=== PATIENT | female | born 1950 | race Caucasian/White ===

== ENCOUNTER 2016-04-05 13:35 | Inpatient (IN) ==
[2016-04-05] MEDS ORDERED: *HR* Midazolam HCl 5 MG/5 ML VIAL IVP ONE (15:45)
--- NOTE | 2016-04-05 16:28 | Pulmonology History & Physical ---
<Donna Richardson - Last Filed: 04/05/16 18:10> Date of Encounter: 04/05/16 Time of Encounter: 16:20 Assessment and Plan (1) Respiratory arrest Current visit: No Status: Acute Pt arrived at [facility] by private vehicle with decreased responsiveness Intubated at [facility] and subsequently transferred to [facility] She was given one dose of Rocephin in route to our facility Leukocytosis with WBC:11.4 Lactic acid 1.2 CTA demonstrated no evidence of pulmonary embolism, enlargement of the main pulmonary artery which is chronic, bilateral infiltrates and atelectatic changes worse in right lower lobe, no evidence of pleural disease, cardiomegaly and small pericardial effusion Head CT demonstrated no acute intracranial abnormality ET and OG tube placement confirmed with CXR and KUB. Sedated with Fentanyl and Propofol. 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 IVF hydration Repeat labs in morning (3) Diabetes Current visit: Yes Status: Acute Oral medications stopped SSI-medium dose at this time Continue to monitor glucose and make adjustments as needed Qualifiers: Diabetes mellitus type: type 2 Diabetes mellitus complication status: with unspecified complications Diabetes mellitus exterminator insulin use: with exterminator use Qualified Code(s): E11.8 - Type 2 diabetes mellitus with unspecified complications; Z79.4 - retirement (current) use of insulin (4) HTN (hypertension) Current visit: Yes Status: Acute Continue to monitor blood pressure Qualifiers: Hypertension type: essential hypertension Qualified Code(s): I10 - Essential (primary) hypertension (5) DVT prophylaxis Current visit: Yes Status: Acute Heparin SQ History of Present Illness Chief complaint: Respiratory arrest HPI: Ms. Vilchis is a 65 year old female with history, per family, significant for diabetes, HTN, Pacemaker placed 7 years ago due to AV conduction abnormality who presented to [facility] ED with decreased responsiveness. Family present on arrival and able to report events of this morning. Son went to pick pt up at her apartment, where she lives alone, to take her to a dentist appointment. Pt has difficulty walking long distances particularly over the last two weeks due to shortness of breath and she requires help to get in and out of vehicles. The son states that he was helping to get his mother in the car when she suddenly was unable to move herself at all. At that time, pt was still talking. Son reports that shortly after that, she was unable to talk, started drooling and her bottom lip started turning blue. At that time, pt rushed his mother to the ED where she was found to have decreased responsiveness. She was intubated at [facility]. CTA chest was completed which demonstrated no evidence of pulmonary emboli, enlargement of the main pulmonary artery which is chronic, bilateral infiltrates and atelectatic chnages worse in the right lower lobe, no evidence of pleural disease, cardiomegaly and small pericardial effusion. She was then transferred to [facility]. On arrival, pt was intubated, awake and moving all extremities. Past Med Surg Social Fam HX - Past Medical History Medical history: diabetes, hypertension - Social History Smoking Status: Unknown if ever smoked Smokeless Tobacco Status: No Medications and Allergies Atenolol [Tenormin] 25 mg PO DAILY 04/05/16 [History] Cyanocobalamin (Vitamin B-12) [Vitamin B-12] 1,000 mcg PO QAM 04/05/16 [History] Flecainide Acetate 150 mg PO QA 04/05/16 [History] Furosemide [Lasix] 40 mg PO DAILY 04/05/16 [History] Insulin DETEMIR [Levemir] 0 unit SQ HS 04/05/16 [History] Loratadine [Claritin] 10 mg PO QAM 04/05/16 [History] Lovastatin [Mevacor] 20 mg PO HS 04/05/16 [History] Metformin [Glucophage] 500 mg PO 0800 04/05/16 [History] Montelukast [Singulair] 10 mg PO HS 04/05/16 [History] SitaGLIPtin [Januvia] 100 mg PO DAILY 04/05/16 [History] Warfarin Sodium [Coumadin] 6 mg PO QAM 04/05/16 [History] Allergies No Known Allergies Allergy (Verified 02/09/15 08:14) ROS unobtainable: due to endotracheal tube All Systems: A 10-system review of systems was performed and is negative for pertinent findings except as documented above in the HPI. Physical Examination General appearance: no acute distress, other (Intubated, OG tube, pearce catheter in place) Eyes: nonicteric ENT: oropharynx moist Neck: supple Effort: other (Ventilator support) Auscultation: bilateral: rhonchi Cardiovascular: regular rate and rhythm, other (Pacemaker) Gastrointestinal: normoactive bowel sounds, soft, non-distended, other (obese) Extremities: cool (BLE cool to touch), cyanosis (Dusky discoloration of BLE) Musculoskeletal: no deformities Results - Laboratory Findings CBC and BMP: 04/05/16 16:17 04/05/16 16:17 Abnormal lab findings: Abnormal lab results POC Glucose 194 (58-89) H 04/05/16 15:57 <Nick Joshi W - Last Filed: 04/05/16 18:22> Date of Encounter: 04/05/16 History of Present Illness HPI: Ms. Vilchis is a 65 year old female Past Med Surg Social Fam HX - Family History Mother Adopted: No Age: 51 Living Status: Age at : 51 Cause of : cancer Hx Family Cancer: Yes All Systems: A 10-system review of systems was performed and is negative for pertinent findings except as documented above in the HPI. Physical Examination Vital Signs: Vital Signs, Last 4 Hours Temp Pulse Resp BP Pulse Ox 04/05/16 17:00 69 18 146/97 100 04/05/16 16:47 18 100 04/05/16 16:31 95.8 F L 69 17 146/90 100 04/05/16 16:24 100 04/05/16 16:00 95.8 F L 69 18 145/88 100 Results - Laboratory Findings CBC and BMP: 04/05/16 16:17 04/05/16 16:17 ABG ABG pH 7.37 pH Units (7.32-7.45) 04/05/16 17:15 ABG pCO2 42 mmHg (35-45) 04/05/16 17:15 ABG pO2 90 mmHg (85-104) 04/05/16 17:15 ABG O2 Saturation 97 % (95-98) 04/05/16 17:15 Abnormal lab findings: Abnormal lab results WBC 11.4 K/mcL (4.3-11.1) H 04/05/16 16:17 Hgb 10.6 g/dL (11.5-15.4) L 04/05/16 16:17 Hct 34.3 % (35.3-44.9) L 04/05/16 16:17 MCH 27.5 pg (28.0-33.3) L 04/05/16 16:17 MCHC 30.9 g/dL (31.6-35.5) L 04/05/16 16:17 Neutrophils # 9.5 K/mcL (1.6-8.9) H 04/05/16 16:17 Sodium 132 mEq/L (136-145) L 04/05/16 16:17 Potassium 5.2 mEq/L (3.5-4.5) H 04/05/16 16:17 BUN 26 mg/dL (7-20) H 04/05/16 16:17 Creatinine 1.27 mg/dL (0.57-1.11) H 04/05/16 16:17 Est GFR ( Amer) 51 (> 60) L 04/05/16 16:17 Est GFR (Non-Af Amer) 42 (> 60) L 04/05/16 16:17 Glucose 199 mg/dL (70-99) H 04/05/16 16:17 POC Glucose 194 (58-89) H 04/05/16 15:57 Serum Osmolality 302 mOsm/kg (280-300) H 04/05/16 16:17 Globulin 3.6 g/dL (2.4-3.5) H 04/05/16 16:17 Albumin/Globulin Ratio 1.0 (1.1-2.2) L 04/05/16 16:17 Salicylates < 5.0 mg/dL (15-30) L 04/05/16 16:17 Acetaminophen 1.0 mcg/mL (10-30) L 04/05/16 16:17 U Benzodiazepines Scrn Positive ng/mL (Ulzmuo=388) H 04/05/16 16:40 - Attending Attestation I examined this patient and my medical decision-making was reviewed with the MENTAL HEALTH PRACTITIONER/PA/Advanced Practice Nurse/Resident Physician. I agree with the documented findings, disposition and treatment plan as described except to the extent set forth below. I spent 35min of Critical Care time with this patient. It involved decision making of high complexity to assess, manipulate, and support vital organ system failure and/or to prevent further life threatening deterioration of the patient' s condition. The time involved in the performance of separately reportable procedures was not counted toward critical care time. Patient seen and examined at bedside Labs, radiology, chart personally reviewed. All lines examined without evidence of infection. Neuropsych: acutely unresponsive ?related to developing sepsis with SIDDHARTH and medication effect. Sedated on vent. Purposeful in all exts PEERL. No acute CVA on head CT. Personal hsitory of acute greiving without history of suicidal ideation or attempt per family. Called pharmacy to confirm medications and OARRS. Family to retrieve home medication bottles as able. History of Asthma as outpatient but has no caused significant problems in past and no wheezing on exam today Pulm: Acute respiratory failure now intubated on vent acceptable oxygenation/ ventilation on minimal ventilatory support. No PE or clear PNA. cont LTV ventilation strategy. History of EJ on CPAP. Cards: PPM placed for AV condution delay. no clear STEMI on ECG (LBBB morphology at baseline) and trop not significantly elevated. Hisory of HFpEF hemodynamically stable FEN-GI: NPO for now. GI prophylaxis. Renal: AGMA with SIDDHARTH. Lactate wnl and no DKA. urine panel otherwise unremarkable. No history of ingestions. resolving with improving SIDDHARTH with hydration. ID: Concern for Sepsis covering for CAP organisms broad cultures pending including respiratory infectious panel. Heme/Onc: Afib on LTA sub therapeutic. No bridge DVT prophylaxis for now. Endo: DM2 on Insulin glucose monitored Integ/MSK: No evidence of skin breakdown cont ICU protocol for ulcer prevention. CODE: DNRCCA confirmed with daughter who is HKPOA
[2016-04-05] MEDS: FentaNYL (PF) 1,000 MCG in 0.9 % Sodium Chloride 80 ML IVC SCH (16:30)
[2016-04-05] MEDS ORDERED: Naloxone 0.4 MG/ML INJ IVP PRN (16:46)
[2016-04-05 16:51] LABS: Ethanol < 10 mg/dL (0-10); Salicylate < 5.0 mg/dL (15-30)
[2016-04-05 17:00] LABS: Amphetamine Screen,Urine Negative ng/mL (Cutoff=1000); Barbiturate Screen,Urine Negative ng/mL (Cutoff=200); Benzodiazepines Screen,Urine Positive ng/mL (Cutoff=200); Cannabinoid Screen,Urine Negative ng/mL (Cutoff = 50); Cocaine Screen,Urine Negative ng/mL (Cutoff= 300); Opiate Screen,Urine Negative ng/mL (Cutoff=300); Phencyclidine Screen,Urine Negative ng/mL (Cutoff=25)
[2016-04-05] MEDS ORDERED: Azithromycin 500 MG in D5% in Water 250 ML IVPB SCH (17:00)
[2016-04-05] MEDS ORDERED: *HR* Dextrose 50 % in Water (Syg) 50 ML SYRINGE IVP PRN (17:02)
[2016-04-05] MEDS ORDERED: Dextrose Gel 15 GM PO PRN ×2 (17:02)
[2016-04-05] MEDS ORDERED: D5% in Water 1,000 ML IV PRN (17:02)
[2016-04-05 17:23] LABS: Basophils % 0.2 %; Eosinophils % 0.1 %; Hematocrit 34.3 % (35.3-44.9); Hemoglobin 10.6 g/dL (11.5-15.4); Immature Granulocytes % 0.4 % (0-4); Immature Platelets 3.3 % (1.1-6.1); Lymphocytes % 9.1 %; Mean Corpuscular HGB Conc 30.9 g/dL (31.6-35.5); Mean Corpuscular Hemoglobin 27.5 pg (28.0-33.3); Mean Corpuscular Volume 88.9 fL (83.0-100.0); Mean Platelet Volume 10.2 fL (9.4-12.4); Monocytes # 0.8 K/mcL (0.0-1.3); Monocytes % 6.8 %; Neutrophils # 9.5 K/mcL (1.6-8.9); Platelet Count 247 K/mcL (140-400); Red Blood Count 3.86 M/mcL (3.82-4.97); Red Cell Distribution Width 13.9 % (11.5-14.5); Segmented Neutrophils % 83.4 %
[2016-04-05 17:25] LABS: ABG HCO3 24.3 mEQ/L (21-27); ABG Oxygen Saturation 97 % (95-98); ABG PCO2 42 mmHg (35-45); ABG PH 7.37 pH Units (7.32-7.45); ABG PO2 90 mmHg (85-104); ABG TCO2 25.6 mEq/L (20-26)
[2016-04-05 17:25] LABS: Osmolality,Urine 728 mOsm/kg (300-1090)
[2016-04-05 17:26] LABS: Blood Gas FiO2 50 %
[2016-04-05 17:28] LABS: Carboxyhemoglobin 2.3 % (0-5); Methemoglobin 0.4 % (0.4-1.5)
[2016-04-05] MEDS ORDERED: Ringers Solution, Lactated 1,000 ML IVC SCH (17:30)
[2016-04-05 17:32] LABS: Alanine Aminotransferase 13 Units/L (0-55); Albumin 3.5 g/dL (3.5-5.0); Alkaline Phosphatase 76 Units/L (38-126); Aspartate Amino Transferase 17 Units/L (5-34); BUN/Creatinine Ratio 20 (6-26); Bilirubin,Total 0.5 mg/dL (0.2-1.2); Blood Urea Nitrogen 26 mg/dL (7-20); Carbon Dioxide 22 mEq/L (19-29); Chloride 101 mEq/L (98-109); Globulin 3.6 g/dL (2.4-3.5); Glucose 199 mg/dL (70-99); Osmolality,Calculated 284 (280-300); Potassium 5.2 mEq/L (3.5-4.5); Sodium 132 mEq/L (136-145); Total Protein 7.1 g/dL (6.0-8.3); eGFR For African Americans 51 (> 60); eGFR For Non-African Americans 42 (> 60)
[2016-04-05 18:26] LABS: Adenovirus Not Detected (Not Detect); Bordetella Pertussis Not Detected (Not Detect); Chlamydophila pneumoniae Not Detected (Not Detect); Coronavirus 229E Not Detected (Not Detect); Coronavirus HKU1 Not Detected (Not Detect); Coronavirus NL63 Not Detected (Not Detect); Coronavirus OC43 Not Detected (Not Detect); Human Metapneumovirus Not Detected (Not Detect); Human Rhinovirus/Enterovirus Not Detected (Not Detect); Influenza A Subtype 2009 H1 Not Detected (Not Detect); Influenza A Untypeable Not Detected (Not Detect); Influenza B Not Detected (Not Detect); Mycoplasma pneumoniae Not Detected (Not Detect); Parainfluenza Virus 1 Not Detected (Not Detect); Parainfluenza Virus 2 Not Detected (Not Detect); Parainfluenza Virus 3 Not Detected (Not Detect); Parainfluenza Virus 4 Not Detected (Not Detect); Respiratory Syncytial Virus Not Detected (Not Detect)
[2016-04-05] MEDS: Insulin LISPRO 300 UNITS/3 ML VIAL SQ SCH ×3 (19:00→23:49)
[2016-04-05] MEDS: 0.9 % Sodium Chloride 1,000 ML IVC SCH (20:03)
[2016-04-05] MEDS: Lacri-Lube 3.5 GM TUBE BOTH EYES SCH (20:03)
[2016-04-05] MEDS: Chlorhexidine Rinse 15 ML MOUTHWASH MM SCH (20:03)
[2016-04-05 21:21] LABS: Calcium 9.2 mg/dL (8.6-10.8)
[2016-04-05] MEDS: Ampicillin/Sulbactam 3,000 MG in 0.9 % Sodium Chloride Mini Bag 100 ML IVPB SCH (23:20)
[2016-04-05] MEDS: *HR* Heparin 5,000 UNIT/ML VIAL SQ SCH (23:20)
[2016-04-06 03:36] LABS: Basophils % 0.2 %; Eosinophils % 0.1 %; Hematocrit 32.2 % (35.3-44.9); Hemoglobin 10.3 g/dL (11.5-15.4); Immature Granulocytes % 0.3 % (0-4); Lymphocytes # 1.3 K/mcL (0.6-4.6); Lymphocytes % 10.5 %; Mean Corpuscular Hemoglobin 27.8 pg (28.0-33.3); Mean Corpuscular Volume 86.8 fL (83.0-100.0); Mean Platelet Volume 9.9 fL (9.4-12.4); Monocytes # 0.8 K/mcL (0.0-1.3); Monocytes % 6.7 %; Platelet Count 193 K/mcL (140-400); Red Blood Count 3.71 M/mcL (3.82-4.97); Red Cell Distribution Width 13.7 % (11.5-14.5); Segmented Neutrophils % 82.2 %
[2016-04-06 03:40] LABS: Ionized Calcium 1.12 mmol/L (1.15-1.35)
[2016-04-06 03:54] LABS: BUN/Creatinine Ratio 23 (6-26); Blood Urea Nitrogen 21 mg/dL (7-20); Calcium 8.7 mg/dL (8.6-10.8); Carbon Dioxide 20 mEq/L (19-29); Chloride 105 mEq/L (98-109); Glucose 92 mg/dL (70-99); Magnesium 1.6 mg/dL (1.6-2.6); Osmolality,Calculated 283 (280-300); Phosphorous 4.2 mg/dL (2.3-4.7); Potassium 4.7 mEq/L (3.5-4.5); Sodium 135 mEq/L (136-145); eGFR For African Americans > 60 (> 60); eGFR For Non-African Americans > 60 (> 60)
[2016-04-06 03:58] LABS: INR 1.7
[2016-04-06 04:01] LABS: Activated Partial Thrombo Time 29.3 Seconds (26.0-36.0)
[2016-04-06] MEDS: 0.9 % Sodium Chloride 1,000 ML IVC SCH (04:16)
[2016-04-06] MEDS: Insulin LISPRO 300 UNITS/3 ML VIAL SQ SCH ×5 (04:59→21:37)
[2016-04-06 05:18] LABS: ABG Base Excess 0.8 mEq/L (-2.0 to 3.0); ABG Oxygen Saturation 98 % (95-98); ABG PCO2 43 mmHg (35-45); ABG PH 7.39 pH Units (7.32-7.45); ABG PO2 99 mmHg (85-104); ABG TCO2 27.3 mEq/L (20-26)
[2016-04-06 05:19] LABS: Blood Gas FiO2 40 %
[2016-04-06] MEDS: FentaNYL (PF) 1,000 MCG in 0.9 % Sodium Chloride 80 ML IVC SCH (05:36)
[2016-04-06] MEDS: *HR* Heparin 5,000 UNIT/ML VIAL SQ SCH ×2 (06:05→17:23)
[2016-04-06] MEDS: Ampicillin/Sulbactam 3,000 MG in 0.9 % Sodium Chloride Mini Bag 100 ML IVPB SCH (06:05)
--- NOTE | 2016-04-06 06:55 | Pulmonology Progress Note ---
<Donna Richardson - Last Filed: 04/06/16 11:31> Date of Encounter: 04/06/16 Time of Encounter: 06:40 Assessment and Plan (1) Respiratory arrest Current Visit: No Status: Acute Pt arrived at [place] ED by private vehicle with decreased responsiveness Intubated at [place] and subsequently transferred to [facility] She was given one dose of Rocephin in route to our facility Leukocytosis with WBC:12.2 CTA demonstrated no evidence of pulmonary embolism, enlargement of the main pulmonary artery which is chronic, bilateral infiltrates and atelectatic changes worse in right lower lobe, no evidence of pleural disease, cardiomegaly and small pericardial effusion Head CT demonstrated no acute intracranial abnormality ET and OG tube placement confirmed with CXR and KUB. 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 IVF hydration with NS at 125/hr overnight Protonix for GI prophylaxis SIDDHARTH on arrival, IVF overnight, creatinine 0.9 this morning, continue to monitor with repeat labs in morning Unasyn and Azithromycin for empirical antibiotic coverage Hgb stable at 10.3 SSI-medium dose, continue to monitor glucose and make adjustments as necessary (2) SIDDHARTH (acute kidney injury) Current Visit: Yes Status: Acute Creatinine 0.9 today after IVF rehydration overnight Repeat labs in morning (3) Diabetes Current Visit: Yes Status: Acute Oral medications stopped SSI-medium dose at this time Continue to monitor glucose and make adjustments as needed Qualifiers: Diabetes mellitus type: type 2 Diabetes mellitus complication status: with unspecified complications Diabetes mellitus regional intermodal truck driver insulin use: with regional intermodal truck driver use Qualified Code(s): E11.8 - Type 2 diabetes mellitus with unspecified complications; Z79.4 - extermination supervisor (current) use of insulin (4) HTN (hypertension) Current Visit: Yes Status: Acute Continue to monitor blood pressure Qualifiers: Hypertension type: essential hypertension Qualified Code(s): I10 - Essential (primary) hypertension (5) DVT prophylaxis Current Visit: Yes Status: Acute Chronically anticoagulated on coumadin INR:1.7 today Will restart coumadin today with a 2mg dose and recheck INR in the morning Subjective Principal diagnosis: Acute Respiratory Failure Interval history: Pt is intubated and sedated. She is able to open her eyes, respond to questioning by nodding head, and move all extremities. Objective PUL Vital signs: Last Vital Signs Temp 98.4 F 04/06/16 04:18 Pulse 69 04/06/16 06:00 Resp 18 04/06/16 06:00 BP 104/60 04/06/16 06:00 Pulse Ox 97 04/06/16 06:00 General appearance: no acute distress, other (Intubated, OG tube and Garcia catheter in place) Eyes: nonicteric ENT: oropharynx moist Neck: supple Effort: other (Ventilator support) Auscultation: bilateral: rhonchi Cardiovascular: other (Paced rhythm) Gastrointestinal: normoactive bowel sounds, soft, non-tender, other (obesees) Extremities: no clubbing, pink and warm, pulses normal, edema (2+ edema BLE ) Musculoskeletal: no deformities Ventilator Settings Ventilator Settings: Ventilator Settings, Last 8 Hours Ventilator Mode A/C Ventilator Mode A/C Ventilator Mode A/C Ventilator Mode A/C Ventilator Mode A/C Ventilator Mode A/C Ventilator Mode A/C Ventilator Mode A/C Ventilator Mode A/C Ventilator Mode A/C Ventilator Mode A/C Ventilator Tidal Volume 400 Setting Ventilator Tidal Volume 400 Setting Ventilator Tidal Volume 400 Setting Ventilator Tidal Volume 400 Setting Ventilator Tidal Volume 400 Setting Ventilator Tidal Volume 400 Setting Ventilator Tidal Volume 400 Setting Ventilator Tidal Volume 400 Setting Ventilator Tidal Volume 400 Setting Ventilator Tidal Volume 400 Setting Ventilator Tidal Volume 400 Setting Ventilator Respiratory Rate 18 Setting Ventilator Respiratory Rate 18 Setting Ventilator Respiratory Rate 18 Setting Ventilator Respiratory Rate 18 Setting Ventilator Respiratory Rate 18 Setting Ventilator Respiratory Rate 18 Setting Ventilator Respiratory Rate 18 Setting Ventilator Respiratory Rate 18 Setting Ventilator Respiratory Rate 18 Setting Ventilator Respiratory Rate 18 Setting Ventilator Respiratory Rate 18 Setting Actual Respiratory Rate 18 Actual Respiratory Rate 18 Actual Respiratory Rate 31 Positive End Expiratory 5 Pressure Positive End Expiratory 5 Pressure Positive End Expiratory 5 Pressure Positive End Expiratory 5 Pressure Positive End Expiratory 5 Pressure Positive End Expiratory 5 Pressure Positive End Expiratory 5 Pressure Positive End Expiratory 5 Pressure Positive End Expiratory 5 Pressure Positive End Expiratory 5 Pressure Positive End Expiratory 5 Pressure Peak Inspiratory Airway 24 Pressure Peak Inspiratory Airway 35 Pressure Peak Inspiratory Airway 34 Pressure Results - Laboratory Findings CBC and BMP: 04/06/16 03:25 04/06/16 03:25 ABG ABG pH 7.39 pH Units (7.32-7.45) 04/06/16 05:10 ABG pCO2 43 mmHg (35-45) 04/06/16 05:10 ABG pO2 99 mmHg (85-104) 04/06/16 05:10 ABG O2 Saturation 98 % (95-98) 04/06/16 05:10 PT/INR, D-dimer PT 19.0 Seconds (9.4-12.1) H 04/06/16 03:25 Abnormal lab findings: Abnormal lab results WBC 12.2 K/mcL (4.3-11.1) H 04/06/16 03:25 RBC 3.71 M/mcL (3.82-4.97) L 04/06/16 03:25 Hgb 10.3 g/dL (11.5-15.4) L 04/06/16 03:25 Hct 32.2 % (35.3-44.9) L 04/06/16 03:25 MCH 27.8 pg (28.0-33.3) L 04/06/16 03:25 Neutrophils # 10.0 K/mcL (1.6-8.9) H 04/06/16 03:25 PT 19.0 Seconds (9.4-12.1) H 04/06/16 03:25 ABG Total CO2 27.3 mEq/L (20-26) H 04/06/16 05:10 Sodium 135 mEq/L (136-145) L 04/06/16 03:25 Potassium 4.7 mEq/L (3.5-4.5) H 04/06/16 03:25 BUN 21 mg/dL (7-20) H 04/06/16 03:25 POC Glucose 98 (58-89) H 04/06/16 04:52 Serum Osmolality 302 mOsm/kg (280-300) H 04/05/16 16:17 Ionized Calcium 1.12 mmol/L (1.15-1.35) L 04/06/16 03:25 Globulin 3.6 g/dL (2.4-3.5) H 04/05/16 16:17 Albumin/Globulin Ratio 1.0 (1.1-2.2) L 04/05/16 16:17 Salicylates < 5.0 mg/dL (15-30) L 04/05/16 16:17 Acetaminophen 1.0 mcg/mL (10-30) L 04/05/16 16:17 U Benzodiazepines Scrn Positive ng/mL (Dlaofm=378) H 04/05/16 16:40 - Clinical Findings Intake & Output: Intake & Output 04/05/16 04/05/16 04/06/16 15:59 23:59 07:59 Intake Total 317.8 / 317.8 1334.2 / 1334.2 Output Total 290 / 290 300 / 300 Balance 27.8 / 27.8 1034.2 / 1034.2 Weight 137.5 kg 139.979 kg Consult Discharge Plan - Plan Referrals: NO,PCP [Primary Care Provider] - <Nick Joshi - Last Filed: 04/06/16 13:38> Date of Encounter: 04/06/16 Objective PUL Vital signs: Last Vital Signs Temp 98.6 F 04/06/16 07:50 Pulse 70 04/06/16 08:00 Resp 25 04/06/16 08:18 BP 134/71 04/06/16 08:00 Pulse Ox 100 04/06/16 08:54 Ventilator Settings Ventilator Settings: Ventilator Settings, Last 8 Hours Ventilator Mode A/C Ventilator Mode A/C Ventilator Mode A/C Ventilator Mode A/C Ventilator Mode A/C Ventilator Mode A/C Ventilator Mode A/C Ventilator Mode A/C Ventilator Mode A/C Ventilator Mode A/C Ventilator Tidal Volume 400 Setting Ventilator Tidal Volume 400 Setting Ventilator Tidal Volume 400 Setting Ventilator Tidal Volume 400 Setting Ventilator Tidal Volume 400 Setting Ventilator Tidal Volume 400 Setting Ventilator Tidal Volume 400 Setting Ventilator Tidal Volume 400 Setting Ventilator Tidal Volume 400 Setting Ventilator Tidal Volume 400 Setting Ventilator Respiratory Rate 18 Setting Ventilator Respiratory Rate 18 Setting Ventilator Respiratory Rate 18 Setting Ventilator Respiratory Rate 18 Setting Ventilator Respiratory Rate 18 Setting Ventilator Respiratory Rate 18 Setting Ventilator Respiratory Rate 18 Setting Ventilator Respiratory Rate 18 Setting Ventilator Respiratory Rate 18 Setting Ventilator Respiratory Rate 18 Setting Actual Respiratory Rate 18 Actual Respiratory Rate 18 Actual Respiratory Rate 28 Actual Respiratory Rate 18 Actual Respiratory Rate 18 Positive End Expiratory 5 Pressure Positive End Expiratory 5 Pressure Positive End Expiratory 5 Pressure Positive End Expiratory 5 Pressure Positive End Expiratory 5 Pressure Positive End Expiratory 5 Pressure Positive End Expiratory 5 Pressure Positive End Expiratory 5 Pressure Positive End Expiratory 5 Pressure Positive End Expiratory 5 Pressure Peak Inspiratory Airway 14 Pressure Peak Inspiratory Airway 29 Pressure Peak Inspiratory Airway 38 Pressure Peak Inspiratory Airway 24 Pressure Peak Inspiratory Airway 35 Pressure Results - Laboratory Findings CBC and BMP: 04/06/16 03:25 04/06/16 03:25 ABG ABG pH 7.39 pH Units (7.32-7.45) 04/06/16 05:10 ABG pCO2 43 mmHg (35-45) 04/06/16 05:10 ABG pO2 99 mmHg (85-104) 04/06/16 05:10 ABG O2 Saturation 98 % (95-98) 04/06/16 05:10 PT/INR, D-dimer PT 19.0 Seconds (9.4-12.1) H 04/06/16 03:25 Abnormal lab findings: Abnormal lab results WBC 12.2 K/mcL (4.3-11.1) H 04/06/16 03:25 RBC 3.71 M/mcL (3.82-4.97) L 04/06/16 03:25 Hgb 10.3 g/dL (11.5-15.4) L 04/06/16 03:25 Hct 32.2 % (35.3-44.9) L 04/06/16 03:25 MCH 27.8 pg (28.0-33.3) L 04/06/16 03:25 Neutrophils # 10.0 K/mcL (1.6-8.9) H 04/06/16 03:25 PT 19.0 Seconds (9.4-12.1) H 04/06/16 03:25 ABG Total CO2 27.3 mEq/L (20-26) H 04/06/16 05:10 Sodium 135 mEq/L (136-145) L 04/06/16 03:25 Potassium 4.7 mEq/L (3.5-4.5) H 04/06/16 03:25 BUN 21 mg/dL (7-20) H 04/06/16 03:25 POC Glucose 126 (58-89) H 04/06/16 07:58 Serum Osmolality 302 mOsm/kg (280-300) H 04/05/16 16:17 Ionized Calcium 1.12 mmol/L (1.15-1.35) L 04/06/16 03:25 Globulin 3.6 g/dL (2.4-3.5) H 04/05/16 16:17 Albumin/Globulin Ratio 1.0 (1.1-2.2) L 04/05/16 16:17 Salicylates < 5.0 mg/dL (15-30) L 04/05/16 16:17 Acetaminophen 1.0 mcg/mL (10-30) L 04/05/16 16:17 U Benzodiazepines Scrn Positive ng/mL (Ngzapp=471) H 04/05/16 16:40 - Clinical Findings Intake & Output: Intake & Output 04/05/16 04/06/16 04/06/16 23:59 07:59 15:59 Intake Total 317.8 / 317.8 1334.2 / 1334.2 Output Total 290 / 290 400 / 400 Balance 27.8 / 27.8 934.2 / 934.2 Weight 137.5 kg 139.979 kg - Attending Attestation I examined this patient and my medical decision-making was reviewed with the SUPPLEMENTAL NURSE/PA/Advanced Practice Nurse/Resident Physician. I agree with the documented findings, disposition and treatment plan as described except to the extent set forth below. Patient seen and examined at bedside Labs, radiology, chart personally reviewed. All lines examined without evidence of infection. Neuropsych: somnolence likely medication affect coupled with siddharth. No fully awake and alert. 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 Liberaed from vent. Doing well on 2LNC wean to goal Spo2% approx 92-94%. Start Bronchodilators History of EJ cont CPAP at night. Cards: PPM placed for AV condution delay. no clear STEMI on ECG (LBBB morphology at baseline) and trop not significantly elevated. Hisory of HFpEF hemodynamically stable FEN-GI: ADAT Renal: AGMA with SIDDHARTH (and mild osmolar gap) resolved with fluids ID: Concern for Sepsis possible s/t to dental infection. deescalate to Augmentin pending eval by dentist Heme/Onc: Afib on LTA sub therapeutic. No bridge DVT prophylaxis for now. Restart warfarin Endo: DM2 on Insulin glucose monitored Integ/MSK: No evidence of skin breakdown cont ICU protocol for ulcer prevention. CODE: DNRCCA Medically stable for transfer to [facility]
[2016-04-06] MEDS: Lacri-Lube 3.5 GM TUBE BOTH EYES SCH (08:16)
[2016-04-06] MEDS: Chlorhexidine Rinse 15 ML MOUTHWASH MM SCH (08:16)
[2016-04-06] MEDS ORDERED: *HR* Warfarin 2 MG TABLET PO ONE ×3 (08:27→18:00)
[2016-04-06] MEDS ORDERED: Ipratropium/Albuterol Neb 3 ML ONE (08:41)
[2016-04-06] MEDS ORDERED: Pantoprazole 40 MG VIAL IVPB SCH (09:00)
[2016-04-06] MEDS ORDERED: Ipratropium/Albuterol Neb 3 ML IH SCH (10:00)
[2016-04-06] MEDS ORDERED: *HR* Morphine 2 MG/ML SYRINGE IVP PRN ×2 (11:10→13:33)
[2016-04-06] MEDS ORDERED: *HR* HYDROcodone/Acet 5/325 mg TABLET PO PRN ×2 (11:11→13:33)
[2016-04-06] MEDS ORDERED: D5% in Water 1,000 ML IV PRN (13:33)
[2016-04-06] MEDS ORDERED: *HR* Dextrose 50 % in Water (Syg) 50 ML SYRINGE IVP PRN (13:33)
[2016-04-06] MEDS ORDERED: Dextrose Gel 15 GM PO PRN ×2 (13:33)
[2016-04-06] MEDS ORDERED: Naloxone 0.4 MG/ML INJ IVP PRN (13:33)
[2016-04-06] MEDS: Ipratropium/Albuterol Neb 3 ML IH SCH (16:18)
--- NOTE | 2016-04-06 16:50 | Electrocardiograph Report ---
[place] [id number] Test Date: 2016-04-05 Pat Name: Marixa Vilchis Department: 109 Room: [facility] Gender: F Machine Former: : 1950 Requested By: Donna Richardson Order Number: [id number] Reading MD: Lyndsey Landon Measurements Intervals [place] Rate: 69 P: 89 AK: 140 QRS: 142 QRSD: 93 T: 105 QT: 399 QTc: 419 Interpretive Statements AV SEQUENTIAL OR DUAL CHAMBER ELECTRONIC PACEMAKER Electronically Signed On 04-06-2016 16:48:59 EST by Lyndsey Landon
[2016-04-07] MEDS: *HR* Heparin 5,000 UNIT/ML VIAL SQ SCH ×4 (00:04→23:59)
[2016-04-07] MEDS: Ipratropium/Albuterol Neb 3 ML IH SCH ×5 (00:12→20:12)
[2016-04-07] MEDS: Insulin LISPRO 300 UNITS/3 ML VIAL SQ SCH ×6 (01:01→21:05)
[2016-04-07 06:59] LABS: Basophils % 0.1 %; Eosinophils # 0.1 K/mcL (0.0-0.6); Eosinophils % 0.7 %; Hematocrit 30.8 % (35.3-44.9); Hemoglobin 9.4 g/dL (11.5-15.4); Immature Granulocytes % 0.4 % (0-4); Lymphocytes # 1.4 K/mcL (0.6-4.6); Lymphocytes % 20.2 %; Mean Corpuscular HGB Conc 30.5 g/dL (31.6-35.5); Mean Corpuscular Hemoglobin 27.4 pg (28.0-33.3); Mean Corpuscular Volume 89.8 fL (83.0-100.0); Monocytes # 0.6 K/mcL (0.0-1.3); Monocytes % 9.5 %; Neutrophils # 4.7 K/mcL (1.6-8.9); Platelet Count 170 K/mcL (140-400); Red Blood Count 3.43 M/mcL (3.82-4.97); Red Cell Distribution Width 14.2 % (11.5-14.5); Segmented Neutrophils % 69.1 %
[2016-04-07 07:01] LABS: INR 1.9; Prothrombin Time 21.2 Seconds (9.4-12.1)
[2016-04-07 07:11] LABS: BUN/Creatinine Ratio 19 (6-26); Blood Urea Nitrogen 20 mg/dL (7-20); Carbon Dioxide 21 mEq/L (19-29); Chloride 105 mEq/L (98-109); Glucose 203 mg/dL (70-99); Osmolality,Calculated 290 (280-300); Potassium 4.7 mEq/L (3.5-4.5); Sodium 136 mEq/L (136-145); eGFR For African Americans > 60 (> 60); eGFR For Non-African Americans 51 (> 60)
--- NOTE | 2016-04-07 18:20 | Internal Med Progress Note ---
Date of Encounter: 04/07/16 Time of Encounter: 18:13 - Assessment and plan (1) SIDDHARTH (acute kidney injury) Current Visit: Yes Status: Acute Assessment and plan: resolved. 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 was intubated at [place] and was admitted to AICU. she was extubated yesterday and was transferred to floors yesterday. given mild wheezing, will increase the duonebs frequency. sating fine on 2-3 L. Leukocytosis has improved. Antibiotics has been D escalated to augmentin. (5) Atrial fibrillation Current Visit: Yes Status: Acute Assessment and plan: rate controlled on flecainide,will continue that. will restart warfarin today. Qualifiers: Atrial fibrillation type: chronic Qualified Code(s): I48.2 - Chronic atrial fibrillation (6) EJ (obstructive sleep apnea) Current Visit: Yes Status: Acute Assessment and plan: on CPAP at night. will consult respiratory for CPAP placement at night. - Time Spent With Patient 25 - 35 minutes - Subjective Interval history: First encounter with the patient. Patient seen at the bedside, noted to speaking in short sentences and appears dyspneic Denies any chest pain, reports that she is coughing and bringing up productive sputum. - Constitutional Vitals: Temp Pulse Resp BP Pulse Ox 98.2 F 71 19 132/77 96 04/07/16 16:07 04/07/16 16:07 04/07/16 16:07 04/07/16 16:07 04/07/16 16:07 General appearance: Present: mild distress, A&O X 3 Exam: Eyes: nonicteric ENT: oropharynx moist Neck: supple Auscultation: bilateral: rhonchi Cardiovascular: other (Paced rhythm) Gastrointestinal: normoactive bowel sounds, soft, non-tender, other (obesees) Extremities: no clubbing, pink and warm, pulses normal, edema (2+ edema BLE ) Musculoskeletal: no deformities Internal Medicine: Result - Labs CBC & Chem 7: 04/07/16 06:31 04/07/16 06:31 Labs: Short CBC 04/07/16 Range/Units 06:31 WBC 6.7 (4.3-11.1) K/mcL Hgb 9.4 L (11.5-15.4) g/dL Hct 30.8 L (35.3-44.9) % Plt Count 170 (140-400) K/mcL Neutrophils # 4.7 (1.6-8.9) K/mcL BMP 04/07/16 06:31 Sodium 136 Potassium 4.7 H Chloride 105 Carbon Dioxide 21 BUN 20 Creatinine 1.08 Glucose 203 H Calcium 9.0 - ABG Interpretation ABG results: ABG ABG pH 7.39 pH Units (7.32-7.45) 04/06/16 05:10 ABG pCO2 43 mmHg (35-45) 04/06/16 05:10 ABG pO2 99 mmHg (85-104) 04/06/16 05:10 ABG O2 Saturation 98 % (95-98) 04/06/16 05:10 PT/INR, D-dimer PT 21.2 Seconds (9.4-12.1) H 04/07/16 06:31 Consult Discharge Plan - Plan Referrals: NO,PCP [Primary Care Provider] -
[2016-04-07] MEDS: *HR* Warfarin 2.5 MG TABLET PO SCH (21:04)
[2016-04-08] MEDS: Ipratropium/Albuterol Neb 3 ML IH SCH ×6 (00:13→20:43)
[2016-04-08] MEDS: Insulin LISPRO 300 UNITS/3 ML VIAL SQ SCH ×6 (00:41→21:35)
[2016-04-08 08:29] LABS: Basophils % 0.2 %; Eosinophils # 0.1 K/mcL (0.0-0.6); Eosinophils % 0.8 %; Hematocrit 31.7 % (35.3-44.9); Hemoglobin 9.8 g/dL (11.5-15.4); Immature Granulocytes % 0.6 % (0-4); Lymphocytes # 1.3 K/mcL (0.6-4.6); Lymphocytes % 15.2 %; Mean Corpuscular HGB Conc 30.9 g/dL (31.6-35.5); Mean Corpuscular Hemoglobin 26.9 pg (28.0-33.3); Mean Corpuscular Volume 87.1 fL (83.0-100.0); Mean Platelet Volume 9.2 fL (9.4-12.4); Monocytes # 0.8 K/mcL (0.0-1.3); Monocytes % 9.7 %; Neutrophils # 6.2 K/mcL (1.6-8.9); Platelet Count 198 K/mcL (140-400); Red Blood Count 3.64 M/mcL (3.82-4.97); Red Cell Distribution Width 14.1 % (11.5-14.5); Segmented Neutrophils % 73.5 %
[2016-04-08 08:42] LABS: BUN/Creatinine Ratio 18 (6-26); Blood Urea Nitrogen 16 mg/dL (7-20); Calcium 9.5 mg/dL (8.6-10.8); Carbon Dioxide 23 mEq/L (19-29); Chloride 105 mEq/L (98-109); Glucose 155 mg/dL (70-99); Osmolality,Calculated 290 (280-300); Potassium 4.8 mEq/L (3.5-4.5); Sodium 138 mEq/L (136-145); eGFR For African Americans > 60 (> 60); eGFR For Non-African Americans > 60 (> 60)
[2016-04-08] MEDS: *HR* Heparin 5,000 UNIT/ML VIAL SQ SCH ×3 (08:59→22:46)
--- NOTE | 2016-04-08 13:04 | Internal Med Progress Note ---
Date of Encounter: 04/08/16 Time of Encounter: 13:02 - Assessment and plan (1) SIDDHARTH (acute kidney injury) Current Visit: Yes Status: Acute Assessment and plan: resolved. 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 was intubated at [place] and was admitted to AICU. she was extubated and was transferred to floors . sating fine on 2-3 L. Leukocytosis has improved. Antibiotics has been D escalated to augmentin. (5) Atrial fibrillation Current Visit: Yes Status: Acute Assessment and plan: rate controlled on flecainide,will continue that. restarted warfarin Qualifiers: Atrial fibrillation type: chronic Qualified Code(s): I48.2 - Chronic atrial fibrillation (6) EJ (obstructive sleep apnea) Current Visit: Yes Status: Acute Assessment and plan: on CPAP at night. will consult respiratory for CPAP placement at night. (7) (HFpEF) heart failure with preserved ejection fraction Current Visit: Yes Status: Acute Assessment and plan: h/o HFpEF normal LVEF will restart her home dose of lasix. has b/l lower leg swelling , does not have pulmonary congestion at this time. continue the BB and statin - Time Spent With Patient 25 - 35 minutes - Subjective Interval history: Patient seen at the bedside, appears much better today. Denies any chest pain, reports that she is coughing and bringing up productive sputum. - Constitutional Vitals: Temp Pulse Resp BP Pulse Ox 98.1 F 74 18 138/80 95 04/08/16 11:51 04/08/16 11:51 04/08/16 11:51 04/08/16 11:51 04/08/16 11:51 General appearance: Present: A&O X 3, no acute distress Exam: Eyes: nonicteric ENT: oropharynx moist Neck: supple Auscultation: bilateral: occ rhonchi Cardiovascular: other (Paced rhythm) Gastrointestinal: normoactive bowel sounds, soft, non-tender, other (obesees) Extremities: no clubbing, pink and warm, pulses normal, edema (2+ edema BLE ) Musculoskeletal: no deformities Internal Medicine: Result - Labs CBC & Chem 7: 04/08/16 08:10 04/08/16 08:18 Labs: Short CBC 04/08/16 Range/Units 08:10 WBC 8.4 (4.3-11.1) K/mcL Hgb 9.8 L (11.5-15.4) g/dL Hct 31.7 L (35.3-44.9) % Plt Count 198 (140-400) K/mcL Neutrophils # 6.2 (1.6-8.9) K/mcL BMP 04/08/16 08:18 Sodium 138 Potassium 4.8 H Chloride 105 Carbon Dioxide 23 BUN 16 Creatinine 0.90 Glucose 155 H Calcium 9.5 - ABG Interpretation ABG results: ABG ABG pH 7.39 pH Units (7.32-7.45) 04/06/16 05:10 ABG pCO2 43 mmHg (35-45) 04/06/16 05:10 ABG pO2 99 mmHg (85-104) 04/06/16 05:10 ABG O2 Saturation 98 % (95-98) 04/06/16 05:10 PT/INR, D-dimer PT 21.2 Seconds (9.4-12.1) H 04/07/16 06:31 Consult Discharge Plan - Plan Referrals: NO,PCP [Primary Care Provider] -
[2016-04-08] MEDS: Furosemide 40 MG TABLET PO SCH (13:12)
[2016-04-08] MEDS ORDERED: traZODone 50 MG TABLET PO PRN (13:24)
[2016-04-08] MEDS: *HR* Warfarin 2.5 MG TABLET PO SCH (17:22)
[2016-04-09] MEDS: Ipratropium/Albuterol Neb 3 ML IH SCH ×6 (00:28→20:04)
[2016-04-09] MEDS: Insulin LISPRO 300 UNITS/3 ML VIAL SQ SCH ×6 (01:15→22:00)
[2016-04-09] MEDS: *HR* Heparin 5,000 UNIT/ML VIAL SQ SCH (06:19)
[2016-04-09 06:57] LABS: BUN/Creatinine Ratio 15 (6-26); Blood Urea Nitrogen 13 mg/dL (7-20); Calcium 9.3 mg/dL (8.6-10.8); Carbon Dioxide 26 mEq/L (19-29); Chloride 103 mEq/L (98-109); Glucose 137 mg/dL (70-99); Osmolality,Calculated 288 (280-300); Potassium 4.5 mEq/L (3.5-4.5); Sodium 138 mEq/L (136-145); eGFR For African Americans > 60 (> 60); eGFR For Non-African Americans > 60 (> 60)
[2016-04-09 07:22] LABS: Basophils % 0.2 %; Eosinophils # 0.1 K/mcL (0.0-0.6); Eosinophils % 1.4 %; Hematocrit 29.9 % (35.3-44.9); Hemoglobin 9.2 g/dL (11.5-15.4); Immature Granulocytes % 0.4 % (0-4); Lymphocytes # 1.1 K/mcL (0.6-4.6); Lymphocytes % 14.2 %; Mean Corpuscular HGB Conc 30.8 g/dL (31.6-35.5); Mean Corpuscular Volume 87.7 fL (83.0-100.0); Mean Platelet Volume 10.1 fL (9.4-12.4); Monocytes # 0.8 K/mcL (0.0-1.3); Monocytes % 9.7 %; Platelet Count 219 K/mcL (140-400); Red Blood Count 3.41 M/mcL (3.82-4.97); Red Cell Distribution Width 14.1 % (11.5-14.5); Segmented Neutrophils % 74.1 %
[2016-04-09] MEDS: Furosemide 40 MG TABLET PO SCH (09:18)
[2016-04-09 10:37] LABS: Prothrombin Time 21.5 Seconds (9.4-12.1)
[2016-04-09] MEDS ORDERED: Acetaminophen 325 MG TABLET PO PRN (14:29)
[2016-04-09] MEDS ORDERED: *HR* HYDROcodone/Acet 5/325 mg TABLET PO PRN (14:32)
[2016-04-09] MEDS: *HR* Warfarin 2.5 MG TABLET PO SCH (17:08)
--- NOTE | 2016-04-09 17:13 | Internal Med Progress Note ---
Date of Encounter: 04/09/16 Time of Encounter: 17:11 - Assessment and plan (1) SIDDHARTH (acute kidney injury) Current Visit: Yes Status: Acute Assessment and plan: resolved. 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 was intubated at [facility] [facility] and was admitted to AICU. she was extubated and was transferred to floors . sating fine on 2-3 L. Leukocytosis has improved. Antibiotics has been D escalated to augmentin. (5) Atrial fibrillation Current Visit: Yes Status: Acute Assessment and plan: rate controlled on flecainide and atenolol, will continue that. restarted warfarin, INR therapeutic at 2 today. Qualifiers: Atrial fibrillation type: chronic Qualified Code(s): I48.2 - Chronic atrial fibrillation (6) EJ (obstructive sleep apnea) Current Visit: Yes Status: Acute Assessment and plan: on CPAP at night when necessary at home. CPAP at bedtime. (7) (HFpEF) heart failure with preserved ejection fraction Current Visit: Yes Status: Acute Assessment and plan: h/o HFpEF normal LVEF will restart her home dose of lasix. Lower leg swelling has improved , does not have pulmonary congestion at this time. continue the BB and statin - Time Spent With Patient 25 - 35 minutes - Subjective Interval history: Patient seen at the bedside, appears much better today. Denies any chest pain, reports mild cough, the edema has improved. Seen by PT OT, who recommended discharge to [facility], patient requested to go to [place]. Awaiting clearance by social work. - Constitutional Vitals: Temp Pulse Resp BP Pulse Ox 98.3 F 68 20 118/70 95 04/09/16 16:55 04/09/16 16:55 04/09/16 16:55 02/13/17 16:55 04/09/16 16:55 General appearance: Present: A&O X 3, no acute distress Exam: Eyes: nonicteric ENT: oropharynx moist Neck: supple Auscultation: bilateral: occ rhonchi Cardiovascular: other (Paced rhythm) Gastrointestinal: normoactive bowel sounds, soft, non-tender, no organomegaly. Extremities: no clubbing, pink and warm, pulses normal, no edema Internal Medicine: Result - Labs CBC & Chem 7: 04/09/16 06:14 04/09/16 06:14 Labs: Short CBC 04/09/16 Range/Units 06:14 WBC 8.1 (4.3-11.1) K/mcL Hgb 9.2 L (11.5-15.4) g/dL Hct 29.9 L (35.3-44.9) % Plt Count 219 (140-400) K/mcL Neutrophils # 6.0 (1.6-8.9) K/mcL BMP 04/09/16 06:14 Sodium 138 Potassium 4.5 Chloride 103 Carbon Dioxide 26 BUN 13 Creatinine 0.84 Glucose 137 H Calcium 9.3 - ABG Interpretation ABG results: ABG ABG pH 7.39 pH Units (7.32-7.45) 04/06/16 05:10 ABG pCO2 43 mmHg (35-45) 04/06/16 05:10 ABG pO2 99 mmHg (85-104) 04/06/16 05:10 ABG O2 Saturation 98 % (95-98) 04/06/16 05:10 PT/INR, D-dimer PT 21.5 Seconds (9.4-12.1) H 04/09/16 10:25 Consult Discharge Plan - Plan Referrals: NO,PCP [Primary Care Provider] -
[2016-04-09] MEDS ORDERED: Insulin DETEMIR 100 UNIT/ML X5UNITS SQ SCH (21:00)
[2016-04-10] MEDS: Ipratropium/Albuterol Neb 3 ML IH SCH ×6 (00:20→21:32)
[2016-04-10 06:38] LABS: INR 2.4; Prothrombin Time 26.2 Seconds (9.4-12.1)
[2016-04-10] MEDS ORDERED: Furosemide 40 MG TABLET PO SCH (09:12)
[2016-04-10] MEDS ORDERED: Furosemide 20 MG TABLET PO SCH (09:12)
[2016-04-10] MEDS: Insulin LISPRO 300 UNITS/3 ML VIAL SQ SCH ×4 (09:18→20:52)
[2016-04-10] MEDS: Furosemide 40 MG TABLET PO SCH (09:31)
[2016-04-10] MEDS ORDERED: clonazePAM 0.5 MG TABLET PO PRN (13:45)
--- NOTE | 2016-04-10 15:25 | Discharge Summary ---
Date of Encounter: 04/10/16 Time of Encounter: 08:35 - Discharge Diagnosis (1) Respiratory arrest Priority: Primary Status: Acute (2) (HFpEF) heart failure with preserved ejection fraction Priority: Secondary Status: Acute (3) SIDDHARTH (acute kidney injury) Priority: Secondary Status: Acute (4) Atrial fibrillation Priority: Secondary Status: Acute Qualifiers: Atrial fibrillation type: chronic Qualified Code(s): I48.2 - Chronic atrial fibrillation (5) Diabetes Priority: Secondary Status: Acute Qualifiers: Diabetes mellitus type: type 2 Diabetes mellitus complication status: with unspecified complications 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 With Escherichia coli - Discharge Medications Prescriptions: Cefdinir [Omnicef] 300 mg PO BID #10 capsule Doxycycline Hyclate 100 mg PO BID #10 tablet Furosemide [Lasix] 60 mg PO DAILY #2 tablet Home Medications: Atenolol [Tenormin] 25 mg PO DAILY 04/05/16 [History] Cyanocobalamin (Vitamin B-12) [Vitamin B-12] 1,000 mcg IM QMONTH 04/05/16 [ History] Flecainide Acetate 150 mg PO BID 04/05/16 [History] Insulin DETEMIR [Levemir] 45 unit SQ HS 04/05/16 [History] Loratadine [Claritin] 10 mg PO QAM 04/05/16 [History] Lovastatin [Mevacor] 20 mg PO DAILY 04/05/16 [History] Montelukast [Singulair] 10 mg PO HS 04/05/16 [History] SitaGLIPtin [Januvia] 100 mg PO DAILY 04/05/16 [History] Albuterol Sulfate [Proair Hfa] 2 puff IH Q4H PRN 04/06/16 [History] Beclomethasone Diprop 80mcg [QVAR 80 mcg] 1 puff IH BID 04/06/16 [History] Metformin HCl [Metformin HCl ER] 2,000 mg PO QPM 04/06/16 [History] Warfarin [Coumadin] 1.5 mg PO DAILY 04/06/16 [History] Cefdinir [Omnicef] 300 mg PO BID #10 capsule 04/10/16 [Rx] Doxycycline Hyclate 100 mg PO BID #10 tablet 04/10/16 [Rx] Furosemide [Lasix] 40 mg PO DAILY #0 04/10/16 [Rx] Furosemide [Lasix] 60 mg PO DAILY #2 tablet 04/10/16 [Rx] GuaiFENesin/Dextromethorphan [Robitussin/Dm] 10 ml PO Q6HR PRN #0 udc 04/10/16 [ Rx] Allergies/Adverse Reactions: Allergies No Known Allergies Allergy (Verified 02/09/15 08:14) Date of admission: 04/05/16 15:41 Primary care physician: PCP NO Consults: 04/05/16 17:04 Consult to Forging Engineer [CONS] Routine Reason for SW Consult: May need additional assistance once patient is discharged. 04/08/16 09:21 Consult to Occupational Therapy [CONS] Routine Comment: Evaluate, develop and implement POC Consult to Physical Therapy [CONS] Routine Comment: Evaluate, develop and implement POC 04/10/16 11:50 Consult to Respiratory Therapy [CONS] Routine Reason for Consult: Please add acapella treatment to aerosol treatments Q4. Time Notified: 11:51 Call Completed: No Discharging clinician: Adam Diehl Anticipated date of discharge: 04/10/16 - Patient Status Disposition: Transfer SNF Condition: Good Functional capacity at discharge: uses cane/walker Overall status at discharge: patient is progressing back to baseline - Discharge Instructions Instructions: Atrial Fibrillation (DC), Chronic Hypertension (DC) Follow Up With: NO,PCP [Primary Care Provider] - (Follow-up with PCP in 1-2 weeks) - Diet and Activity Activity: as per physical therapy, wear oxygen at all times Diet: diabetic diet, low fat, low cholesterol, low salt diet, other (Fluid restriction to 2 L per day) Hospital course: Ms. Vilchis is a 65 year old female with history of diabetes mellitus type 2, hypertension, permanent pacemaker for AV conduction abnormality was admitted here with respiratory arrest and decreased responsiveness. She required intubation and mechanical ventilation initially. She underwent a CT angiogram of the chest which did not show any pulmonary emboli with bilateral infiltrates/ atelectatic changes were secondary to lower lobe. He did not have any significant decline in urine function and was able to her extremities at the time of initial evaluation here. She was then treated for respiratory failure and Leukocytosis. She received Rocephin and azithromycin for empiric antibiotics. She was extubated the next day and then transitioned to nasal cannula and transferred to the floor. On presentation she also had acute kidney injury which resolved with IV fluids. Her blood cultures have been negative. Her urine culture was positive for Escherichia coli sensitive to cephalosporins. She has a history of chronic atrial fibrillation and her heart rate has been well controlled. She is on flecainide and atenolol. She is also on anticoagulation with Coumadin and her INR is therapeutic. Presently the patient is on home oral medications and is clinically stable for discharge. She was evaluated by physical therapy and recommended placement to skilled rehabilitation. She will be discharged to skilled rehabilitation and she has a bed available. She will complete antibiotic course for her UTI. - Time Spent with Patient Total time spent providing and/or coordinating discharge services: Greater than 30 minutes (40 min) - Constitutional Vitals: Temp Pulse Resp BP Pulse Ox 98.3 F 69 16 122/73 95 04/10/16 12:21 04/10/16 12:21 04/10/16 12:21 04/10/16 12:21 04/10/16 12:21 General appearance: Present: cooperative, A&O X 3, pleasant, no acute distress, answers questions appropriately - Respiratory Respiratory exam: Present: CTAB. Absent: accessory muscle use, rales, rhonchi, wheezes Additional comments: Decreased inspiratory depth - Cardiovascular Cardiovascular exam: Present: irregular rhythm, +S1, +S2. Absent: diastolic murmur, gallop, rubs, systolic murmur - GI/Abdominal GI/Abdominal exam: Present: normal bowel sounds, soft, no peritoneal signs. Absent: distended, tenderness - Extremities Exam Extremities exam: Present: warm, radial pulses palpable and symetrical. Absent : calf tenderness, cyanotic, pedal edema - Attending Attestation This document has been at least partially created by pushd recognition technology by Dr. Diehl. Errors in grammar, wording or other phrases may exist. If errors are found after the documentation is signed, they will be addressed individually in the addendum section of this document when appropriate.
--- NOTE | 2016-04-10 15:42 | Physician Discharge Referral ---
ExtendedCare Referral Info Provider in Charge after Transfer: PCP Institutional Level of Care: Skilled - Diagnosis (1) Respiratory arrest Priority: Primary Status: Acute (2) (HFpEF) heart failure with preserved ejection fraction Priority: Secondary Status: Acute (3) SIDDHARTH (acute kidney injury) Priority: Secondary Status: Acute (4) Atrial fibrillation Priority: Secondary Status: Acute (5) Diabetes Priority: Secondary Status: Acute (6) EJ (obstructive sleep apnea) Priority: Secondary Status: Acute (7) HTN (hypertension) Priority: Secondary Status: Acute (8) Acute cystitis with hematuria Priority: Secondary Status: Acute Prognosis: Fair Aware of Diagnosis: Patient, Family Aware of Prognosis: Patient, Family - Transfer Medications Prescriptions: Cefdinir [Omnicef] 300 mg PO BID #10 capsule Doxycycline Hyclate 100 mg PO BID #10 tablet Furosemide [Lasix] 60 mg PO DAILY #2 tablet Home Medications: Atenolol [Tenormin] 25 mg PO DAILY 04/05/16 [History] Cyanocobalamin (Vitamin B-12) [Vitamin B-12] 1,000 mcg IM QMONTH 04/05/16 [ History] Flecainide Acetate 150 mg PO BID 04/05/16 [History] Insulin DETEMIR [Levemir] 45 unit SQ HS 04/05/16 [History] Loratadine [Claritin] 10 mg PO QAM 04/05/16 [History] Lovastatin [Mevacor] 20 mg PO DAILY 04/05/16 [History] Montelukast [Singulair] 10 mg PO HS 04/05/16 [History] SitaGLIPtin [Januvia] 100 mg PO DAILY 04/05/16 [History] Albuterol Sulfate [Proair Hfa] 2 puff IH Q4H PRN 04/06/16 [History] Beclomethasone Diprop 80mcg [QVAR 80 mcg] 1 puff IH BID 04/06/16 [History] Metformin HCl [Metformin HCl ER] 2,000 mg PO QPM 04/06/16 [History] Warfarin [Coumadin] 1.5 mg PO DAILY 04/06/16 [History] Cefdinir [Omnicef] 300 mg PO BID #10 capsule 04/10/16 [Rx] Doxycycline Hyclate 100 mg PO BID #10 tablet 04/10/16 [Rx] Furosemide [Lasix] 40 mg PO DAILY #0 04/10/16 [Rx] Furosemide [Lasix] 60 mg PO DAILY #2 tablet 04/10/16 [Rx] GuaiFENesin/Dextromethorphan [Robitussin/Dm] 10 ml PO Q6HR PRN #0 udc 04/10/16 [ Rx] Allergies/Adverse Reactions: Allergies No Known Allergies Allergy (Verified 02/09/15 08:14) - Respiratory Orders Oxygen / L per min (2), Other (CPAP by lying down at 5 cm water pressure) Smoking Cessation: Smoking cessation has been advised. For more information, call the [place] Tobacco Quit Line at 2-711-HFUR-NOW. - Lab Orders Lab Orders: Other (include drug levels w/frequency) (Basic panel on 04/16/2016) - Advance Directives Code Status: DNR-Arrest (DNR CC arrest) - Mobility Orders Other (Per physical therapy evaluation Physical) - Rehabiliation Orders Rehab Potential: Fair Rehab Orders: Evaluation for Physical Therapy, Evaluation for Occupational Therapy - Treatments List/Other: Fluid restriction to 2 L per day - Diet Orders Cardiac (And diabetic) CERTIFICATION: I certify that the transfer of the above named patient to an Extended Care Facility is necessary for the continuing treatment of the diagnosis listed. The above information is true and accurate reflection of patient's current condition. Confidential - Redisclosure prohibited without a patient's written consent.
[2016-04-10] MEDS ORDERED: *HR* Warfarin 1 MG TABLET PO ONE (18:00)
[2016-04-10 20:10] VITALS: BP 158/78
[2016-04-10] MEDS ORDERED: Insulin DETEMIR 100 UNIT/ML X5UNITS SQ SCH (21:00)
[2016-04-11] MEDS ORDERED: *HR* Warfarin 3 MG TABLET PO SCH (18:00)
== END 2016-04-10 22:00 | DRG 208 ==
LOC: SUATTDRO 15:41 → ICNU 15:41 → 2ANU 04-06 18:16
PROVIDERS: ADMIT Internal Medicine Hospice and Palliative Medicine; ATTEND Internal Medicine

== ENCOUNTER 2016-05-03 17:01 | Inpatient (IN) ==
[2016-05-03] MEDS ORDERED: 0.9 % Sodium Chloride 1,000 ML IVC ONE ×2 (17:05→18:55)
[2016-05-03 17:26] LABS: Basophils % 0.1 %; Eosinophils % 0.1 %; Hematocrit 35.9 % (35.3-44.9); Hemoglobin 11.3 g/dL (11.5-15.4); Immature Granulocytes % 0.5 % (0-4); Lymphocytes # 1.7 K/mcL (0.6-4.6); Lymphocytes % 17.5 %; Mean Corpuscular HGB Conc 31.5 g/dL (31.6-35.5); Mean Corpuscular Hemoglobin 26.4 pg (28.0-33.3); Mean Corpuscular Volume 83.9 fL (83.0-100.0); Mean Platelet Volume 10.7 fL (9.4-12.4); Monocytes # 0.7 K/mcL (0.0-1.3); Monocytes % 7.8 %; Platelet Count 264 K/mcL (140-400); Red Blood Count 4.28 M/mcL (3.82-4.97); Red Cell Distribution Width 14.6 % (11.5-14.5)
[2016-05-03 17:43] LABS: Alanine Aminotransferase 15 Units/L (0-55); Albumin 3.7 g/dL (3.5-5.0); Alkaline Phosphatase 94 Units/L (38-126); Aspartate Amino Transferase 21 Units/L (5-34); BUN/Creatinine Ratio 32 (6-26); Bilirubin,Direct 0.3 mg/dL (0.0-0.5); Bilirubin,Indirect 0.3 mg/dL (0.0-1.2); Bilirubin,Total 0.6 mg/dL (0.2-1.2); Blood Urea Nitrogen 64 mg/dL (7-20); Calcium 9.4 mg/dL (8.6-10.8); Carbon Dioxide 24 mEq/L (19-29); Chloride 96 mEq/L (98-109); Globulin 3.8 g/dL (2.4-3.5); Glucose 136 mg/dL (70-99); Magnesium 2.5 mg/dL (1.6-2.6); Osmolality,Calculated 292 (280-300); Sodium 131 mEq/L (136-145); Total Protein 7.5 g/dL (6.0-8.3); eGFR For African Americans 31 (> 60); eGFR For Non-African Americans 25 (> 60)
[2016-05-03 17:50] LABS: Potassium 5.2 mEq/L (3.5-4.5)
[2016-05-03 17:53] LABS: INR 5.4; Prothrombin Time 61.8 Seconds (9.4-12.1)
[2016-05-03 18:24] LABS: Thyroid Stimulating Hormone 5.474 mcIU/mL (0.350-4.840)
[2016-05-03 18:25] LABS: Digoxin < 0.3 ng/mL (0.8-2.0)
--- NOTE | 2016-05-03 19:02 | Emergency Department Note ---
Disposition Clinical Impression: Generalized weakness Dyspnea Qualifiers: Dyspnea type: dyspnea on exertion Qualified Code(s): R06.09 - Other forms of dyspnea Acute kidney failure Qualifiers: Acute renal failure type: unspecified Qualified Code(s): N17.9 - Acute kidney failure, unspecified Disposition: Admitted As Inpatient Condition: Good SOB HPI - General Chief Complaint: ED General Medical Stated Complaint: IRREGULAR HR Time Seen by Provider: 05/03/16 17:07 Source: patient Limitations: no limitations Nursing Notes Reviewed: Yes Vital Signs Reviewed: Yes - History of Present Illness Pt Subjective Complaint: shortness of breath Onset (ago): week(s) (1) Context: other (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 Landon he is concerned about widening of her QRS he wanted electrolytes checked and also renal function.) Severity: mild Consistency/Duration: gradually worsening Improves with: rest Worsens with: exertion Associated symptoms: Reports: denies other symptoms Treatment prior to arrival: diuretics Cough present: No - Related Data Home Medications Medication Instructions Recorded Confirmed Atenolol [Tenormin] 25 mg PO DAILY 04/05/16 04/06/16 Cyanocobalamin (Vitamin B-12) 1,000 mcg IM QMONTH 04/05/16 04/06/16 [Vitamin B-12] Flecainide Acetate 150 mg PO BID 04/05/16 04/06/16 Insulin DETEMIR [Levemir] 45 unit SQ HS 04/05/16 04/06/16 Loratadine [Claritin] 10 mg PO QAM 04/05/16 04/06/16 Lovastatin [Mevacor] 20 mg PO DAILY 04/05/16 04/06/16 Montelukast [Singulair] 10 mg PO HS 04/05/16 04/06/16 SitaGLIPtin [Januvia] 100 mg PO DAILY 04/05/16 04/06/16 Albuterol Sulfate [Proair Hfa] 2 puff IH Q4H PRN 04/06/16 04/06/16 Beclomethasone Diprop 80mcg [QVAR 1 puff IH BID 04/06/16 04/06/16 80 mcg] Metformin HCl [Metformin HCl ER] 2,000 mg PO QPM 04/06/16 04/06/16 Warfarin [Coumadin] 1.5 mg PO DAILY 04/06/16 04/06/16 Furosemide [Lasix] 40 mg PO BID 05/03/16 05/03/16 Nystatin [Nystop] 1 appl TP BID 05/03/16 05/03/16 Allergies Allergy/AdvReac Type Severity Reaction Status Date / Time No Known Allergies Allergy Verified 02/09/15 08:14 All systems ED: reviewed and negative except as stated. Constitutional: Reports: weakness. Denies: fever, chills Cardiovascular: Reports: dyspnea on exertion. Denies: chest pain Past Medical History - Past Medical History Medical history: Reports: diabetes, hyperlipidemia, hypertension, myocardial infarction Surgical history: Reports: AICD, pacemaker Psychiatric history: Reports: anxiety, depression - Social History Smoking Status: Unknown if ever smoked Smokeless Tobacco Status: No Alcohol use: Reports: none Drug use: Reports: none Physical Exam - General Limitations: no limitations General appearance: alert - Head Head exam: atraumatic, normocephalic, normal inspection - Eye Eye exam: Present: normal appearance, PERRL, EOMI - ENT ENT exam: normal exam, normal oropharynx, mucous membranes moist - Neck Neck exam: Present: normal inspection, full ROM, trachea midline - Chest Chest inspection: Present: normal inspection, symmetric chest wall rise - Respiratory Respiratory exam: Present: normal lung sounds bilaterally - Cardiovascular Cardiovascular exam: Present: regular rate, normal rhythm, normal heart sounds - Abdominal Exam Abdominal exam: Present: soft, Non-Tender. Absent: tenderness, distention, guarding, rebound, rigidity - Expanded Lower Extremity Exam Lower leg exam: Present: other (non pitting edema) - Back Exam Back exam: Present: normal inspection, full ROM. Absent: tenderness - Neurological Exam Neurological exam: Present: alert, oriented X3 - Psychiatric Psychiatric exam: Present: normal affect, normal mood - Skin Skin exam: Present: warm, dry, intact, normal color Course Vital Signs Temperature 98 F 05/03/16 17:06 Pulse Rate 87 05/03/16 17:06 Respiratory Rate 16 05/03/16 17:06 Blood Pressure 107/79 05/03/16 17:06 O2 Sat by Pulse Oximetry 97 05/03/16 17:06 Temperature 98 F 05/03/16 17:06 Pulse Rate 97 05/03/16 19:00 Respiratory Rate 18 05/03/16 19:00 Blood Pressure 126/54 05/03/16 19:00 O2 Sat by Pulse Oximetry 96 05/03/16 19:00 Oxygen Delivery Oxygen Delivery Nasal Cannula Shortness of Breath/Dyspnea - MDM Narrative Medical decision making narrative: I spoke with dr. guevara recommended gentle hydration cardiology can consult tomorrow will be to the hospitalist service. - Differential Diagnosis Likely: acute exacerbation of chronic obstructive airways disease, congestive heart failure, asthma with exacerbation, pulmonary embolism, arrhythmia - Medical Records Medical records reviewed: Yes I reviewed the patient's medical records. - Lab Data Lab results reviewed: Yes I reviewed the patient's lab results. Result diagrams: 05/03/16 17:18 05/03/16 17:18 Lab Results 05/03/16 05/03/16 05/03/16 Range/Units 17:18 17:18 17:18 WBC 9.5 (4.3-11.1) K/mcL RBC 4.28 (3.82-4.97) M/mcL Hgb 11.3 L (11.5-15.4) g/dL Hct 35.9 (35.3-44.9) % MCV 83.9 (83.0-100.0) fL MCH 26.4 L (28.0-33.3) pg MCHC 31.5 L (31.6-35.5) g/dL RDW 14.6 H (11.5-14.5) % Plt Count 264 (140-400) K/mcL MPV 10.7 (9.4-12.4) fL Immature Gran % 0.5 (0-4) % Seg Neutrophils % 74.0 % Lymphocytes % 17.5 % Monocytes % 7.8 % Eosinophils % 0.1 % Basophils % 0.1 % Neutrophils # 7.0 (1.6-8.9) K/mcL Lymphocytes # 1.7 (0.6-4.6) K/mcL Monocytes # 0.7 (0.0-1.3) K/mcL Eosinophils # 0.0 (0.0-0.6) K/mcL Basophils # 0.0 (0.0-0.2) K/mcL PT 61.8 H* (9.4-12.1) Seconds INR 5.4 H* APTT 37.0 H (26.0-36.0) Seconds Sodium 131 L (136-145) mEq/L Potassium 5.2 H (3.5-4.5) mEq/L Chloride 96 L (98-109) mEq/L Carbon Dioxide 24 (19-29) mEq/L BUN 64 H (7-20) mg/dL Creatinine 1.98 H (0.57-1.11) mg/dL Est GFR ( Amer) 31 L (> 60) Est GFR (Non-Af Amer) 25 L (> 60) BUN/Creatinine Ratio 32 H (6-26) Glucose 136 H (70-99) mg/dL Calculated Osmolality 292 (280-300) Calcium 9.4 (8.6-10.8) mg/dL Magnesium 2.5 (1.6-2.6) mg/dL Total Bilirubin 0.6 (0.2-1.2) mg/dL Direct Bilirubin 0.3 (0.0-0.5) mg/dL Indirect Bilirubin 0.3 (0.0-1.2) mg/dL AST 21 (5-34) Units/L ALT 15 (0-55) Units/L Alkaline Phosphatase 94 (38-126) Units/L Troponin I (0-0.03) ng/mL B-Natriuretic Peptide (0-100) pg/mL Serum Total Protein 7.5 (6.0-8.3) g/dL Albumin 3.7 (3.5-5.0) g/dL Globulin 3.8 H (2.4-3.5) g/dL Albumin/Globulin Ratio 1.0 L (1.1-2.2) TSH 5.474 H (0.350-4.840) mcIU/mL Digoxin < 0.3 L (0.8-2.0) ng/mL 05/03/16 05/03/16 Range/Units 17:18 17:18 WBC (4.3-11.1) K/mcL RBC (3.82-4.97) M/mcL Hgb (11.5-15.4) g/dL Hct (35.3-44.9) % MCV (83.0-100.0) fL MCH (28.0-33.3) pg MCHC (31.6-35.5) g/dL RDW (11.5-14.5) % Plt Count (140-400) K/mcL MPV (9.4-12.4) fL Immature Gran % (0-4) % Seg Neutrophils % % Lymphocytes % % Monocytes % % Eosinophils % % Basophils % % Neutrophils # (1.6-8.9) K/mcL Lymphocytes # (0.6-4.6) K/mcL Monocytes # (0.0-1.3) K/mcL Eosinophils # (0.0-0.6) K/mcL Basophils # (0.0-0.2) K/mcL PT (9.4-12.1) Seconds INR APTT (26.0-36.0) Seconds Sodium (136-145) mEq/L Potassium (3.5-4.5) mEq/L Chloride (98-109) mEq/L Carbon Dioxide (19-29) mEq/L BUN (7-20) mg/dL Creatinine (0.57-1.11) mg/dL Est GFR ( Amer) (> 60) Est GFR (Non-Af Amer) (> 60) BUN/Creatinine Ratio (6-26) Glucose (70-99) mg/dL Calculated Osmolality (280-300) Calcium (8.6-10.8) mg/dL Magnesium (1.6-2.6) mg/dL Total Bilirubin (0.2-1.2) mg/dL Direct Bilirubin (0.0-0.5) mg/dL Indirect Bilirubin (0.0-1.2) mg/dL AST (5-34) Units/L ALT (0-55) Units/L Alkaline Phosphatase (38-126) Units/L Troponin I 0.03 (0-0.03) ng/mL B-Natriuretic Peptide 1049 H (0-100) pg/mL Serum Total Protein (6.0-8.3) g/dL Albumin (3.5-5.0) g/dL Globulin (2.4-3.5) g/dL Albumin/Globulin Ratio (1.1-2.2) TSH (0.350-4.840) mcIU/mL Digoxin (0.8-2.0) ng/mL - Radiology Data Radiology results reviewed: Yes I reviewed the patient's radiology results. - EKG Data Rate: Reports: normal Rhythm: Reports: other (paced atrial ryhthm) Interpretation: Reports: nonspecific ST-T wave changes
[2016-05-03] MEDS ORDERED: Naloxone 0.4 MG/ML INJ IVP PRN (22:35)
--- NOTE | 2016-05-03 22:35 | Internal Med History&Physical ---
Date of Encounter: 05/03/16 Time of Encounter: 22:10 Assessment and Plan (1) SIDDHARTH (acute kidney injury) Current visit: Yes Status: Acute Possibly due to volume depletion versus cardio-renal syndrome. Pt is on gentle IV fluid infusion, per centrifugal station operator recommendations. However, it is difficult to accurately assess volume status clinically. She has clinical evidence of volume overload as well. Consult centrifugal station operator, and to consider right heart cath. (2) Hyperkalemia Current visit: Yes Status: Acute Likely due to SIDDHARTH. Treat with Kayexalate/lactulose. Monitor potassium levels. (3) Supratherapeutic INR Current visit: Yes Status: Acute Hold warfarin. Monitor INR. Warfarin dosing per pharmacy (4) (HFpEF) heart failure with preserved ejection fraction Current visit: Yes Status: Chronic Lasix held tonight. continue lasix from tomorrow. (5) Atrial fibrillation Current visit: No Status: Chronic Continue home medications. INR is supratherapeutic, so hold warfarin. Qualifiers: Atrial fibrillation type: chronic Qualified Code(s): I48.2 - Chronic atrial fibrillation (6) Diabetes Current visit: Yes Status: Chronic Start on sliding scale insulin. 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 Treat with ceftriaxone emperically. Qualifiers: Urinary tract infection type: site unspecified Hematuria presence: without hematuria Qualified Code(s): N39.0 - Urinary tract infection, site not specified (11) Atelectasis, left Current visit: Yes Status: Acute Treat with incentive spirometer Internal Medicine - H&P: HPI Chief complaint: Abnormal EKG, labs Admitted From: Emergency Dept Plans for Post Hospital Care: Transfer [facility] Facility History of present illness: Ms. 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 Patients son reports that, he was discharged home with Lasix, and responded well. But for few days, they noticed swelling of the extremities, fluid retention and weight gain. She apparently has been taking Lasix and no significant change in salt / fluid intake. She denies chest pain, palpitations. She has cough with some whitish expectoration. She reports shortness of breath on exertion and at rest. She apparently sleeps in the chair at nighttime. Denies abdominal pain, dysuria or hematuria. Urine is apparently strong in color and smelly. Reports constipation. She was evaluated in centrifugal station operator office and was noted to have widening of QRS complexes. Pt had labs drawn, which showed elevated creatinine. Compensation Director recommended gentle hydration. She is admitted to the hospitalist service for further management. Past Med Surg Social Fam HX - Past Medical History Medical history: diabetes, hyperlipidemia, hypertension, myocardial infarction Psychiatric history: anxiety, depression - Past Surgical History Surgical History: appendectomy, other, pacemaker - Social History Smoking Status: Never smoker Smokeless Tobacco Status: Yes Alcohol use: none Drug use: none - Family History Mother Adopted: No Living Status: Age at : 52 Cause of : Ovarian Cancer Hx Family Cardiac Disorders: No Hx Family Respiratory Disorders: No Hx Family Cancer: Yes (ovarian) Hx Family GI Disorders: No Hx Family Genitourinary Disorders: No Hx Family Endocrine Disorder: No Hx Family Musculoskeletal Disorders: No Hx Family Neuromuscular Disorders: No Hx Family Neurologic Disorders: No Hx Family HEENT Disorders: No Hx Family Autoimmune Disorders: No Hx Family Reproductive Disorders: No Hx Family Psychosocial Disorders: No Hx Family Medical Disorders: No Internal Medicine - H&P: Meds Atenolol [Tenormin] 25 mg PO DAILY 04/05/16 [History] Cyanocobalamin (Vitamin B-12) [Vitamin B-12] 1,000 mcg IM QMONTH 04/05/16 [ History] Flecainide Acetate 150 mg PO BID 04/05/16 [History] Insulin DETEMIR [Levemir] 45 unit SQ HS 04/05/16 [History] Loratadine [Claritin] 10 mg PO QAM 04/05/16 [History] Lovastatin [Mevacor] 20 mg PO DAILY 04/05/16 [History] Montelukast [Singulair] 10 mg PO HS 04/05/16 [History] SitaGLIPtin [Januvia] 100 mg PO DAILY 04/05/16 [History] Albuterol Sulfate [Proair Hfa] 2 puff IH Q4H PRN 04/06/16 [History] Beclomethasone Diprop 80mcg [QVAR 80 mcg] 1 puff IH BID 04/06/16 [History] Metformin HCl [Metformin HCl ER] 2,000 mg PO QPM 04/06/16 [History] Warfarin [Coumadin] 1.5 mg PO DAILY 04/06/16 [History] Furosemide [Lasix] 40 mg PO BID 05/03/16 [History] Nystatin [Nystop] 1 appl TP BID 05/03/16 [History] Allergies No Known Allergies Allergy (Verified 02/09/15 08:14) All Systems PM: A 10-system review of systems was performed and is negative for pertinent findings except as documented above in the HPI. - Constitutional Vitals: Temp Pulse Resp BP Pulse Ox 98 F 97 16 134/57 96 05/03/16 17:06 05/03/16 19:00 05/03/16 19:15 05/03/16 19:15 05/03/16 19:00 Exam: General: Not in acute distress at the time of my evaluation HEENT: Oral mucosa is moist. No conjunctival palor or scleral icterus Neck: No obvious neck swellings Lungs: Right basal crackles present Cardiac: IRR. No significant murmurs Abdomen: Distended, non tender. Bowel sounds present Genitourinary: No pearce catheter Neurological: Alert and oriented. No gross localizing deficits Psych: Not aggressive or agitated Extremities: Bilateral pitting leg edema present Skin: No generalized rash Internal Med - H&P Results - Labs CBC & Chem 7: 05/04/16 05:44 05/04/16 05:44 - EKG Data -: EKG Interpreted by Myself - EKG Data EKG comments: Paced rhythm with wide QRS complexes 05/04/16 08:41 - Impressions ITS Impressions Chest X-Ray 05/03/16 17:05 IMPRESSION: Left basilar airspace disease, likely atelectasis. D/ / Estela Lopez Cha, MD / Estela Lopez Cha, MD Interpreting Provider: Estela Lopez Cha, MD
[2016-05-03] MEDS ORDERED: *HR* Dextrose 50 % in Water (Syg) 50 ML SYRINGE IVP PRN (22:43)
[2016-05-03] MEDS ORDERED: D5% in Water 1,000 ML IV PRN (22:43)
[2016-05-03] MEDS ORDERED: Dextrose Gel 15 GM PO PRN ×2 (22:43)
[2016-05-03] MEDS ORDERED: Lactulose Oral Soln 20 GM/30 ML UDC PO ONE (22:46)
[2016-05-03] MEDS: Insulin LISPRO 300 UNITS/3 ML VIAL SQ SCH (23:42)
[2016-05-03] MEDS: 0.9 % Sodium Chloride 1,000 ML IVC SCH (23:43)
[2016-05-03 23:51] LABS: Bilirubin,Urine Negative (Negative); Blood,Urine Negative (Negative); Clarity,Urine Clear (Clear); Color,Urine Yellow (Yellow); Glucose,Urine (UA) Normal (Normal); Ketones,Urine Negative (Negative); Leukocyte Esterase,Urine Small (Negative); Nitrite,Urine Positive (Negative); PH,Urine 5.5 pH Units (5.0-8.0); Protein,Urine Trace mg/dL (Neg-Trace); Urobilinogen,Urine Normal (Normal)
[2016-05-03] MEDS: Acetaminophen 325 MG TABLET PO PRN (23:52)
[2016-05-04 00:16] LABS: Bacteria,Urine Few per hpf (None-Few); Squamous Epithelial Cell,Urine Few per lpf (None-Few); WBC,Urine 0-3 per hpf (0-3)
[2016-05-04 06:16] LABS: Basophils % 0.3 %; Eosinophils % 0.4 %; Hematocrit 33.7 % (35.3-44.9); Hemoglobin 10.6 g/dL (11.5-15.4); Immature Granulocytes % 0.5 % (0-4); Lymphocytes # 1.4 K/mcL (0.6-4.6); Mean Corpuscular HGB Conc 31.5 g/dL (31.6-35.5); Mean Corpuscular Hemoglobin 26.4 pg (28.0-33.3); Mean Corpuscular Volume 83.8 fL (83.0-100.0); Mean Platelet Volume 10.6 fL (9.4-12.4); Monocytes # 0.7 K/mcL (0.0-1.3); Monocytes % 8.9 %; Neutrophils # 5.6 K/mcL (1.6-8.9); Nucleated Red Blood Cells 0.3 /100 WBC (0); Platelet Count 234 K/mcL (140-400); Red Blood Count 4.02 M/mcL (3.82-4.97); Red Cell Distribution Width 14.7 % (11.5-14.5); Segmented Neutrophils % 71.9 %
[2016-05-04 06:25] LABS: INR 5.9; Prothrombin Time 66.7 Seconds (9.4-12.1)
[2016-05-04 06:31] LABS: Calcium 8.6 mg/dL (8.6-10.8)
[2016-05-04 06:33] LABS: Potassium 3.9 mEq/L (3.5-4.5)
[2016-05-04] MEDS: Insulin LISPRO 300 UNITS/3 ML VIAL SQ SCH ×4 (07:48→22:42)
[2016-05-04] MEDS: Beclomethasone 80mcg MDI IH SCH ×2 (08:07→22:20)
[2016-05-04] MEDS ORDERED: Cyanocobalamin (B-12) 1,000 MCG/ML VIAL IM SCH (09:00)
[2016-05-04] MEDS ORDERED: amLODIPine 5 MG TABLET PO SCH (09:00)
[2016-05-04] MEDS ORDERED: Metoprolol 100 MG TABLET PO SCH (09:00)
[2016-05-04] MEDS: Loratadine 10 MG TABLET PO SCH (09:22)
[2016-05-04] MEDS: Acetaminophen 325 MG TABLET PO PRN ×2 (09:22→22:41)
[2016-05-04] MEDS: Lactobacillus 1 EACH CAP.SPRINK PO SCH ×2 (09:22→22:41)
[2016-05-04] MEDS: Furosemide 40 MG TABLET PO SCH ×2 (09:22→17:01)
[2016-05-04] MEDS: 0.9 % Sodium Chloride 1,000 ML IVC SCH ×2 (09:24→17:02)
[2016-05-04] MEDS: Nystatin POWDER 30 GM BOTTLE TP SCH ×2 (09:34→22:46)
--- NOTE | 2016-05-04 10:38 | Cardiology Consult Note ---
Date of Encounter: 05/04/16 Time of Encounter: 10:35 Assessment and Plan (1) (HFpEF) heart failure with preserved ejection fraction Current Visit: Yes Status: Chronic H/o diastolic CHF. Last TTE 01/2015 showed EF 60%, mild lVH, and normal RV function. C/o increasing dyspnea and feels full. Increased her Lasix dose recently with no improvement. Now with SIDDHARTH, may be intravascularly dry. States weight is at baseline. Creatinine improved with IV fluid. BNP is elevated at 1049, [address]. [address] CT scan of chest to rule out other causes of shortness of breath. Check TTE. Continue gentle IV fluid for now. (2) SIDDHARTH (acute kidney injury) Current Visit: Yes Status: Acute Improved with IV hydration. Avoid nephrotoxins. (3) Atrial fibrillation Current Visit: No Status: Chronic Discontinue flecainide d/t SIDDHARTH. Device check showed atrial fibrillation with RVR 05/01/09. Currently paced with widening QRS. Discussed with Dr. Jose Miguel Landon, may be secondary to flecainide in the setting of SIDDHARTH. Will consider increasing atenolol once b/p improves. Serial EKG. Monitor telemetry. Coumadin on hold d/t supratherapeutic INR. TSH mildly elevated-Appreciate IM recommendation. Qualifiers: Atrial fibrillation type: chronic Qualified Code(s): I48.2 - Chronic atrial fibrillation Discussion w patient/family: The assessment and plan as outlined above was discussed with the patient and/or family members who expressed understanding and agreement. All questions were answered. Thank you for involving us in the care of your patient. Please call with any questions. History of Present Illness Consult date: 05/04/16 Requesting physician: Rm Lowery Consult reason: abnormal EKG, CHF Chief complaint: Increasing weakness, fall, and SOB History of present illness: Ms. Vilchis is a 65-yr-old female with a history of paroxysmal atrial fibrillation on Coumadin therapy and flecanide, diabetes type 2, COPD, DCHF and hypertension who was sent to the ER after her office visit with me yesterday. She was recently seen at [facility] for acute respiratory failure secondary to RLL pneumonia and CHF with preserved EF. She required intubation during her stay. CT of the chest showed bilateral infiltrates worse on the right. Once improve she was discharged to an ECF. She is currently on flecainide for atrial fibrillation. She denies palpitations. Denies chest pain. C/o increasing dyspnea and weakness. She was initially discharged to [place] and was doing well. She was able to ambulate in the hallways.She is now at [facility] and is having difficulty getting out of bed. She started to progressively develop BLE edema, dyspnea, and orthopnea. She increased her Lasix to 40 mg twice a day with no improvement. She fell two days ago walking out of the bathroom, She denies passing out. She c/o bilateral neck pain. She hit her right shoulder when she fell. She has not been able to get out of bed on her own since her fall. She states her weight is at baseline but she feels like she is full of fluid. She was sent to the ED and found to have SIDDHARTH on CKD. Creatinine 1.98, previously 1.77. INR elevated at 5.9. Coumadin is on hold. Kidney function improved with IV hydration. Past Med Surg Social Fam HX - Past Medical History Medical history: diabetes, hyperlipidemia, hypertension, myocardial infarction Psychiatric history: anxiety, depression - Past Surgical History Surgical History: appendectomy, other, pacemaker - Social History Smoking Status: Never smoker Smokeless Tobacco Status: Yes Alcohol use: none Drug use: none - Family History Mother Adopted: No Living Status: Age at : 52 Cause of : Ovarian Cancer Hx Family Cardiac Disorders: No Hx Family Respiratory Disorders: No Hx Family Cancer: Yes (ovarian) Hx Family GI Disorders: No Hx Family Genitourinary Disorders: No Hx Family Endocrine Disorder: No Hx Family Musculoskeletal Disorders: No Hx Family Neuromuscular Disorders: No Hx Family Neurologic Disorders: No Hx Family HEENT Disorders: No Hx Family Autoimmune Disorders: No Hx Family Reproductive Disorders: No Hx Family Psychosocial Disorders: No Hx Family Medical Disorders: No Medications and Allergies Atenolol [Tenormin] 25 mg PO DAILY 04/05/16 [History] Cyanocobalamin (Vitamin B-12) [Vitamin B-12] 1,000 mcg IM QMONTH 04/05/16 [ History] Flecainide Acetate 150 mg PO BID 04/05/16 [History] Insulin DETEMIR [Levemir] 45 unit SQ HS 04/05/16 [History] Loratadine [Claritin] 10 mg PO QAM 04/05/16 [History] Lovastatin [Mevacor] 20 mg PO DAILY 04/05/16 [History] Montelukast [Singulair] 10 mg PO HS 04/05/16 [History] SitaGLIPtin [Januvia] 100 mg PO DAILY 04/05/16 [History] Albuterol Sulfate [Proair Hfa] 2 puff IH Q4H PRN 04/06/16 [History] Beclomethasone Diprop 80mcg [QVAR 80 mcg] 1 puff IH BID 04/06/16 [History] Metformin HCl [Metformin HCl ER] 2,000 mg PO QPM 04/06/16 [History] Warfarin [Coumadin] 1.5 mg PO DAILY 04/06/16 [History] Furosemide [Lasix] 40 mg PO BID 05/03/16 [History] Nystatin [Nystop] 1 appl TP BID 05/03/16 [History] Allergies No Known Allergies Allergy (Verified 02/09/15 08:14) All Systems Review: A 10-system review of systems was performed and is negative for pertinent findings except as documented above in the HPI. Physical Examination Vital Signs, Last 4 Hours Temp Pulse Resp BP Pulse Ox 05/04/16 09:28 97 05/04/16 08:08 18 97 05/04/16 07:05 95.9 F L 116 16 117/85 97 General: Conversant, Other (Morbidly obese female.) HEENT: Atraumatic, Normocephaly, Mucus Membranes Moist Neck: No JVD, Normal carotid pulses Cardiac: Reg Rate and Rhythm, Other (2/6 murmur ) Lungs: Normal Breath Sounds, No Wheeze, Rales, Rhonchi, Other (diinished bases) Neuro: Alert and responsive, No focal deficits noted Abdomen: Soft, Non-Tender Skin: No rashes noted on visualized skin Musculoskeletal: No Chest Wall Tenderness Extremities: No Clubbing, No Cyanosis, Normal Pulses, Other (BLE edema with trace pitting. Abdomen appears to be distended. ) Results 05/04/16 05:44 05/04/16 05:44 Lab Results 05/04/16 05/04/16 05/04/16 05:44 05:44 05:44 WBC 7.7 Hgb 10.6 L Hct 33.7 L Plt Count 234 INR Sodium 137 Potassium 3.9 D Chloride 101 Carbon Dioxide 23 BUN 57 H Creatinine 1.69 H Glucose 111 H Calcium 8.6 B-Natriuretic Peptide 1283 H 05/04/16 05:44 WBC Hgb Hct Plt Count INR 5.9 H* Sodium Potassium Chloride Carbon Dioxide BUN Creatinine Glucose Calcium B-Natriuretic Peptide Chest X-Ray 05/03/16 17:05 IMPRESSION: Left basilar airspace disease, likely atelectasis. D/ / Estela Lopez Cha, MD / Estela Lopez Cha, MD Interpreting Provider: Estela Lopez Cha, MD - Imaging and Cardiology Echo: pending, report reviewed - EKG Interpretation EKG results cardiology: personally reviewed (Reviewed with Dr. Jose Miguel Landon. EKG Shows ST with AV pacing and widening QRS.) Consult Discharge Plan - Plan Referrals: Salvador Umana MD [Primary Care Provider] -
--- NOTE | 2016-05-04 17:11 | ECHO - Doppler Report ---
Echocardiogram Name: Marixa Vilchis Date of Study: 05/04/2016 Date: 1950 Ht: 61.0 in Medical Record#: [id number] Age: 65 Wt: 231.0 lb Gender: Female BSA: 2.01 Order #: [id number] Location: [facility] Room #: 2A12 Reading Physician: Dale Page MD, [facility] [employer] Assistant: Geena Torres RDCS Ordering Physician: Manuel Grijalva CNP Primary Physician: Yun Umana MD Indications: Congestive heart failure Impressions: Probable sinus tachycardia with bundle branch block. Heart rate was around 120 bpm throughout this study. Severe LV systolic dysfunction, LVEF 30%. There is global hypokinesis with regional variations. Moderate concentric left ventricular hypertrophy. Dilated right ventricle with moderate right ventricular hypokinesis. A device lead was visualized in the right atrium and right ventricle. Severely dilated left atrium. Moderately dilated right atrium. Mild mitral regurgitation. Mild tricuspid regurgitation. Mild pulmonary hypertension. Estimated RVSP = 42 mmHg. Left Ventricular Wall Motion: Rest Echo Findings The apex, apical inferior, mid inferior, basal inferior, apical anterior, mid anterior, basal anterior, apical septal, mid inferior septal, basal inferior septal, apical lateral, mid anterior lateral, basal anterior lateral, mid anterior septal, mid inferior lateral, basal anterior septal and basal inferior lateral burnett were hypokinetic. Findings: Study Quality * Suboptimal echo windows. ECG Findings * Probable sinus tachycardia with bundle branch block. Heart rate was around 120 bpm throughout this study. Left Ventricle * Severe LV systolic dysfunction, LVEF 30%. There is global hypokinesis with regional variations. * Moderate concentric left ventricular hypertrophy. * Indeterminate diastolic function. Right Ventricle * Dilated right ventricle with moderate right ventricular hypokinesis. Device lead * A device lead was visualized in the right atrium and right ventricle. Left Atrium * Severely dilated left atrium. Right Atrium * Moderately dilated right atrium. Aorta * Normally sized aortic root. Pericardium * There is no pericardial effusion present. IVC * The IVC is dilated. * < 50% respiratory change. Aortic Valve * Trileaflet aortic valve. * Mildly sclerotic aortic valve leaflets. * No aortic stenosis. * No aortic regurgitation. Mitral Valve * Moderate mitral annular calcification * No mitral stenosis. * Mild mitral regurgitation. Tricuspid Valve * Tricuspid valve not well visualized. * No tricuspid stenosis. * Mild tricuspid regurgitation. * Mild pulmonary hypertension. Estimated RVSP = 42 mmHg. Pulmonic Valve * Pulmonic valve not well visualized. * No pulmonic stenosis. * Trace pulmonic regurgitation. History Hypertension Diabetes Hypercholesteremia Myocardial Infarction 02/09/2015 a Previous Echo was performed. Measurements: BP: 92/ 62 2D Normal Values RVIDd: 3.02 cm IVSd: 1.40 cm 0.6 - 1.0 cm LVIDd: 4.30 cm 3.7 - 5.6 cm LVPWd: 1.40 cm 0.6 - 1.1 cm LVIDs: 3.80 cm 1.5 - 3.6 cm AO: 2.60 cm < 4.0 cm LA volume: 90 Tricuspid Valve TV Regurg Peak Grad: 27.00mmHg TV Regurg Peak Casey: 2.58m/sec Updated by Dale Page MD, [facility] on 05/04/2016 5:05:31 PM electronically signed on 05/04/2016 5:06:23 PM with status of Final Wall Motion Osman: 1=Normal, 2=Hypokinesis, 3=Akinesis, 4=Dyskinesis, 5=Aneurysmal, 6=Hyperkinetic, X=Not Visualized (Blank)=Missing
--- NOTE | 2016-05-04 17:57 | Electrocardiograph Report ---
[address] [address] Test Date: 2016-05-03 Pat Name: Marixa Vilchis Department: 105 Room: 2A12 Gender: F Clinical Outcomes Manager: : 1950 Requested By: Jas Fry Order Number: [id number] Reading MD: Lyndsey Landon Measurements Intervals [place] Rate: 87 P: 94 MO: 188 QRS: 149 QRSD: 43 T: 102 QT: 379 QTc: 423 Interpretive Statements VENTRICULAR-PACED RHYTHM Electronically Signed On 05-04-2016 17:56:04 EST by Lyndsey Landon
[2016-05-04] MEDS ORDERED: Warfarin perPT PO PRN ×2 (18:00)
--- NOTE | 2016-05-04 18:13 | Internal Med Progress Note ---
Date of Encounter: 05/04/16 Time of Encounter: 18:05 - Assessment and plan (1) Systolic and diastolic CHF, chronic Current Visit: Yes Status: Acute Assessment and plan: ? new onset of systolic CHF Last ECHo 01/2015 : EF : 60% ECHO today : EF: 30% cardiology on board and will follow recommendations. (2) SIDDHARTH (acute kidney injury) Current Visit: Yes Status: Acute Assessment and plan: multifactorial will give gentle hydration hold nephrotoxic meds. (3) Supratherapeutic INR Current Visit: Yes Status: Acute Assessment and plan: INR >5 no occult or obvious bleeding will hold coumadin (4) Diabetes Current Visit: Yes Status: Chronic Assessment and plan: SCSI ACHS Qualifiers: Diabetes mellitus type: type 2 Diabetes mellitus complication status: with unspecified complications Diabetes mellitus manager intermediate insulin use: with manager intermediate use Qualified Code(s): E11.8 - Type 2 diabetes mellitus with unspecified complications; Z79.4 - emt intermediate (current) use of insulin (5) HTN (hypertension) Current Visit: Yes Status: Chronic Assessment and plan: will give gentle hydration and will have close monitoring. Qualifiers: Hypertension type: essential hypertension Qualified Code(s): I10 - Essential (primary) hypertension (6) DVT prophylaxis Current Visit: No Status: Acute Assessment and plan: INR 5.3 - Subjective Interval history: seen and examined. chart reviewed. has difficulty in breathing and has irregular heart rate. cardiology on board family at bedside. - Constitutional Vitals: Temp Pulse Resp BP Pulse Ox 98.6 F 88 16 106/74 91 L 05/04/16 16:56 05/04/16 16:56 05/04/16 16:56 05/04/16 16:56 05/04/16 16:56 - Head Head exam: Present: atraumatic, normocephalic - Eye Eye exam: Present: PERRL, conjuntiva pink, sclera anicteric Pupils: Present: PERRL - Neck Neck exam general surgery: Present: supple, trachea midline. Absent: lymphadenopathy - Respiratory Respiratory exam: Present: CTAB. Absent: accessory muscle use, rales, rhonchi, wheezes - Cardiovascular Cardiovascular exam: Present: RRR, +S1, +S2. Absent: diastolic murmur, gallop, rubs, systolic murmur - GI/Abdominal GI/Abdominal exam: Present: normal bowel sounds, soft, no peritoneal signs. Absent: distended, tenderness - Extremities Exam Extremities exam: Present: warm, radial pulses palpable and symetrical. Absent : calf tenderness, cyanotic, pedal edema - Neurological Exam Neurological exam: Present: CN II-XII intact, oriented X3, no focal deficits. Absent: pronater drift, facial droop, speech deficit - Skin Skin exam: Present: dry, intact Internal Medicine: Result - Labs CBC & Chem 7: 05/04/16 05:44 05/04/16 05:44 Labs: Short CBC 05/04/16 Range/Units 05:44 WBC 7.7 (4.3-11.1) K/mcL Hgb 10.6 L (11.5-15.4) g/dL Hct 33.7 L (35.3-44.9) % Plt Count 234 (140-400) K/mcL Neutrophils # 5.6 (1.6-8.9) K/mcL BMP 05/04/16 05:44 Sodium 137 Potassium 3.9 D Chloride 101 Carbon Dioxide 23 BUN 57 H Creatinine 1.69 H Glucose 111 H Calcium 8.6 Urine 05/03/16 Range/Units 23:45 Urine Color Yellow (Yellow) Urine Clarity Clear (Clear) Urine pH 5.5 (5.0-8.0) pH Units Ur Specific [place] 1.020 (1.010-1.025) Urine Protein Trace (Neg-Trace) mg/dL Urine Glucose (UA) Normal (Normal) mg/dL - ABG Interpretation ABG results: PT/INR, D-dimer PT 66.7 Seconds (9.4-12.1) H* 05/04/16 05:44 Consult Discharge Plan - Plan Referrals: Salvador Umana MD [Primary Care Provider] - 05/16/16 9:00 am (Please follow up as schedule...)
[2016-05-04 19:26] LABS: Albumin 3.4 g/dL (3.5-5.0); Albumin/Globulin Ratio 0.9 (1.1-2.2); Bilirubin,Total 0.4 mg/dL (0.2-1.2); Calcium 8.4 mg/dL (8.6-10.8); Globulin 3.6 g/dL (2.4-3.5); Potassium 3.3 mEq/L (3.5-4.5)
[2016-05-05] MEDS: 0.9 % Sodium Chloride 1,000 ML IVC SCH ×2 (04:30→21:23)
[2016-05-05] MEDS: Acetaminophen 325 MG TABLET PO PRN ×2 (04:49→15:48)
[2016-05-05 06:41] LABS: INR 4.3
[2016-05-05 06:42] LABS: Prothrombin Time 48.9 Seconds (9.4-12.1)
[2016-05-05 07:09] LABS: Basophils % 0.4 %; Eosinophils # 0.1 K/mcL (0.0-0.6); Eosinophils % 1.4 %; Hematocrit 31.8 % (35.3-44.9); Hemoglobin 9.9 g/dL (11.5-15.4); Immature Granulocytes % 0.4 % (0-4); Lymphocytes # 1.1 K/mcL (0.6-4.6); Lymphocytes % 14.8 %; Mean Corpuscular HGB Conc 31.1 g/dL (31.6-35.5); Mean Corpuscular Hemoglobin 26.8 pg (28.0-33.3); Mean Corpuscular Volume 85.9 fL (83.0-100.0); Monocytes # 0.7 K/mcL (0.0-1.3); Neutrophils # 5.2 K/mcL (1.6-8.9); Platelet Count 206 K/mcL (140-400); Red Cell Distribution Width 14.8 % (11.5-14.5)
--- NOTE | 2016-05-05 07:51 | Cardiology Progress Note ---
Date of Encounter: 05/05/16 Time of Encounter: 07:48 Assessment and Plan (1) Acute systolic CHF (congestive heart failure) Current Visit: Yes Status: Acute H/o diastolic CHF. Last TTE 01/2015 showed EF 60%, mild lVH, and normal RV function. Repeat TTE this stay shows EF 30% with global and segmental dysfunction. HR [address] with RBBB. RV hypokenesis, severely dilated LA, moderate right atrial enlargement. Mild MR and TR. Mild pulmonary hypertension. C/o increasing dyspnea and feels full. Increased her Lasix dose recently at home with no improvement. Now with SIDDHARTH, likely secondary to dehydration. Creatinine improved with IV fluid. BNP is elevated at 1049, 1283. Continue gentle IV fluid with close monitoring for now. Cardiac catheterization recommended to evaluate ischemic cause of cardiomyopathy. LHC indication, risk, benefit, and alternatives discussed. She is currently not a candidate d/t supratherapeutic INR and SIDDHARTH. Possible LHC once improved. Discussed with patient who agrees with plan. (2) SIDDHARTH (acute kidney injury) Current Visit: Yes Status: Acute Improved with IV hydration. Avoid nephrotoxins. (3) Atrial fibrillation Current Visit: No Status: Chronic Discontinued flecainide d/t SIDDHARTH. Device check showed atrial fibrillation with RVR 05/01/09. Currently paced with widening QRS. Discussed with Dr. Jose Miguel Landon, may be secondary to flecainide in the setting of SIDDHARTH. HR elevated yesterday but now improved with IV fluid. Restart metoprolol. Monitor telemetry. Coumadin on hold d/t supratherapeutic INR. INR 4.3 today. No signs of bleeding. TSH mildly elevated-Appreciate IM recommendation. Serial EKG. Qualifiers: Atrial fibrillation type: chronic Qualified Code(s): I48.2 - Chronic atrial fibrillation Discussion w patient/family: The assessment and plan as outlined above was discussed with the patient and/or family members who expressed understanding and agreement. All questions were answered. Thank you for involving us in the care of your patient. Please call with any questions. Subjective Principal diagnosis: dehydration, acute systolic HF, afib Interval history: Ms Vilchis is laying flat in bed without distress. C/o discomfort all over that is chronic for her. Denies chest pain. SOB unchanged she reports as long as she stays on oxygen. Objective Vital Signs, Last 4 Hours Temp Pulse Resp BP Pulse Ox 05/05/16 06:53 97.0 F L 91 18 116/80 96 05/05/16 04:43 98.0 F 89 17 106/75 94 L General: Conversant, No Apparent Distress HEENT: Atraumatic, Normocephaly, Mucus Membranes Moist Neck: No JVD, Normal carotid pulses Cardiac: Reg Rate and Rhythm, Normal S1 and S2, No Murmur, Other (V paced on telemetry) Lungs: Normal Breath Sounds, No Wheeze, Rales, Rhonchi Neuro: Alert and responsive, No focal deficits noted Abdomen: Soft, Non-Tender, Other (large and round but soft.) Skin: No rashes noted on visualized skin Musculoskeletal: No Chest Wall Tenderness Extremities: No Clubbing, No Cyanosis, No Edema, Normal Pulses, Other (states she has BLE edema. No pitting noted. ) Results 05/05/16 05:34 05/04/16 18:56 Lab Results 05/04/16 05/05/16 05/05/16 18:56 05:34 05:34 WBC 7.1 Hgb 9.9 L Hct 31.8 L Plt Count 206 INR 4.3 Sodium 136 Potassium 3.3 L Chloride 99 Carbon Dioxide 26 BUN 49 H Creatinine 1.66 H Glucose 226 H Calcium 8.4 L Total Bilirubin 0.4 AST 20 ALT 13 Alkaline Phosphatase 95 - Imaging and Cardiology Echo: report reviewed - EKG Interpretation EKG results cardiology: personally reviewed (AM EKG pending.), other Consult Discharge Plan - Plan Referrals: Salvador Umana MD [Primary Care Provider] - 05/16/16 9:00 am (Please follow up as schedule...)
[2016-05-05] MEDS: Loratadine 10 MG TABLET PO SCH (08:52)
[2016-05-05] MEDS: Insulin LISPRO 300 UNITS/3 ML VIAL SQ SCH ×4 (08:52→21:14)
[2016-05-05] MEDS: Lactobacillus 1 EACH CAP.SPRINK PO SCH ×2 (08:52→21:16)
[2016-05-05] MEDS: Metoprolol XL (24 HR) Succ 25 MG TAB.ER.24H PO SCH (08:52)
[2016-05-05] MEDS: Nystatin POWDER 30 GM BOTTLE TP SCH ×2 (08:53→21:26)
[2016-05-05] MEDS: Beclomethasone 80mcg MDI IH SCH ×2 (10:44→23:05)
--- NOTE | 2016-05-05 16:33 | Internal Med Progress Note ---
Date of Encounter: 05/05/16 Time of Encounter: 16:32 - Assessment and plan (1) Systolic and diastolic CHF, chronic Current Visit: Yes Status: Acute Assessment and plan: ? new onset of systolic CHF Last ECHo 01/2015 : EF : 60% ECHO today : EF: 30% cardiology on board and will follow recommendations. 05/05/2016 laying flat on back and does not have SOB JVP not raised. reviewed by cardiology will follow recommendations. (2) SIDDHARTH (acute kidney injury) Current Visit: Yes Status: Acute Assessment and plan: multifactorial will give gentle hydration hold nephrotoxic meds. 05/05/2016 improving crat noted low K and replaced orally will repeat labs in AM (3) Supratherapeutic INR Current Visit: Yes Status: Acute Assessment and plan: INR >5 no occult or obvious bleeding will hold coumadin 05/05/2016 INR trending down and no obvious bleeding. (4) Diabetes Current Visit: Yes Status: Chronic Assessment and plan: SCSI ACHS Qualifiers: Diabetes mellitus type: type 2 Diabetes mellitus complication status: with unspecified complications Diabetes mellitus detention insulin use: with intermediate manager use Qualified Code(s): E11.8 - Type 2 diabetes mellitus with unspecified complications; Z79.4 - buttermaker helper (current) use of insulin (5) HTN (hypertension) Current Visit: Yes Status: Chronic Assessment and plan: will give gentle hydration and will have close monitoring. Qualifiers: Hypertension type: essential hypertension Qualified Code(s): I10 - Essential (primary) hypertension (6) DVT prophylaxis Current Visit: No Status: Acute Assessment and plan: INR more than 2 - Subjective Interval history: seen and examined. chart reviewed. has difficulty in breathing and has irregular heart rate. cardiology on board family at bedside. 05/05/2016 seen and examined. lying flat on back and does not have SOB no new complaints feeling better. - Constitutional Vitals: Temp Pulse Resp BP Pulse Ox 97.8 F 70 16 126/78 94 L 05/05/16 15:31 05/05/16 15:31 05/05/16 15:31 05/05/16 15:31 05/05/16 15:31 General appearance: Present: A&O X 3, pleasant, no acute distress, obese, answers questions appropriately - Head Head exam: Present: atraumatic, normocephalic - Eye Eye exam: Present: PERRL, conjuntiva pink, sclera anicteric Pupils: Present: PERRL - Neck Neck exam general surgery: Present: supple, trachea midline. Absent: lymphadenopathy - Respiratory Respiratory exam: Present: CTAB. Absent: accessory muscle use, rales, rhonchi, wheezes - Cardiovascular Cardiovascular exam: Present: RRR, +S1, +S2. Absent: diastolic murmur, gallop, rubs, systolic murmur - GI/Abdominal GI/Abdominal exam: Present: normal bowel sounds, soft, no peritoneal signs. Absent: distended, tenderness - Extremities Exam Extremities exam: Present: warm, radial pulses palpable and symetrical. Absent : calf tenderness, cyanotic, pedal edema - Neurological Exam Neurological exam: Present: CN II-XII intact, oriented X3, no focal deficits. Absent: pronater drift, facial droop, speech deficit - Skin Skin exam: Present: dry, intact Internal Medicine: Result - Labs CBC & Chem 7: 05/05/16 05:34 05/04/16 18:56 Labs: Short CBC 05/05/16 Range/Units 05:34 WBC 7.1 (4.3-11.1) K/mcL Hgb 9.9 L (11.5-15.4) g/dL Hct 31.8 L (35.3-44.9) % Plt Count 206 (140-400) K/mcL Neutrophils # 5.2 (1.6-8.9) K/mcL BMP 05/04/16 18:56 Sodium 136 Potassium 3.3 L Chloride 99 Carbon Dioxide 26 BUN 49 H Creatinine 1.66 H Glucose 226 H Calcium 8.4 L Liver Function 05/04/16 Range/Units 18:56 Total Bilirubin 0.4 (0.2-1.2) mg/dL AST 20 (5-34) Units/L ALT 13 (0-55) Units/L Alkaline Phosphatase 95 (38-126) Units/L Albumin 3.4 L (3.5-5.0) g/dL - ABG Interpretation ABG results: PT/INR, D-dimer PT 48.9 Seconds (9.4-12.1) H* 05/05/16 05:34 - VTE Documentation of Mechanical Device: Graduated compression elastic hosiery Consult Discharge Plan - Plan Referrals: Salvador Umana MD [Primary Care Provider] - 05/16/16 9:00 am (Please follow up as schedule...)
[2016-05-06] MEDS: Acetaminophen 325 MG TABLET PO PRN ×2 (05:28→22:47)
[2016-05-06 06:53] LABS: INR 2.4; Prothrombin Time 26.8 Seconds (9.4-12.1)
[2016-05-06 06:59] LABS: Alanine Aminotransferase 13 Units/L (0-55); Albumin 3.2 g/dL (3.5-5.0); Albumin/Globulin Ratio 0.9 (1.1-2.2); Alkaline Phosphatase 98 Units/L (38-126); Aspartate Amino Transferase 20 Units/L (5-34); BUN/Creatinine Ratio 23 (6-26); Bilirubin,Total 0.7 mg/dL (0.2-1.2); Calcium 8.1 mg/dL (8.6-10.8); Carbon Dioxide 23 mEq/L (19-29); Chloride 105 mEq/L (98-109); Globulin 3.5 g/dL (2.4-3.5); Glucose 201 mg/dL (70-99); Osmolality,Calculated 298 (280-300); Potassium 3.3 mEq/L (3.5-4.5); Sodium 139 mEq/L (136-145); Total Protein 6.7 g/dL (6.0-8.3); eGFR For African Americans > 60 (> 60); eGFR For Non-African Americans 51 (> 60)
[2016-05-06 07:00] LABS: Blood Urea Nitrogen 25 mg/dL (7-20)
[2016-05-06 07:06] LABS: Basophils % 0.4 %; Eosinophils # 0.1 K/mcL (0.0-0.6); Eosinophils % 1.3 %; Hematocrit 32.5 % (35.3-44.9); Hemoglobin 10.1 g/dL (11.5-15.4); Immature Granulocytes % 0.6 % (0-4); Lymphocytes # 1.4 K/mcL (0.6-4.6); Mean Corpuscular HGB Conc 31.1 g/dL (31.6-35.5); Mean Corpuscular Hemoglobin 26.4 pg (28.0-33.3); Mean Corpuscular Volume 84.9 fL (83.0-100.0); Mean Platelet Volume 10.5 fL (9.4-12.4); Monocytes # 0.7 K/mcL (0.0-1.3); Monocytes % 9.4 %; Neutrophils # 4.7 K/mcL (1.6-8.9); Platelet Count 207 K/mcL (140-400); Red Blood Count 3.83 M/mcL (3.82-4.97); Red Cell Distribution Width 14.9 % (11.5-14.5); Segmented Neutrophils % 68.3 %
[2016-05-06] MEDS: Metoprolol XL (24 HR) Succ 25 MG TAB.ER.24H PO SCH (08:14)
[2016-05-06] MEDS: Lactobacillus 1 EACH CAP.SPRINK PO SCH ×2 (08:14→20:51)
[2016-05-06] MEDS: Insulin LISPRO 300 UNITS/3 ML VIAL SQ SCH ×4 (08:15→20:51)
[2016-05-06] MEDS: Nystatin POWDER 30 GM BOTTLE TP SCH (08:15)
[2016-05-06] MEDS: Loratadine 10 MG TABLET PO SCH (08:15)
--- NOTE | 2016-05-06 08:25 | Cardiology Progress Note ---
Date of Encounter: 05/06/16 Time of Encounter: 08:26 Assessment and Plan (1) Acute systolic CHF (congestive heart failure) Current Visit: Yes Status: Acute H/o diastolic CHF. Last TTE 01/2015 showed EF 60%, mild lVH, and normal RV function. Repeat TTE this stay shows EF 30% with global and segmental dysfunction. HR [address] with RBBB. RV hypokenesis, severely dilated LA, moderate right atrial enlargement. Mild MR and TR. Mild pulmonary hypertension. C/o increasing dyspnea and feels full. Increased Lasix dose recently at home with no improvement. Developed SIDDHARTH, likely secondary to dehydration--now resolved. Recheck Echo now that HR is controlled. If EF remains decreased on repeat echo after being rate controlled, recommended evaluate ischemic cause of CMP. LHC R/B/A discussed. INR remains supratherapeutic 2.4, but downtrending. Possible LHC tomorrow pending echo and INR results (1.8 or less for LHC). Discussed with patient who agrees with plan. (2) SIDDHARTH (acute kidney injury) Current Visit: Yes Status: Resolved Resolved with IV hydration. Creatinine 1.08 this AM. (3) Supratherapeutic INR Current Visit: Yes Status: Acute Hold warfarin. Monitor INR. INR now appropriate 2.4. Will continue to hold since pt may warrant LHC for CMP while inpt. (4) Atrial fibrillation Current Visit: No Status: Chronic Discontinued flecainide d/t SIDDHARTH. Device check showed atrial fibrillation with RVR 3/7. Paced with widened QRS that improved--secondary to flecainide in the setting of SIDDHARTH. HR now controlled--24 hour tele AVG HR 71, V paved. Toprol was started yesterday. Monitor telemetry. Coumadin on hold d/t supratherapeutic INR. INR 4.3 yesterday. 2.4 today. Continue to hold since pt may warrant LHC during stay. TSH mildly elevated-Appreciate IM recommendation. Serial EKGs. Qualifiers: Atrial fibrillation type: chronic Qualified Code(s): I48.2 - Chronic atrial fibrillation Discussion w patient/family: The assessment and plan as outlined above was discussed with the patient and/or family members who expressed understanding and agreement. All questions were answered. Thank you for involving us in the care of your patient. Please call with any questions. I will discuss all the above with Dr. Sidhu and make changes as necessary. Subjective Principal diagnosis: dehydration, acute systolic HF, afib Interval history: Pt reports feeling tired this AM, did not sleep well, but denies chest pain or dyspnea. Objective Vital Signs, Last 4 Hours Temp Pulse Resp BP Pulse Ox 05/06/16 07:51 98.3 F 72 14 102/67 97 Vital Signs Temp Pulse Resp BP Pulse Ox 05/06/16 07:51 98.3 F 72 14 102/67 97 05/06/16 04:17 97.7 F 70 16 126/84 96 05/06/16 00:06 98.5 F 72 16 120/80 97 05/05/16 20:30 97.6 F 72 18 124/79 98 05/05/16 15:31 97.8 F 70 16 126/78 94 L 05/05/16 10:55 97.6 F 70 18 126/82 93 L 05/05/16 10:44 18 94 L Intake and Output 05/05/16 05/06/16 05/06/16 22:59 07:59 15:59 Intake Total 240 / 240 Output Total Balance 240 / 240 Intake: IV Fluids 0.9 % Sodium Chloride 1, 000 ML @ 60 mls/hr IVC . [id number] OPAL Rx#: [id number] Oral 240 / 240 Output: Catheter Other: Meal Breakfast Percent of Meal Consumed 100% Weight Blood Glucose* Patient Weight 05/07/16 00:59 Weight 130.635 kg General: Conversant, No Apparent Distress HEENT: Atraumatic, Normocephaly, Mucus Membranes Moist Neck: No JVD, Normal carotid pulses Cardiac: Reg Rate and Rhythm, Normal S1 and S2, No Murmur Lungs: Normal Breath Sounds, No Wheeze, Rales, Rhonchi Neuro: Alert and responsive, No focal deficits noted Abdomen: Soft, Non-Tender Skin: No rashes noted on visualized skin Musculoskeletal: No Chest Wall Tenderness Extremities: No Clubbing, No Cyanosis, No Edema, Normal Pulses Results 05/06/16 06:20 05/06/16 06:20 Lab Results 05/06/16 05/06/16 05/06/16 06:20 06:20 06:20 WBC 6.9 Hgb 10.1 L Hct 32.5 L Plt Count 207 INR 2.4 Sodium 139 Potassium 3.3 L Chloride 105 Carbon Dioxide 23 BUN 25 H D Creatinine 1.08 Glucose 201 H Calcium 8.1 L Total Bilirubin 0.7 AST 20 ALT 13 Alkaline Phosphatase 98 Short CBC 05/06/16 Range/Units 06:20 WBC 6.9 (4.3-11.1) K/mcL Hgb 10.1 L (11.5-15.4) g/dL Hct 32.5 L (35.3-44.9) % Plt Count 207 (140-400) K/mcL Neutrophils # 4.7 (1.6-8.9) K/mcL BMP 05/06/16 Range/Units 06:20 Sodium 139 (136-145) mEq/L Potassium 3.3 L (3.5-4.5) mEq/L Chloride 105 (98-109) mEq/L Carbon Dioxide 23 (19-29) mEq/L BUN 25 H D (7-20) mg/dL Creatinine 1.08 (0.57-1.11) mg/dL Glucose 201 H (70-99) mg/dL Calcium 8.1 L (8.6-10.8) mg/dL Liver Function 05/06/16 Range/Units 06:20 Total Bilirubin 0.7 (0.2-1.2) mg/dL AST 20 (5-34) Units/L ALT 13 (0-55) Units/L Alkaline Phosphatase 98 (38-126) Units/L Albumin 3.2 L (3.5-5.0) g/dL Active Medications Acetaminophen (Tylenol) 650 mg PO Q6HR PRN PRN Reason: Pain; Fever Stop: 11/02/16 23:40 Last Admin: 05/06/16 05:28 Dose: 650 mg Albuterol Sulfate (Albuterol Inhaler) 2 puff IH Q4H PRN PRN Reason: Shortness Of Breath Stop: 11/02/16 22:54 Last Admin: 05/04/16 00:21 Dose: 2 puff Beclomethasone Dipropionate (Qvar 80 Mcg) 1 puff IH BIDR OPAL PRN Reason: Protocol Stop: 11/03/16 10:01 Last Admin: 05/05/16 23:05 Dose: Not Given Cyanocobalamin (Vitamin B12) 1,000 mcg IM QMONTH [facility] Stop: 11/03/16 09:01 Last Admin: 05/04/16 10:11 Dose: 1,000 mcg Dextrose/Water (Dextrose 50% (Syg)) 25 ml IVP AD PRN PRN Reason: Hypoglycemia Stop: 11/02/16 22:44 Glucagon (Glucagen) 1 mg IM ONCE PRN PRN Reason: Hypoglycemia Stop: 11/02/16 22:44 Glucose (Gluctose) 15 gm PO ONCE PRN PRN Reason: Hypoglycemia Stop: 11/02/16 22:44 Glucose (Gluctose) 30 gm PO ONCE PRN PRN Reason: Hypoglycemia Stop: 11/02/16 22:44 Dextrose (Dextrose 5%) 1,000 mls @ 100 mls/hr IV CONT PRN PRN Reason: HYPOGLYCEMIA Stop: 11/02/16 22:44 Sodium Chloride (0.9 % Sodium Chloride) 1,000 mls @ 60 mls/hr IVC .[id number] [facility] Stop: 11/02/16 23:01 Last Infusion: 05/06/16 05:29 Dose: 60 mls/hr Ceftriaxone Sodium 1,000 mg/ (Dextrose) 100 mls @ 200 mls/hr IVPB Q24H [facility] Stop: 11/03/16 09:01 Last Admin: 05/06/16 08:14 Dose: 200 mls/hr Insulin Human Lispro (Humalog) 0 units SQ HS OPAL PRN Reason: Protocol Stop: 11/02/16 22:46 Last Admin: 05/05/16 21:14 Dose: 2 units Insulin Human Lispro (Humalog) 0 units SQ TIDAC [facility] PRN Reason: Protocol Stop: 11/03/16 07:31 Last Admin: 05/06/16 08:15 Dose: 4 units Lactobacillus Acidophilus/Rhamnosus (Culturelle) 1 each PO BID [facility] Stop: 11/03/16 09:01 Last Admin: 05/06/16 08:14 Dose: 1 each Loratadine (Claritin) 10 mg PO QAM [facility] Stop: 11/03/16 09:01 Last Admin: 05/06/16 08:15 Dose: 10 mg Metoprolol Succinate (Toprol Xl) 25 mg PO DAILY [facility] Stop: 11/04/16 09:01 Last Admin: 05/06/16 08:14 Dose: 25 mg Montelukast Sodium (Singulair) 10 mg PO HS OPAL Stop: 11/03/16 21:01 Last Admin: 05/05/16 21:16 Dose: 10 mg Naloxone HCl (Narcan) 0.4 mg IVP Q2MIN PRN PRN Reason: Opioid Reversal Stop: 11/02/16 22:36 Nystatin (Nystop) 1 appl TP BID OPAL Stop: 11/03/16 09:01 Last Admin: 05/06/16 08:15 Dose: Not Given Simvastatin (Zocor) 10 mg PO HS OPAL Stop: 11/02/16 23:01 Last Admin: 05/05/16 21:16 Dose: 10 mg - Imaging and Cardiology Echo: report reviewed - EKG Interpretation EKG results cardiology: other (24 hour tele AVG HR 71 V-paced) - VTE Documentation of Mechanical Device: Graduated compression elastic hosiery Consult Discharge Plan - Plan Referrals: Salvador Umana MD [Primary Care Provider] - 05/16/16 9:00 am (Please follow up as schedule...)
[2016-05-06] MEDS: Beclomethasone 80mcg MDI IH SCH ×2 (09:16→20:15)
--- NOTE | 2016-05-06 13:27 | Internal Med Progress Note ---
Date of Encounter: 05/06/16 Time of Encounter: 13:19 - Assessment and plan (1) Systolic and diastolic CHF, chronic Current Visit: Yes Status: Acute Assessment and plan: ? new onset of systolic CHF Last ECHo 01/2015 : EF : 60% ECHO today : EF: 30% cardiology on board and will follow recommendations. 05/05/2016 laying flat on back and does not have SOB JVP not raised. reviewed by cardiology will follow recommendations. 05/06/2016 laying flat with out SOB Heat rate well controlled. I understood limited ECHO tomorrow if EF improves then possible home if EF is persistently low then possible cath. (2) SIDDHARTH (acute kidney injury) Current Visit: Yes Status: Resolved Assessment and plan: multifactorial will give gentle hydration hold nephrotoxic meds. 05/05/2016 improving crat noted low K and replaced orally will repeat labs in AM 05/06/2016 SIDDHARTH resolved. (3) UTI (urinary tract infection) Current Visit: Yes Status: Acute Assessment and plan: Ecoli UTI : pansensitive on ceftriaxne Day 3 will continue two more day IV abx Qualifiers: Urinary tract infection type: site unspecified Hematuria presence: without hematuria Qualified Code(s): N39.0 - Urinary tract infection, site not specified (4) Supratherapeutic INR Current Visit: Yes Status: Acute Assessment and plan: INR >5 no occult or obvious bleeding will hold coumadin 05/05/2016 INR trending down and no obvious bleeding. 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 Qualifiers: Hypertension type: essential hypertension Qualified Code(s): I10 - Essential (primary) hypertension (7) DVT prophylaxis Current Visit: No Status: Acute Assessment and plan: INR more than 2 - Subjective Interval history: seen and examined. chart reviewed. has difficulty in breathing and has irregular heart rate. cardiology on board family at bedside. 05/05/2016 seen and examined. lying flat on back and does not have SOB no new complaints feeling better. 05/06/2016 seen and examined. feeling better. no new complaints. - Constitutional Vitals: Temp Pulse Resp BP Pulse Ox 98.2 F 71 18 117/79 98 05/06/16 10:54 05/06/16 10:54 05/06/16 10:54 05/06/16 10:54 05/06/16 10:54 General appearance: Present: A&O X 3, pleasant, no acute distress, obese, answers questions appropriately - Head Head exam: Present: atraumatic, normocephalic - Eye Eye exam: Present: PERRL, conjuntiva pink, sclera anicteric Pupils: Present: PERRL - Neck Neck exam general surgery: Present: supple, trachea midline. Absent: lymphadenopathy - Respiratory Respiratory exam: Present: CTAB. Absent: accessory muscle use, rales, rhonchi, wheezes - Cardiovascular Cardiovascular exam: Present: RRR, +S1, +S2. Absent: diastolic murmur, gallop, rubs, systolic murmur - GI/Abdominal GI/Abdominal exam: Present: normal bowel sounds, soft, no peritoneal signs. Absent: distended, tenderness - Extremities Exam Extremities exam: Present: warm, radial pulses palpable and symetrical. Absent : calf tenderness, cyanotic, pedal edema - Neurological Exam Neurological exam: Present: CN II-XII intact, oriented X3, no focal deficits. Absent: pronater drift, facial droop, speech deficit - Skin Skin exam: Present: dry, intact Internal Medicine: Result - Labs CBC & Chem 7: 05/06/16 06:20 05/06/16 06:20 Labs: Short CBC 05/06/16 Range/Units 06:20 WBC 6.9 (4.3-11.1) K/mcL Hgb 10.1 L (11.5-15.4) g/dL Hct 32.5 L (35.3-44.9) % Plt Count 207 (140-400) K/mcL Neutrophils # 4.7 (1.6-8.9) K/mcL BMP 05/06/16 06:20 Sodium 139 Potassium 3.3 L Chloride 105 Carbon Dioxide 23 BUN 25 H D Creatinine 1.08 Glucose 201 H Calcium 8.1 L Liver Function 05/06/16 Range/Units 06:20 Total Bilirubin 0.7 (0.2-1.2) mg/dL AST 20 (5-34) Units/L ALT 13 (0-55) Units/L Alkaline Phosphatase 98 (38-126) Units/L Albumin 3.2 L (3.5-5.0) g/dL - ABG Interpretation ABG results: PT/INR, D-dimer PT 26.8 Seconds (9.4-12.1) H 05/06/16 06:20 - VTE Documentation of Mechanical Device: Graduated compression elastic hosiery Consult Discharge Plan - Plan Referrals: Salvador Umana MD [Primary Care Provider] - 05/16/16 9:00 am (Please follow up as schedule...)
[2016-05-07] MEDS: Nystatin POWDER 30 GM BOTTLE TP SCH ×3 (01:02→20:19)
[2016-05-07 06:05] LABS: Basophils % 0.3 %; Eosinophils # 0.2 K/mcL (0.0-0.6); Eosinophils % 2.3 %; Hematocrit 32.1 % (35.3-44.9); Hemoglobin 9.8 g/dL (11.5-15.4); Immature Granulocytes % 0.6 % (0-4); Lymphocytes # 1.6 K/mcL (0.6-4.6); Lymphocytes % 23.8 %; Mean Corpuscular HGB Conc 30.5 g/dL (31.6-35.5); Mean Corpuscular Hemoglobin 26.1 pg (28.0-33.3); Mean Corpuscular Volume 85.6 fL (83.0-100.0); Mean Platelet Volume 10.4 fL (9.4-12.4); Monocytes # 0.6 K/mcL (0.0-1.3); Neutrophils # 4.4 K/mcL (1.6-8.9); Platelet Count 213 K/mcL (140-400); Red Blood Count 3.75 M/mcL (3.82-4.97)
[2016-05-07 06:08] LABS: INR 1.6; Prothrombin Time 17.5 Seconds (9.4-12.1)
[2016-05-07 06:18] LABS: Alanine Aminotransferase 16 Units/L (0-55); Albumin 3.2 g/dL (3.5-5.0); Albumin/Globulin Ratio 0.9 (1.1-2.2); Alkaline Phosphatase 96 Units/L (38-126); Aspartate Amino Transferase 19 Units/L (5-34); BUN/Creatinine Ratio 18 (6-26); Bilirubin,Total 0.5 mg/dL (0.2-1.2); Blood Urea Nitrogen 16 mg/dL (7-20); Calcium 8.7 mg/dL (8.6-10.8); Carbon Dioxide 26 mEq/L (19-29); Chloride 107 mEq/L (98-109); Globulin 3.5 g/dL (2.4-3.5); Glucose 184 mg/dL (70-99); Osmolality,Calculated 294 (280-300); Potassium 3.7 mEq/L (3.5-4.5); Sodium 139 mEq/L (136-145); Total Protein 6.7 g/dL (6.0-8.3); eGFR For African Americans > 60 (> 60); eGFR For Non-African Americans > 60 (> 60)
[2016-05-07] MEDS: Beclomethasone 80mcg MDI IH SCH ×2 (07:56→20:59)
[2016-05-07] MEDS: Insulin LISPRO 300 UNITS/3 ML VIAL SQ SCH ×4 (08:54→20:18)
[2016-05-07] MEDS: Metoprolol XL (24 HR) Succ 25 MG TAB.ER.24H PO SCH (09:16)
[2016-05-07] MEDS: Loratadine 10 MG TABLET PO SCH (09:16)
[2016-05-07] MEDS: Lactobacillus 1 EACH CAP.SPRINK PO SCH ×2 (09:16→20:17)
--- NOTE | 2016-05-07 10:04 | Event Note ---
Date of Encounter: 05/07/16 Time of Encounter: 10:03 - Cardiology Event Note EF 30%, INR today 1.6. Renal function continues to improve--creatinine 0.87. Discussed with Dr. Jose Miguel Landon. Recommend [facility] for ischemic evaluation. R/B/A discussed. Pt agrees. [facility] today with further recommendations to follow.
--- NOTE | 2016-05-07 12:50 | ECHO - Doppler Report ---
Limited Echocardiogram Name: Marixa Vilchis Date of Study: 05/07/2016 Date: 1950 Ht: 61.0 in Medical Record#: [id number] Age: 65 Wt: 286.0 lb Gender: Female BSA: 2.2 Order #: [id number] Location: [facility] Room #: 2A12 Reading Physician: Feng Siduh DO, FACC, FASE, FASNC [employer] Teacher: Crista Craig Ordering Physician: Vini Brush CNP Primary Physician: Yun Umana MD Indications: Assess EF Impressions: LVEF 50%. Compared to prior study, HR much better controlled on this study and LVEF improved. This was a limited study. See prior report for other details. Left Ventricular Wall Motion: Rest Echo Findings All wall segments showed normal motion. Findings: Study Quality * Technically sub-optimal due to poor echocardiographic windows. ECG Findings * Paced rhythm. Left Ventricle * LVEF 50%. * Normal LV chamber size and function. * Moderate to severe concentric left ventricular hypertrophy. * Atypical septal motion consistent with paced rhythm. History Hypertension Diabetes Hypercholesteremia Family History of CAD Myocardial Infarction Pacer/ICD Implant 05/04/16 a Previous Echo was performed. Measurements: BP: 117/ 75 2D Normal Values RVIDd: 3.00 cm <2.7 cm IVSd: 1.80 cm 0.6 - 1.0 cm LVIDd: 4.00 cm 3.7 - 5.6 cm LVPWd: 1.60 cm 0.6 - 1.1 cm LVIDs: 3.40 cm 1.5 - 3.6 cm AO: 2.00 cm < 4.0 cm LA: 4.20 cm 2.0 - 4.0cm %FS: 15.00 cm >25 % LA volume: Updated by Feng Sidhu DO, FACC, FASE, FASNC on 05/07/2016 12:42:59 PM electronically signed on 05/07/2016 12:44:23 PM with status of Final Wall Motion Osman: 1=Normal, 2=Hypokinesis, 3=Akinesis, 4=Dyskinesis, 5=Aneurysmal, 6=Hyperkinetic, X=Not Visualized (Blank)=Missing
--- NOTE | 2016-05-07 13:14 | Internal Med Progress Note ---
Date of Encounter: 05/07/16 Time of Encounter: 13:09 - Assessment and plan (1) Systolic and diastolic CHF, chronic Current Visit: Yes Status: Acute Assessment and plan: ? new onset of systolic CHF Last ECHo 01/2015 : EF : 60% ECHO today : EF: 30% cardiology on board and will follow recommendations. 05/05/2016 laying flat on back and does not have SOB JVP not raised. reviewed by cardiology will follow recommendations. 05/06/2016 laying flat with out SOB Heat rate well controlled. I understood limited ECHO tomorrow if EF improves then possible home if EF is persistently low then possible cath. 05/07/2016 Noted that patient's EF improved from 30% to 50% Cardiology on the board and then they recommend cardiac catheterization. Patient prefers to go home tomorrow irrespective to the cardiac catheterization outcome. Patient's family at bedside and they agree on the plan (2) SIDDHARTH (acute kidney injury) Current Visit: Yes Status: Resolved Assessment and plan: multifactorial will give gentle hydration hold nephrotoxic meds. 05/05/2016 improving crat noted low K and replaced orally will repeat labs in AM 05/06/2016 SIDDHARTH resolved. 05/07/2016 AK I resolved (3) UTI (urinary tract infection) Current Visit: Yes Status: Acute Assessment and plan: Ecoli UTI : pansensitive on ceftriaxne Day 3 will continue two more day IV abx 05/07/2016 Escherichia coli UTI: Pansensitive On ceftriaxone Day 4 We will continue for 1 more day of antibiotics She can have antibiotics was tomorrow and then can go home. Qualifiers: Urinary tract infection type: site unspecified Hematuria presence: without hematuria Qualified Code(s): N39.0 - Urinary tract infection, site not specified (4) Supratherapeutic INR Current Visit: Yes Status: Acute Assessment and plan: INR >5 no occult or obvious bleeding will hold coumadin 05/05/2016 INR trending down and no obvious bleeding. 04/08/2016 with in therapeutic limit will consider NOAC 05/07/2016 Anticoagulation as per cardiology. 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 Qualifiers: Hypertension type: essential hypertension Qualified Code(s): I10 - Essential (primary) hypertension (7) DVT prophylaxis Current Visit: No Status: Acute Assessment and plan: EPCD - Subjective Interval history: seen and examined. chart reviewed. has difficulty in breathing and has irregular heart rate. cardiology on board family at bedside. 05/05/2016 seen and examined. lying flat on back and does not have SOB no new complaints feeling better. 05/06/2016 seen and examined. feeling better. no new complaints. 05/07/2016 no new complaints. felling better laying flat and no SOB - Constitutional Vitals: Temp Pulse Resp BP Pulse Ox 98.2 F 70 18 112/72 96 05/07/16 11:52 05/07/16 11:52 05/07/16 11:52 05/07/16 11:52 05/07/16 11:52 General appearance: Present: A&O X 3, pleasant, no acute distress, obese, answers questions appropriately - Head Head exam: Present: atraumatic, normocephalic - Eye Eye exam: Present: PERRL, conjuntiva pink, sclera anicteric Pupils: Present: PERRL - Neck Neck exam general surgery: Present: supple, trachea midline. Absent: lymphadenopathy - Respiratory Respiratory exam: Present: CTAB. Absent: accessory muscle use, rales, rhonchi, wheezes - Cardiovascular Cardiovascular exam: Present: RRR, +S1, +S2. Absent: diastolic murmur, gallop, rubs, systolic murmur - GI/Abdominal GI/Abdominal exam: Present: normal bowel sounds, soft, no peritoneal signs. Absent: distended, tenderness - Extremities Exam Extremities exam: Present: warm, radial pulses palpable and symetrical. Absent : calf tenderness, cyanotic, pedal edema - Neurological Exam Neurological exam: Present: CN II-XII intact, oriented X3, no focal deficits. Absent: pronater drift, facial droop, speech deficit - Skin Skin exam: Present: dry, intact Internal Medicine: Result - Labs CBC & Chem 7: 05/07/16 05:36 05/07/16 05:36 Labs: Short CBC 05/07/16 Range/Units 05:36 WBC 6.9 (4.3-11.1) K/mcL Hgb 9.8 L (11.5-15.4) g/dL Hct 32.1 L (35.3-44.9) % Plt Count 213 (140-400) K/mcL Neutrophils # 4.4 (1.6-8.9) K/mcL BMP 05/07/16 05:36 Sodium 139 Potassium 3.7 Chloride 107 Carbon Dioxide 26 BUN 16 Creatinine 0.87 Glucose 184 H Calcium 8.7 Liver Function 05/07/16 Range/Units 05:36 Total Bilirubin 0.5 (0.2-1.2) mg/dL AST 19 (5-34) Units/L ALT 16 (0-55) Units/L Alkaline Phosphatase 96 (38-126) Units/L Albumin 3.2 L (3.5-5.0) g/dL - ABG Interpretation ABG results: PT/INR, D-dimer PT 17.5 Seconds (9.4-12.1) H 05/07/16 05:36 - VTE Documentation of Mechanical Device: Graduated compression elastic hosiery Consult Discharge Plan - Plan Referrals: Salvador Umana MD [Primary Care Provider] - 05/16/16 9:00 am (Please follow up as schedule...)
--- NOTE | 2016-05-07 13:41 | Electrocardiograph Report ---
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
--- NOTE | 2016-05-07 15:19 | Electrocardiograph Report ---
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
[2016-05-07] MEDS ORDERED: Verapamil 5 MG/2 ML VIAL ONE (15:26)
[2016-05-07] MEDS ORDERED: Heparin 1,000 UNITS/500 mL NS 500 ML ONE (15:26)
[2016-05-07] MEDS ORDERED: 0.9 % Sodium Chloride 1,000 ML ONE ×2 (15:26→16:18)
[2016-05-07] MEDS ORDERED: *HR* Heparin 10,000 UNIT/10 ML VIAL ONE (15:26)
[2016-05-07] MEDS ORDERED: Nitroglycerin 1,000 MCG/10 ML VIAL IV ONE (15:27)
--- NOTE | 2016-05-07 15:30 | Electrocardiograph Report ---
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
--- NOTE | 2016-05-07 16:00 | Pre-Sedation Evaluation ---
Pre-sedation evaluation - Pre-sedation checklist Date of procedure: 05/07/16 Procedure: [facility] Recent Vitals: Last Vital Signs Temp 98.2 F 05/07/16 11:52 Pulse 70 05/07/16 11:52 Resp 18 05/07/16 11:52 BP 112/72 05/07/16 11:52 Pulse Ox 96 05/07/16 11:52 H&P (including ROS) documented in medical record: Yes Previous reaction to sedatives/anesthetics: Unknown Dietary Status: NPO after Midnight Dentition: full dentition ASA Classification *see protocol: CLASS II-Mild systemic disease Plan of Care: Pt appropriate candidate for procedure/moderate/conscious sedation , Risks/benefits of procedure/sedation discussed w/ patient/family
[2016-05-07] MEDS ORDERED: *HR* FentaNYL (PF) 100 MCG/2 ML VIAL ONE (16:14)
[2016-05-07] MEDS ORDERED: *HR* Midazolam HCl 2 MG/2 ML VIAL ONE (16:14)
[2016-05-07] MEDS ORDERED: Nitroglycerin Spray 4.9 GM BOTTLE ONE (16:15)
--- NOTE | 2016-05-07 16:45 | Invasive Diagnostic Lab Proc ---
Name: Marixa Vilchis Date of Study: 05/07/2016 Date: 1950 Ht: 61.0in Medical Record#: [id number] Age: 65 Wt: 286.60lb Gender: Female BSA: 2.2 Order #: [id number] BMI: 54.18 Physicians Procedure Physician: Doug Jones MD, [facility] Referring MD: Referring MD: Staff Name Position Time In Phil Alas RN Philosophy And Religion Instructor 04:22 PM Kiera Medina RT (R) Scrub 04:22 PM Debbie Rodriguez RT (R) Monitor 04:22 PM Indications Indication Cardiomyopathy Procedures Performed Procedure L HRT ARTERY/VENTRICLE ANGIO Pre-Procedure Checklist Informed consent is complete signed and on chart. H\\T\\P is on chart. ID band is on and ID verified with patient. Patient NPO for procedure The procedure was described for the patient and questions were answered. ECG is on chart. Plan of Care Patient will tolerate the procedure without complications. Adequate level of comfort will be maintained. Hemodynamics will remain stable Patient will recover from procedure without complications. Respiratory function will be maintained. Cardiac rhythm will remain stable. Patient temperature will be maintained. Patient and/or family have verbalized understanding of the procedure. Patient Education Chief Complaint/Reason for Test: Cardiac Cath Developmental Category: Adult (18-64 years) Developmentally Appropriate for Age: Yes Learning Barriers: None Education Needs: Procedure Education Method: Verbal Information Taught: Cardiac Cath Educational Evaluation: Able to repeat information Intravenous Access Time IV Size Location DC'd Fluid/Drip Rate Units RN 03:53 PM 20g 1 1/4" Patent On Arrival Rt Wrist Allergies NKDA No Known Allergies Vital Signs Time BP (mmHg) HR (bpm) O2 Sat. RR (bpm) LOC 04:25 PM / % 4 = Oriented but drowsy 04:23 PM 147 / 96 69 95 % 8 04:28 PM 142 / 77 69 97 % 19 04:33 PM 130 / 66 69 94 % 23 04:38 PM 139 / 81 70 94 % Procedural Medications Time Medication Dose Units Method Given By 04:23 PM Oxygen 2 L/min nasal cannula Phil Alas RN 04:23 PM Heparin 2 units Intravenous Phil Alas RN 04:24 PM Versed 2 mg Intravenous Phil Alas RN 04:24 PM Fentanyl 50 mcg Intravenous Phil Alas RN 04:24 PM Nitroglycerin 0.04 mcg Sublingual Phil Alas RN 04:28 PM Lidocaine 2% 0.5 ml Subcutaneous Doug Jones MD, [facility] 04:29 PM Heparin 4000 units Nitroglycerin 200 mcg Verapamil 2.5 mg Intraarterial Doug Jones MD, [facility] ASA Classification: CLASS II- Mild systemic disease (i.e. well-controlled diabetes, hypertension, asthma, cigarette smoking) Cristiane Score Preprocedure Postprocedure Activity 2- Moves 4 extremities sustained head lift Activity 2- Moves 4 extremities sustained head lift Circulation 2- SBP +/= 20 points of pre-anesthetic level Circulation 2- SBP +/= 20 points of pre-anesthetic level Consciousness 2- Awake and alert oriented x 3 Consciousness 2- Awake and alert oriented x 3 O2 Saturation 2- Able to maintain O2 satruation of 92% on room air O2 Saturation 2- Able to maintain O2 satruation of 92% on room air Respiratory 2- Able to deep breathe and cough well Respiratory 2- Able to deep breathe and cough well Total Score 10 Total Score 10 Contrast Agent: Isovue Diagnostic Contrast: 61 ml Total Contrast: 61 ml Procedure Log Time Note Enter By 03:55 PM CathStat 04:22 PM Pt arrived to laboratory apparatus glass blower 2 at 16:22 04: PM Phil Alas RN Position: Philosophy And Religion Instructor Time in: 16:22 04:22 PM Kiera Medina RT (R) Position: Scrub Time in: 16:22 04:22 PM Vitals capture started with the following parameters, Patient=Adult, Interval=5 min, Initial Ywslyunk=081 mmHg, Deflation Rate=5 mmHg, Cuff placed on Left Arm 04:22 PM Debbie Rodriguez RT (R) Position: Monitor Time in: 16:22 04:23 PM Patient charges- Angio tray pack, Navilyst 3mm J, Pulse Oximetry and ACIST tubing and transducer :23 PM Case Delayed No :23 PM Recorded ECG: HR=70 Condition=Condition 1 04:23 PM Hair removed from procedure site in holding area using clippers. Right wrist prepped with Chloraprep by Maame Parks RT (R), safety strap applied then patient was draped. Skin intact. HR=69 bpm, FKZI=732/96 mmhg, SpO2=95.0 %, Resp=8 B/min, Comment=Paced : PM Hair removed from procedure site in holding area using clippers. Right groin prepped with Chloraprep by Debbie Rodriguez (R), safety strap applied then patient was draped. Skin intact. Physician arrived 16: PM ASA Class CLASS II- Mild systemic disease (i.e. well-controlled diabetes, hypertension, asthma, cigarette smoking) [email or web address] Meet and yovany completed Sign in performed according to hospital policy. Procedure start 16: Time: : Oxygen on at 2 L/min per [facility] PM Time: 16:24 Versed 2 mg Intravenous Given by Phil Alas RN PM Time: 16:24 Fentanyl 50 mcg Intravenous Given by Phil Alas RN PM Time: 16:24 Nitroglycerin 0.04 mcg Sublingual [facility] PM Time: 16:24 Patient comfortable and pain free: Yes PM Time: 16:25LOC: 4 = Oriented but drowsy dsp PM Time out performed according to hospital policy PM Time: 16:28 0.5 ml Lidocaine 2% to right radial Subcutaneous Given by Doug Jones MD, [facility] [address] [facility] PM HR=69 bpm, NNSY=403/77 mmhg, SpO2=97.0 %, Resp=19 B/min, Comment=Paced 04: PM Access obtained by percutaneous puncture. 5Fr 10cm Terumo Glidesheath sheath placed in right Radial artery. [id number] [email or web address] 04: PM Time: 16:29 Patient given 4,000 units Heparin, 200 mcg Nitroglycerin, and 2.5 mg Verapamil Intraarterial by Doug Jones MD, [facility] [email or web address] 04: PM 0.035 260cm Navilyst 3mmJ wire [id number] [email or web address] 04:29 PM 5Fr TIG catheter inserted over the wire DN [email or web address] 04:30 PM RCA angiography performed in multiple views. [email or web address] 04:31 PM Recorded Pressure: Ao, HR=69, Condition=Condition 1 (Aorta) Ao 100/70/85 04:31 PM Recorded Pressure: Ao, HR=70, Condition=Condition 1 (Aorta) Ao 101/69/84 04:31 PM Coronary Dominance: right [email or web address] 04:32 PM Lesion found in Proximal RCA. Pre Stenosis: 30 Pre ROVERTO Flow: [email or web address] 04:32 PM Lesion found in Right PDA. Pre Stenosis: 15 Pre ROVERTO Flow: [email or web address] 04:32 PM Recorded Pressure: Ao, HR=70, Condition=Condition 1 (Aorta) Ao 105/72/88 04:32 PM LCA angiography performed in multiple views. [email or web address] 04:33 PM Lesion found in Proximal LAD. Pre Stenosis: 20 Pre ROVERTO Flow: [email or web address] 04:33 PM Catheter removed [email or web address] 04:33 PM 5Fr Pigtail catheter inserted over the wire DN [email or web address] 04:33 PM HR=69 bpm, DPLF=980/66 mmhg, SpO2=94.0 %, Resp=23 B/min, Comment=Paced 04:33 PM Catheter selectively placed in left ventricle [email or web address] 04:33 PM Bolus angiogram of left Ventricle complete: 12 ml/sec for a total of 25 mls [email or web address] 04:33 PM Lesion found in Mid Circumflex. Pre Stenosis: 15 Pre ROVERTO Flow: [email or web address] 04:34 PM Recorded Pressure: LV, HR=69, Condition=Condition 1 (Left Ventricle) LV 111/18/21 04:34 PM Pressure channel 1 zeroed. 04:34 PM Recorded Pressure: LV, HR=70, Condition=Condition 1 (Left Ventricle) LV 130/22/32 04:35 PM Recorded Pressure: LV, Ao, HR=62, Condition=Condition 1 (Left Ventricle) LV 126/21/36, (Aorta) Ao 112/53/85 04:35 PM Catheter removed [email or web address] 04:36 PM Wire removed [email or web address] 04:36 PM Procedure completed at 16:36 [email or web address] 04:36 PM Sign out completed: Radiation Dose 265.09 mGy Fluoro Time: 1.3 Isovue 370 - 200ml contrast ml given by Doug Jones MD, FAC. Complications: NoneCardiac Rehab Consult needed: Confirmed administered medications: [email or web address] 04:37 PM Sign out completed: Radiation Dose mGy Fluoro Time: 1.3 Isovue 370 - 200ml contrast 61 ml given by Doug Jones MD, FACC. Complications: NoneCardiac Rehab Consult needed: NoConfirmed administered medications: Yes [email or web address] 04:37 PM Arterial sheath pulled, Vasc Band closure device used and was Successful S/N. [email or web address] 04:37 PM 9 ml air in Vasc Band. [email or web address] 04:37 PM Post ECG Paced [email or web address] 04:37 PM Post Blood Pressure 130/66 [email or web address] 04:37 PM Information taught Cardiac Cath and Vasc Band [email or web address] 04:37 PM Education needs Procedure, Plan of Care, and Disease Process [email or web address] 04:37 PM Learning barriers :None [email or web address] 04:37 PM Education Methods Verbal [email or web address] 04:37 PM Education evaluation Able to repeat information [email or web address] 04:38 PM Site status No bleeding/hematoma - Rt Wrist as reported by Kiera Medina RT (R) at 16:37 [email or web address] 04:38 PM Report given to Nuris MAE Pt taken to 2A Room #12. 16:38 [email or web address] 04:38 PM Delay to floor No [email or web address] 04:38 PM Patient out of room: 16:38 [email or web address] 04:38 PM Family placed in consult room. [email or web address] 04:38 PM HR=70 bpm, EGES=375/81 mmhg, SpO2=94.0 %, Comment=Paced 04:38 PM Complications: None [email or web address] Complications Complication None None None Hemodynamics Pressures Site Systolic/A Wave Diastolic/V Wave Mean AO 100 70 85 AO 101 69 84 AO 105 72 88 LV 111 18 21 LV 130 22 32 LV 126 21 36 AO 112 53 85 Post Procedure Information Blood Pressure: 130/66 mmHg Rhythm: Paced Post procedural instructions were given Site Checks Time Location Status Staff Sheath In? Note 04:37 PM Rt Wrist No bleeding/hematoma Kiera Medina RT (R) Pulses Updated by Debbie Rodriguez RT(R) on 05/07/2016 4:40:46 PM electronically signed on 05/07/2016 4:41:41 PM with status of Final
--- NOTE | 2016-05-07 16:58 | Electrocardiograph Report ---
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
[2016-05-07] MEDS ORDERED: Warfarin perPT PO PRN (18:00)
[2016-05-07] MEDS: *HR* Warfarin 1 MG TABLET PO SCH (18:34)
[2016-05-07] MEDS: Insulin DETEMIR 100 UNIT/ML X5UNITS SQ SCH (20:17)
[2016-05-07] MEDS: Sennosides/Docusate Sodium TABLET PO PRN (21:49)
[2016-05-08 06:45] LABS: INR 1.4; Prothrombin Time 15.1 Seconds (9.4-12.1)
[2016-05-08 06:47] LABS: Basophils % 0.3 %; Eosinophils # 0.2 K/mcL (0.0-0.6); Eosinophils % 2.5 %; Hematocrit 31.7 % (35.3-44.9); Hemoglobin 9.6 g/dL (11.5-15.4); Immature Granulocytes % 0.6 % (0-4); Lymphocytes # 1.5 K/mcL (0.6-4.6); Lymphocytes % 20.8 %; Mean Corpuscular HGB Conc 30.3 g/dL (31.6-35.5); Mean Corpuscular Hemoglobin 26.7 pg (28.0-33.3); Mean Corpuscular Volume 88.1 fL (83.0-100.0); Mean Platelet Volume 10.6 fL (9.4-12.4); Monocytes # 0.6 K/mcL (0.0-1.3); Monocytes % 8.1 %; Neutrophils # 4.8 K/mcL (1.6-8.9); Platelet Count 204 K/mcL (140-400); Red Cell Distribution Width 15.2 % (11.5-14.5); Segmented Neutrophils % 67.7 %
[2016-05-08 07:11] LABS: Alanine Aminotransferase 14 Units/L (0-55); Albumin 3.1 g/dL (3.5-5.0); Albumin/Globulin Ratio 0.9 (1.1-2.2); Alkaline Phosphatase 106 Units/L (38-126); Aspartate Amino Transferase 20 Units/L (5-34); BUN/Creatinine Ratio 15 (6-26); Bilirubin,Total 0.5 mg/dL (0.2-1.2); Blood Urea Nitrogen 13 mg/dL (7-20); Calcium 8.7 mg/dL (8.6-10.8); Carbon Dioxide 25 mEq/L (19-29); Chloride 107 mEq/L (98-109); Globulin 3.5 g/dL (2.4-3.5); Glucose 218 mg/dL (70-99); Osmolality,Calculated 297 (280-300); Potassium 3.7 mEq/L (3.5-4.5); Sodium 140 mEq/L (136-145); Total Protein 6.6 g/dL (6.0-8.3); eGFR For African Americans > 60 (> 60); eGFR For Non-African Americans > 60 (> 60)
[2016-05-08] MEDS: Beclomethasone 80mcg MDI IH SCH ×2 (08:07→21:53)
[2016-05-08] MEDS ORDERED: Insulin LISPRO 300 UNITS/3 ML VIAL SQ SCH (08:34)
[2016-05-08] MEDS: Lactobacillus 1 EACH CAP.SPRINK PO SCH ×2 (08:58→21:00)
[2016-05-08] MEDS: Loratadine 10 MG TABLET PO SCH (08:58)
[2016-05-08] MEDS: Metoprolol XL (24 HR) Succ 25 MG TAB.ER.24H PO SCH (09:00)
[2016-05-08] MEDS: Nystatin POWDER 30 GM BOTTLE TP SCH (09:02)
--- NOTE | 2016-05-08 09:48 | Cardiology Progress Note ---
Date of Encounter: 05/08/16 Time of Encounter: 09:46 Assessment and Plan (1) CHF (congestive heart failure) Current Visit: Yes Status: Chronic Systolic dysfunction now resolved with heart rate control. Known h/o diastolic CHF. TTE 01/2015 showed EF 60%, mild lVH, and normal RV function. Repeat TTE this stay showed EF 30% with global and segmental dysfunction. HR [address] with RBBB. RV hypokenesis, severely dilated LA, moderate right atrial enlargement. Mild MR and TR. Mild pulmonary hypertension. C/o increasing dyspnea and feels full. Increased Lasix dose recently at home with no improvement. Developed SIDDHARTH, likely secondary to dehydration--now resolved. LHC yesterday mild nonobstructive CAD--no intervention. Rechecked echo yesterday after HR was controlled--EF improved to 50%. Resume home Lasix dose of PO 40mg BID. Pt appears euvolemic on exam. Recommend lifestyle modification, Na and fluid restriction for diastolic dysfunction, daily weights. Cardiology is signing off. Reconsult PRN. Follow-up as outpt in 1-2 weeks. Qualifiers: Congestive heart failure type: diastolic Congestive heart failure chronicity: acute on chronic Qualified Code(s): I50.33 - Acute on chronic diastolic (congestive) heart failure (2) Atrial fibrillation Current Visit: No Status: Chronic Discontinued flecainide d/t SIDDHARTH. Device check showed atrial fibrillation with RVR 05/01. Paced with widened QRS that resolved--secondary to flecainide in the setting of SIDDHARTH. HR now controlled--24 hour tele AVG HR 70, V paved. Continue Toprol XL 25mg daily. In the future if she has more episodes of A-Fib with RVR and is symptomatic, can consider amiodarone, but not warranted at this time. TSH mildly elevated-Appreciate IM recommendation. INR 1.4. Resume Coumadin with dosing per pharmacy. Management per [facility] as outpt. Qualifiers: Atrial fibrillation type: chronic Qualified Code(s): I48.2 - Chronic atrial fibrillation Discussion w patient/family: The assessment and plan as outlined above was discussed with the patient and/or family members who expressed understanding and agreement. All questions were answered. Thank you for involving us in the care of your patient. Please call with any questions. I will discuss all the above with Dr. Jose Miguel Landon and make changes as necessary. Subjective Principal diagnosis: dehydration, acute systolic HF, afib Interval history: No acute complaints this AM. LHC yesterday revealed mild CAD--no intervention warranted. Echo shows EF has improved to 50%. 24 hour tele AVG HR 70, V-paced on tele. Objective Vital Signs, Last 4 Hours Temp Pulse Resp BP Pulse Ox 05/08/16 08:10 18 97 05/08/16 07:25 98.0 F 78 18 142/85 96 Vital Signs Temp Pulse Resp BP Pulse Ox 05/08/16 08:10 18 97 05/08/16 07:25 98.0 F 78 18 142/85 96 05/08/16 04:00 97.7 F 70 18 118/71 95 05/07/16 23:55 98.0 F 70 18 121/77 90 L 05/07/16 21:10 20 98 05/07/16 20:52 97.8 F 70 18 127/70 96 05/07/16 18:00 97.8 F 69 16 114/71 100 05/07/16 17:46 97.8 F 72 16 121/72 100 05/07/16 17:10 97.3 F L 72 16 124/73 97 05/07/16 16:11 98.1 F 71 16 140/83 96 05/07/16 11:52 98.2 F 70 18 112/72 96 Intake and Output 05/07/16 05/08/16 05/08/16 23:59 07:59 15:59 Intake Total 240 / 240 Output Total 500 / 500 Balance -500 / -500 240 / 240 Intake: Oral 240 / 240 Output: Catheter 500 / 500 Other: Meal Breakfast Percent of Meal Consumed 100% Weight 130.635 kg Blood Glucose* 262 203 Patient Weight 05/08/16 23:59 Weight 130.635 kg General: Conversant, No Apparent Distress HEENT: Atraumatic, Normocephaly, Mucus Membranes Moist Neck: No JVD, Normal carotid pulses Cardiac: Reg Rate and Rhythm, Normal S1 and S2, No Murmur Lungs: Normal Breath Sounds, No Wheeze, Rales, Rhonchi Neuro: Alert and responsive, No focal deficits noted Abdomen: Soft, Non-Tender Skin: Other (right radial access site healing well. No bleeding, hematoma or ecchymosis noted.) Musculoskeletal: No Chest Wall Tenderness Extremities: No Clubbing, No Cyanosis, No Edema, Normal Pulses Results 05/08/16 05:45 05/08/16 05:45 Lab Results 05/08/16 05/08/16 05/08/16 05:45 05:45 05:45 WBC 7.1 Hgb 9.6 L Hct 31.7 L Plt Count 204 INR 1.4 Sodium 140 Potassium 3.7 Chloride 107 Carbon Dioxide 25 BUN 13 Creatinine 0.86 Glucose 218 H Calcium 8.7 Total Bilirubin 0.5 AST 20 ALT 14 Alkaline Phosphatase 106 Short CBC 05/08/16 Range/Units 05:45 WBC 7.1 (4.3-11.1) K/mcL Hgb 9.6 L (11.5-15.4) g/dL Hct 31.7 L (35.3-44.9) % Plt Count 204 (140-400) K/mcL Neutrophils # 4.8 (1.6-8.9) K/mcL BMP 05/08/16 Range/Units 05:45 Sodium 140 (136-145) mEq/L Potassium 3.7 (3.5-4.5) mEq/L Chloride 107 (98-109) mEq/L Carbon Dioxide 25 (19-29) mEq/L BUN 13 (7-20) mg/dL Creatinine 0.86 (0.57-1.11) mg/dL Glucose 218 H (70-99) mg/dL Calcium 8.7 (8.6-10.8) mg/dL Liver Function 05/08/16 Range/Units 05:45 Total Bilirubin 0.5 (0.2-1.2) mg/dL AST 20 (5-34) Units/L ALT 14 (0-55) Units/L Alkaline Phosphatase 106 (38-126) Units/L Albumin 3.1 L (3.5-5.0) g/dL Active Medications Acetaminophen (Tylenol) 650 mg PO Q6HR PRN PRN Reason: Pain; Fever Stop: 11/02/16 23:40 Last Admin: 05/06/16 22:47 Dose: 650 mg Albuterol Sulfate (Albuterol Inhaler) 2 puff IH Q4H PRN PRN Reason: Shortness Of Breath Stop: 11/02/16 22:54 Last Admin: 05/04/16 00:21 Dose: 2 puff Beclomethasone Dipropionate (Qvar 80 Mcg) 1 puff IH BIDR OPAL PRN Reason: Protocol Stop: 11/03/16 10:01 Last Admin: 05/08/16 08:07 Dose: 1 puff Cyanocobalamin (Vitamin B12) 1,000 mcg IM QMONTH [facility] Stop: 11/03/16 09:01 Last Admin: 05/04/16 10:11 Dose: 1,000 mcg Dextrose/Water (Dextrose 50% (Syg)) 25 ml IVP AD PRN PRN Reason: Hypoglycemia Stop: 11/02/16 22:44 Glucagon (Glucagen) 1 mg IM ONCE PRN PRN Reason: Hypoglycemia Stop: 11/02/16 22:44 Glucose (Gluctose) 15 gm PO ONCE PRN PRN Reason: Hypoglycemia Stop: 11/02/16 22:44 Glucose (Gluctose) 30 gm PO ONCE PRN PRN Reason: Hypoglycemia Stop: 11/02/16 22:44 Dextrose (Dextrose 5%) 1,000 mls @ 100 mls/hr IV CONT PRN PRN Reason: HYPOGLYCEMIA Stop: 11/02/16 22:44 Insulin Detemir (Levemir) 5 unit SQ HS [facility] Stop: 11/06/16 21:01 Last Admin: 05/07/16 20:17 Dose: 5 unit Insulin Human Lispro (Humalog) 0 units SQ HS OPAL PRN Reason: Protocol Stop: 11/02/16 22:46 Insulin Human Lispro (Humalog) 0 units SQ TIDAC [facility] PRN Reason: Protocol Stop: 11/03/16 07:31 Lactobacillus Acidophilus/Rhamnosus (Culturelle) 1 each PO BID [facility] Stop: 11/03/16 09:01 Last Admin: 05/08/16 08:58 Dose: 1 each Loratadine (Claritin) 10 mg PO QAM [facility] Stop: 11/03/16 09:01 Last Admin: 05/08/16 08:58 Dose: 10 mg Metoprolol Succinate (Toprol Xl) 25 mg PO DAILY [facility] Stop: 11/04/16 09:01 Last Admin: 05/08/16 09:00 Dose: 25 mg Montelukast Sodium (Singulair) 10 mg PO HS [facility] Stop: 11/03/16 21:01 Last Admin: 05/07/16 20:17 Dose: 10 mg Naloxone HCl (Narcan) 0.4 mg IVP Q2MIN PRN PRN Reason: Opioid Reversal Stop: 11/02/16 22:36 Nystatin (Nystop) 1 appl TP BID OPAL Stop: 11/03/16 09:01 Last Admin: 05/08/16 09:02 Dose: 1 appl Senna/Docusate Sodium (Senna Plus) 2 each PO BID PRN; Protocol PRN Reason: Constipation Stop: 11/06/16 20:53 Last Admin: 05/07/16 21:49 Dose: 2 each Simvastatin (Zocor) 10 mg PO HS OPAL Stop: 11/02/16 23:01 Last Admin: 05/07/16 20:17 Dose: 10 mg Warfarin Sodium (Coumadin Perpt) 0 each PO DAILY@1800 PRN PRN Reason: SEE COMMENTS Stop: 11/06/16 18:01 Warfarin Sodium (Coumadin) 1.5 mg PO 1800 OPAL Stop: 11/06/16 18:01 Last Admin: 05/07/16 18:34 Dose: 1.5 mg - Imaging and Cardiology Echo: report reviewed (EF improved 50%.) Cardiac cath: report reviewed (mild nonobstructive CAD) - EKG Interpretation EKG results cardiology: other (24 hour tele AVG HR 70, V-paced.) - VTE Documentation of Mechanical Device: Graduated compression elastic hosiery Consult Discharge Plan - Plan Referrals: Salvador Umana MD [Primary Care Provider] - 05/16/16 9:00 am (Please follow up as schedule...)
--- NOTE | 2016-05-08 10:12 | Internal Med Progress Note ---
Date of Encounter: 05/08/16 Time of Encounter: 10:12 - Constitutional Vitals: Temp Pulse Resp BP Pulse Ox 98.0 F 78 18 142/85 97 05/08/16 07:25 05/08/16 07:25 05/08/16 08:10 05/08/16 07:25 05/08/16 08:10 General appearance: Present: A&O X 3, pleasant, no acute distress, obese, answers questions appropriately Internal Medicine: Result - Labs CBC & Chem 7: 05/08/16 05:45 05/08/16 05:45 Labs: Short CBC 05/08/16 Range/Units 05:45 WBC 7.1 (4.3-11.1) K/mcL Hgb 9.6 L (11.5-15.4) g/dL Hct 31.7 L (35.3-44.9) % Plt Count 204 (140-400) K/mcL Neutrophils # 4.8 (1.6-8.9) K/mcL BMP 05/08/16 05:45 Sodium 140 Potassium 3.7 Chloride 107 Carbon Dioxide 25 BUN 13 Creatinine 0.86 Glucose 218 H Calcium 8.7 Liver Function 05/08/16 Range/Units 05:45 Total Bilirubin 0.5 (0.2-1.2) mg/dL AST 20 (5-34) Units/L ALT 14 (0-55) Units/L Alkaline Phosphatase 106 (38-126) Units/L Albumin 3.1 L (3.5-5.0) g/dL - ABG Interpretation ABG results: PT/INR, D-dimer PT 15.1 Seconds (9.4-12.1) H 05/08/16 05:45 - VTE Documentation of Mechanical Device: Graduated compression elastic hosiery Consult Discharge Plan - Plan Referrals: Salvador Umana MD [Primary Care Provider] - 05/16/16 9:00 am (Please follow up as schedule...)
[2016-05-08] MEDS: Insulin LISPRO 300 UNITS/3 ML VIAL SQ SCH ×2 (12:06→16:28)
[2016-05-08] MEDS ORDERED: Furosemide 40 MG/4 ML VIAL IVP ONE (12:14)
--- NOTE | 2016-05-08 12:20 | Discharge Summary ---
<Mario Emery - Last Filed: 05/09/16 13:35> Date of Encounter: 05/09/16 Time of Encounter: 12:16 - Discharge Diagnosis (1) Systolic and diastolic CHF, acute Priority: Primary Status: Acute (2) Toxicity Priority: Primary Status: Acute (3) UTI (urinary tract infection) Priority: Primary Status: Acute Qualifiers: Urinary tract infection type: acute cystitis Hematuria presence: without hematuria Qualified Code(s): N30.00 - Acute cystitis without hematuria (4) HTN (hypertension) Priority: Primary Status: Chronic Qualifiers: Hypertension type: essential hypertension Qualified Code(s): I10 - Essential (primary) hypertension (5) Atrial fibrillation Priority: Primary Status: Chronic Qualifiers: Atrial fibrillation type: chronic Qualified Code(s): I48.2 - Chronic atrial fibrillation - Discharge Medications Home Medications: Atenolol [Tenormin] 25 mg PO DAILY 04/05/16 [History] Cyanocobalamin (Vitamin B-12) [Vitamin B-12] 1,000 mcg IM QMONTH 04/05/16 [ History] Insulin DETEMIR [Levemir] 45 unit SQ HS 04/05/16 [History] Loratadine [Claritin] 10 mg PO QAM 04/05/16 [History] Lovastatin [Mevacor] 20 mg PO DAILY 04/05/16 [History] Montelukast [Singulair] 10 mg PO HS 04/05/16 [History] SitaGLIPtin [Januvia] 100 mg PO DAILY 04/05/16 [History] Albuterol Sulfate [Proair Hfa] 2 puff IH Q4H PRN 04/06/16 [History] Beclomethasone Diprop 80mcg [QVAR 80 mcg] 1 puff IH BID 04/06/16 [History] Metformin HCl [Metformin HCl ER] 2,000 mg PO QPM 04/06/16 [History] Warfarin [Coumadin] 1.5 mg PO DAILY 04/06/16 [History] Furosemide [Lasix] 40 mg PO BID 05/03/16 [History] Nystatin [Nystop] 1 appl TP BID 05/03/16 [History] Enoxaparin [Lovenox *PHARMACY WT BASED*] 130 mg SQ Q12HR mg 05/08/16 [Rx] Allergies/Adverse Reactions: Allergies No Known Allergies Allergy (Verified 02/09/15 08:14) Procedures/tests Complete & Pending: Procedures Performed prior 72 hours Category Date Time Status CL Cardiac Catheterization [CL] Routine Sole Scraper 05/07/16 10:04 Ordered ECG 12 lead ECG [ECG] Routine Y 05/06/16 09:06 Completed ECG 12 lead ECG [ECG] Routine Y 05/07/16 07:20 Completed EV limited echocardiogram Routine Y 05/07/16 08:00 Completed Date of admission: 05/03/16 22:35 Primary care physician: Salvador Umana MD Consults: 05/03/16 22:48 Consult to Cardiology [CONS] Routine Comment: Consulting Provider: Cardiology [place] Reason for Consult: CHF; with volume overload Call Completed: No 05/07/16 09:02 Consult to Process Consultant [CONS] Routine Reason for SW Consult: rtn to traditions 05/07/16 16:01 Consult to Cardiac Rehabilitation-Phase1 [CONS] Routine Comment: Reason for Consult: post op cath Call Completed: Yes 05/08/16 12:02 Consult to Nephrology [CONS] Routine Consulting Provider: Kidney Julita/YOSSI/DORIAN/NICOLETTE Reason for Consult: Patient would like to discuss fluid overload with nephrology Call Completed: Yes Discharging clinician: Mario Emery Anticipated date of discharge: 05/08/16 - Patient Status Disposition: Transfer SNF Condition: Good Functional capacity at discharge: uses cane/walker Overall status at discharge: patient is progressing back to baseline - Discharge Instructions Follow Up With: Salvador Umana MD [Primary Care Provider] - 05/16/16 9:00 am (Please follow up as schedule...) Jose Miguel Landon MD [Partnered Physician] - Cristopher Martin MD [Partnered Physician] - Additional Instructions: I recommend follow up with your primary care physician in the next 2-3 days. I recommend follow-up with nephrology regarding your fluid retention. Recommend follow-up with cardiology as flecainide was discontinued during this inpatient stay. I recommend taking your medications as prescribed. Highly recommend following fluid restrictions and sodium restricted 2 g diet. - Diet and Activity Activity: increase activity as tolerated Diet: diabetic diet, low salt diet Interval History: Flecainide toxicity Hospital course: Ms. Vilchis is a 65 year old female with a past medical history of morbid obesity, arrhythmia, diabetes, hyperlipidemia, hypertension, [place], pacemaker was admitted after increasing shortness of breath and was found to have widened QRS complexes on EKG and acute kidney injury. She was admitted to the general medical floor and cardiology was consulted. Patient's flecainide was held with concern for causation of widening QRS complex. Ms. Vilchis is noted to have a history of diastolic heart failure and recent adjustment to her Lasix dose which may be contributing to her acute kidney injury. Vitals at the time of the admission were appropriate. Admitting laboratory results demonstrates supratherapeutic INR, hyponatremia, hyperkalemia, acute kidney injury with reduced GFR and a BNP of 1049. TSH 5.474. Urinalysis is positive for Escherichia coli. Cardiology discontinue patient's flecainide and obtained a echocardiogram that demonstrated rapid ventricular rate with a ejection fraction of 30% with global and segmental dysfunctions. Recommendation of continuing a beta rolanda and titrate when necessary for heart rate. Cardiac catheterization recommended to evaluate ischemic cause of cardiomyopathy.Warfarin was held for supratheraputic INR and cardiac catherization. Patient remained hospitalized from 05/03- 05/09 during this time her INR normalized to subtherapeutic levels patient underwent cardiac catheterization with out any intervention. Repeat echocardiogram demonstrates resolution of her acute systolic heart failure. Widening QRS complex resolved on 05/06/2016. Hyperkalemia resolves on 05/04/2016. SIDDHARTH resolved likely secondary to reduced ejection fraction with rapid ventricular rate. Patient received IV ceftriaxone daily for her Escherichia coli UTI between May 03 and May 08. On May 08 she was started on Lovenox bridging and oral Coumadin until patient's INR is therapeutic at 2.0-3.0. May 08 Ms. Vilchis requested to be seen by nephrology to address fluid retention. Veterinary Surgery Technician was in agreement with continued by mouth Lasix 40 mg outpatient and discussed in great length the importance of not only fluid restriction but a strict low sodium 2 g diet. Nephrology recommends follow-up outpatient after discharge. On 05/09/2016 Mrs. Vilchis has been seen and evaluated patient bedside. She has been deemed stable for discharge with close follow-up with her primary care physician, cardiology and nephrology. Her flecainide was continued to be held and she is to follow-up with cardiology regarding this medication. This plan has been discussed with the patient was in agreement. - Time Spent with Patient Total time spent providing and/or coordinating discharge services: - Constitutional Vitals: Temp Pulse Resp BP Pulse Ox 98.2 F 70 18 128/75 97 05/08/16 11:39 05/08/16 11:39 05/08/16 11:39 05/08/16 11:39 05/08/16 11:39 General appearance: Present: A&O X 3, pleasant, no acute distress, obese, answers questions appropriately - Head Head exam: Present: atraumatic, normocephalic - Eye Eye exam: Present: EOMI, normal appearance - ENT ENT exam: Present: mucous membranes moist - Neck Neck exam general surgery: Present: normal inspection, supple, trachea midline - Respiratory Respiratory exam: Present: CTAB - Cardiovascular Cardiovascular exam: Present: RRR. Absent: diastolic murmur - GI/Abdominal GI/Abdominal exam: Present: normal bowel sounds, soft, no peritoneal signs - Extremities Exam Extremities exam: Present: pedal edema, warm, radial pulses palpable and symetrical - Neurological Exam Neurological exam: Present: CN II-XII intact - Psychiatric Psychiatric exam: Present: normal affect, normal mood - VTE Documentation of Mechanical Device: Graduated compression elastic hosiery <Catrachito Montes - Last Filed: 05/09/16 16:31> - Discharge Diagnosis (1) UTI (urinary tract infection) Status: Acute Qualifiers: Urinary tract infection type: acute cystitis Hematuria presence: without hematuria Qualified Code(s): N30.00 - Acute cystitis without hematuria (2) Adverse reaction to drug in therapeutic use Priority: Primary Status: Acute (3) Systolic and diastolic CHF, chronic Priority: Primary Status: Acute (4) SIDDHARTH (acute kidney injury) Priority: Secondary Status: Resolved (5) EJ (obstructive sleep apnea) Priority: Secondary Status: Chronic (6) HTN (hypertension) Status: Chronic Qualifiers: Hypertension type: essential hypertension Qualified Code(s): I10 - Essential (primary) hypertension (7) E coli infection Priority: Primary Status: Acute (8) Atrial fibrillation Status: Chronic Qualifiers: Atrial fibrillation type: chronic Qualified Code(s): I48.2 - Chronic atrial fibrillation Procedures/tests Complete & Pending: Procedures Performed prior 72 hours Category Date Time Status CL Cardiac Catheterization [CL] Routine Sole Scraper 05/07/16 10:04 Completed US retroperitoneal comp [US] Routine Exams 05/08/16 18:00 Draft ECG 12 lead ECG [ECG] Routine Y 05/07/16 07:20 Completed EV limited echocardiogram Routine Y 05/07/16 08:00 Completed Date of admission: 05/03/16 22:35 Primary care physician: Salvador Umana MD Consults: 05/03/16 22:48 Consult to Cardiology [CONS] Routine Comment: Consulting Provider: Cardiology [place] Reason for Consult: CHF; with volume overload Call Completed: No 05/07/16 09:02 Consult to Process Consultant [CONS] Routine Reason for SW Consult: rtn to traditions 05/07/16 16:01 Consult to Cardiac Rehabilitation-Phase1 [CONS] Routine Comment: Reason for Consult: post op cath Call Completed: Yes 05/08/16 12:02 Consult to Nephrology [CONS] Routine Consulting Provider: Kidney Julita/YOSSI/DORIAN/NICOLETTE Reason for Consult: Patient would like to discuss fluid overload with nephrology Call Completed: Yes Hospital course: Ms. Vilchis is a 65 year old female - Time Spent with Patient Total time spent providing and/or coordinating discharge services: 39min - Constitutional Vitals: Temp Pulse Resp BP Pulse Ox 97.5 F L 70 16 145/83 95 05/09/16 06:36 05/09/16 06:36 05/09/16 07:56 05/09/16 06:36 05/09/16 08:06 - Attending Attestation I examined this patient and my medical decision-making was reviewed with the Resident Physician on 05/09/16. I agree with the documented findings, disposition and treatment plan as described except to the extent set forth below. Ms. Vilchis feels OK today. She still has pearce in place. I/O net negative after IV Lasix. To go back to SNF today. Exam Alert. Comfortable Heart reg No wheeze Plan D/C to SNF today
[2016-05-08] MEDS: Furosemide 40 MG TABLET PO SCH ×2 (12:22→17:13)
--- NOTE | 2016-05-08 13:22 | Nephrology Consult Note ---
Date of Encounter: 05/08/16 Time of Encounter: 12:45 Assessment and Plan (1) Systolic and diastolic CHF, acute Current Visit: Yes Status: Acute Agree with continued lasix 40mg bid on outpatient Acceptable to give 1-2 doses of iv lasix to initiate diuresis of excessive fluids but cautioned patinet on being too aggressive at the risk of another bout of SIDDHARTH. Discussed at great length the importance of not only fluid restriction but also strict low sodium 2gram diet (2) CKD (chronic kidney disease) stage 2, GFR 60-89 ml/min Current Visit: Yes Status: Acute Will obtain US of kidnet to assess for any structural abnormalities (3) Proteinuria Current Visit: Yes Status: Acute Will update spot urine microalbumin/creatinine as well as spot urine protein/cr Can followup with nephrology for fluid management on discharge Qualifiers: Proteinuria type: persistent Qualified Code(s): R80.1 - Persistent proteinuria, unspecified History of Present Illness - Reason for Consult Consult date: 05/08/16 Chronic Kidney Disease Requesting physician: Mario Emery - History of Present Illness 65 y o female with PMH of DM, HTN, pAfib on coumadin, COPD and known diastolic dysfunction admitted with cardiology with flecainide toxicity complicated by SIDDHARTH due to diuretics both now resolved. Pt noted with echo showing new low EF of 30% requiring workup with C which showed mild nonobs CAD with no intervention needed. Repeat echo now shows improved EF at 50%. Pt's lasix was been resumed at 40mg bid and discharge planning was started. Pt now requesting renal consult as she is concerned that she is very edematous approx. 18lbs over her dry weight. Of note she receivec IVF initially when her SCr was elevated at 1.98 and now improved to 0.86. Of note, her GFR has fluctuated ov er the past 2 years from 30-40s to as high as >60. She has also had mild proteinuria noted. Past Med Surg Social Fam HX - Past Medical History Medical history: diabetes, hyperlipidemia, hypertension, myocardial infarction Psychiatric history: anxiety, depression - Past Surgical History Surgical History: appendectomy, other, pacemaker - Social History Smoking Status: Never smoker Smokeless Tobacco Status: Yes Alcohol use: none Drug use: none - Family History Mother Adopted: No Living Status: Age at : 51 Cause of : Ovarian Cancer Hx Family Cardiac Disorders: No Hx Family Respiratory Disorders: No Hx Family Cancer: Yes (ovarian) Hx Family GI Disorders: No Hx Family Genitourinary Disorders: No Hx Family Endocrine Disorder: No Hx Family Musculoskeletal Disorders: No Hx Family Neuromuscular Disorders: No Hx Family Neurologic Disorders: No Hx Family HEENT Disorders: No Hx Family Autoimmune Disorders: No Hx Family Reproductive Disorders: No Hx Family Psychosocial Disorders: No Hx Family Medical Disorders: No Medications and Allergies Atenolol [Tenormin] 25 mg PO DAILY 04/05/16 [History] Cyanocobalamin (Vitamin B-12) [Vitamin B-12] 1,000 mcg IM QMONTH 04/05/16 [ History] Insulin DETEMIR [Levemir] 45 unit SQ HS 04/05/16 [History] Loratadine [Claritin] 10 mg PO QAM 04/05/16 [History] Lovastatin [Mevacor] 20 mg PO DAILY 04/05/16 [History] Montelukast [Singulair] 10 mg PO HS 04/05/16 [History] SitaGLIPtin [Januvia] 100 mg PO DAILY 04/05/16 [History] Albuterol Sulfate [Proair Hfa] 2 puff IH Q4H PRN 04/06/16 [History] Beclomethasone Diprop 80mcg [QVAR 80 mcg] 1 puff IH BID 04/06/16 [History] Metformin HCl [Metformin HCl ER] 2,000 mg PO QPM 04/06/16 [History] Warfarin [Coumadin] 1.5 mg PO DAILY 04/06/16 [History] Furosemide [Lasix] 40 mg PO BID 05/03/16 [History] Nystatin [Nystop] 1 appl TP BID 05/03/16 [History] Enoxaparin [Lovenox *PHARMACY WT BASED*] 130 mg SQ Q12HR mg 05/08/16 [Rx] Allergies No Known Allergies Allergy (Verified 02/09/15 08:14) Review of Systems All Systems: reviewed and no additional remarkable complaints except as stated ( tens systems reviewed) Exam - Vital Signs Vital signs: Initial Vital Signs Temp Pulse Resp BP Pulse Ox 98 F 87 16 107/79 97 05/03/16 17:06 05/03/16 17:06 05/03/16 17:06 05/03/16 17:06 05/03/16 17:06 Vital Signs - Last 8 Hours Temp Pulse Resp BP Pulse Ox 05/08/16 11:39 98.2 F 70 18 128/75 97 05/08/16 08:10 18 97 05/08/16 07:25 98.0 F 78 18 142/85 96 Intake and Output 05/07/16 05/08/16 05/08/16 23:59 07:59 15:59 Intake Total 240 / 240 Output Total 500 / 500 Balance -500 / -500 240 / 240 Intake: Oral 240 / 240 Output: Catheter 500 / 500 Other: Meal Breakfast Percent of Meal Consumed 100% Weight 130.635 kg Blood Glucose* 262 203 238 Patient Weight 05/08/16 23:59 Weight 130.635 kg - General Appearance General appearance: chronically ill (NAD) EENT: ATNC, mucous membranes moist Neck: no JVD, supple Additional Comments: good areation ant bilat Cardiology: edema (Trace to +1 LE edema bilat), normal S1, normal S2 Gastrointestinal: no tenderness, no guarding, obese, distended Integumentary: warm and dry Neurologic: no focal deficit Musculoskeletal: no deformities Psychiatric: mood/affect appropriate Results - Lab Results 05/08/16 05:45 05/08/16 05:45 Most recent lab results Calcium 8.7 mg/dL (8.6-10.8) 05/08/16 05:45 Magnesium 2.5 mg/dL (1.6-2.6) 05/03/16 17:18 Consult Discharge Plan - Plan Referrals: Salvador Umana MD [Primary Care Provider] - 05/16/16 9:00 am (Please follow up as schedule...)
[2016-05-08] MEDS: Acetaminophen 325 MG TABLET PO PRN (14:31)
[2016-05-08] MEDS: Sennosides/Docusate Sodium TABLET PO PRN (14:31)
[2016-05-08] MEDS: *HR* Warfarin 1 MG TABLET PO SCH (17:27)
[2016-05-08] MEDS: *HR* Enoxaparin 150 MG/ML SYRINGE SQ SCH (17:28)
[2016-05-08] MEDS ORDERED: Enoxaparin Weight Dosing SQ SCH (18:00)
--- NOTE | 2016-05-08 18:09 | Internal Med Progress Note ---
<Mario Emery - Last Filed: 05/08/16 18:07> Date of Encounter: 05/08/16 Time of Encounter: 09:00 - Assessment and plan (1) Toxicity Current Visit: Yes Status: Acute Assessment and plan: Patient was admitted from the cardiology office with abnormal rhythm and was demonstrated on electrocardiogram (Paced with widened QRS). Patient's flecainide was discontinued as it is the likely culprit. Suspect flecainide toxicity in the setting of SIDDHARTH. Abnormal EKG findings resolved. Plan: - Discontinued flecainide. - Continue monitoring on cardiac telemetry during inpatient stay. (2) Systolic and diastolic CHF, acute Current Visit: Yes Status: Acute Assessment and plan: Mrs. Vilchis has a history of diastolic heart failure, was found to have a reduced ejection fraction of 30% and underwent cardiac catheterization without intervention. Systolic dysfunction was found to have resolved. Suspect secondary to abnormal rhythm with Flecanide toxicity. - Cardiology restarted Lasix 40 mg twice a day and recommended lifestyle modifications and sodium and fluid restrictions for her diastolic heart failure. Plan: - Patient will receive IV 40 mg twice a day as discussed with nephrology this evening. - Plan to continue Lasix 40 mg twice a day by mouth at the time of discharge. - Continue to emphasize the importance of fluid restriction, sodium restriction and lifestyle modifications in the setting of diastolic heart failure. - Continue inpatient monitoring of weights daily, intake and output. - Continue Toprol-XL, simvastatin (3) HTN (hypertension) Current Visit: Yes Status: Chronic Assessment and plan: History of hypertension, blood pressure stable today. Atenolol 25 mg by mouth daily. Plan: - Continue Toprol-XL 25 mg PO daily. Qualifiers: Hypertension type: essential hypertension Qualified Code(s): I10 - Essential (primary) hypertension (4) Atrial fibrillation Current Visit: No Status: Chronic Assessment and plan: Known history of atrial fibrillation on warfarin therapy at home. Patient's INR is subtherapeutic at 1.4 today after warfarin was discontinued for cardiac catheterization. Patient continues to have atrial fibrillation. Plan: - Restart warfarin therapy with bridge of Lovenox 1 mg/kg twice a day. - Discontinue Lovenox bridge after INR is 2.0-3.0. Qualifiers: Atrial fibrillation type: chronic Qualified Code(s): I48.2 - Chronic atrial fibrillation (5) UTI (urinary tract infection) Current Visit: Yes Status: Acute Assessment and plan: Patient was found to have pansensitive Escherichia coli in her urine. Ceftriaxone discontinued after completing sufficient course. Plan: - Continue to monitor patient's symptoms. Qualifiers: Urinary tract infection type: site unspecified Hematuria presence: without hematuria Qualified Code(s): N39.0 - Urinary tract infection, site not specified (6) SIDDHARTH (acute kidney injury) Current Visit: Yes Status: Resolved Assessment and plan: Acute kidney injury has resolved. Patient requests nephrology evaluation. Review of patient's chart demonstrates stage 3-4 renal failure. Significant factors include hypertension, diabetes, heart failure. Plan: - Nephrology has been consult and are following the patient. - Requested 40 mg IV Lasix, will recheck renal function with a.m. labs. (7) DVT prophylaxis Current Visit: No Status: Acute Assessment and plan: Subcutaneous Lovenox. - Subjective Interval history: Mrs. Vilchis 65 year old female has been seen the patient bedside this morning. Her concerns consist of why she is retaining excess fluid and would like to see a electronics repair technician to be evaluated. She denies any other discomforts or pains at this time. Regarding her fluid retention she does have systolic heart failure and signs of excess fluid. This has been discussed patient but she continues request nephrology consultation. Denies any other discomforts or concerns sign. - Constitutional Vitals: Temp Pulse Resp BP Pulse Ox 97.5 F L 73 13 111/62 98 05/08/16 15:52 05/08/16 15:52 05/08/16 15:52 05/08/16 15:52 05/08/16 15:52 General appearance: Present: A&O X 3, pleasant, no acute distress, obese, answers questions appropriately - Head Head exam: Present: atraumatic, normocephalic - Eye Eye exam: Present: PERRL, conjuntiva pink, sclera anicteric Pupils: Present: PERRL - Neck Neck exam general surgery: Present: supple, trachea midline. Absent: lymphadenopathy - Respiratory Respiratory exam: Present: CTAB. Absent: accessory muscle use, rales, rhonchi, wheezes - Cardiovascular Cardiovascular exam: Present: RRR, +S1, +S2. Absent: diastolic murmur, gallop, rubs, systolic murmur - GI/Abdominal GI/Abdominal exam: Present: normal bowel sounds, soft. Absent: distended ( Obese abdomen), tenderness, no peritoneal signs - Extremities Exam Extremities exam: Present: warm, radial pulses palpable and symetrical. Absent : calf tenderness, cyanotic, pedal edema - Neurological Exam Neurological exam: Present: alert, oriented X3, no focal deficits. Absent: pronater drift, facial droop, speech deficit - Psychiatric Psychiatric exam: Present: normal affect, normal mood Internal Medicine: Result - Labs CBC & Chem 7: 05/08/16 05:45 05/08/16 05:45 Labs: Short CBC 05/08/16 Range/Units 05:45 WBC 7.1 (4.3-11.1) K/mcL Hgb 9.6 L (11.5-15.4) g/dL Hct 31.7 L (35.3-44.9) % Plt Count 204 (140-400) K/mcL Neutrophils # 4.8 (1.6-8.9) K/mcL BMP 05/08/16 05:45 Sodium 140 Potassium 3.7 Chloride 107 Carbon Dioxide 25 BUN 13 Creatinine 0.86 Glucose 218 H Calcium 8.7 Liver Function 05/08/16 Range/Units 05:45 Total Bilirubin 0.5 (0.2-1.2) mg/dL AST 20 (5-34) Units/L ALT 14 (0-55) Units/L Alkaline Phosphatase 106 (38-126) Units/L Albumin 3.1 L (3.5-5.0) g/dL - ABG Interpretation ABG results: PT/INR, D-dimer PT 15.1 Seconds (9.4-12.1) H 05/08/16 05:45 - VTE Documentation of Mechanical Device: Graduated compression elastic hosiery Consult Discharge Plan - Plan Referrals: Salvador Umana MD [Primary Care Provider] - 05/16/16 9:00 am (Please follow up as schedule...) <Catrachito Montes - Last Filed: 05/08/16 18:49> - Assessment and plan (1) Adverse reaction to drug in therapeutic use Current Visit: Yes Status: Acute Assessment and plan: Improved. (2) Systolic and diastolic CHF, chronic Current Visit: Yes Status: Acute (3) UTI (urinary tract infection) Current Visit: Yes Status: Acute Qualifiers: Urinary tract infection type: acute cystitis Hematuria presence: without hematuria Qualified Code(s): N30.00 - Acute cystitis without hematuria (4) SIDDHARTH (acute kidney injury) Current Visit: Yes Status: Resolved (5) EJ (obstructive sleep apnea) Current Visit: Yes Status: Chronic (6) HTN (hypertension) Current Visit: Yes Status: Chronic Qualifiers: Hypertension type: essential hypertension Qualified Code(s): I10 - Essential (primary) hypertension (7) E coli infection Current Visit: Yes Status: Acute Assessment and plan: E. coli UTI (8) Atrial fibrillation Current Visit: No Status: Chronic Qualifiers: Atrial fibrillation type: chronic Qualified Code(s): I48.2 - Chronic atrial fibrillation - Constitutional Vitals: Temp Pulse Resp BP Pulse Ox 97.5 F L 73 13 111/62 98 05/08/16 15:52 05/08/16 15:52 05/08/16 15:52 05/08/16 15:52 05/08/16 15:52 Internal Medicine: Result - Labs CBC & Chem 7: 05/08/16 05:45 05/08/16 05:45 Labs: Short CBC 05/08/16 Range/Units 05:45 WBC 7.1 (4.3-11.1) K/mcL Hgb 9.6 L (11.5-15.4) g/dL Hct 31.7 L (35.3-44.9) % Plt Count 204 (140-400) K/mcL Neutrophils # 4.8 (1.6-8.9) K/mcL BMP 05/08/16 05:45 Sodium 140 Potassium 3.7 Chloride 107 Carbon Dioxide 25 BUN 13 Creatinine 0.86 Glucose 218 H Calcium 8.7 Liver Function 05/08/16 Range/Units 05:45 Total Bilirubin 0.5 (0.2-1.2) mg/dL AST 20 (5-34) Units/L ALT 14 (0-55) Units/L Alkaline Phosphatase 106 (38-126) Units/L Albumin 3.1 L (3.5-5.0) g/dL - ABG Interpretation ABG results: PT/INR, D-dimer PT 15.1 Seconds (9.4-12.1) H 05/08/16 05:45 - Attending Attestation I examined this patient and my medical decision-making was reviewed with the Resident Physician on 05/08/16. I agree with the documented findings, disposition and treatment plan as described except to the extent set forth below. Ms. Vilchis is currently admitted for acute toxicity due to Flecanide, SIDDHARTH and fluid retention. She remains moderate to high risk due to potential for worsening renal and respiratory symptoms. Ms. Vilchis is concerned about fluid retention. She requests renal eval. No CP. No dyspnea. No GI symptoms. Exam Alert. Comfortable at rest. Heart reg Lungs diminished I/P 1. Acute toxicity to Flecanide - off med now 2. SIDDHARTH - resolved 3. UTI - due to E coli. Abx completed Further diagnoses and plan as above.
[2016-05-08 19:13] LABS: Protein/Creatinine Ratio,Urine 0.62 mg/mg (0-0.20)
[2016-05-08] MEDS: Insulin DETEMIR 100 UNIT/ML X5UNITS SQ SCH (21:03)
[2016-05-08] MEDS: Furosemide 40 MG/4 ML VIAL IVP SCH (21:03)
[2016-05-09] MEDS: Acetaminophen 325 MG TABLET PO PRN (06:05)
[2016-05-09] MEDS: *HR* Enoxaparin 150 MG/ML SYRINGE SQ SCH (06:05)
[2016-05-09 06:37] VITALS: BP 145/83
[2016-05-09 06:53] LABS: INR 1.4; Prothrombin Time 14.7 Seconds (9.4-12.1)
[2016-05-09] MEDS: Nystatin POWDER 30 GM BOTTLE TP SCH ×2 (07:38→09:53)
--- NOTE | 2016-05-09 07:46 | Invasive Diagnostic Lab ---
Name: Marixa Vilchis Date of Study: 05/07/2016 Date: 1950 Ht: 154.9 cm /61.0 in Medical Record#: [id number] Age: 65 Wt: 130. kg / 286.60 lb Account/Order#: [id number] Gender: Female BSA: 2.2 Order #: [id number] Fluoro Dose: BMI: 54.18 Procedure Physician: Doug Jones MD, FACC Referring MD: Referring MD: Procedures Performed: LEFT HEART CATH Indications: Cardiomyopathy Impressions: There is stable three vessel coronary artery disease. The left ventricle is normal and has normal contractility EF 55% Recommendations: Optimal medical therapy of patient's disease. Aggressive risk factor modification. History/Risk Factors: Cardiomyopathy Diabetes Hypertension Dyslipidemia CHF within 2 weeks Prior CO Procedure Access obtained in the right Radial artery by percutaneous puncture Complications: None, None, None Contrast: Isovue 61ml Hemodynamics: Pressures Site Systolic/ A Wave Diastolic/ V Wave End Diastolic/ Mean HR AO 100 70 85 69 AO 101 69 84 70 AO 105 72 88 70 LV 111 18 21 69 LV 130 22 32 70 LV 126 21 36 72 AO 112 53 85 58 LV Ventriculography Ejection Method: LV Gram Ejection Fraction: 50% Wall Motion: RIVAS Anterobasal Normal Anterolateral Normal Apical: Normal Inferoapical Normal Inferobasal Normal Coronary Dominance: right Lesion Findings/Interventions * Left Main Coronary Artery The LMCA is angiographically free of disease. * Left Anterior Descending There is a 20% stenosis in the Proximal LAD. Distal LAD is a small vessel. * Circumflex There is a 15% stenosis in the Mid Circumflex. * Right Coronary Artery There is a 30% stenosis in the Proximal RCA. There is a 15% stenosis in the Right PDA. Updated by RT Lew(R) on 05/07/2016 4:40:11 PM Doug Jones MD, FACC electronically signed on 05/09/2016 7:41:53 AM with status of Final
[2016-05-09] MEDS: Beclomethasone 80mcg MDI IH SCH (07:56)
[2016-05-09] MEDS: Insulin LISPRO 300 UNITS/3 ML VIAL SQ SCH ×2 (08:06→11:28)
[2016-05-09] MEDS: Metoprolol XL (24 HR) Succ 25 MG TAB.ER.24H PO SCH (08:08)
[2016-05-09] MEDS: Lactobacillus 1 EACH CAP.SPRINK PO SCH (08:08)
[2016-05-09] MEDS: Loratadine 10 MG TABLET PO SCH (08:08)
[2016-05-09] MEDS: Furosemide 40 MG/4 ML VIAL IVP SCH (08:11)
[2016-05-09] MEDS ORDERED: Furosemide 40 MG/4 ML VIAL IVP ONE (08:50)
[2016-05-09] MEDS: Furosemide 40 MG TABLET PO SCH ×2 (08:59→10:02)
[2016-05-09 09:16] LABS: Basophils % 0.3 %; Eosinophils # 0.2 K/mcL (0.0-0.6); Eosinophils % 2.7 %; Hematocrit 33.3 % (35.3-44.9); Hemoglobin 10.2 g/dL (11.5-15.4); Immature Granulocytes % 0.3 % (0-4); Lymphocytes # 1.4 K/mcL (0.6-4.6); Mean Corpuscular HGB Conc 30.6 g/dL (31.6-35.5); Mean Corpuscular Hemoglobin 26.5 pg (28.0-33.3); Mean Corpuscular Volume 86.5 fL (83.0-100.0); Mean Platelet Volume 9.8 fL (9.4-12.4); Monocytes # 0.5 K/mcL (0.0-1.3); Monocytes % 7.3 %; Neutrophils # 4.9 K/mcL (1.6-8.9); Platelet Count 193 K/mcL (140-400); Red Blood Count 3.85 M/mcL (3.82-4.97); Red Cell Distribution Width 15.2 % (11.5-14.5); Segmented Neutrophils % 69.4 %
[2016-05-09 09:29] LABS: Alanine Aminotransferase 14 Units/L (0-55); Albumin 3.2 g/dL (3.5-5.0); Albumin/Globulin Ratio 0.9 (1.1-2.2); Alkaline Phosphatase 96 Units/L (38-126); Aspartate Amino Transferase 15 Units/L (5-34); BUN/Creatinine Ratio 12 (6-26); Bilirubin,Total 0.7 mg/dL (0.2-1.2); Blood Urea Nitrogen 11 mg/dL (7-20); Calcium 8.7 mg/dL (8.6-10.8); Carbon Dioxide 26 mEq/L (19-29); Chloride 103 mEq/L (98-109); Globulin 3.7 g/dL (2.4-3.5); Glucose 273 mg/dL (70-99); Osmolality,Calculated 299 (280-300); Potassium 3.5 mEq/L (3.5-4.5); Sodium 140 mEq/L (136-145); Total Protein 6.9 g/dL (6.0-8.3); eGFR For African Americans > 60 (> 60); eGFR For Non-African Americans 60 (> 60)
--- NOTE | 2016-05-09 09:29 | Physician Discharge Referral ---
<Mario Emery - Last Filed: 05/09/16 09:27> [facility] Referral Info Transfer To: SNF Provider in Charge after Transfer: PCP Institutional Level of Care: Skilled - Diagnosis (1) Systolic and diastolic CHF, acute Priority: Primary Status: Acute (2) Toxicity Priority: Primary Status: Acute (3) UTI (urinary tract infection) Priority: Primary Status: Acute (4) HTN (hypertension) Priority: Secondary Status: Chronic (5) Atrial fibrillation Priority: Secondary Status: Chronic - Transfer Medications Home Medications: Atenolol [Tenormin] 25 mg PO DAILY 04/05/16 [History] Cyanocobalamin (Vitamin B-12) [Vitamin B-12] 1,000 mcg IM QMONTH 04/05/16 [ History] Insulin DETEMIR [Levemir] 45 unit SQ HS 04/05/16 [History] Loratadine [Claritin] 10 mg PO QAM 04/05/16 [History] Lovastatin [Mevacor] 20 mg PO DAILY 04/05/16 [History] Montelukast [Singulair] 10 mg PO HS 04/05/16 [History] SitaGLIPtin [Januvia] 100 mg PO DAILY 04/05/16 [History] Albuterol Sulfate [Proair Hfa] 2 puff IH Q4H PRN 04/06/16 [History] Beclomethasone Diprop 80mcg [QVAR 80 mcg] 1 puff IH BID 04/06/16 [History] Metformin HCl [Metformin HCl ER] 2,000 mg PO QPM 04/06/16 [History] Warfarin [Coumadin] 1.5 mg PO DAILY 04/06/16 [History] Furosemide [Lasix] 40 mg PO BID 05/03/16 [History] Nystatin [Nystop] 1 appl TP BID 05/03/16 [History] Enoxaparin [Lovenox *PHARMACY WT BASED*] 130 mg SQ Q12HR mg 05/08/16 [Rx] Allergies/Adverse Reactions: Allergies No Known Allergies Allergy (Verified 02/09/15 08:14) - Respiratory Orders Smoking Cessation: Smoking cessation has been advised. For more information, call the [place] Tobacco Quit Line at 0-344-KTHQ-NOW. - Lab Orders Lab Orders: Other (include drug levels w/frequency) (Check INR daily with goal of INR 2.0 to 3.0) - Rehabiliation Orders Rehab Potential: Good Rehab Orders: Evaluation for Physical Therapy, Evaluation for Occupational Therapy - Treatments Skin tear care topically daily PRN per policy, Fleet enema rectally every other day PRN cleansing purposes - Diet Orders No Added Salt (JOLANTA) CERTIFICATION: I certify that the transfer of the above named patient to an Extended Care Facility is necessary for the continuing treatment of the diagnosis listed. The above information is true and accurate reflection of patient's current condition. Confidential - Redisclosure prohibited without a patient's written consent. <Catrachito Montes - Last Filed: 05/09/16 14:41> - Diagnosis (1) Adverse reaction to drug in therapeutic use Status: Acute (2) Systolic and diastolic CHF, chronic Status: Acute (3) UTI (urinary tract infection) Status: Acute (4) SIDDHARTH (acute kidney injury) Status: Resolved (5) EJ (obstructive sleep apnea) Status: Chronic (6) HTN (hypertension) Status: Chronic (7) E coli infection Status: Acute (8) Atrial fibrillation Status: Chronic - Respiratory Orders Smoking Cessation: Smoking cessation has been advised. For more information, call the [place] Tobacco Quit Line at 1-153-PVLI-NOW. CERTIFICATION: I certify that the transfer of the above named patient to an Extended Care Facility is necessary for the continuing treatment of the diagnosis listed. The above information is true and accurate reflection of patient's current condition. Confidential - Redisclosure prohibited without a patient's written consent.
== END 2016-05-09 14:40 | DRG 286 ==
LOC: EMEROO 17:01 → 2ANU 17:01 → SUATTDRO 22:35
PROVIDERS: ADMIT Hospitalist; ATTEND Internal Medicine

== ENCOUNTER 2016-09-10 11:44 | Inpatient (IN) ==
[2016-09-10 12:57] LABS: Basophils % 0.3 %; Eosinophils # 0.1 K/mcL (0.0-0.6); Eosinophils % 1.1 %; Hematocrit 33.4 % (35.3-44.9); Hemoglobin 10.3 g/dL (11.5-15.4); Immature Granulocytes % 0.3 % (0-4); Lymphocytes # 1.3 K/mcL (0.6-4.6); Mean Corpuscular HGB Conc 30.8 g/dL (31.6-35.5); Mean Corpuscular Hemoglobin 26.3 pg (28.0-33.3); Mean Corpuscular Volume 85.4 fL (83.0-100.0); Monocytes # 0.6 K/mcL (0.0-1.3); Neutrophils # 4.4 K/mcL (1.6-8.9); Platelet Count 183 K/mcL (140-400); Red Blood Count 3.91 M/mcL (3.82-4.97); Red Cell Distribution Width 15.2 % (11.5-14.5); Segmented Neutrophils % 69.3 %
--- NOTE | 2016-09-10 13:04 | Emergency Department Note ---
Disposition Clinical Impression: Elevated troponin CHF exacerbation Qualifiers: Congestive heart failure type: unspecified congestive heart failure type Qualified Code(s): I50.9 - Heart failure, unspecified Dyspnea Qualifiers: Dyspnea type: unspecified Qualified Code(s): R06.00 - Dyspnea, unspecified Disposition: Admitted As Inpatient Condition: Good Referrals: Salvador Umana MD [Primary Care Provider] - Forms: ED Satisfaction Letter Time of Disposition: 14:53 SOB HPI - General Chief Complaint: ED Shortness of Breath/Dyspnea Stated Complaint: CHF Time Seen by Provider: 09/10/16 12:39 Source: patient, family Mode of arrival: ambulatory Limitations: no limitations Nursing Notes Reviewed: Yes Vital Signs Reviewed: Yes - History of Present Illness Patient is a 66-year-old female with past medical history of CHF, diabetes, hypertension, high cholesterol. She presents today due to shortness of breath worsening over the past week. She is also had about a 10 pound weight gain over the past week, worsening abdominal distention, worsening bilateral lower extremity edema. She takes Lasix 40 mg in the morning and 40 mg at night. Denies any chest pain, fevers, nausea, vomiting, sweating, abdominal pain. - Related Data Home Medications Medication Instructions Recorded Confirmed Atenolol [Tenormin] 25 mg PO DAILY 04/05/16 05/03/16 Cyanocobalamin (Vitamin B-12) 1,000 mcg IM QMONTH 04/05/16 05/03/16 [Vitamin B-12] Insulin DETEMIR [Levemir] 45 unit SQ HS 04/05/16 05/03/16 Loratadine [Claritin] 10 mg PO QAM 04/05/16 05/03/16 Lovastatin [Mevacor] 20 mg PO DAILY 04/05/16 05/03/16 Montelukast [Singulair] 10 mg PO HS 04/05/16 05/03/16 SitaGLIPtin [Januvia] 100 mg PO DAILY 04/05/16 05/03/16 Albuterol Sulfate [Proair Hfa] 2 puff IH Q4H PRN 04/06/16 05/03/16 Beclomethasone Diprop 80mcg [QVAR 1 puff IH BID 04/06/16 05/03/16 80 mcg] Metformin HCl [Metformin HCl ER] 2,000 mg PO QPM 04/06/16 05/03/16 Warfarin [Coumadin] 1.5 mg PO DAILY 04/06/16 04/06/16 Furosemide [Lasix] 40 mg PO BID 05/03/16 05/03/16 Nystatin [Nystop] 1 appl TP BID 05/03/16 05/03/16 Previous Rx's Medication Instructions Recorded Enoxaparin [Lovenox *PHARMACY WT 130 mg SQ Q12HR mg 05/08/16 BASED*] Allergies Allergy/AdvReac Type Severity Reaction Status Date / Time No Known Allergies Allergy Verified 02/09/15 08:14 All systems ED: reviewed and negative except as stated. Constitutional: Denies: fever Cardiovascular: Denies: chest pain Respiratory: Reports: dyspnea Gastrointestinal: Denies: abdominal pain, nausea, vomiting, diarrhea Neurological: Denies: headache, weakness, numbness, paresthesias Past Medical History - Past Medical History Attestation: Yes The following information was validated with the patient. Source: patient Medical history: Reports: CHF, diabetes, hyperlipidemia, hypertension, myocardial infarction Surgical history: Reports: appendectomy, other, pacemaker Psychiatric history: Reports: anxiety, depression - Social History Smoking Status: Never smoker Smokeless Tobacco Status: Yes Alcohol use: Reports: none Drug use: Reports: none Physical Exam - General Limitations: no limitations General appearance: alert - Head Head exam: atraumatic, normocephalic, normal inspection - Eye Eye exam: Present: normal appearance, PERRL, EOMI - ENT ENT exam: normal exam, normal oropharynx, mucous membranes moist - Neck Neck exam: Present: normal inspection, full ROM, trachea midline - Chest Chest inspection: Present: normal inspection, symmetric chest wall rise - Respiratory Respiratory exam: Present: other (Mild decrease in aeration of bilateral lower lobes). Absent: respiratory distress, wheezes - Cardiovascular Cardiovascular exam: Present: regular rate, normal rhythm, normal heart sounds - Abdominal Exam Abdominal exam: Present: soft, Non-Tender, distention. Absent: tenderness, guarding, rebound, rigidity - Extremities Exam Extremities exam: Present: pedal edema (Bilateral lower extremity pitting). Absent: normal inspection, full ROM, tenderness - Neurological Exam Neurological exam: Present: alert, oriented X3 - Psychiatric Psychiatric exam: Present: normal affect, normal mood - Skin Skin exam: Present: warm, dry, intact, normal color Course Course Narrative: Blood pressure was 110/73, other vitals within normal limits. Physical exam shows abdominal distention otherwise soft and nontender to palpation, bilateral lower extremity pitting edema, decreased aeration of bilateral lower lobes. Otherwise, the rest of the physical exam was benign. EKG shows paced rhythm with no acute ST changes. Elevated troponin at 0.04 but no active chest pain. She was given aspirin. Chest x-ray was read as negative for any acute cardiopulmonary process but on my read appears to have a hazy bilateral lower extremity pulmonary edema. Patient was given Lasix 40 mg IV and will be admitted for CHF exacerbation. Patient has requested that a Garcia be inserted due to inability to get to bedside commode due to shortness of breath. Vital Signs Temperature 98.2 F 09/10/16 12:19 Pulse Rate 70 09/10/16 12:19 Respiratory Rate 18 09/10/16 12:19 Blood Pressure 109/70 09/10/16 12:19 O2 Sat by Pulse Oximetry 95 09/10/16 12:19 Temperature 98.2 F 09/10/16 12:19 Pulse Rate 69 09/10/16 14:31 Respiratory Rate 14 09/10/16 14:31 Blood Pressure 144/77 09/10/16 14:31 O2 Sat by Pulse Oximetry 97 09/10/16 14:31 Oxygen Delivery Oxygen Delivery Room Air Shortness of Breath/Dyspnea - MDM Narrative Medical decision making narrative: I examined this patient and my medical decision-making was reviewed with the Resident Physician. I agree with the documented findings, disposition and treatment plan as described except to the extent set forth below. Patient seen and evaluated by Dr. Case and myself, I agree with his evaluation and treatment plan, I supervised the care of the patient's stay. Patient has a history of CHF she has peripheral edema and some dyspnea here today. A chest x- ray cardiac workup an EKG. Did not have any chest pain this time. Most likely will need admission. - [place]: Blood pressure was 110/73, other vitals within normal limits. Physical exam shows abdominal distention otherwise soft and nontender to palpation, bilateral lower extremity pitting edema, decreased aeration of bilateral lower lobes. Otherwise, the rest of the physical exam was benign. EKG shows paced rhythm with no acute ST changes. Elevated troponin at 0.04 but no active chest pain. She was given aspirin. Chest x-ray was read as negative for any acute cardiopulmonary process but on my read appears to have a hazy bilateral lower extremity pulmonary edema. Patient was given Lasix 40 mg IV and will be admitted for CHF exacerbation. Patient has requested that a Garcia be inserted due to inability to get to bedside commode due to shortness of breath. Chest X-Ray 09/10/16 12:40 IMPRESSION: 1. Moderate to severe enlargement of the cardiac silhouette, slightly increased compared to the exam of March 10, 2015. This may be due to worsening cardiomegaly or pericardial fluid. 2. No acute pulmonary abnormality. D/ / Ronny Peguero MD / Ronny Peguero MD Interpreting Provider: Ronny Peguero MD - Medical Records Medical records reviewed: Yes I reviewed the patient's medical records. - Lab Data Lab results reviewed: Yes I reviewed the patient's lab results. Result diagrams: 09/10/16 12:43 09/10/16 12:43 Lab Results 09/10/16 09/10/16 09/10/16 Range/Units 12:43 12:43 12:43 WBC 6.4 (4.3-11.1) K/mcL RBC 3.91 (3.82-4.97) M/mcL Hgb 10.3 L (11.5-15.4) g/dL Hct 33.4 L (35.3-44.9) % MCV 85.4 (83.0-100.0) fL MCH 26.3 L (28.0-33.3) pg MCHC 30.8 L (31.6-35.5) g/dL RDW 15.2 H (11.5-14.5) % Plt Count 183 (140-400) K/mcL MPV 10.0 (9.4-12.4) fL Immature Gran % 0.3 (0-4) % Seg Neutrophils % 69.3 % Lymphocytes % 20.0 % Monocytes % 9.0 % Eosinophils % 1.1 % Basophils % 0.3 % Neutrophils # 4.4 (1.6-8.9) K/mcL Lymphocytes # 1.3 (0.6-4.6) K/mcL Monocytes # 0.6 (0.0-1.3) K/mcL Eosinophils # 0.1 (0.0-0.6) K/mcL Basophils # 0.0 (0.0-0.2) K/mcL Sodium 139 (136-145) mEq/L Potassium 4.3 (3.5-4.5) mEq/L Chloride 103 (98-109) mEq/L Carbon Dioxide 29 (19-29) mEq/L BUN 20 (7-20) mg/dL Creatinine 1.17 H (0.57-1.11) mg/dL Est GFR ( Amer) 56 L (> 60) Est GFR (Non-Af Amer) 46 L (> 60) BUN/Creatinine Ratio 17 (6-26) Glucose 111 H (70-99) mg/dL Calculated Osmolality 291 (280-300) Calcium 9.5 (8.6-10.8) mg/dL Troponin I 0.04 H* (0-0.03) ng/mL B-Natriuretic Peptide (0-100) pg/mL 09/10/16 Range/Units 12:43 WBC (4.3-11.1) K/mcL RBC (3.82-4.97) M/mcL Hgb (11.5-15.4) g/dL Hct (35.3-44.9) % MCV (83.0-100.0) fL MCH (28.0-33.3) pg MCHC (31.6-35.5) g/dL RDW (11.5-14.5) % Plt Count (140-400) K/mcL MPV (9.4-12.4) fL Immature Gran % (0-4) % Seg Neutrophils % % Lymphocytes % % Monocytes % % Eosinophils % % Basophils % % Neutrophils # (1.6-8.9) K/mcL Lymphocytes # (0.6-4.6) K/mcL Monocytes # (0.0-1.3) K/mcL Eosinophils # (0.0-0.6) K/mcL Basophils # (0.0-0.2) K/mcL Sodium (136-145) mEq/L Potassium (3.5-4.5) mEq/L Chloride (98-109) mEq/L Carbon Dioxide (19-29) mEq/L BUN (7-20) mg/dL Creatinine (0.57-1.11) mg/dL Est GFR ( Amer) (> 60) Est GFR (Non-Af Amer) (> 60) BUN/Creatinine Ratio (6-26) Glucose (70-99) mg/dL Calculated Osmolality (280-300) Calcium (8.6-10.8) mg/dL Troponin I (0-0.03) ng/mL B-Natriuretic Peptide 405 H (0-100) pg/mL - Radiology Data Radiology results reviewed: Yes I reviewed the patient's radiology results. Livan - Livan Situation: Demographics, MOA Background: Presenting Complaint, Relevant PMH, Meds, & Allergies Assessment: Vital Signs, Course and respsone to treatment, Exam Concerns, Patient/Family Expectation, Pertinant Lab Results, Outstanding Labs Recommendation: Barrier(s) to disposition, Recommendation based on pending studies, treatments, or consults Livan Report Given to: Dr. Rafal Licona Repor Time: 14:53
[2016-09-10 13:07] LABS: Calcium 9.5 mg/dL (8.6-10.8); Potassium 4.3 mEq/L (3.5-4.5)
[2016-09-10] MEDS ORDERED: Furosemide 40 MG/4 ML VIAL IVP ONE (13:59)
[2016-09-10] MEDS ORDERED: Aspirin 325 MG TABLET PO ONE (13:59)
[2016-09-10] MEDS ORDERED: Warfarin perPT PO PRN (18:00)
[2016-09-10] MEDS ORDERED: Naloxone 0.4 MG/ML INJ IVP PRN (18:17)
--- NOTE | 2016-09-10 18:56 | Internal Med History&Physical ---
Date of Encounter: 09/10/16 Time of Encounter: 18:49 Assessment and Plan (1) CHF exacerbation Current visit: Yes Status: Acute Patient presented with worsening CONCEPCION, increasing BLE edema, weight gain of 10 lbs in 1 week. BNP elevated to 405, up from previous of 256. CXR showed BLL pulm edema as read by ER physician. Previous Echo in April showed LV systolic dysfunction, moderate LVH. Lasix 40mg IVP BID continuous monitoring and evaluation advisor daily weights strict I/Os Qualifiers: Congestive heart failure type: systolic Qualified Code(s): I50.23 - Acute on chronic systolic (congestive) heart failure (2) Elevated troponin Current visit: Yes Status: Acute Patient's troponin elevated to 0.04. May be demand ischemia related to CHF exacerbation. Patient reported chest heaviness on and off the last few days, but not reporting any currently. Continuous monitoring and evaluation advisor. serial troponins for trend. (3) Anticoagulated on Coumadin Current visit: Yes Status: Acute On coumadin for paroxysmal Afib. STAT PT/INR ordered. Pharmacy to dose coumadin check PT/INR PTT daily. (4) Atrial fibrillation Current visit: Yes Status: Chronic Patient with history of paroxysmal afib on coumadin. She has a pacemaker. EKG shows paced rhythm with no acute ST changes, and controlled rate. Qualifiers: Atrial fibrillation type: chronic Qualified Code(s): I48.2 - Chronic atrial fibrillation (5) EJ (obstructive sleep apnea) Current visit: Yes Status: Chronic Respiratory therapy consulted for CPAP (6) DVT prophylaxis Current visit: Yes Status: Acute anti-embolic stockings. Patient on coumadin for history of afib. additional pharmacologic prophylaxis not warranted. Internal Medicine - H&P: HPI Chief complaint: shortness of breath Admitted From: Emergency Dept Plans for Post Hospital Care: Home History of present illness: Ms. Vilchis is a 66 year old female with hypertension, hyperlipidemia, type 2 diabetes, COPD, atrial fibrillation on Coumadin, CHF presented to the emergency department today with complaints of worsening shortness of breath, dyspnea on exertion, increasing edema, and increasing weight. Patient reports that her shortness of breath has been worsening over the last 1-2 weeks, and got especially bad today. She is short of breath on exertion, she is also noted increased lower extremity edema abdominal fullness and she had a weight gain of 10 pounds for the last week. Patient also endorses occasional chest heaviness, but is not having any right now. She denies any lightheadedness, palpitations, nausea, vomiting, abdominal pain, fever, chills or sweats. Evaluation in the emergency department revealed elevated BNP of 405 up from previous of 256, mildly elevated troponin of 0.04. EKG showed paced rhythm with no acute ST changes, chest x-ray showed bilateral lateral lower lobe pulmonary edema. On exam, patient alert and oriented, in no acute distress, mildly tachypneic. Past Med Surg Social Fam HX - Past Medical History Medical history: atrial fibrillation, CHF, diabetes, hyperlipidemia, hypertension Psychiatric history: anxiety, depression - Past Surgical History Surgical History: appendectomy, other, pacemaker - Social History Smoking Status: Never smoker Smokeless Tobacco Status: Yes Alcohol use: none Drug use: none - Family History Mother Adopted: [place]: Marixa Barrientos Living Status: Cause of : cancer Hx Family Cardiac Disorders: No Hx Family Respiratory Disorders: No Hx Family Cancer: Yes Hx Family GI Disorders: No Hx Family Endocrine Disorder: No Hx Family Neuromuscular Disorders: No Hx Family Neurologic Disorders: No Hx Family HEENT Disorders: No Hx Family Autoimmune Disorders: No Internal Medicine - H&P: Meds Atenolol [Tenormin] 25 mg PO DAILY 04/05/16 [History] Cyanocobalamin (Vitamin B-12) [Vitamin B-12] 1,000 mcg IM QMONTH 04/05/16 [ History] Insulin DETEMIR [Levemir] 45 unit SQ HS 04/05/16 [History] Loratadine [Claritin] 10 mg PO QAM 04/05/16 [History] Lovastatin [Mevacor] 20 mg PO HS 04/05/16 [History] Montelukast [Singulair] 10 mg PO HS 04/05/16 [History] SitaGLIPtin [Januvia] 100 mg PO DAILY 04/05/16 [History] Albuterol Sulfate [Proair Hfa] 2 puff IH Q4H PRN 04/06/16 [History] Beclomethasone Diprop 80mcg [QVAR 80 mcg] 1 puff IH BID 04/06/16 [History] Metformin HCl [Metformin HCl ER] 2,000 mg PO QPM 04/06/16 [History] Furosemide [Lasix] 40 mg PO BID 05/03/16 [History] Nystatin [Nystop] 1 appl TP BID 05/03/16 [History] Potassium Chloride 20 meq PO DAILY 09/10/16 [History] Warfarin [Coumadin] 2 mg PO 1800 09/10/16 [History] Allergies No Known Allergies Allergy (Verified 02/09/15 08:14) All Systems PM: A 10-system review of systems was performed and is negative for pertinent findings except as documented above in the HPI. - Constitutional Constitutional: weight gain, no chills, no fever(s), no night sweats - EENT Eyes: no change in vision, no discharge, no pain, no photophobia Ears: no ear discharge, no ear pain, no tinnitus Nose, mouth and throat: no dysphagia, no nasal discharge, no neck pain, no sore throat - Cardiovascular Cardiovascular ROS IM: chest pain (chest heaviness), dyspnea, dyspnea on exertion, edema, paroxysmal nocturnal dyspnea, no diaphoresis, no lightheadedness, no palpitations, no syncope - Respiratory Respiratory: no cough, no dyspnea, no wheezing, no excessive phlegm production - Gastrointestinal Gastrointestinal: no abdominal pain, no diarrhea, no hematemesis, no hematochezia, no melena, no nausea, no vomiting - Genitourinary Genitourinary: no change in urinary stream, no dysuria, no flank pain, no hematuria - Musculoskeletal Musculoskeletal ROS IM: no numbness, no tingling - Integumentary Integumentary IM: no rash, no unusual bruising - Neurological Neurological ROS: no confusion, no convulsions, no focal weakness, no numbness, no tingling, no tremor(s) - Hematologic/Lymphatic Hematologic/Lymphatic: no easy bruising - Constitutional Vitals: Temp Pulse Resp BP Pulse Ox 97.7 F 71 16 133/82 94 09/10/16 16:29 09/10/16 16:29 09/10/16 16:29 09/10/16 16:29 09/10/16 16:29 General appearance: Present: A&O X 3, pleasant, no acute distress - Head Head exam: Present: atraumatic, normocephalic - Eye Eye exam: Present: PERRL, conjuntiva pink, sclera anicteric Pupils: Present: PERRL - Neck Neck exam general surgery: Present: supple, trachea midline. Absent: lymphadenopathy - Respiratory Respiratory exam: Present: CTAB, rales (bilateral bases), tachypnea. Absent: accessory muscle use, rhonchi, wheezes - Cardiovascular Cardiovascular exam: Present: RRR, +S1, +S2. Absent: diastolic murmur, gallop, rubs, systolic murmur - GI/Abdominal GI/Abdominal exam: Present: normal bowel sounds, soft, no peritoneal signs. Absent: distended, tenderness - Extremities Exam Extremities exam: Present: warm, radial pulses palpable and symetrical. Absent : calf tenderness, cyanotic, pedal edema - Neurological Exam Neurological exam: Present: CN II-XII intact, oriented X3, no focal deficits. Absent: facial droop, speech deficit - Skin Skin exam: Present: dry, intact Internal Med - H&P Results - Labs CBC & Chem 7: 09/10/16 12:43 09/10/16 12:43 Labs: All Lab Results (24 Hours) 09/10/16 09/10/16 09/10/16 Range/Units 12:43 12:43 12:43 WBC 6.4 (4.3-11.1) K/mcL RBC 3.91 (3.82-4.97) M/mcL Hgb 10.3 L (11.5-15.4) g/dL Hct 33.4 L (35.3-44.9) % MCV 85.4 (83.0-100.0) fL MCH 26.3 L (28.0-33.3) pg MCHC 30.8 L (31.6-35.5) g/dL RDW 15.2 H (11.5-14.5) % Plt Count 183 (140-400) K/mcL MPV 10.0 (9.4-12.4) fL Immature Gran % 0.3 (0-4) % Seg Neutrophils % 69.3 % Lymphocytes % 20.0 % Monocytes % 9.0 % Eosinophils % 1.1 % Basophils % 0.3 % Neutrophils # 4.4 (1.6-8.9) K/mcL Lymphocytes # 1.3 (0.6-4.6) K/mcL Monocytes # 0.6 (0.0-1.3) K/mcL Eosinophils # 0.1 (0.0-0.6) K/mcL Basophils # 0.0 (0.0-0.2) K/mcL Sodium 139 (136-145) mEq/L Potassium 4.3 (3.5-4.5) mEq/L Chloride 103 (98-109) mEq/L Carbon Dioxide 29 (19-29) mEq/L BUN 20 (7-20) mg/dL Creatinine 1.17 H (0.57-1.11) mg/dL Est GFR ( Amer) 56 L (> 60) Est GFR (Non-Af Amer) 46 L (> 60) BUN/Creatinine Ratio 17 (6-26) Glucose 111 H (70-99) mg/dL Calculated Osmolality 291 (280-300) Calcium 9.5 (8.6-10.8) mg/dL Troponin I 0.04 H* (0-0.03) ng/mL B-Natriuretic Peptide (0-100) pg/mL 09/10/16 Range/Units 12:43 WBC (4.3-11.1) K/mcL RBC (3.82-4.97) M/mcL Hgb (11.5-15.4) g/dL Hct (35.3-44.9) % MCV (83.0-100.0) fL MCH (28.0-33.3) pg MCHC (31.6-35.5) g/dL RDW (11.5-14.5) % Plt Count (140-400) K/mcL MPV (9.4-12.4) fL Immature Gran % (0-4) % Seg Neutrophils % % Lymphocytes % % Monocytes % % Eosinophils % % Basophils % % Neutrophils # (1.6-8.9) K/mcL Lymphocytes # (0.6-4.6) K/mcL Monocytes # (0.0-1.3) K/mcL Eosinophils # (0.0-0.6) K/mcL Basophils # (0.0-0.2) K/mcL Sodium (136-145) mEq/L Potassium (3.5-4.5) mEq/L Chloride (98-109) mEq/L Carbon Dioxide (19-29) mEq/L BUN (7-20) mg/dL Creatinine (0.57-1.11) mg/dL Est GFR ( Amer) (> 60) Est GFR (Non-Af Amer) (> 60) BUN/Creatinine Ratio (6-26) Glucose (70-99) mg/dL Calculated Osmolality (280-300) Calcium (8.6-10.8) mg/dL Troponin I (0-0.03) ng/mL B-Natriuretic Peptide 405 H (0-100) pg/mL - Diagnostic Studies Chest x-ray Additional comments: Chest X-Ray 09/10/16 12:40 IMPRESSION: 1. Moderate to severe enlargement of the cardiac silhouette, slightly increased compared to the exam of March 10, 2015. This may be due to worsening cardiomegaly or pericardial fluid. 2. No acute pulmonary abnormality. D/ / Ronny Peguero MD / Ronny Peguero MD Interpreting Provider: Ronny Peguero MD
[2016-09-10 19:41] LABS: INR 2.3; Prothrombin Time 25.2 Seconds (9.4-12.1)
[2016-09-10 19:44] LABS: Activated Partial Thrombo Time 33.2 Seconds (26.0-36.0)
[2016-09-10] MEDS: *HR* Warfarin 2 MG TABLET PO SCH (21:42)
[2016-09-10] MEDS: Furosemide 40 MG/4 ML VIAL IVP SCH (21:42)
[2016-09-10] MEDS: Nystatin POWDER 30 GM BOTTLE TP SCH (21:42)
[2016-09-10] MEDS: Beclomethasone 80mcg MDI IH SCH (21:49)
[2016-09-11 03:54] LABS: Basophils % 0.3 %; Eosinophils # 0.1 K/mcL (0.0-0.6); Eosinophils % 1.6 %; Hematocrit 31.4 % (35.3-44.9); Hemoglobin 9.9 g/dL (11.5-15.4); Immature Granulocytes % 0.3 % (0-4); Lymphocytes # 1.5 K/mcL (0.6-4.6); Lymphocytes % 20.7 %; Mean Corpuscular HGB Conc 31.5 g/dL (31.6-35.5); Mean Corpuscular Hemoglobin 26.9 pg (28.0-33.3); Mean Corpuscular Volume 85.3 fL (83.0-100.0); Mean Platelet Volume 9.9 fL (9.4-12.4); Monocytes # 0.6 K/mcL (0.0-1.3); Monocytes % 8.8 %; Neutrophils # 4.8 K/mcL (1.6-8.9); Platelet Count 185 K/mcL (140-400); Red Blood Count 3.68 M/mcL (3.82-4.97); Red Cell Distribution Width 14.9 % (11.5-14.5); Segmented Neutrophils % 68.3 %
[2016-09-11 03:58] LABS: INR 2.3; Prothrombin Time 24.9 Seconds (9.4-12.1)
[2016-09-11 04:00] LABS: Activated Partial Thrombo Time 33.3 Seconds (26.0-36.0)
[2016-09-11 04:16] LABS: Calcium 9.6 mg/dL (8.6-10.8); Potassium 3.7 mEq/L (3.5-4.5)
[2016-09-11] MEDS: Sennosides/Docusate Sodium TABLET PO SCH ×3 (06:27→22:10)
[2016-09-11] MEDS: Acetaminophen 325 MG TABLET PO PRN (06:27)
[2016-09-11] MEDS: Beclomethasone 80mcg MDI IH SCH ×2 (08:06→20:13)
--- NOTE | 2016-09-11 08:23 | Electrocardiograph Report ---
[facility] Test Date: 2016-09-10 Pat Name: Marixa Vilchis Department: 105 Room: 3B36 Gender: F [employer] Letter [employer]rier: : 1950 Requested By: Rafael Brown Order Number: [id number] Reading MD: Padilla Lilly MD Measurements Intervals [place] Rate: 69 P: MO: 0 QRS: -84 QRSD: 153 T: 105 QT: 457 QTc: 477 Interpretive Statements ELECTRONIC VENTRICULAR PACEMAKER ABNORMAL RHYTHM ECG Electronically Signed On 09-11-2016 8:22:05 EDT by Padilla Lilly MD
[2016-09-11] MEDS: Loratadine 10 MG TABLET PO SCH (12:07)
[2016-09-11] MEDS: Furosemide 40 MG/4 ML VIAL IVP SCH ×2 (12:07→22:10)
[2016-09-11] MEDS: Nystatin POWDER 30 GM BOTTLE TP SCH ×2 (12:08→22:10)
--- NOTE | 2016-09-11 15:13 | Internal Med Progress Note ---
Date of Encounter: 09/11/16 Time of Encounter: 10:10 - Assessment and plan (1) CHF exacerbation Current Visit: Yes Status: Acute Assessment and plan: Patient states that she was discharged from an [facility] in May and states that she has had difficulty breathing since that time. She states that she was short of breath and could not complete physical therapy multiple days when she was in there. She does not have home O2. She reports worsening dyspnea on exertion, increasing B LE edema, 10 pound weight gain in the last week. Her BNP is mildly elevated at 405. Chest x-ray showed bilateral lower lobe pulmonary edema , as read by the ER physician. Echo in April showed LV systolic dysfunction and moderate LVH. Her abdomen is rounded and distended, nontender to palpation , bowel sounds present she is obviously short of breath at rest and with talking. She also has +1 to +2 nonpitting pedal edema bilaterally. Continue telemetry Lasix 40 mg IV twice a day Strict I and O and daily weights. Qualifiers: Congestive heart failure type: systolic Qualified Code(s): I50.23 - Acute on chronic systolic (congestive) heart failure (2) Atrial fibrillation Current Visit: Yes Status: Chronic Assessment and plan: Patient is on Coumadin. She has a pacemaker. EKG shows paced rhythm with no ST changes. Rate is controlled in the 80s. History of paroxysmal A. fib. Continue telemetry and Coumadin. Qualifiers: Atrial fibrillation type: chronic Qualified Code(s): I48.2 - Chronic atrial fibrillation (3) EJ (obstructive sleep apnea) Current Visit: Yes Status: Chronic Assessment and plan: CPAP at night. (4) Elevated troponin Current Visit: Yes Status: Acute Assessment and plan: Troponin was mildly elevated, flat and adynamic in the setting of chronic kidney disease and CHF exacerbation. Most likely demand ischemia. Was elevated 0.04, last lab draw, troponin was 0.03. Plan as above (5) Dyspnea Current Visit: Yes Status: Acute Assessment and plan: Plan as above. Supplemental oxygen at 2 and half liters at this time. Titrate to maintain sats greater than 92%. Will attempt to wean prior to discharge. Qualifiers: Dyspnea type: unspecified Qualified Code(s): R06.00 - Dyspnea, unspecified (6) Anemia Current Visit: Yes Status: Acute Assessment and plan: Hemoglobin is 9.9 today. This appears to be around patient's baseline. Serum iron and percent saturation were both low during inpatient visit in March. Patient does not appear to take any iron supplementation, does take vitamin B12 IM monthly. We will need to continue to monitor this and transfuse if necessary. Qualifiers: Anemia type: unspecified type Qualified Code(s): D64.9 - Anemia, unspecified (7) Anticoagulated on Coumadin Current Visit: Yes Status: Acute Assessment and plan: Pharmacy dosing. INR therapeutic at 2.3. We will continue to monitor. - Time Spent With Patient less than 15 minutes - Subjective Interval history: Patient was seen and assessed at 10:10 AM. She is resting quietly in her bed. She reports difficulty breathing since May when she was discharged from [facility] in [place]. She states that she was so short of breath during that time that she could not complete her physical therapy. She does not have home O2, we will attempt to qualify her. Patient's abdomen is rounded, distended, soft. She says this is due to the CHF and 10 pound weight gain over the last week. Patient is obviously short of breath for rest and speaks in short phrases. She is wearing supplemental oxygen. She has +1-2 nonpitting edema to bilateral lower extremities, she says this is not normal for her and appears to be worse. She states that she gets home health aides twice a day. Her lungs are clear diminished. Depending on condition, patient will be discharged tomorrow. - Constitutional Vitals: Temp Pulse Resp BP Pulse Ox 97.7 F 71 20 110/69 95 09/11/16 11:49 09/11/16 11:49 09/11/16 11:49 09/11/16 11:49 09/11/16 11:49 General appearance: Present: cooperative, mild distress, A&O X 3, pleasant, obese, answers questions appropriately Exam: Mild distress. - Head Head exam: Present: normal inspection - Eye Eye exam: Present: normal appearance, conjuntiva pink - ENT ENT exam: Present: mucous membranes moist, normal exam, normal external ear exam - Neck Neck exam general surgery: Present: normal inspection. Absent: lymphadenopathy , tenderness - Respiratory Respiratory exam: Present: decreased breath sounds, CTAB, respiratory distress. Absent: chest wall tenderness, prolonged expiratory phase, rales, rhonchi, stridor, wheezes, tachypnea - Cardiovascular Cardiovascular exam: Present: RRR, +S1, +S2. Absent: clicks, diastolic murmur, gallop, systolic murmur - GI/Abdominal GI/Abdominal exam: Present: distended, normal bowel sounds, soft. Absent: hepatomegaly, tenderness - Extremities Exam Extremities exam: Present: normal capillary refill, pedal edema. Absent: tenderness, warm, radial pulses palpable and symetrical - Neurological Exam Neurological exam: Present: alert, oriented X3, no focal deficits. Absent: facial droop, speech deficit - Skin Skin exam: Present: dry, intact, normal color, warm Internal Medicine: Result - Labs CBC & Chem 7: 09/11/16 03:42 09/11/16 03:42 Labs: Short CBC 09/11/16 Range/Units 03:42 WBC 7.0 (4.3-11.1) K/mcL Hgb 9.9 L (11.5-15.4) g/dL Hct 31.4 L (35.3-44.9) % Plt Count 185 (140-400) K/mcL Neutrophils # 4.8 (1.6-8.9) K/mcL BMP 09/11/16 03:42 Sodium 141 Potassium 3.7 Chloride 102 Carbon Dioxide 31 H BUN 20 Creatinine 1.30 H Glucose 161 H Calcium 9.6 Cardiac Enzymes 09/10/16 09/11/16 Range/Units 19:07 01:45 Troponin I 0.04 H* 0.03 (0-0.03) ng/mL - ABG Interpretation ABG results: PT/INR, D-dimer PT 24.9 Seconds (9.4-12.1) H 09/11/16 03:42 Consult Discharge Plan - Plan Referrals: Salvador Umana MD [Primary Care Provider] -
[2016-09-11] MEDS: *HR* Warfarin 2 MG TABLET PO SCH (18:24)
[2016-09-12] MEDS: Acetaminophen 325 MG TABLET PO PRN ×2 (02:36→12:51)
[2016-09-12 05:19] LABS: INR 2.2; Prothrombin Time 23.9 Seconds (9.4-12.1)
[2016-09-12 05:21] LABS: Basophils % 0.4 %; Eosinophils # 0.1 K/mcL (0.0-0.6); Eosinophils % 1.8 %; Hematocrit 32.5 % (35.3-44.9); Hemoglobin 9.9 g/dL (11.5-15.4); Immature Granulocytes % 0.3 % (0-4); Lymphocytes # 1.6 K/mcL (0.6-4.6); Lymphocytes % 22.6 %; Mean Corpuscular HGB Conc 30.5 g/dL (31.6-35.5); Mean Corpuscular Hemoglobin 26.4 pg (28.0-33.3); Mean Corpuscular Volume 86.7 fL (83.0-100.0); Mean Platelet Volume 9.9 fL (9.4-12.4); Monocytes # 0.7 K/mcL (0.0-1.3); Monocytes % 9.1 %; Neutrophils # 4.7 K/mcL (1.6-8.9); Nucleated Red Blood Cells 0.3 /100 WBC (0); Platelet Count 188 K/mcL (140-400); Red Blood Count 3.75 M/mcL (3.82-4.97); Red Cell Distribution Width 15.2 % (11.5-14.5); Segmented Neutrophils % 65.8 %
[2016-09-12 05:39] LABS: Potassium 3.9 mEq/L (3.5-4.5)
[2016-09-12 05:40] LABS: Calcium 9.6 mg/dL (8.6-10.8)
[2016-09-12] MEDS: Beclomethasone 80mcg MDI IH SCH ×2 (08:09→20:06)
[2016-09-12] MEDS: Loratadine 10 MG TABLET PO SCH (08:46)
[2016-09-12] MEDS: Sennosides/Docusate Sodium TABLET PO SCH ×2 (08:46→21:06)
[2016-09-12] MEDS: Furosemide 40 MG/4 ML VIAL IVP SCH ×2 (08:47→21:06)
[2016-09-12] MEDS: Nystatin POWDER 30 GM BOTTLE TP SCH ×2 (08:50→22:16)
[2016-09-12] MEDS: Insulin LISPRO 300 UNITS/3 ML VIAL SQ SCH ×2 (16:28→21:06)
[2016-09-12] MEDS: *HR* Warfarin 2 MG TABLET PO SCH (17:23)
--- NOTE | 2016-09-12 17:54 | Internal Med Progress Note ---
Date of Encounter: 09/12/16 Time of Encounter: 09:50 - Assessment and plan (1) CHF exacerbation Current Visit: Yes Status: Acute Assessment and plan: Patient still appears to be short of breath with conversation., Still has 2+ nonpitting bilateral lower extremity edema. According to weights, which may not be very reliable, patient has lost no weight, but her output has been greater than her intake. Previous echo in April showed LV systolic dysfunction , moderate LVH. We will continue her Lasix 40 mg IV push twice daily, continue telemetry, continue daily weights and strict I&O. Patient does have a Garcia catheter in. Her lungs are clear and diminished anteriorly and posteriorly. Abdomen is rounded and firm. Qualifiers: Congestive heart failure type: systolic Qualified Code(s): I50.23 - Acute on chronic systolic (congestive) heart failure (2) Atrial fibrillation Current Visit: Yes Status: Chronic Assessment and plan: Patient is on Coumadin. She has a pacemaker. EKG shows paced rhythm with no ST changes. Rate is controlled. Continue telemetry and Coumadin. Qualifiers: Atrial fibrillation type: chronic Qualified Code(s): I48.2 - Chronic atrial fibrillation (3) EJ (obstructive sleep apnea) Current Visit: Yes Status: Chronic Assessment and plan: CPAP at night. (4) Elevated troponin Current Visit: Yes Status: Resolved Assessment and plan: Troponin was mildly elevated, flat and adynamic in the setting of chronic kidney disease and CHF exacerbation. Most likely demand ischemia. Was elevated 0.04, last lab draw, troponin was 0.03. Plan as above (5) Dyspnea Current Visit: Yes Status: Acute Assessment and plan: Patient remains dyspneic with exertion and with speech. Patient is able to speak and short phrases. She is requiring supplemental oxygen at this time to maintain sats greater than 92%. Patient reports increasing dyspnea and edema over the last few weeks, as well as a 10 pound weight gain. Patient states that she has not been able to complete her ADLs at home due to shortness of breath and fatigue. She says she is not able to ambulate far or do her cooking at home due to shortness of breath and having to sit down. Plan as above Qualifiers: Dyspnea type: unspecified Qualified Code(s): R06.00 - Dyspnea, unspecified (6) Anemia Current Visit: Yes Status: Acute Assessment and plan: Hemoglobin remained steady at 9.9 today. This remains at patient's baseline. We will continue to monitor. Prepare to transfuse if 8 or less and symptomatic. Qualifiers: Anemia type: unspecified type Qualified Code(s): D64.9 - Anemia, unspecified (7) Anticoagulated on Coumadin Current Visit: Yes Status: Acute Assessment and plan: Pharmacy dosing. INR therapeutic at 2.2. We will continue to monitor. (8) (HFpEF) heart failure with preserved ejection fraction Current Visit: No Status: Chronic Assessment and plan: Patient has preserved EF of 50% and systolic dysfunction, moderate LVH. (9) SIDDHARTH (acute kidney injury) Current Visit: Yes Status: Acute Assessment and plan: Patient with acute kidney injury on this admission. Creatinine 1.23 today, GFR 44. This is improved since yesterday. Continue to avoid nephrotoxins Monitor labs - Time Spent With Patient less than 15 minutes - Subjective Interval history: Patient was seen and assessed at about 9:50 AM. Patient is alert, oriented, pleasant. She is noticeably short of breath with speech. His requiring some oxygen to maintain her sats. She reports a cough with clear sputum at this time. Her lungs are clear and diminished. She has +2 nonpitting edema to bilateral lower extremities. She says that she has been able to care for herself at home and that it took her 45 minutes to make out she seemed much. She said that she feels her family makes fun of her when they come help her with tasks at home and increasing debility and shortness of breath. [facility]. [facility] worker is on board. - Constitutional Vitals: Temp Pulse Resp BP Pulse Ox 98.0 F 70 16 121/63 98 09/12/16 16:16 09/12/16 16:16 09/12/16 16:16 09/12/16 16:16 09/12/16 16:16 General appearance: Present: cooperative, mild distress, A&O X 3, pleasant, obese, answers questions appropriately Exam: Moderate distress. - Head Head exam: Present: normal inspection - Eye Eye exam: Present: normal appearance, conjuntiva pink - Neck Neck exam general surgery: Present: normal inspection. Absent: lymphadenopathy , tenderness - Respiratory Respiratory exam: Present: decreased breath sounds, CTAB, respiratory distress. Absent: chest wall tenderness, rales, rhonchi, stridor, wheezes - Cardiovascular Cardiovascular exam: Present: RRR, +S1, +S2. Absent: bradycardia, diastolic murmur, gallop, systolic murmur - GI/Abdominal GI/Abdominal exam: Present: distended, normal bowel sounds, soft. Absent: tenderness - Extremities Exam Extremities exam: Present: pedal edema, warm, radial pulses palpable and symetrical. Absent: normal inspection, tenderness - Neurological Exam Neurological exam: Present: alert, no focal deficits, strengths equal and symetr throughout. Absent: pronater drift, facial droop, speech deficit - Skin Skin exam: Present: dry, intact, normal color, warm Internal Medicine: Result - Labs CBC & Chem 7: 09/12/16 04:40 09/12/16 04:40 Labs: Short CBC 09/12/16 Range/Units 04:40 WBC 7.1 (4.3-11.1) K/mcL Hgb 9.9 L (11.5-15.4) g/dL Hct 32.5 L (35.3-44.9) % Plt Count 188 (140-400) K/mcL Neutrophils # 4.7 (1.6-8.9) K/mcL BMP 09/12/16 04:40 Sodium 139 Potassium 3.9 Chloride 103 Carbon Dioxide 27 BUN 30 H D Creatinine 1.23 H Glucose 228 H Calcium 9.6 - ABG Interpretation ABG results: PT/INR, D-dimer PT 23.9 Seconds (9.4-12.1) H 09/12/16 04:40 Consult Discharge Plan - Plan Referrals: Salvador Umana MD [Primary Care Provider] -
[2016-09-13] MEDS: Acetaminophen 325 MG TABLET PO PRN ×2 (01:40→23:05)
[2016-09-13 06:53] LABS: INR 1.8; Prothrombin Time 19.6 Seconds (9.4-12.1)
[2016-09-13 06:57] LABS: Calcium 9.7 mg/dL (8.6-10.8)
[2016-09-13 07:01] LABS: Basophils % 0.4 %; Eosinophils # 0.2 K/mcL (0.0-0.6); Eosinophils % 2.4 %; Hematocrit 32.1 % (35.3-44.9); Hemoglobin 9.9 g/dL (11.5-15.4); Immature Granulocytes % 0.4 % (0-4); Lymphocytes # 1.8 K/mcL (0.6-4.6); Mean Corpuscular HGB Conc 30.8 g/dL (31.6-35.5); Mean Corpuscular Hemoglobin 27.1 pg (28.0-33.3); Mean Corpuscular Volume 87.9 fL (83.0-100.0); Mean Platelet Volume 10.9 fL (9.4-12.4); Monocytes # 0.7 K/mcL (0.0-1.3); Neutrophils # 5.2 K/mcL (1.6-8.9); Platelet Count 197 K/mcL (140-400); Red Blood Count 3.65 M/mcL (3.82-4.97); Red Cell Distribution Width 15.1 % (11.5-14.5); Segmented Neutrophils % 64.8 %
[2016-09-13] MEDS: Sennosides/Docusate Sodium TABLET PO SCH ×2 (07:49→21:06)
[2016-09-13] MEDS: Loratadine 10 MG TABLET PO SCH (07:50)
[2016-09-13] MEDS: Furosemide 40 MG/4 ML VIAL IVP SCH (07:50)
[2016-09-13] MEDS: Insulin LISPRO 300 UNITS/3 ML VIAL SQ SCH ×4 (07:50→21:07)
[2016-09-13] MEDS: Nystatin POWDER 30 GM BOTTLE TP SCH ×2 (07:51→21:06)
[2016-09-13] MEDS: Beclomethasone 80mcg MDI IH SCH ×2 (08:04→20:01)
[2016-09-13] MEDS: Furosemide 20 MG/2 ML VIAL IVP SCH ×2 (08:14→16:18)
--- NOTE | 2016-09-13 16:50 | Internal Med Progress Note ---
Date of Encounter: 09/13/16 Time of Encounter: 09:55 - Assessment and plan (1) CHF exacerbation Current Visit: Yes Status: Acute Assessment and plan: Patient does not appear to be short of breath with conversation today., Still has +1-2 nonpitting bilateral lower extremity edema. According to weights, patient has lost 5.69 kg or about 12/2 pounds. Previous echo in April showed LV systolic dysfunction, moderate LVH. We will continue her Lasix 40 mg IV push twice daily, continue telemetry, continue daily weights and strict I&O. Patient does have a Garcia catheter in. Her lungs are clear and diminished anteriorly and posteriorly. Abdomen is rounded and soft, improved from admission. Continue telemetry Continue strict I&O Daily weights Fluid restriction and low sodium diet I have decreased Lasix dose IV due to renal function improving and serum osmolality increasing. Qualifiers: Congestive heart failure type: systolic Qualified Code(s): I50.23 - Acute on chronic systolic (congestive) heart failure (2) Atrial fibrillation Current Visit: Yes Status: Chronic Assessment and plan: Patient is on Coumadin. She has a pacemaker. Rate is controlled. Continue telemetry and Coumadin. Qualifiers: Atrial fibrillation type: chronic Qualified Code(s): I48.2 - Chronic atrial fibrillation (3) EJ (obstructive sleep apnea) Current Visit: Yes Status: Chronic Assessment and plan: CPAP at night. (4) Elevated troponin Current Visit: Yes Status: Resolved (5) Dyspnea Current Visit: Yes Status: Acute Assessment and plan: Patient is able to speak easily in full sentences today.. She is wearing 2 L of oxygen, sats are in the high 90s. Will attempt to wean.. Patient reports increasing dyspnea and edema over the last few weeks, as well as a 10 pound weight gain. Patient states that she has not been able to complete her ADLs at home due to shortness of breath and fatigue. She says she is not able to ambulate far or do her cooking at home due to shortness of breath and having to sit down. [facility] has [facility] accepted [facility], but will be available on September 15. Plan as above Qualifiers: Dyspnea type: unspecified Qualified Code(s): R06.00 - Dyspnea, unspecified (6) Anemia Current Visit: Yes Status: Acute Assessment and plan: Again hemoglobin remained steady at 9.9. This is baseline for this patient. Anemia labs been drawn. Patient does get B12 IM injections. Qualifiers: Anemia type: unspecified type Qualified Code(s): D64.9 - Anemia, unspecified (7) Anticoagulated on Coumadin Current Visit: Yes Status: Acute Assessment and plan: Pharmacy dosing. INR therapeutic at 1.8. We will continue to monitor. (8) (HFpEF) heart failure with preserved ejection fraction Current Visit: No Status: Chronic Assessment and plan: Patient has preserved EF of 50% and systolic dysfunction, moderate LVH. (9) SIDDHARTH (acute kidney injury) Current Visit: Yes Status: Acute Assessment and plan: Patient with acute kidney injury on this admission. Creatinine 1.14 today, GFR 48. This is improved since yesterday. Continue to avoid nephrotoxins Monitor labs Lasix dose has been decreased. (10) Morbid obesity with BMI of 45.0-49.9, adult Current Visit: Yes Status: Acute Assessment and plan: Chronic. Lifestyle changes. (11) DVT prophylaxis Current Visit: Yes Status: Acute Assessment and plan: Patient is anticoagulated. Pharmacy is dosing warfarin. Patient is also up at bedside. - Subjective Interval history: She was seen and assessed at about 9:55 AM. Patient was seated in her bedside chair. She appeared to be good spirits. We discussed that she has lost approximately 12 pounds since she has been here. Her peripheral edema seems to be better and she states that she feels as though she is breathing more easily. Creatinine is 1.14 today with a GFR 48, proved since arrival. We will continue to monitor and avoid nephrotoxins. I have decreased her Lasix dose due to low osmolality increasing to 305. Patient will be able to go to [facility] on September 15. - Constitutional Vitals: Temp Pulse Resp BP Pulse Ox 98.1 F 70 16 126/62 95 09/13/16 15:24 09/13/16 15:24 09/13/16 15:24 09/13/16 15:24 09/13/16 15:24 General appearance: Present: cooperative, mild distress, A&O X 3, pleasant, obese, answers questions appropriately - Head Head exam: Present: normal inspection - Eye Eye exam: Present: normal appearance, conjuntiva pink - ENT ENT exam: Present: mucous membranes moist, normal exam, normal external ear exam - Neck Neck exam general surgery: Present: normal inspection. Absent: lymphadenopathy , tenderness - Respiratory Respiratory exam: Present: decreased breath sounds, CTAB. Absent: rales, respiratory distress, rhonchi, stridor, wheezes - Cardiovascular Cardiovascular exam: Present: RRR, +S1, +S2. Absent: clicks, diastolic murmur, gallop, systolic murmur - GI/Abdominal GI/Abdominal exam: Present: distended, normal bowel sounds, soft, tenderness Additional comments: Abdomen is soft, rounded, improved from admission when abdomen was firm and distended. - Extremities Exam Extremities exam: Present: pedal edema Additional comments: Patient has +1-2 nonpitting edema in the bilateral lower extremities. - Neurological Exam Neurological exam: Present: alert, oriented X3, no focal deficits. Absent: facial droop, speech deficit - Skin Skin exam: Present: dry, intact, warm. Absent: rash Internal Medicine: Result - Labs CBC & Chem 7: 09/13/16 05:25 09/13/16 05:25 Labs: Short CBC 09/13/16 Range/Units 05:25 WBC 8.0 (4.3-11.1) K/mcL Hgb 9.9 L (11.5-15.4) g/dL Hct 32.1 L (35.3-44.9) % Plt Count 197 (140-400) K/mcL Neutrophils # 5.2 (1.6-8.9) K/mcL BMP 09/13/16 05:25 Sodium 141 Potassium 4.0 Chloride 103 Carbon Dioxide 34 H BUN 33 H Creatinine 1.14 H Glucose 202 H Calcium 9.7 - ABG Interpretation ABG results: PT/INR, D-dimer PT 19.6 Seconds (9.4-12.1) H 09/13/16 05:25 Consult Discharge Plan - Plan Referrals: Salvador Umana MD [Primary Care Provider] -
[2016-09-13] MEDS: *HR* Warfarin 2 MG TABLET PO SCH (18:18)
[2016-09-14 04:28] LABS: Basophils % 0.5 %; Eosinophils # 0.2 K/mcL (0.0-0.6); Eosinophils % 2.6 %; Hematocrit 33.9 % (35.3-44.9); Hemoglobin 10.2 g/dL (11.5-15.4); Immature Granulocytes % 0.4 % (0-4); Lymphocytes # 1.9 K/mcL (0.6-4.6); Lymphocytes % 26.2 %; Mean Corpuscular HGB Conc 30.1 g/dL (31.6-35.5); Mean Corpuscular Hemoglobin 26.6 pg (28.0-33.3); Mean Corpuscular Volume 88.3 fL (83.0-100.0); Mean Platelet Volume 10.6 fL (9.4-12.4); Monocytes # 0.7 K/mcL (0.0-1.3); Monocytes % 8.9 %; Neutrophils # 4.5 K/mcL (1.6-8.9); Platelet Count 197 K/mcL (140-400); Red Blood Count 3.84 M/mcL (3.82-4.97); Red Cell Distribution Width 15.1 % (11.5-14.5); Segmented Neutrophils % 61.4 %
[2016-09-14 04:41] LABS: INR 1.7; Prothrombin Time 18.7 Seconds (9.4-12.1)
[2016-09-14 04:50] LABS: Potassium 4.2 mEq/L (3.5-4.5)
[2016-09-14] MEDS: Acetaminophen 325 MG TABLET PO PRN (06:05)
[2016-09-14] MEDS: Sennosides/Docusate Sodium TABLET PO SCH ×2 (07:57→21:44)
[2016-09-14] MEDS: Furosemide 20 MG/2 ML VIAL IVP SCH (07:57)
[2016-09-14] MEDS: Loratadine 10 MG TABLET PO SCH (07:58)
[2016-09-14] MEDS: Insulin LISPRO 300 UNITS/3 ML VIAL SQ SCH ×4 (08:25→21:46)
[2016-09-14] MEDS: Nystatin POWDER 30 GM BOTTLE TP SCH ×2 (08:30→21:44)
[2016-09-14] MEDS: Beclomethasone 80mcg MDI IH SCH ×3 (10:30→22:34)
[2016-09-14] MEDS ORDERED: *HR* Warfarin 2.5 MG TABLET PO SCH (18:00)
--- NOTE | 2016-09-14 18:25 | Internal Med Progress Note ---
Date of Encounter: 09/14/16 Time of Encounter: 10:20 - Assessment and plan (1) CHF exacerbation Current Visit: Yes Status: Acute Assessment and plan: Patient does not appear to be short of breath with conversation today., Still has +1-2 nonpitting bilateral lower extremity edema. According to weights, patient has lost 5.69 kg or about 12/2 pounds. Previous echo in April showed LV systolic dysfunction, moderate LVH. We will continue her Lasix 40 mg IV push twice daily, continue telemetry, continue daily weights and strict I&O. Patient did have a Garcia catheter in, it was DC'd today.. Her lungs are clear and diminished anteriorly and posteriorly. Abdomen is rounded and soft, improved from admission. Continue telemetry Continue strict I&O Daily weights Fluid restriction and low sodium diet I have decreased Lasix dose IV due to renal function improving and serum osmolality increasing. Qualifiers: Congestive heart failure type: systolic Qualified Code(s): I50.23 - Acute on chronic systolic (congestive) heart failure (2) Atrial fibrillation Current Visit: Yes Status: Chronic Assessment and plan: Patient is on Coumadin. She has a pacemaker. Rate is controlled. INR subtherapeutic at 1.7. Pharmacy is dosing. Continue telemetry and Coumadin. Qualifiers: Atrial fibrillation type: chronic Qualified Code(s): I48.2 - Chronic atrial fibrillation (3) EJ (obstructive sleep apnea) Current Visit: Yes Status: Chronic Assessment and plan: CPAP at night. (4) Elevated troponin Current Visit: Yes Status: Resolved (5) Dyspnea Current Visit: Yes Status: Acute Assessment and plan: Patient is able to speak easily in full sentences today.. She is wearing 2 L of oxygen, sats are in the high 90s. She is currently on room air and maintaining sats.. Patient reports increasing dyspnea and edema over the last few weeks, as well as a 10 pound weight gain. Patient states that she has not been able to complete her ADLs at home due to shortness of breath and fatigue. Patient has been accepted [facility], but will be available on September 15. Plan as above Qualifiers: Dyspnea type: unspecified Qualified Code(s): R06.00 - Dyspnea, unspecified (6) Anemia Current Visit: Yes Status: Acute Assessment and plan: Again hemoglobin remained steady at 10.2. This is baseline for this patient. Anemia labs been drawn. Patient does get B12 IM injections. Qualifiers: Anemia type: unspecified type Qualified Code(s): D64.9 - Anemia, unspecified (7) Anticoagulated on Coumadin Current Visit: Yes Status: Acute Assessment and plan: Pharmacy dosing. INR subtherapeutic at 1.7. We will continue to monitor. (8) (HFpEF) heart failure with preserved ejection fraction Current Visit: No Status: Chronic Assessment and plan: Patient has preserved EF of 50% and systolic dysfunction, moderate LVH. (9) SIDDHARTH (acute kidney injury) Current Visit: Yes Status: Acute Assessment and plan: Patient with acute kidney injury on this admission. Creatinine 1.20 today, GFR 45. Continue to avoid nephrotoxins Monitor labs (10) Morbid obesity with BMI of 45.0-49.9, adult Current Visit: Yes Status: Acute Assessment and plan: Chronic. Lifestyle changes. (11) DVT prophylaxis Current Visit: Yes Status: Acute Assessment and plan: Patient is anticoagulated. Pharmacy is dosing warfarin. Patient is also up at bedside. - Time Spent With Patient less than 15 minutes - Subjective Interval history: She was seen and examined at 10:20 AM. She states she feels better and is ready to go to physicians. She is aware that she will be going tomorrow. Her lungs remain clear and diminished. No rhonchi, Rales, respiratory distress. She has +1 pitting edema to bilateral lower extremities. She reports right hip pain. She says she has had chronically, mostly in the right groin, now it is right hip. She says at times she has trouble getting going and she starts walking. X-ray has been ordered. - Constitutional Vitals: Temp Pulse Resp BP Pulse Ox 98.2 F 69 16 128/77 96 09/14/16 15:12 09/14/16 15:12 09/14/16 15:12 09/14/16 15:12 09/14/16 15:12 General appearance: Present: cooperative, mild distress, A&O X 3, pleasant, obese, answers questions appropriately - Head Head exam: Present: normal inspection - Neck Neck exam general surgery: Present: normal inspection. Absent: lymphadenopathy , tenderness - Respiratory Respiratory exam: Present: decreased breath sounds, CTAB. Absent: chest wall tenderness, rales, respiratory distress, rhonchi, wheezes - Cardiovascular Cardiovascular exam: Present: RRR, +S1, +S2 - GI/Abdominal GI/Abdominal exam: Present: distended, normal bowel sounds, soft. Absent: tenderness - Extremities Exam Extremities exam: Present: pedal edema, tenderness, warm, radial pulses palpable and symetrical - Neurological Exam Neurological exam: Present: alert, oriented X3, no focal deficits. Absent: facial droop, speech deficit Internal Medicine: Result - Labs CBC & Chem 7: 09/14/16 03:46 09/14/16 03:46 Labs: Short CBC 09/14/16 Range/Units 03:46 WBC 7.4 (4.3-11.1) K/mcL Hgb 10.2 L (11.5-15.4) g/dL Hct 33.9 L (35.3-44.9) % Plt Count 197 (140-400) K/mcL Neutrophils # 4.5 (1.6-8.9) K/mcL BMP 09/14/16 03:46 Sodium 140 Potassium 4.2 Chloride 102 Carbon Dioxide 32 H BUN 38 H Creatinine 1.20 H Glucose 205 H Calcium 10.0 - ABG Interpretation ABG results: PT/INR, D-dimer PT 18.7 Seconds (9.4-12.1) H 09/14/16 03:46 Consult Discharge Plan - Plan Referrals: Salvador Umana MD [Primary Care Provider] -
[2016-09-15] MEDS: Acetaminophen 325 MG TABLET PO PRN (01:49)
[2016-09-15 05:38] LABS: Basophils % 0.4 %; Eosinophils # 0.2 K/mcL (0.0-0.6); Eosinophils % 2.7 %; Hematocrit 33.8 % (35.3-44.9); Hemoglobin 10.2 g/dL (11.5-15.4); Immature Granulocytes % 0.4 % (0-4); Lymphocytes # 1.6 K/mcL (0.6-4.6); Lymphocytes % 21.6 %; Mean Corpuscular HGB Conc 30.2 g/dL (31.6-35.5); Mean Corpuscular Hemoglobin 26.2 pg (28.0-33.3); Mean Corpuscular Volume 86.7 fL (83.0-100.0); Mean Platelet Volume 10.5 fL (9.4-12.4); Monocytes # 0.6 K/mcL (0.0-1.3); Monocytes % 8.6 %; Neutrophils # 4.9 K/mcL (1.6-8.9); Platelet Count 198 K/mcL (140-400); Red Cell Distribution Width 14.8 % (11.5-14.5); Segmented Neutrophils % 66.3 %
[2016-09-15 05:41] LABS: INR 1.7; Prothrombin Time 18.2 Seconds (9.4-12.1)
[2016-09-15 05:55] LABS: Calcium 9.7 mg/dL (8.6-10.8); Potassium 3.9 mEq/L (3.5-4.5)
[2016-09-15 06:29] LABS: Folate 11.2 ng/mL (7.0-31.4)
[2016-09-15] MEDS: Beclomethasone 80mcg MDI IH SCH (08:06)
[2016-09-15] MEDS: Insulin LISPRO 300 UNITS/3 ML VIAL SQ SCH ×2 (08:07→12:28)
[2016-09-15] MEDS: Sennosides/Docusate Sodium TABLET PO SCH (08:09)
[2016-09-15] MEDS: Nystatin POWDER 30 GM BOTTLE TP SCH (08:09)
[2016-09-15] MEDS: Loratadine 10 MG TABLET PO SCH (08:09)
[2016-09-15] MEDS ORDERED: Furosemide 40 MG/4 ML VIAL IVP SCH (09:00)
[2016-09-15 11:26] VITALS: BP 142/84
--- NOTE | 2016-09-15 11:42 | Discharge Summary ---
Date of Encounter: 09/15/16 Time of Encounter: 11:20 - Discharge Diagnosis (1) CHF exacerbation Priority: Primary Status: Acute Comments: Patient is no longer requiring supplemental oxygen. Her lungs are clear. Peripheral edema has improved, +1 nonpitting edema to bilateral lower extremities. Patient has lost 5.6 kg since arrival. Continue Lasix. Monitor BNP and labs. Qualifiers: Congestive heart failure type: systolic Qualified Code(s): I50.23 - Acute on chronic systolic (congestive) heart failure (2) Atrial fibrillation Priority: Secondary Status: Chronic Comments: History of paroxysmal A. fib. She is on Coumadin. His pacemaker. EKG shows paced rhythm with no acute ST changes and control rate. Continue Coumadin. Follow with cardiology as needed. Qualifiers: Atrial fibrillation type: chronic Qualified Code(s): I48.2 - Chronic atrial fibrillation (3) EJ (obstructive sleep apnea) Priority: Secondary Status: Chronic Comments: CPAP at night. (4) Elevated troponin Priority: Secondary Status: Resolved Comments: Mildly elevated troponin, flat need dynamic on admission. Most likely due to demand ischemia from CHF exacerbation and renal failure. (5) Dyspnea Priority: Secondary Status: Acute Comments: Patient admitted for dyspnea on exertion, increasing dyspnea, inability to perform ADLs or care for self at home. Patient appears to be better. She is no longer requiring supplemental oxygen today. She speaks easily in full sentences. Her lungs are clear. Most likely due to CHF exacerbation. Monitor BNP. Oxygen as needed. Continue Lasix. Qualifiers: Dyspnea type: dyspnea on exertion Qualified Code(s): R06.09 - Other forms of dyspnea (6) Anemia Priority: Secondary Status: Chronic Comments: Iron is low. Percent saturation is also low. She has been started on iron supplementation with vitamin C. Hemoglobin is holding steady and what appears to be patient's baseline. Hemoglobin today is 10.2. Continue monitor CBC at traditions. Qualifiers: Anemia type: iron deficiency Qualified Code(s): D50.9 - Iron deficiency anemia, unspecified (7) Anticoagulated on Coumadin Priority: Secondary Status: Chronic Comments: Continue Coumadin. INR 1.7 today. (8) (HFpEF) heart failure with preserved ejection fraction Priority: Secondary Status: Chronic Comments: Patient has preserved ejection fraction of 50% and systolic dysfunction, moderate LVH. (9) SIDDHARTH (acute kidney injury) Priority: Secondary Status: Acute Comments: Creatinine remained slightly elevated today at 1.17. GFR 46. Continue to monitor labs and appointment for toxins. Avoid NSAIDs. (10) Morbid obesity with BMI of 45.0-49.9, adult Priority: Secondary Status: Chronic Comments: Chronic. Lifestyle changes. (11) DVT prophylaxis Priority: Secondary Status: Acute Comments: Patient is on Coumadin. She has been ambulatory in her room. - Discharge Medications Prescriptions: Ascorbate Calcium [Vitamin C] 500 mg PO BID #60 tablet Ferrous Sulfate 325 mg PO BIDWM #60 tablet Home Medications: Atenolol [Tenormin] 25 mg PO DAILY 04/05/16 [History] Cyanocobalamin (Vitamin B-12) [Vitamin B-12] 1,000 mcg IM QMONTH 04/05/16 [ History] Insulin DETEMIR [Levemir] 45 unit SQ HS 04/05/16 [History] Loratadine [Claritin] 10 mg PO QAM 04/05/16 [History] Lovastatin [Mevacor] 20 mg PO HS 04/05/16 [History] Montelukast [Singulair] 10 mg PO HS 04/05/16 [History] SitaGLIPtin [Januvia] 100 mg PO DAILY 04/05/16 [History] Albuterol Sulfate [Proair Hfa] 2 puff IH Q4H PRN 04/06/16 [History] Beclomethasone Diprop 80mcg [QVAR 80 mcg] 1 puff IH BID 04/06/16 [History] Metformin HCl [Metformin HCl ER] 2,000 mg PO QPM 04/06/16 [History] Furosemide [Lasix] 40 mg PO BID 05/03/16 [History] Nystatin [Nystop] 1 appl TP BID 05/03/16 [History] Potassium Chloride 20 meq PO DAILY 09/10/16 [History] Warfarin [Coumadin] 2 mg PO 1800 09/10/16 [History] Ascorbate Calcium [Vitamin C] 500 mg PO BID #60 tablet 09/15/16 [Rx] Ferrous Sulfate 325 mg PO BIDWM #60 tablet 09/15/16 [Rx] Sennosides/Docusate Sodium [Senna Plus] 1 each PO BID tab 09/15/16 [Rx] Allergies/Adverse Reactions: Allergies No Known Allergies Allergy (Verified 02/09/15 08:14) Date of admission: 09/12/16 17:49 Primary care physician: Salvador Umana MD - Patient Status Disposition: Transfer LTC Condition: Good Functional capacity at discharge: uses cane/walker Overall status at discharge: patient is back to baseline - Discharge Instructions Follow Up With: Salvador Umana MD [Primary Care Provider] - - Diet and Activity Activity: as per physical therapy, increase activity as tolerated Diet: diabetic diet, low fat, low cholesterol, low salt diet Hospital course: Ms. Vilchis is a 66 year old female with prior medical history of hypertension , hyperlipidemia, diabetes, COPD, A. fib on Coumadin, CHF who presented to the emergency department the day of admission with complaints of worsening shortness of breath, dyspnea on exertion, increasing extremity edema, and 10 pound weight gain in the last week. She reports her shortness of breath is worsening over the last 1-2 weeks and was unable to do much at home. She requested to go to [facility] due to not being able to care for herself at home. Throughout visit, she was wearing supplemental oxygen to maintain her sats. Today her peripheral edema has improved, is 1+ nonpitting bilateral lower extremities. She also is not wearing any oxygen today in maintaining her saturations above 92%. Her lungs are clear without rhonchi, rales, wheezing or respiratory distress. Patient is alert and oriented and able to speak in full sentences without respiratory difficulty. Patient had elevated troponins mildly on admission, most likely due to chronic renal failure CHF and demand ischemia. Her EKG showed paced rhythm with no acute ST changes. Chest x-ray showed bilateral lower lobe pulmonary edema. Patient had no leukocytosis throughout visit. She is chronically anemic. Hemoglobin is 10.2 today. This is baseline for patient. Iron studies revealed an iron level of 37 and percent saturation of 9. Her Garcia and B12 levels are within normal limits. I have started her on ferrous sulfate 325 mg by mouth twice a day with vitamin C. Patient's renal function has remained mostly unchanged throughout visit. Creatinine today is 1.17 and GFR is 46. Renal function is returning to baseline. Patient has been receiving IV Lasix, fluid restriction, and low- sodium diet. She will need close follow-up at [facility] for this. Patient denies chest pain and shortness of breath. Patient reports right hip pain that has been chronic, however has become a little worse since visits. X-ray showed mild OA and no definite fracture. She will be getting physical therapy at [facility]. Vital signs and labs have remained stable. Patient is ready for transfer to [facility] - Time Spent with Patient Total time spent providing and/or coordinating discharge services: Less than 30 minutes - Constitutional Vitals: Temp Pulse Resp BP Pulse Ox 97.4 F L 69 18 142/84 94 09/15/16 11:21 09/15/16 11:09/15/16 11:21 09/15/16 11:09/15/16 11:21 General appearance: Present: cooperative, mild distress, A&O X 3, morbidly obese , pleasant, no acute distress, answers questions appropriately - Head Head exam: Present: normal inspection - Eye Eye exam: Present: normal appearance, conjuntiva pink - ENT ENT exam: Present: mucous membranes moist, normal exam - Neck Neck exam general surgery: Present: normal inspection. Absent: lymphadenopathy , tenderness - Respiratory Respiratory exam: Present: CTAB. Absent: decreased breath sounds, rales, respiratory distress, rhonchi, stridor, wheezes - Cardiovascular Cardiovascular exam: Present: RRR, +S1, +S2. Absent: diastolic murmur, systolic murmur - GI/Abdominal GI/Abdominal exam: Present: distended, normal bowel sounds, soft. Absent: tenderness - Extremities Exam Extremities exam: Present: pedal edema, warm, radial pulses palpable and symetrical. Absent: tenderness - Neurological Exam Neurological exam: Present: alert, oriented X3, no focal deficits, strengths equal and symetr throughout. Absent: facial droop, speech deficit
--- NOTE | 2016-09-15 13:55 | Physician Discharge Referral ---
ExtendedCare Referral Info Transfer To: [facility] Provider in Charge after Transfer: PCP - Diagnosis (1) CHF exacerbation Priority: Primary Status: Acute (2) Atrial fibrillation Priority: Secondary Status: Chronic (3) EJ (obstructive sleep apnea) Priority: Secondary Status: Chronic (4) Elevated troponin Priority: Secondary Status: Resolved (5) Dyspnea Priority: Secondary Status: Acute (6) Anemia Priority: Secondary Status: Chronic (7) Anticoagulated on Coumadin Priority: Secondary Status: Chronic (8) (HFpEF) heart failure with preserved ejection fraction Priority: Secondary Status: Chronic (9) SIDDHARTH (acute kidney injury) Priority: Secondary Status: Acute (10) Morbid obesity with BMI of 45.0-49.9, adult Priority: Secondary Status: Chronic (11) DVT prophylaxis Priority: Secondary Status: Acute Prognosis: Fair - Transfer Medications Prescriptions: Ascorbate Calcium [Vitamin C] 500 mg PO BID #60 tablet Ferrous Sulfate 325 mg PO BIDWM #60 tablet Home Medications: Atenolol [Tenormin] 25 mg PO DAILY 04/05/16 [History] Cyanocobalamin (Vitamin B-12) [Vitamin B-12] 1,000 mcg IM QMONTH 04/05/16 [ History] Insulin DETEMIR [Levemir] 45 unit SQ HS 04/05/16 [History] Loratadine [Claritin] 10 mg PO QAM 04/05/16 [History] Lovastatin [Mevacor] 20 mg PO HS 04/05/16 [History] Montelukast [Singulair] 10 mg PO HS 04/05/16 [History] SitaGLIPtin [Januvia] 100 mg PO DAILY 04/05/16 [History] Albuterol Sulfate [Proair Hfa] 2 puff IH Q4H PRN 04/06/16 [History] Beclomethasone Diprop 80mcg [QVAR 80 mcg] 1 puff IH BID 04/06/16 [History] Metformin HCl [Metformin HCl ER] 2,000 mg PO QPM 04/06/16 [History] Furosemide [Lasix] 40 mg PO BID 05/03/16 [History] Nystatin [Nystop] 1 appl TP BID 05/03/16 [History] Potassium Chloride 20 meq PO DAILY 09/10/16 [History] Warfarin [Coumadin] 2 mg PO 1800 09/10/16 [History] Ascorbate Calcium [Vitamin C] 500 mg PO BID #60 tablet 09/15/16 [Rx] Ferrous Sulfate 325 mg PO BIDWM #60 tablet 09/15/16 [Rx] Sennosides/Docusate Sodium [Senna Plus] 1 each PO BID tab 09/15/16 [Rx] Allergies/Adverse Reactions: Allergies No Known Allergies Allergy (Verified 02/09/15 08:14) - Respiratory Orders Oxygen / L per min Smoking Cessation: Smoking cessation has been advised. For more information, call the [place] Tobacco Quit Line at 4-624-KWOR-NOW. - Lab Orders Lab Orders: CBC, Other (include drug levels w/frequency) - Ancillary Orders May go on JP w/family/respon democrat w/meds at nurse discretion PRN, May consult with Dentist, Quality Control Representative, Pourer PRN - Advance Directives Code Status: DNR-Arrest - Mobility Orders Ambulate - Rehabiliation Orders Rehab Potential: Fair Rehab Orders: ROM Exercises, Evaluation for Physical Therapy, Evaluation for Occupational Therapy - Treatments Skin tear care topically daily PRN per policy - Diet Orders No Added Salt (JOLANTA), Cardiac (Fluid restriction 1.5 L.) CERTIFICATION: I certify that the transfer of the above named patient to an Extended Care Facility is necessary for the continuing treatment of the diagnosis listed. The above information is true and accurate reflection of patient's current condition. Confidential - Redisclosure prohibited without a patient's written consent.
== END 2016-09-15 14:40 | DRG 291 ==
LOC: EMEROO 11:44 → 3BNU 11:44
PROVIDERS: ADMIT Internal Medicine; ATTEND Nurse Practitioner Family

== ENCOUNTER 2016-12-31 15:29 | Inpatient (IN) ==
--- NOTE | 2016-12-31 15:49 | Emergency Department Note ---
Disposition Clinical Impression: Supratherapeutic INR, T12 compression fracture Ventral hernia Qualifiers: Obstruction and gangrene presence: without obstruction or gangrene Qualified Code(s): K43.9 - Ventral hernia without obstruction or gangrene Disposition: Admitted As Inpatient Referrals: Salvador Umana MD [Primary Care Provider] - Forms: ED Satisfaction Letter Time of Disposition: 18:42 Recheck wound or abnormal lab - General Chief Complaint: ED Recheck/Abnormal Lab/Rx Stated Complaint: abnormal lab Time Seen by Provider: 12/31/16 15:48 Source: patient Limitations: no limitations Nursing Notes Reviewed: Yes Vital Signs Reviewed: Yes - History of Present Illness HPI Narrative: Mrs. Vilchis, 66-year-old female, presents from the Coumadin clinic for evaluation of supratherapeutic INR which was in the 8 range at their clinic. She is anticoagulated on Coumadin secondary to atrial fibrillation. Also has pacemaker in place. Patient denies any hematuria, no hematochezia, no melena. No fevers or chills. No chest pains, palpitations. - Related Data Home Medications Medication Instructions Recorded Confirmed Insulin DETEMIR [Levemir] 50 unit SQ HS 04/05/16 12/31/16 Loratadine [Claritin] 10 mg PO QAM 04/05/16 12/31/16 Lovastatin [Mevacor] 20 mg PO HS 04/05/16 12/31/16 Montelukast [Singulair] 10 mg PO HS 04/05/16 12/31/16 SitaGLIPtin [Januvia] 100 mg PO DAILY 04/05/16 12/31/16 Albuterol Sulfate [Proair Hfa] 2 puff IH Q4H PRN 04/06/16 12/31/16 Beclomethasone Diprop 80mcg [QVAR 1 puff IH BID 04/06/16 12/31/16 80 mcg] Metformin HCl [Metformin HCl ER] 2,000 mg PO QPM 04/06/16 12/31/16 Furosemide [Lasix] 40 mg PO BID 05/03/16 12/31/16 Potassium Chloride 20 meq PO DAILY 09/10/16 12/31/16 Lisinopril [Zestril] 2.5 mg PO DAILY 12/22/16 12/31/16 Acetaminophen [Tylenol] 650 mg PO Q6HR PRN 12/31/16 12/31/16 Warfarin Sodium 2.5 mg PO DAILY 12/31/16 12/31/16 Previous Rx's Medication Instructions Recorded Ascorbate Calcium [Vitamin C] 500 mg PO BID #60 tablet 09/15/16 Ferrous Sulfate 325 mg PO BIDWM #60 tablet 09/15/16 Albuterol Neb [Proventil Neb] 2.5 mg IH Q6H PRN #60 inhsol 12/05/16 Allergies Allergy/AdvReac Type Severity Reaction Status Date / Time No Known Allergies Allergy Verified 12/22/16 11:47 All systems ED: reviewed and negative except as stated. Review of Systems: As Per HPI Past Medical History - Past Medical History Medical history: Reports: atrial fibrillation, CHF, diabetes, hyperlipidemia, hypertension Surgical history: Reports: appendectomy, other, pacemaker Psychiatric history: Reports: anxiety, depression - Social History Smoking Status: Never smoker Smokeless Tobacco Status: Yes Alcohol use: Reports: none Drug use: Reports: none Physical Exam Vital Signs Reviewed General: Patient is alert, oriented, and in no acute distress. HEENT: No facial asymmetry. Head is normocephalic and atraumatic. Oral mucosa moist. Trachea midline. Cardiovascular: Heart regular rate and rhythm without clicks, rubs, gallops, or murmurs. No JVD. PMI nondisplaced. Pedal edema. Bilateral radial and posterior tibial pulses 2/4. Respiratory: Symmetric chest rise with good respiratory effort. Bilateral breath sounds are clear without wheezing, crackles, or rhonchi. Abdomen: Bowel sounds present normoactive x-4 quadrants. Abdomen is distended, mildly diffusely tender. Unable to assess organomegaly secondary to body habitus. Neuro: GCS 15. Psych: Patient's affect is appropriate for situation. - General Limitations: no limitations General appearance: alert, in no apparent distress Course Course Narrative: We will repeat basic lab work including INR as well as perform CT abdomen as patient's abdomen is distended, tympanic, and generally mildly pain. Bedside FAST exam is negative. Patient's INR 7.6. There is no evidence of bleed; recommend holding next 2 doses of Coumadin and repeat INR. CT abdomen and pelvis shows a substantial ventral hernia. Patient also has a T12 compression fracture. When asked about this, patient notes that she fell 5 days ago in the shower; no sick consciousness, did not strike her head. She is neurologically intact at this time. I discussed the patient with immediate hospitalist who agrees to accept the patient for supratherapeutic INR with incidental findings of large ventral hernia as well as T12 compression fracture. Abdomen/Pelvis CT 12/31/16 16:23 IMPRESSION: Compression fracture of T12 vertebral body as described above, new since 12/22/2016. MRI may be helpful if indicated. Otherwise stable findings including irregular nodules within the lung bases which could be infectious or inflammatory. Neoplasm should be excluded. D/ / Estela Lopez Cha, MD / Estela Lopez Cha, MD Interpreting Provider: Estela Lopez Cha, MD Chest X-Ray 12/31/16 16:28 IMPRESSION: Stable cardiomegaly. No acute abnormalities are seen in the chest D/ / Dale Hart MD / Dale Hart MD Interpreting Provider: Dale Hart MD Vital Signs Temperature 97.6 F 12/31/16 15:30 Pulse Rate 76 12/31/16 15:30 Respiratory Rate 18 12/31/16 15:30 Blood Pressure 119/76 12/31/16 15:30 O2 Sat by Pulse Oximetry 94 12/31/16 15:30 Temperature 97.6 F 12/31/16 15:30 Pulse Rate 72 12/31/16 17:56 Respiratory Rate 20 12/31/16 17:56 Blood Pressure 131/59 12/31/16 17:56 O2 Sat by Pulse Oximetry 96 12/31/16 17:56 Oxygen Delivery Oxygen Delivery Nasal Cannula Recheck wound or abnormal lab - Medical Records Medical records reviewed: Yes I reviewed the patient's medical records. - Lab Data Lab results reviewed: Yes I reviewed the patient's lab results. Result diagrams: 12/31/16 16:23 12/31/16 16:23 Lab Results 12/31/16 12/31/16 12/31/16 Range/Units 16:23 16:23 16:23 WBC 6.2 (4.3-11.1) K/mcL RBC 3.41 L (3.82-4.97) M/mcL Hgb 9.6 L (11.5-15.4) g/dL Hct 30.6 L (35.3-44.9) % MCV 89.7 (83.0-100.0) fL MCH 28.2 (28.0-33.3) pg MCHC 31.4 L (31.6-35.5) g/dL RDW 16.9 H (11.5-14.5) % Plt Count 259 (140-400) K/mcL MPV 9.1 L (9.4-12.4) fL Immature Gran % 0.6 (0-4) % Seg Neutrophils % 68.4 % Lymphocytes % 18.0 % Monocytes % 9.0 % Eosinophils % 3.5 % Basophils % 0.5 % Neutrophils # 4.2 (1.6-8.9) K/mcL Lymphocytes # 1.1 (0.6-4.6) K/mcL Monocytes # 0.6 (0.0-1.3) K/mcL Eosinophils # 0.2 (0.0-0.6) K/mcL Basophils # 0.0 (0.0-0.2) K/mcL PT 85.5 H* (9.4-12.1) Seconds INR 7.6 H* Sodium 140 (136-145) mEq/L Potassium 5.1 H (3.5-4.5) mEq/L Chloride 105 (98-109) mEq/L Carbon Dioxide 21 (19-29) mEq/L BUN 41 H (7-20) mg/dL Creatinine 1.90 H (0.57-1.11) mg/dL Est GFR ( Amer) 32 L (> 60) Est GFR (Non-Af Amer) 26 L (> 60) BUN/Creatinine Ratio 22 (6-26) Glucose 112 H (70-99) mg/dL Calculated Osmolality 301 H (280-300) Lactic Acid (0.5-2.2) mmol/L Calcium 9.8 (8.6-10.8) mg/dL Total Bilirubin 0.4 (0.2-1.2) mg/dL Direct Bilirubin 0.2 (0.0-0.5) mg/dL Indirect Bilirubin 0.2 (0.0-1.2) mg/dL AST 19 (5-34) Units/L ALT 15 (0-55) Units/L Alkaline Phosphatase 75 (38-126) Units/L Troponin I (0-0.03) ng/mL B-Natriuretic Peptide (0-100) pg/mL Serum Total Protein 7.3 (6.0-8.3) g/dL Albumin 3.5 (3.5-5.0) g/dL Globulin 3.8 H (2.4-3.5) g/dL Albumin/Globulin Ratio 0.9 L (1.1-2.2) Lipase 89 H (8-78) Units/L 12/31/16 12/31/16 12/31/16 Range/Units 16:23 16:23 16:58 WBC (4.3-11.1) K/mcL RBC (3.82-4.97) M/mcL Hgb (11.5-15.4) g/dL Hct (35.3-44.9) % MCV (83.0-100.0) fL MCH (28.0-33.3) pg MCHC (31.6-35.5) g/dL RDW (11.5-14.5) % Plt Count (140-400) K/mcL MPV (9.4-12.4) fL Immature Gran % (0-4) % Seg Neutrophils % % Lymphocytes % % Monocytes % % Eosinophils % % Basophils % % Neutrophils # (1.6-8.9) K/mcL Lymphocytes # (0.6-4.6) K/mcL Monocytes # (0.0-1.3) K/mcL Eosinophils # (0.0-0.6) K/mcL Basophils # (0.0-0.2) K/mcL PT (9.4-12.1) Seconds INR Sodium (136-145) mEq/L Potassium (3.5-4.5) mEq/L Chloride (98-109) mEq/L Carbon Dioxide (19-29) mEq/L BUN (7-20) mg/dL Creatinine (0.57-1.11) mg/dL Est GFR ( Amer) (> 60) Est GFR (Non-Af Amer) (> 60) BUN/Creatinine Ratio (6-26) Glucose (70-99) mg/dL Calculated Osmolality (280-300) Lactic Acid 1.9 (0.5-2.2) mmol/L Calcium (8.6-10.8) mg/dL Total Bilirubin (0.2-1.2) mg/dL Direct Bilirubin (0.0-0.5) mg/dL Indirect Bilirubin (0.0-1.2) mg/dL AST (5-34) Units/L ALT (0-55) Units/L Alkaline Phosphatase (38-126) Units/L Troponin I 0.09 H* (0-0.03) ng/mL B-Natriuretic Peptide 439 H (0-100) pg/mL Serum Total Protein (6.0-8.3) g/dL Albumin (3.5-5.0) g/dL Globulin (2.4-3.5) g/dL Albumin/Globulin Ratio (1.1-2.2) Lipase (8-78) Units/L - EKG Data EKG attestation: Yes I reviewed and interpreted this EKG. EKG results narrative: EKG dated 31 December 2016 at 15:50 interpreted as atrial paced with a rate of 71. EKG dated 12/05/2016 also shows a paced rhythm. Attestation Statement - Attestation Attestation: I examined this patient and my medical decision-making was reviewed with the Resident Physician. I agree with the documented findings, disposition and treatment plan as described except to the extent set forth below. [id number] time provided Patient arrives by wheelchair in the care of her family member. She was sent at the recommendation of her PCP after having a supratherapeutic INR and fall. She does take warfarin. She appears in no acute distress. She did complain of some dyspnea as well as abdominal pain to the resident physician
[2016-12-31 16:29] LABS: Basophils % 0.5 %; Eosinophils # 0.2 K/mcL (0.0-0.6); Eosinophils % 3.5 %; Hematocrit 30.6 % (35.3-44.9); Hemoglobin 9.6 g/dL (11.5-15.4); Immature Granulocytes % 0.6 % (0-4); Lymphocytes # 1.1 K/mcL (0.6-4.6); Mean Corpuscular HGB Conc 31.4 g/dL (31.6-35.5); Mean Corpuscular Hemoglobin 28.2 pg (28.0-33.3); Mean Corpuscular Volume 89.7 fL (83.0-100.0); Mean Platelet Volume 9.1 fL (9.4-12.4); Monocytes # 0.6 K/mcL (0.0-1.3); Neutrophils # 4.2 K/mcL (1.6-8.9); Platelet Count 259 K/mcL (140-400); Red Blood Count 3.41 M/mcL (3.82-4.97); Red Cell Distribution Width 16.9 % (11.5-14.5); Segmented Neutrophils % 68.4 %
[2016-12-31] MEDS ORDERED: *HR* Morphine 2 MG/ML SYRINGE IVP ONE (16:45)
[2016-12-31] MEDS ORDERED: Ondansetron 4 MG/2 ML VIAL IVP ONE (16:45)
[2016-12-31 16:51] LABS: INR 7.6; Prothrombin Time 85.5 Seconds (9.4-12.1)
[2016-12-31 16:57] LABS: Albumin 3.5 g/dL (3.5-5.0); Albumin/Globulin Ratio 0.9 (1.1-2.2); Bilirubin,Direct 0.2 mg/dL (0.0-0.5); Bilirubin,Indirect 0.2 mg/dL (0.0-1.2); Bilirubin,Total 0.4 mg/dL (0.2-1.2); Calcium 9.8 mg/dL (8.6-10.8); Globulin 3.8 g/dL (2.4-3.5); Potassium 5.1 mEq/L (3.5-4.5); Total Protein 7.3 g/dL (6.0-8.3)
[2016-12-31] MEDS ORDERED: *HR* Morphine 2 MG/ML SYRINGE IVP PRN (20:22)
[2016-12-31] MEDS ORDERED: *HR* Dextrose 50 % in Water (Syg) 50 ML SYRINGE IVP PRN (20:23)
[2016-12-31] MEDS ORDERED: Dextrose Gel 15 GM PO PRN ×2 (20:23)
[2016-12-31] MEDS ORDERED: D5% in Water 1,000 ML IVC PRN (20:23)
[2016-12-31] MEDS ORDERED: Ondansetron 4 MG/2 ML VIAL IVP PRN (20:23)
[2016-12-31] MEDS ORDERED: Naloxone 0.4 MG/ML INJ IVP PRN (20:23)
--- NOTE | 2016-12-31 20:41 | Internal Med History&Physical ---
Date of Encounter: 12/31/16 Time of Encounter: 20:39 Assessment and Plan (1) SIDDHARTH (acute kidney injury) Current visit: No Status: Acute History of chronic kidney disease stage III Hold Lasix Start very gentle hydration Omeprazole for GI prophylaxis. Patient will be admitted for observation. She wishes to be a DNR CC arrest DNI. Time spent on this admission 40 minutes (2) Atrial fibrillation Current visit: No Status: Chronic Hold Coumadin due to supratherapeutic INR Patient is not bleeding currently, no need for emergent INR reversal Recheck INR in the morning Qualifiers: Atrial fibrillation type: chronic Qualified Code(s): I48.2 - Chronic atrial fibrillation (3) Supratherapeutic INR Current visit: Yes Status: Acute (4) Hyperkalemia Current visit: No Status: Acute Give IV fluids and one dose of Kayexalate (5) CHF (congestive heart failure) Current visit: No Status: Chronic No clinical exacerbation Qualifiers: Congestive heart failure type: diastolic Congestive heart failure chronicity: acute on chronic Qualified Code(s): I50.33 - Acute on chronic diastolic (congestive) heart failure (6) Elevated troponin Current visit: No Status: Resolved Chronically elevated troponins (7) Ventral hernia Current visit: Yes Status: Acute Family requested surgery consult Qualifiers: Obstruction and gangrene presence: without obstruction or gangrene Qualified Code(s): K43.9 - Ventral hernia without obstruction or gangrene (8) T12 compression fracture Current visit: Yes Status: Acute Intractable pain secondary to T12 compression fracture Order an MRI and consider spine surgery consult if cord compression is found Morphine for pain Internal Medicine - H&P: HPI Chief complaint: intractable back pain , high INR Admitted From: Emergency Dept History of present illness: Ms. Vilchis is a 66 year old female with a past medical history of atrial fibrillation on Coumadin, diabetes type 2 insulin-dependent, who fell 5 days ago after her shower chair broke. The patient did not hit her head and never lost consciousness she has been complaining of severe back pain ever since. Denies any incontinence, leg weakness seem to be related to the pain. Also she was called by her PCP/Coumadin clinic mentioning that her INR was 8, here her INR was 7.6. She is not bleeding, hemoglobin is 9.6, stable. Troponin is 0.09 the patient has chronically elevated troponins. Creatinine is 1.9 which is elevated from baseline at 1.35. BNP is 439 but she has chronically elevated BNP as well. Does not appear to be volume overloaded. CT scan of the abdomen was performed and found at T12 compression fracture and also a very large ventral abdominal hernia. Patient denies any shortness of breath, no nausea but describes the pain as 10 out of 10 in intensity. Received 6 mg of morphine at the emergency room. Potassium is 5.1 Past Med Surg Social Fam HX - Past Medical History Medical history: atrial fibrillation (On Coumadin), CHF (Diastolic), diabetes ( Insulin-dependent), hyperlipidemia, hypertension, other (Large ventral hernia incidental finding, asthma, T12 compression fracture) Psychiatric history: anxiety, depression - Past Surgical History Surgical History: appendectomy, other (Cervical disc surgery, exploratory abdominal surgery in the past, appendectomy), pacemaker - Social History Smoking Status: Never smoker Smokeless Tobacco Status: Yes Alcohol use: none Drug use: none - Family History Mother Adopted: No Living Status: Hx Family Cardiac Disorders: No Hx Family Respiratory Disorders: No Hx Family Cancer: Yes Hx Family GI Disorders: No Hx Family Endocrine Disorder: No Hx Family Neuromuscular Disorders: No Hx Family Neurologic Disorders: No Hx Family HEENT Disorders: No Hx Family Autoimmune Disorders: No - Additional Family History Additional family history: Father with a myocardial infarction and mother with unknown type of cancer Internal Medicine - H&P: Meds Insulin DETEMIR [Levemir] 50 unit SQ HS 04/05/16 [History] Loratadine [Claritin] 10 mg PO QAM 04/05/16 [History] Lovastatin [Mevacor] 20 mg PO HS 04/05/16 [History] Montelukast [Singulair] 10 mg PO HS 04/05/16 [History] SitaGLIPtin [Januvia] 100 mg PO DAILY 04/05/16 [History] Albuterol Sulfate [Proair Hfa] 2 puff IH Q4H PRN 04/06/16 [History] Beclomethasone Diprop 80mcg [QVAR 80 mcg] 1 puff IH BID 04/06/16 [History] Metformin HCl [Metformin HCl ER] 2,000 mg PO QPM 04/06/16 [History] Furosemide [Lasix] 40 mg PO BID 05/03/16 [History] Potassium Chloride 20 meq PO DAILY 09/10/16 [History] Ascorbate Calcium [Vitamin C] 500 mg PO BID #60 tablet 09/15/16 [Rx] Ferrous Sulfate 325 mg PO BIDWM #60 tablet 09/15/16 [Rx] Albuterol Neb [Proventil Neb] 2.5 mg IH Q6H PRN #60 inhsol 12/05/16 [Rx] Lisinopril [Zestril] 2.5 mg PO DAILY 12/22/16 [History] Acetaminophen [Tylenol] 650 mg PO Q6HR PRN 12/31/16 [History] Warfarin Sodium 2.5 mg PO DAILY 12/31/16 [History] 3 Allergy/AdvReac Type Severity Reaction Status Date / Time No Known Allergies Allergy Verified 12/22/16 11:47 All Systems PM: A 10-system review of systems was performed and is negative for pertinent findings except as documented above in the HPI. Review of systems: No chest pain, no fevers, no chills. Other systems out of the 10 reviewed were negative - Constitutional Vitals: Temp Pulse Resp BP Pulse Ox 97.6 F 75 20 127/60 97 12/31/16 15:30 12/31/16 18:45 12/31/16 18:45 12/31/16 18:45 12/31/16 18:45 General appearance: Present: A&O X 3 - Head Head exam: Present: atraumatic, normocephalic - Eye Eye exam: Present: PERRL, conjuntiva pink, sclera anicteric Pupils: Present: PERRL - Neck Neck exam general surgery: Present: supple, trachea midline. Absent: lymphadenopathy - Respiratory Respiratory exam: Present: CTAB. Absent: accessory muscle use, rales, rhonchi, wheezes - Cardiovascular Cardiovascular exam: Present: RRR, +S1, +S2. Absent: diastolic murmur, gallop, rubs, systolic murmur - GI/Abdominal GI/Abdominal exam: Present: distended (Large ventral abdominal hernia), normal bowel sounds, soft, no peritoneal signs. Absent: tenderness - Extremities Exam Extremities exam: Present: warm, radial pulses palpable and symmetrical. Absent : calf tenderness, cyanotic, pedal edema - Neurological Exam Neurological exam: Present: CN II-XII intact, oriented X3, no focal deficits. Absent: pronater drift, facial droop, speech deficit Additional comments: Movement is concerned and lower extremities although it provokes excruciating pain. Sensitivity is maintained - Skin Skin exam: Present: dry, intact Internal Med - H&P Results - Labs CBC & Chem 7: 12/31/16 16:23 12/31/16 16:23
[2016-12-31] MEDS ORDERED: NON-FORMULARY MEDICATION 1 EACH EACH (Insulin Detemir 50 UNIT) SQ SCH (21:00)
[2016-12-31] MEDS: Insulin LISPRO 300 UNITS/3 ML VIAL SQ SCH ×2 (21:05)
[2016-12-31] MEDS: *HR* Morphine 2 MG/ML SYRINGE IVP PRN ×2 (21:08→23:57)
[2016-12-31] MEDS: 0.9 % Sodium Chloride 1,000 ML IVC SCH (23:58)
[2016-12-31] MEDS: Insulin DETEMIR 100 UNIT/ML X5UNITS SQ SCH (23:58)
[2017-01-01] MEDS: *HR* Morphine 2 MG/ML SYRINGE IVP PRN (04:21)
[2017-01-01] MEDS ORDERED: *HR* HYDROmorphone (PF) 1 MG/ML SYRINGE IVP PRN (05:34)
[2017-01-01 06:20] LABS: Hematocrit 31.2 % (35.3-44.9); Hemoglobin 9.5 g/dL (11.5-15.4); Mean Corpuscular HGB Conc 30.4 g/dL (31.6-35.5); Mean Corpuscular Hemoglobin 27.9 pg (28.0-33.3); Mean Corpuscular Volume 91.8 fL (83.0-100.0); Mean Platelet Volume 9.7 fL (9.4-12.4); Platelet Count 286 K/mcL (140-400); Red Cell Distribution Width 16.8 % (11.5-14.5)
[2017-01-01 06:31] LABS: Prothrombin Time 72.8 Seconds (9.4-12.1)
[2017-01-01 06:32] LABS: INR 6.5
[2017-01-01 06:45] LABS: Calcium 9.8 mg/dL (8.6-10.8); Potassium 5.1 mEq/L (3.5-4.5)
--- NOTE | 2017-01-01 08:53 | General Surgery Consult Note ---
Date of Encounter: 01/01/17 Time of Encounter: 08:20 Assessment and Plan (1) Ventral hernia Current Visit: Yes Status: Acute The patient has a very large upper abdominal ventral hernia. There is no evidence of obstruction or incarceration on CAT scan. Her overall medical condition is prohibitive for surgical repair. I would not recommend surgical repair without significant improvement in her overall health and profound weight loss. Shared this information with her. It is certainly not safe to proceed with repair of ventral hernia Qualifiers: Obstruction and gangrene presence: without obstruction or gangrene Qualified Code(s): K43.9 - Ventral hernia without obstruction or gangrene History of Present Illness Consult date: 01/01/17 Reason for consult: other (Large chronic ventral hernia) History of present illness: 66-year-old female with pickwickian syndrome, body mass index of 49, atrial fibrillation, acute kidney injury, in congestive heart failure. She has a large anterior abdominal wall ventral hernia very prominent in the upper abdomen. She essentially has failure of the midline secondary to profound morbid obesity. The fascia defect is wide open with no evidence of obstruction or entrapment. She denies nausea or vomiting. She denies obstructive symptoms. She is a DNR CC DO NOT INTUBATE. Past Med Surg Social Fam HX - Past Medical History Medical history: atrial fibrillation, CHF, diabetes, hyperlipidemia, hypertension, other Psychiatric history: anxiety, depression - Past Surgical History Surgical History: appendectomy, other, pacemaker - Social History Smoking Status: Never smoker Smokeless Tobacco Status: No Alcohol use: none Drug use: none - Family History Mother Adopted: No Living Status: Hx Family Cardiac Disorders: No Hx Family Respiratory Disorders: No Hx Family Cancer: Yes Hx Family GI Disorders: No Hx Family Endocrine Disorder: No Hx Family Neuromuscular Disorders: No Hx Family Neurologic Disorders: No Hx Family HEENT Disorders: No Hx Family Autoimmune Disorders: No Medications and Allergies Insulin DETEMIR [Levemir] 50 unit SQ HS 04/05/16 [History] Loratadine [Claritin] 10 mg PO QAM 04/05/16 [History] Lovastatin [Mevacor] 20 mg PO HS 04/05/16 [History] Montelukast [Singulair] 10 mg PO HS 04/05/16 [History] SitaGLIPtin [Januvia] 100 mg PO DAILY 04/05/16 [History] Albuterol Sulfate [Proair Hfa] 2 puff IH Q4H PRN 04/06/16 [History] Beclomethasone Diprop 80mcg [QVAR 80 mcg] 1 puff IH BID 04/06/16 [History] Metformin HCl [Metformin HCl ER] 2,000 mg PO QPM 04/06/16 [History] Furosemide [Lasix] 40 mg PO BID 05/03/16 [History] Potassium Chloride 20 meq PO DAILY 09/10/16 [History] Ascorbate Calcium [Vitamin C] 500 mg PO BID #60 tablet 09/15/16 [Rx] Ferrous Sulfate 325 mg PO BIDWM #60 tablet 09/15/16 [Rx] Albuterol Neb [Proventil Neb] 2.5 mg IH Q6H PRN #60 inhsol 12/05/16 [Rx] Lisinopril [Zestril] 2.5 mg PO DAILY 12/22/16 [History] Acetaminophen [Tylenol] 650 mg PO Q6HR PRN 12/31/16 [History] Warfarin Sodium 2.5 mg PO DAILY 12/31/16 [History] 3 Allergy/AdvReac Type Severity Reaction Status Date / Time No Known Allergies Allergy Verified 12/22/16 11:47 Review of Systems All systems PM: A 10-system review of systems was performed and is negative for pertinent findings except as documented above in the HPI. General Surgery Exam Initial Vital Signs Temp Pulse Resp BP Pulse Ox 97.6 F 76 18 119/76 94 12/31/16 15:30 12/31/16 15:30 12/31/16 15:30 12/31/16 15:30 12/31/16 15:30 - General physical appearance chronically ill, obese (Profound morbid obesity. Pickwickian body habitus) - Neck other (Short thick neck with limited range of motion) - Respiratory wheezing: bilateral (Markedly decreased breath sounds) - Abdomen Abdomen general surgery: Present: bowel sounds present, soft, non tender ( enormous ventral hernia especially in the upper abdomen.) - Neurologic Present: CN 2-12 grossly intact, normal coordination, normal sensation - Psychiatric Psychiatric general surgery: Present: appropriate, oriented to person, oriented to place, oriented to time, speech is normal, memory intact Exam Initial Vital Signs Temp Pulse Resp BP Pulse Ox 97.6 F 76 18 119/76 94 12/31/16 15:30 12/31/16 15:30 12/31/16 15:30 12/31/16 15:30 12/31/16 15:30 Results - Labs 01/01/17 05:12 01/01/17 05:12 Abnormal lab results RBC 3.40 M/mcL (3.82-4.97) L 01/01/17 05:12 Hgb 9.5 g/dL (11.5-15.4) L 01/01/17 05:12 Hct 31.2 % (35.3-44.9) L 01/01/17 05:12 MCH 27.9 pg (28.0-33.3) L 01/01/17 05:12 MCHC 30.4 g/dL (31.6-35.5) L 01/01/17 05:12 RDW 16.8 % (11.5-14.5) H 01/01/17 05:12 PT 72.8 Seconds (9.4-12.1) H* 01/01/17 05:12 INR 6.5 H* 01/01/17 05:12 Potassium 5.1 mEq/L (3.5-4.5) H 01/01/17 05:12 BUN 38 mg/dL (7-20) H 01/01/17 05:12 Creatinine 1.81 mg/dL (0.57-1.11) H 01/01/17 05:12 Est GFR ( Amer) 34 (> 60) L 01/01/17 05:12 Est GFR (Non-Af Amer) 28 (> 60) L 01/01/17 05:12 Glucose 147 mg/dL (70-99) H 01/01/17 05:12 POC Glucose 125 (58-89) H 12/31/16 21:04 Troponin I 0.09 ng/mL (0-0.03) H* 12/31/16 16:23 B-Natriuretic Peptide 439 pg/mL (0-100) H 12/31/16 16:23 Globulin 3.8 g/dL (2.4-3.5) H 12/31/16 16:23 Albumin/Globulin Ratio 0.9 (1.1-2.2) L 12/31/16 16:23 Lipase 89 Units/L (8-78) H 12/31/16 16:23 Diabetes panel 01/01/17 Range/Units 05:12 Sodium 139 (136-145) mEq/L Potassium 5.1 H (3.5-4.5) mEq/L Chloride 106 (98-109) mEq/L Carbon Dioxide 24 (19-29) mEq/L BUN 38 H (7-20) mg/dL Creatinine 1.81 H (0.57-1.11) mg/dL Glucose 147 H (70-99) mg/dL Calcium 9.8 (8.6-10.8) mg/dL Calcium panel 01/01/17 Range/Units 05:12 Calcium 9.8 (8.6-10.8) mg/dL Pituitary panel 01/01/17 Range/Units 05:12 Sodium 139 (136-145) mEq/L Potassium 5.1 H (3.5-4.5) mEq/L Chloride 106 (98-109) mEq/L Carbon Dioxide 24 (19-29) mEq/L BUN 38 H (7-20) mg/dL Creatinine 1.81 H (0.57-1.11) mg/dL Glucose 147 H (70-99) mg/dL Calcium 9.8 (8.6-10.8) mg/dL Adrenal panel 01/01/17 Range/Units 05:12 Sodium 139 (136-145) mEq/L Potassium 5.1 H (3.5-4.5) mEq/L Chloride 106 (98-109) mEq/L Carbon Dioxide 24 (19-29) mEq/L BUN 38 H (7-20) mg/dL Creatinine 1.81 H (0.57-1.11) mg/dL Glucose 147 H (70-99) mg/dL Calcium 9.8 (8.6-10.8) mg/dL All other labs normal. - Imaging CT scan - abdomen: image reviewed (I personally reviewed the CAT scan the abdomen. There is a very large midline fascial defect. There is no evidence of obstruction or incarceration) Consult Discharge Plan - Plan Referrals: Salvador Umana MD [Primary Care Provider] -
[2017-01-01] MEDS: Insulin LISPRO 300 UNITS/3 ML VIAL SQ SCH ×4 (10:11→21:28)
--- NOTE | 2017-01-01 11:36 | Pain Management Consultation ---
Date of Encounter: 01/02/17 Time of Encounter: 11:35 Assessment and Plan (1) T12 compression fracture Current Visit: Yes Status: Acute Due to the severe pain and acute onset of the T12 fracture, kyphoplasty is an option. Recommend controlling the patient's high INR value prior to spinal intervention. I will follow-up with the patient on Saturday afternoon to determine her readiness for the procedure. We discussed risks and benefits of kyphoplasty repair of the T12 compression fracture. Specific benefits were a drastic reduction in pain. Specific risks are a slightly higher risk of further fracture in years to come after kyphoplasty repair of T12. The patient and daughter are considering surgical intervention. There are 2 items that need to be addressed prior to surgery: 1. INR needs corrected. 2. Etiology of troponin value should be elucidated. The patient will have to be cleared from a cardiology and anesthesiology standpoint since kyphoplasty repair involves general anesthetic. 3. Recommend oral analgesics and bed rest until repair occurs. The assessment and plan as outlined above was discussed with the patient and/or family members who expressed understanding and agreement. All questions were answered. History of Present Illness Chief complaint: back pain HPI: Ms. Vilchis is a 66 year old female suffering with severe and stabbing pain in the middle back that has been present for about the past 5 days. The patient states that she expressed a fall in her shower proximally 5 days ago. She was sitting on her bathroom chair when the chair pulled out of the wall and the patient expressed a fall straight down onto the floor. There is since that time, she has been having severe nonradiating pain in the center of her back. She describes the pain as 10/10 and unlike any other pain in her back she has experienced before. The pain does not involve her legs. She denies weakness in the legs. She denies bowel or bladder changes. She was seen at a local ER and found to have normal x-rays at that time, but she understands that a follow- up CT scan showed a fracture. Past Med Surg Social Fam HX - Past Medical History Medical history: atrial fibrillation, CHF, diabetes, hyperlipidemia, hypertension, other Psychiatric history: anxiety, depression - Past Surgical History Surgical History: appendectomy, other, pacemaker - Social History Smoking Status: Never smoker Smokeless Tobacco Status: No Alcohol use: none Drug use: none - Family History Mother Adopted: No Living Status: Hx Family Cardiac Disorders: No Hx Family Respiratory Disorders: No Hx Family Cancer: Yes Hx Family GI Disorders: No Hx Family Endocrine Disorder: No Hx Family Neuromuscular Disorders: No Hx Family Neurologic Disorders: No Hx Family HEENT Disorders: No Hx Family Autoimmune Disorders: No Medications and Allergies Insulin DETEMIR [Levemir] 50 unit SQ HS 04/05/16 [History] Loratadine [Claritin] 10 mg PO QAM 04/05/16 [History] Lovastatin [Mevacor] 20 mg PO HS 04/05/16 [History] Montelukast [Singulair] 10 mg PO HS 04/05/16 [History] SitaGLIPtin [Januvia] 100 mg PO DAILY 04/05/16 [History] Albuterol Sulfate [Proair Hfa] 2 puff IH Q4H PRN 04/06/16 [History] Beclomethasone Diprop 80mcg [QVAR 80 mcg] 1 puff IH BID 04/06/16 [History] Metformin HCl [Metformin HCl ER] 2,000 mg PO QPM 04/06/16 [History] Furosemide [Lasix] 40 mg PO BID 05/03/16 [History] Potassium Chloride 20 meq PO DAILY 09/10/16 [History] Ascorbate Calcium [Vitamin C] 500 mg PO BID #60 tablet 09/15/16 [Rx] Ferrous Sulfate 325 mg PO BIDWM #60 tablet 09/15/16 [Rx] Albuterol Neb [Proventil Neb] 2.5 mg IH Q6H PRN #60 inhsol 12/05/16 [Rx] Lisinopril [Zestril] 2.5 mg PO DAILY 12/22/16 [History] Acetaminophen [Tylenol] 650 mg PO Q6HR PRN 12/31/16 [History] Warfarin Sodium 2.5 mg PO DAILY 12/31/16 [History] 3 Allergy/AdvReac Type Severity Reaction Status Date / Time No Known Allergies Allergy Verified 12/22/16 11:47 Review of Systems - Constitutional Constitutional ROS IM: no photophobia, no phonophobia, no daytime sleepiness, no fever(s), no stops breathing during sleep - EENT Nose, mouth and throat: no headache(s), no neck pain, no neck trauma - Cardiovascular Cardiovascular ROS: no chest pain, no leg edema, no lightheadedness - Respiratory Respiratory: no pain on inspiration, no pain with cough - Gastrointestinal Gastrointestinal: no abdominal pain, no constipation, no diarrhea, no heartburn - Genitourinary Genitourinary ROS: no difficulty urinating, no flank pain, no urinary hesitancy - Musculoskeletal Musculoskeletal ROS: no muscle weakness, no numbness, no radiating pain into limb, no tingling - Integumentary Integumentary: no erythema, no lesions, no swelling - Neurological Neurological ROS: no abnormal gait, no behavioral changes, no focal weakness, no radicular pain - Psychiatric Psychiatric general: no anxiety, no confusion, no depression - Hematologic/Lymphatic Hematologic/Lymphatic pediatric: no easy bleeding, no easy bruising Physical Exam Initial Vital Signs Temp Pulse Resp BP Pulse Ox 97.6 F 76 18 119/76 94 12/31/16 15:30 12/31/16 15:30 12/31/16 15:30 12/31/16 15:30 12/31/16 15:30 - Additional Findings EYES:: pupils equal and round, no myosis. SKIN:: no areas of echymoses or petechiae CARDIOVASCULAR:: regular rate and rhythm, no murmurs PULMONARY:: lung bryant clear to auscultation bilaterally. Quiet, normal respiratory pattern. Decreased lung volume secondary to body habitus GASTROINTESTINAL:: active bowel sounds. MUSCULOSKELETAL PALPATION:: Severe tenderness noted about the thoracolumbar junction and referred to the sacral base ROM:: Active flexion and extension are reduced in the lumbar area. Active Rotation is reduced in the lumbar area. STRENGTH:: RIGHT hip flexors: 5/5 :: LEFT hip flexors: 5/5 RIGHT hip adduction 5/5 :: LEFT hip adduction 5/5 RIGHT hip abduction 5/5 :: LEFT hip abduction 5/5 RIGHT knee extension 5/5 :: LEFT knee extension 5/5 RIGHT knee flexion 5/5 :: LEFT knee flexion 5/5 RIGHT ankle dorsiflexion 5/5 :: LEFT ankle dorsiflexion 5/5 RIGHT ankle plantarflexion 5/5 :: LEFT ankle plantarflexion 5/5 RIGHT great toe dorsiflexion 5/5 :: LEFT great toe dorsiflexion 5/5 RIGHT great toe plantarflexion 5/5 :: LEFT great toe plantarflexion 5/5 NEUROLOGIC SENSATION:: hypesthesia is not noted in lower extremity dermatomes. SIGNS OF NEUROVASCULAR COMPRESSION Clonus: none found bilateral with passive ROM at ankle joint Spasticity:: none Atrophy:: not present in UE or LE musculature Fasciculation:: not present in UE or LE musculature PSYCHIATRIC:: ORIENTATION:: awake and alert. INSIGHT:: good awareness of illness. AFFECT:: pleasant. Radiology Images Viewed By Me:: 12/31/2016 CT scan of the abdomen and pelvis shows an incidental T12 superior endplate compression fracture without retropulsion of bony fragments into the central canal. I have reviewed and agree with information documented in the scribed documentation, ROS, patient medications, allergies, medical history, surgical history, social history, and family history. Results - Labs 01/02/17 04:59 01/02/17 04:59 Abnormal lab results RBC 3.40 M/mcL (3.82-4.97) L 01/01/17 05:12 Hgb 9.5 g/dL (11.5-15.4) L 01/01/17 05:12 Hct 31.2 % (35.3-44.9) L 01/01/17 05:12 MCH 27.9 pg (28.0-33.3) L 01/01/17 05:12 MCHC 30.4 g/dL (31.6-35.5) L 01/01/17 05:12 RDW 16.8 % (11.5-14.5) H 01/01/17 05:12 PT 72.8 Seconds (9.4-12.1) H* 01/01/17 05:12 INR 6.5 H* 01/01/17 05:12 Potassium 5.1 mEq/L (3.5-4.5) H 01/01/17 05:12 BUN 38 mg/dL (7-20) H 01/01/17 05:12 Creatinine 1.81 mg/dL (0.57-1.11) H 01/01/17 05:12 Est GFR ( Amer) 34 (> 60) L 01/01/17 05:12 Est GFR (Non-Af Amer) 28 (> 60) L 01/01/17 05:12 Glucose 147 mg/dL (70-99) H 01/01/17 05:12 POC Glucose 125 (58-89) H 12/31/16 21:04 Troponin I 0.09 ng/mL (0-0.03) H* 12/31/16 16:23 B-Natriuretic Peptide 439 pg/mL (0-100) H 12/31/16 16:23 Globulin 3.8 g/dL (2.4-3.5) H 12/31/16 16:23 Albumin/Globulin Ratio 0.9 (1.1-2.2) L 12/31/16 16:23 Lipase 89 Units/L (8-78) H 12/31/16 16:23 Diabetes panel 01/01/17 Range/Units 05:12 Sodium 139 (136-145) mEq/L Potassium 5.1 H (3.5-4.5) mEq/L Chloride 106 (98-109) mEq/L Carbon Dioxide 24 (19-29) mEq/L BUN 38 H (7-20) mg/dL Creatinine 1.81 H (0.57-1.11) mg/dL Glucose 147 H (70-99) mg/dL Calcium 9.8 (8.6-10.8) mg/dL Calcium panel 01/01/17 Range/Units 05:12 Calcium 9.8 (8.6-10.8) mg/dL Pituitary panel 01/01/17 Range/Units 05:12 Sodium 139 (136-145) mEq/L Potassium 5.1 H (3.5-4.5) mEq/L Chloride 106 (98-109) mEq/L Carbon Dioxide 24 (19-29) mEq/L BUN 38 H (7-20) mg/dL Creatinine 1.81 H (0.57-1.11) mg/dL Glucose 147 H (70-99) mg/dL Calcium 9.8 (8.6-10.8) mg/dL Adrenal panel 01/01/17 Range/Units 05:12 Sodium 139 (136-145) mEq/L Potassium 5.1 H (3.5-4.5) mEq/L Chloride 106 (98-109) mEq/L Carbon Dioxide 24 (19-29) mEq/L BUN 38 H (7-20) mg/dL Creatinine 1.81 H (0.57-1.11) mg/dL Glucose 147 H (70-99) mg/dL Calcium 9.8 (8.6-10.8) mg/dL All other labs normal. Consult Discharge Plan - Plan Referrals: Salvador Umana MD [Primary Care Provider] -
--- NOTE | 2017-01-01 17:17 | Internal Med Progress Note ---
Date of Encounter: 01/01/17 Time of Encounter: 14:00 - Assessment and plan (1) T12 compression fracture Current Visit: Yes Status: Acute Assessment and plan: Marixa Vilchis is a 66-year-old female with past medical history morbid obesity , hypertension, diabetes, A. fib on Coumadin and CHF presented to [facility] on 12/31/2016 with complaints of lower back pain. She was found to have an acute T12 vertebrae fracture and supratherapeutic INR. She was admitted for further workup and treatment. 1. T12 compression fracture: Reports fall 1 week prior to admission. ABD CT showed an incidental T12 superior endplate compression fracture without retropulsion of bony fragments into the central canal. Evaluated by Dr. Sampson who reportedly is recommending kyphoplasty per RN. Continue judicious pain control with morbid obesity, she is at risk for hypoventilation syndrome. IV Dilaudid stopped and added PO OxyIR. INR will need to be subtherapeutic before invasive procedure. 2. Atrial fibrillation: On Coumadin. EKG with A/V paced rhythm. Rate controlled. INR 7.6 on admission. No bleeding. No need for reversal at this time. Continue to hold Coumadin. INR 6.5 on 01/01. 3. Acute on chronic kidney disease: History of chronic kidney disease stage II. Cr 1.9 on admission, continue very gentle IV hydration. Holding Lasix, KANDY. Cr 1.8 on 01/01. If no significant improvement in the morning, will consult nephrology. 4. Hyperkalemia: Continue IV fluids, Kayexalate. Monitor repeat CMP. 5. Ventral hernia: per hx. evaluated by general surgery who noted very large upper abdominal ventral hernia. No evidence of obstruction or incarceration on CT scan. She is not a surgical candidate due to morbid obesity with multiple comorbidities. 6. Diabetes: Per history. 10/2016 Hgb A1c 7.6%. SSI. Monitor blood sugar and titrate PRN 7. EJ: Suspected with body habitus. Does not wear CPAP at home. Continue supplemental O2. 8. Chronic systolic heart failure: Per history. 04/2016 TTE with EF 30%. Does not appear overloaded on exam. Closely monitor fluid status with gentle IV hydration for SIDDHARTH while holding Lasix. Chest x-ray unremarkable. Continue daily weights, strict I&Os (2) (HFpEF) heart failure with preserved ejection fraction Current Visit: No Status: Chronic (3) Acute systolic CHF (congestive heart failure) Current Visit: No Status: Resolved (4) SIDDHARTH (acute kidney injury) Current Visit: No Status: Acute (5) Atrial fibrillation Current Visit: No Status: Chronic Qualifiers: Atrial fibrillation type: chronic Qualified Code(s): I48.2 - Chronic atrial fibrillation - Subjective Interval history: Seen and examined at bedside. Patient is new to me. Information obtained from chart review and patient report. Patient is very drowsy on exam ED to arouse her difficult to stay awake and in conversation. She does complain of lower back pain that radiates to bilateral legs. Says pain medicine is helping at times. Has some shortness of breath. No chest pain. - Constitutional Vitals: Temp Pulse Resp BP Pulse Ox 97.7 F 75 20 121/58 99 01/01/17 16:01 01/01/17 16:01 01/01/17 16:01 01/01/17 16:01 01/01/17 16:01 General appearance: Present: A&O X 3, morbidly obese, obese Exam: Drowsy but oriented - Head Head exam: Present: atraumatic, normocephalic - Eye Eye exam: Present: PERRL, conjuntiva pink, sclera anicteric Pupils: Present: PERRL - Neck Neck exam general surgery: Present: supple, trachea midline. Absent: lymphadenopathy - Respiratory Respiratory exam: Present: CTAB. Absent: accessory muscle use, rales, rhonchi, wheezes - Cardiovascular Cardiovascular exam: Present: RRR, +S1, +S2. Absent: diastolic murmur, gallop, rubs, systolic murmur - GI/Abdominal GI/Abdominal exam: Present: hernia, normal bowel sounds, soft, no peritoneal signs. Absent: distended, tenderness - Extremities Exam Extremities exam: Present: warm, radial pulses palpable and symmetrical. Absent : calf tenderness, cyanotic, pedal edema - Neurological Exam Neurological exam: Present: CN II-XII intact, oriented X3, no focal deficits. Absent: pronater drift, facial droop, speech deficit - Skin Skin exam: Present: dry, intact Internal Medicine: Result - Labs CBC & Chem 7: 01/01/17 05:12 01/01/17 05:12 Labs: Short CBC 01/01/17 Range/Units 05:12 WBC 8.3 (4.3-11.1) K/mcL Hgb 9.5 L (11.5-15.4) g/dL Hct 31.2 L (35.3-44.9) % Plt Count 286 (140-400) K/mcL BMP 01/01/17 05:12 Sodium 139 Potassium 5.1 H Chloride 106 Carbon Dioxide 24 BUN 38 H Creatinine 1.81 H Glucose 147 H Calcium 9.8 - ABG Interpretation ABG results: PT/INR, D-dimer PT 72.8 Seconds (9.4-12.1) H* 01/01/17 05:12 Consult Discharge Plan - Plan Referrals: Salvador mUana MD [Primary Care Provider] -
[2017-01-01] MEDS: 0.9 % Sodium Chloride 1,000 ML IVC SCH (17:51)
[2017-01-01] MEDS ORDERED: Warfarin perPT PO PRN (18:00)
[2017-01-01] MEDS: Insulin DETEMIR 100 UNIT/ML X5UNITS SQ SCH (21:22)
[2017-01-01] MEDS: *HR* OxyCODONE Immed Rel 5 MG TABLET PO PRN (23:20)
[2017-01-02] MEDS: Acetaminophen 325 MG TABLET PO PRN (00:58)
[2017-01-02 05:19] LABS: Hematocrit 28.8 % (35.3-44.9); Hemoglobin 8.9 g/dL (11.5-15.4); Mean Corpuscular HGB Conc 30.9 g/dL (31.6-35.5); Mean Corpuscular Hemoglobin 28.3 pg (28.0-33.3); Mean Corpuscular Volume 91.7 fL (83.0-100.0); Mean Platelet Volume 9.4 fL (9.4-12.4); Platelet Count 226 K/mcL (140-400); Red Blood Count 3.14 M/mcL (3.82-4.97); Red Cell Distribution Width 16.8 % (11.5-14.5)
[2017-01-02 05:47] LABS: Prothrombin Time 56.1 Seconds (9.4-12.1)
[2017-01-02 05:53] LABS: Calcium 9.1 mg/dL (8.6-10.8); Potassium 4.8 mEq/L (3.5-4.5)
[2017-01-02] MEDS ORDERED: *HR* Morphine 2 MG/ML SYRINGE IVP ONE (06:22)
[2017-01-02] MEDS: *HR* OxyCODONE Immed Rel 5 MG TABLET PO PRN ×4 (08:34→20:46)
[2017-01-02] MEDS: Insulin LISPRO 300 UNITS/3 ML VIAL SQ SCH ×4 (08:34→20:58)
--- NOTE | 2017-01-02 09:02 | Electrocardiograph Report ---
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
--- NOTE | 2017-01-02 11:31 | Cardiology Consult Note ---
Date of Encounter: 01/02/17 Time of Encounter: 09:30 Assessment and Plan (1) Pre-operative cardiovascular examination Current Visit: Yes Status: Acute Per cardiology: -Preooperative risk assessment for kyphoplasty. -C 04/2016 with 20% proximal LAD, 15% mid circumflex, 30% proximal RCA, 15% right PDA. Mild, non-obstructive CAD. -Last limited TTE 04/2016 LVEF 50%, all wall segments with normal motion. -Last full TTE 05/04/16 with LVEF 30% in the setting of tachycardia with HR 120s , moderate concentric LVH, dilated RV with moderate RV hypokinesis, device lead was visualized in right atrium and right ventricle, severely dilated left atrium , moderately dilated right atrium, mild mitral regurgitation, mild tricuspid regurgitation, mild pulmonary hypertension, all wall segments hypokinetic. -Denies chest pain. -Reports increased shortness of breath and increased fatigue. -ECG with paced rhythm, HR 71. Unchanged from previous ECG 12/05/16. -Patient reports the most activity she performs at home is walking from chair to bathroom due to shortness of breath. -Will check echo. -Further recommendations pending echo. (2) T12 compression fracture Current Visit: Yes Status: Acute Per cardiology: -Admitted after fall and noted to have fracture. -Management per primary services. (3) Diastolic congestive heart failure, NYHA class 3 Current Visit: Yes Status: Chronic Per cardiology: -Known diastolic dyfunction. -Reports increased shortness of breath -Reports shortness of breath while walking to bathroom from her chair. -BNP 439 on admission. -Chest x-ray without overt failure. -Mild pedal edema noted, non-pitting. -weight today 117.9kg, baseline weight 117.3kg. -SIDDHARTH on admisison. -Will repeat TTE. Qualifiers: Congestive heart failure chronicity: chronic Qualified Code(s): I50.32 - Chronic diastolic (congestive) heart failure (4) Supratherapeutic INR Current Visit: Yes Status: Acute Per cardiology: -On coumadin for atrial fibrillation. -INR on supratherapeutic on admisison. (5) Elevated troponin Current Visit: No Status: Chronic Per cardiology: -Troponin 0.09, 0.08. -Troponins flat and adynamic in the setting of SIDDHARTH, fall. -Denies chest pain. -ECG with no acute changes. -[facility] 04/2016 with mild, non-obstructive CAD, -Do not suspect NSTEMI, suspect demand ischemia related to above. NO cardiac rehab consult warranted. -TTE pending. (6) SIDDHARTH (acute kidney injury) Current Visit: No Status: Acute Per cardiology: -Baseline creatinine 0.9-1.3. -Creatinine on admission 1.9. -Creatinine today 1.33. -Management per primary service. Discussion w patient/family: The assessment and plan as outlined above was discussed with the patient who expressed understanding and agreement. All questions were answered. Thank you for involving us in the care of your patient. Please call with any questions. Discussed and reviewed with . History of Present Illness Consult date: 01/02/17 Requesting physician: Sara Thompson Consult reason: pre-op Chief complaint: back pain, fall History of present illness: Ms. Vilchis is a 66 year old female with a relevant past medical history of paroxysmal atrial fibrillation, HTN, DMII, depression, pulmonary hypertension, COPD, hyperlipidemia, anemia, CHF, sleep apnea, pacemaker. Patient presented to [facility] by order of her PCP due to supratherapeutic INR. Patient's INR is drawn by home health and then monitored by PCP. Patient has presented to [facility] in [place] previously for back pain after a fall. Patient states she was sitting in her shower chair that was supposed to be secured to the wall, when chair came off the wall and she fell. Patient states she has had back pain since fall. Patient was noted to have vertebral compression fracture. Cardiology was asked to see and evaluate patient for pre-operative risk stratification. Patient denies chest pain. Patient does report increased shortness of breath and is currently wearing O2, not normally on O2 at home. Patient also reports increased fatigue over the past several months. Patient states she sometimes feels like her heart is racing. Patient reports that the most active thing she does at home is walk from her chair to the bathroom. Of note, patient also reports increased peripheral edema. Past Med Surg Social Fam HX - Past Medical History Medical history: atrial fibrillation, CHF, diabetes, hyperlipidemia, hypertension, other Psychiatric history: anxiety, depression - Past Surgical History Surgical History: appendectomy, other, pacemaker - Social History Smoking Status: Never smoker Smokeless Tobacco Status: No Alcohol use: none Drug use: none - Family History Mother Adopted: No Living Status: Hx Family Cardiac Disorders: No Hx Family Respiratory Disorders: No Hx Family Cancer: Yes Hx Family GI Disorders: No Hx Family Endocrine Disorder: No Hx Family Neuromuscular Disorders: No Hx Family Neurologic Disorders: No Hx Family HEENT Disorders: No Hx Family Autoimmune Disorders: No Medications and Allergies Insulin DETEMIR [Levemir] 50 unit SQ HS 04/05/16 [History] Loratadine [Claritin] 10 mg PO QAM 04/05/16 [History] Lovastatin [Mevacor] 20 mg PO HS 04/05/16 [History] Montelukast [Singulair] 10 mg PO HS 04/05/16 [History] SitaGLIPtin [Januvia] 100 mg PO DAILY 04/05/16 [History] Albuterol Sulfate [Proair Hfa] 2 puff IH Q4H PRN 04/06/16 [History] Beclomethasone Diprop 80mcg [QVAR 80 mcg] 1 puff IH BID 04/06/16 [History] Metformin HCl [Metformin HCl ER] 2,000 mg PO QPM 04/06/16 [History] Furosemide [Lasix] 40 mg PO BID 05/03/16 [History] Potassium Chloride 20 meq PO DAILY 09/10/16 [History] Ascorbate Calcium [Vitamin C] 500 mg PO BID #60 tablet 09/15/16 [Rx] Ferrous Sulfate 325 mg PO BIDWM #60 tablet 09/15/16 [Rx] Albuterol Neb [Proventil Neb] 2.5 mg IH Q6H PRN #60 inhsol 12/05/16 [Rx] Lisinopril [Zestril] 2.5 mg PO DAILY 12/22/16 [History] Acetaminophen [Tylenol] 650 mg PO Q6HR PRN 12/31/16 [History] Warfarin Sodium 2.5 mg PO DAILY 12/31/16 [History] 3 Allergy/AdvReac Type Severity Reaction Status Date / Time No Known Allergies Allergy Verified 12/22/16 11:47 All Systems Review: A 10-system review of systems was performed and is negative for pertinent findings except as documented above in the HPI. - Cardiovascular Cardiovascular: as per HPI, dyspnea on exertion, leg edema, rapid heart rate Physical Examination Vital Signs Temperature 97.6 F 12/31/16 15:30 Pulse Rate 76 11/06/17 15:30 Respiratory Rate 18 12/31/16 15:30 Blood Pressure 119/76 12/31/16 15:30 O2 Sat by Pulse Oximetry 94 12/31/16 15:30 Temperature 97.5 F L 01/02/17 06:34 Pulse Rate 70 01/02/17 06:34 Respiratory Rate 17 01/02/17 06:34 Blood Pressure 110/73 01/02/17 06:34 O2 Sat by Pulse Oximetry 96 01/02/17 06:34 Oxygen Delivery Oxygen Delivery Nasal Cannula General: Conversant, No Apparent Distress HEENT: Atraumatic, Normocephaly, Mucus Membranes Moist Neck: No JVD, Normal carotid pulses Cardiac: Reg Rate and Rhythm, Normal S1 and S2, No Murmur Lungs: Normal Breath Sounds, No Wheeze, Rales, Rhonchi Neuro: Alert and responsive, No focal deficits noted Abdomen: Soft, Non-Tender Skin: No rashes noted on visualized skin Musculoskeletal: No Chest Wall Tenderness Extremities: No Clubbing, No Cyanosis, Normal Pulses, Other (Mild pedal edema, non-pitting. ) Results 01/02/17 04:59 01/02/17 04:59 Lab Results Active Medications Acetaminophen (Tylenol) 650 mg PO Q6HR PRN PRN Reason: Mild Pain (1-3) Stop: 07/02/17 20:24 Last Admin: 01/02/17 00:58 Dose: 650 mg Dextrose/Water (Dextrose 50% (Syg)) 25 ml IVP AD PRN PRN Reason: Hypoglycemia Stop: 07/02/17 20:24 Glucagon (Glucagen) 1 mg IM ONCE PRN PRN Reason: Hypoglycemia Stop: 07/02/17 20:24 Glucose (Gluctose) 15 gm PO ONCE PRN PRN Reason: Hypoglycemia Stop: 07/02/17 20:24 Glucose (Gluctose) 30 gm PO ONCE PRN PRN Reason: Hypoglycemia Stop: 07/02/17 20:24 Dextrose (Dextrose 5%) 1,000 mls @ 100 mls/hr IVC .Q10H PRN PRN Reason: HYPOGLYCEMIA Stop: 07/02/17 20:24 Sodium Chloride (0.9 % Sodium Chloride) 1,000 mls @ 60 mls/hr IVC .[id number] OPAL Stop: 07/02/17 20:46 Last Admin: 01/01/17 17:51 Dose: 60 mls/hr Insulin Detemir (Levemir) 50 unit SQ [facility] Stop: 07/02/17 21:01 Last Admin: 01/01/17 21:22 Dose: 50 unit Insulin Human Lispro (Humalog) 0 units SQ TIDAC [facility] PRN Reason: Protocol Stop: 07/02/17 20:31 Last Admin: 01/02/17 08:34 Dose: Not Given Insulin Human Lispro (Humalog) 0 units SQ [facility] PRN Reason: Protocol Stop: 07/02/17 21:01 Last Admin: 01/01/17 21:28 Dose: 2 units Montelukast Sodium (Singulair) 10 mg PO [facility] Stop: 07/02/17 21:01 Last Admin: 01/01/17 21:18 Dose: 10 mg Naloxone HCl (Narcan) 0.4 mg IVP Q2MIN PRN PRN Reason: Opioid Reversal Stop: 07/02/17 20:24 Omeprazole (Prilosec) 20 mg PO DAILY@0630 [facility] PRN Reason: Protocol Stop: 07/03/17 06:31 Last Admin: 01/02/17 06:37 Dose: 20 mg Ondansetron HCl (Zofran) 4 mg IVP Q8HR PRN PRN Reason: Nausea And Vomiting Stop: 07/02/17 20:24 Oxycodone HCl (Roxicodone) 5 mg PO Q6HR PRN PRN Reason: Pain Stop: 07/03/17 17:18 Last Admin: 01/02/17 08:34 Dose: 5 mg Simvastatin (Zocor) 20 mg PO [facility] Stop: 07/02/17 21:01 Last Admin: 01/01/17 21:18 Dose: 20 mg Warfarin Sodium (Coumadin Perpt) 1 each PO DAILY@1800 PRN PRN Reason: SEE COMMENTS Stop: 07/03/17 18:01 Laboratory Tests 10/29/16 12/05/16 12/31/16 10:46 19:59 16:23 Hgb 9.6 L INR Creatinine 0.98 1.35 H Troponin I B-Natriuretic Peptide 12/31/16 12/31/16 12/31/16 16:23 16:23 16:23 Hgb INR 7.6 H* Creatinine 1.90 H Troponin I 0.09 H* B-Natriuretic Peptide 12/31/16 01/02/17 01/02/17 16:23 04:59 04:59 Hgb 8.9 L INR 5.0 H* Creatinine Troponin I B-Natriuretic Peptide 439 H 01/02/17 01/02/17 04:59 05:40 Hgb INR Creatinine 1.33 H Troponin I 0.08 H* B-Natriuretic Peptide - Imaging and Cardiology Chest Xray: report reviewed Echo: pending, report reviewed Cardiac cath: report reviewed - EKG Interpretation EKG results cardiology: personally reviewed (ECG with paced rhythm, HR 71.), other (Patient is not on telemetry.) Consult Discharge Plan - Plan Referrals: Salvador Umana MD [Primary Care Provider] -
--- NOTE | 2017-01-02 16:22 | Internal Med Progress Note ---
Date of Encounter: 01/02/17 Time of Encounter: 16:19 - Assessment and plan (1) T12 compression fracture Current Visit: Yes Status: Acute Assessment and plan: Marixa Vilchis is a 66-year-old female with past medical history morbid obesity , hypertension, diabetes, A. fib on Coumadin and CHF presented to [facility] on 12/31/2016 with complaints of lower back pain. She was found to have an acute T12 vertebrae fracture and supratherapeutic INR. She was admitted for further workup and treatment. 1. T12 compression fracture: Reports fall 1 week prior to admission. ABD CT showed an incidental T12 superior endplate compression fracture without retropulsion of bony fragments into the central canal. Evaluated by Dr. Sampson who reportedly is recommending kyphoplasty per RN. Continue judicious pain control with morbid obesity, she is at risk for hypoventilation syndrome. Evaluated by cardiology who noted intermediate cardiovascular risk for surgery. Can reverse INR with vitamin K to expedite surgery. We will discuss with Dr. Sampson. 2. Atrial fibrillation: On Coumadin. EKG with A/V paced rhythm. Rate controlled. INR 7.6 on admission. No bleeding. No need for reversal at this time. Continue to hold Coumadin. Will need to bridge with heparin once INR is less than 2. We will need to resume Coumadin postop and bridge with heparin or Lovenox. 3. Acute on chronic kidney disease: History of chronic kidney disease stage II. Cr 1.9 on admission, continue very gentle IV hydration. Holding Lasix, KANDY. Cr 1.3 on 01/02. 4. Hyperkalemia: Continue IV fluids, Kayexalate. Monitor repeat CMP. 5. Ventral hernia: per hx. evaluated by general surgery who noted very large upper abdominal ventral hernia. No evidence of obstruction or incarceration on CT scan. She is not a surgical candidate due to morbid obesity with multiple comorbidities. 6. Diabetes: Per history. 10/2016 Hgb A1c 7.6%. SSI. Monitor blood sugar and titrate PRN 7. EJ: Suspected with body habitus. Does not wear CPAP at home. Continue supplemental O2. 8. Chronic systolic heart failure: Per history. 04/2016 TTE with EF 30%. Does not appear overloaded on exam. Closely monitor fluid status with gentle IV hydration for SIDDHARTH while holding Lasix. Chest x-ray unremarkable. Continue daily weights, strict I&Os (2) (HFpEF) heart failure with preserved ejection fraction Current Visit: No Status: Chronic (3) Acute systolic CHF (congestive heart failure) Current Visit: No Status: Resolved (4) SIDDHARTH (acute kidney injury) Current Visit: No Status: Acute (5) Atrial fibrillation Current Visit: No Status: Chronic Qualifiers: Atrial fibrillation type: chronic Qualified Code(s): I48.2 - Chronic atrial fibrillation - Subjective Interval history: Seen and examined at bedside. She is still complaining of lower back pain. Says pain medicine helps a little bit but does not last. No chest pain, no shortness of breath on exam. - Constitutional Vitals: Temp Pulse Resp BP Pulse Ox 97.5 F L 70 17 110/73 96 01/02/17 06:34 01/02/17 06:34 01/02/17 06:34 01/02/17 06:34 01/02/17 06:34 General appearance: Present: A&O X 3, morbidly obese, obese - Head Head exam: Present: atraumatic, normocephalic - Eye Eye exam: Present: PERRL, conjuntiva pink, sclera anicteric Pupils: Present: PERRL - Neck Neck exam general surgery: Present: supple, trachea midline. Absent: lymphadenopathy - Respiratory Respiratory exam: Present: CTAB. Absent: accessory muscle use, rales, rhonchi, wheezes Additional comments: O2 via nasal cannula. Appears mildly dyspneic. - Cardiovascular Cardiovascular exam: Present: RRR, +S1, +S2. Absent: diastolic murmur, gallop, rubs, systolic murmur - GI/Abdominal GI/Abdominal exam: Present: normal bowel sounds, soft, no peritoneal signs. Absent: distended, tenderness - Extremities Exam Extremities exam: Present: warm, radial pulses palpable and symmetrical. Absent : calf tenderness, cyanotic, pedal edema - Neurological Exam Neurological exam: Present: CN II-XII intact, oriented X3, no focal deficits. Absent: pronater drift, facial droop, speech deficit - Skin Skin exam: Present: dry, intact Internal Medicine: Result - Labs CBC & Chem 7: 01/02/17 04:59 01/02/17 04:59 Labs: Short CBC 01/02/17 Range/Units 04:59 WBC 6.4 (4.3-11.1) K/mcL Hgb 8.9 L (11.5-15.4) g/dL Hct 28.8 L (35.3-44.9) % Plt Count 226 (140-400) K/mcL BMP 01/02/17 04:59 Sodium 140 Potassium 4.8 H Chloride 109 Carbon Dioxide 23 BUN 31 H Creatinine 1.33 H Glucose 128 H Calcium 9.1 Cardiac Enzymes 01/02/17 Range/Units 05:40 Troponin I 0.08 H* (0-0.03) ng/mL - ABG Interpretation ABG results: PT/INR, D-dimer PT 56.1 Seconds (9.4-12.1) H* 01/02/17 04:59 - VTE Documentation of Mechanical Device: Intermittent pneumatic compression device Consult Discharge Plan - Plan Referrals: Savlador Umana MD [Primary Care Provider] -
[2017-01-02] MEDS ORDERED: *HR* Phytonadione 5 MG TABLET PO ONE (17:35)
[2017-01-02] MEDS: Furosemide 40 MG TABLET PO SCH (18:17)
[2017-01-02] MEDS: Ipratropium/Albuterol Neb 3 ML IH SCH (20:29)
[2017-01-02] MEDS: Insulin DETEMIR 100 UNIT/ML X5UNITS SQ SCH (20:58)
[2017-01-03] MEDS: Acetaminophen 325 MG TABLET PO PRN ×2 (00:10→20:58)
[2017-01-03] MEDS: Ipratropium/Albuterol Neb 3 ML IH SCH ×7 (00:21→23:47)
[2017-01-03] MEDS: *HR* OxyCODONE Immed Rel 5 MG TABLET PO PRN ×6 (00:35→22:26)
[2017-01-03 06:48] LABS: Hematocrit 28.8 % (35.3-44.9); Hemoglobin 8.9 g/dL (11.5-15.4); Mean Corpuscular HGB Conc 30.9 g/dL (31.6-35.5); Mean Corpuscular Hemoglobin 28.2 pg (28.0-33.3); Mean Corpuscular Volume 91.1 fL (83.0-100.0); Mean Platelet Volume 9.3 fL (9.4-12.4); Platelet Count 225 K/mcL (140-400); Red Blood Count 3.16 M/mcL (3.82-4.97); Red Cell Distribution Width 16.3 % (11.5-14.5)
[2017-01-03 06:52] LABS: INR 2.5
[2017-01-03 07:04] LABS: BUN/Creatinine Ratio 22 (6-26); Blood Urea Nitrogen 24 mg/dL (7-20); Calcium 8.8 mg/dL (8.6-10.8); Carbon Dioxide 24 mEq/L (19-29); Chloride 108 mEq/L (98-109); Glucose 99 mg/dL (70-99); Osmolality,Calculated 292 (280-300); Potassium 4.3 mEq/L (3.5-4.5); Sodium 139 mEq/L (136-145); eGFR For African Americans > 60 (> 60); eGFR For Non-African Americans 51 (> 60)
[2017-01-03] MEDS: Insulin LISPRO 300 UNITS/3 ML VIAL SQ SCH ×4 (08:20→20:58)
[2017-01-03] MEDS: Furosemide 40 MG TABLET PO SCH ×2 (09:47→18:00)
--- NOTE | 2017-01-03 15:24 | Internal Med Progress Note ---
Date of Encounter: 01/03/17 Time of Encounter: 15:20 - Assessment and plan (1) T12 compression fracture Current Visit: Yes Status: Acute Assessment and plan: Marixa Vilchis is a 66-year-old female with past medical history morbid obesity , hypertension, diabetes, A. fib on Coumadin and CHF presented to [facility] on 12/31/2016 with complaints of lower back pain. She was found to have an acute T12 vertebrae fracture and supratherapeutic INR. She was admitted for further workup and treatment. 1. T12 compression fracture: Reports fall 1 week prior to admission. ABD CT showed an incidental T12 superior endplate compression fracture without retropulsion of bony fragments into the central canal. Evaluated by Dr. Sampson who reportedly is recommending kyphoplasty per RN. Continue judicious pain control with morbid obesity, she is at risk for hypoventilation syndrome. Evaluated by cardiology who noted intermediate cardiovascular risk for surgery. No surgical intervention planned while inpatient. Will need to follow up with Dr. Sampson in 1-2 weeks after discharge. 2. Atrial fibrillation: On Coumadin. EKG with A/V paced rhythm. Rate controlled. INR 7.6 on admission, trended down to 2.5 on 01/04. Resume Coumadin per pharmacy dosing with goal INR 2-3 3. Acute on chronic kidney disease: History of chronic kidney disease stage II. Cr 1.9 on admission. Improved with IV fluids and holding home Lasix, KANDY. Home Lasix resumed. Intermittently monitor renal function. 4. Hyperkalemia: Continue IV fluids, Kayexalate. Monitor repeat CMP. 5. Ventral hernia: per hx. evaluated by general surgery who noted very large upper abdominal ventral hernia. No evidence of obstruction or incarceration on CT scan. She is not a surgical candidate due to morbid obesity with multiple comorbidities. 6. Diabetes: Per history. 10/2016 Hgb A1c 7.6%. SSI. Monitor blood sugar and titrate PRN 7. EJ: Suspected with body habitus. Does not wear CPAP at home. Continue supplemental O2. 8. Chronic systolic heart failure: Per history. 04/2016 TTE with EF 30%. Does not appear overloaded on exam. Chest x-ray unremarkable. Home Lasix resumed. Continue daily weights, strict I&Os (2) (HFpEF) heart failure with preserved ejection fraction Current Visit: No Status: Chronic (3) SIDDHARTH (acute kidney injury) Current Visit: No Status: Acute (4) Atrial fibrillation Current Visit: No Status: Chronic Qualifiers: Atrial fibrillation type: chronic Qualified Code(s): I48.2 - Chronic atrial fibrillation - Subjective Interval history: Seen and examined at bedside. She still complaining of 10 out of 10 back pain. Says she is taking pain medicine but does not get relief from it. She is pretty much immobile in bed, difficult to turn remobilize. Discussed case with Dr. Sampson and plan is to hold on surgical intervention at this time. Patient will be [facility] with outpatient follow- up. No CP or shortness of breath. - Constitutional Vitals: Temp Pulse Resp BP Pulse Ox 98.8 F 70 16 127/76 97 01/03/17 11:09 01/03/17 11:09 01/03/17 11:09 01/03/17 11:09 01/03/17 11:09 General appearance: Present: A&O X 3, morbidly obese, obese - Head Head exam: Present: atraumatic, normocephalic - Eye Eye exam: Present: PERRL, conjuntiva pink, sclera anicteric Pupils: Present: PERRL - Neck Neck exam general surgery: Present: supple, trachea midline. Absent: lymphadenopathy - Respiratory Respiratory exam: Present: CTAB. Absent: accessory muscle use, rales, rhonchi, wheezes - Cardiovascular Cardiovascular exam: Present: RRR, +S1, +S2. Absent: diastolic murmur, gallop, rubs, systolic murmur - GI/Abdominal GI/Abdominal exam: Present: normal bowel sounds, soft, no peritoneal signs. Absent: distended, tenderness - Extremities Exam Extremities exam: Present: warm, radial pulses palpable and symmetrical. Absent : calf tenderness, cyanotic, pedal edema - Neurological Exam Neurological exam: Present: CN II-XII intact, oriented X3, no focal deficits. Absent: pronater drift, facial droop, speech deficit - Skin Skin exam: Present: dry, intact Internal Medicine: Result - Labs CBC & Chem 7: 01/03/17 06:19 01/03/17 06:19 Labs: Short CBC 01/03/17 Range/Units 06:19 WBC 6.6 (4.3-11.1) K/mcL Hgb 8.9 L (11.5-15.4) g/dL Hct 28.8 L (35.3-44.9) % Plt Count 225 (140-400) K/mcL BMP 01/03/17 06:19 Sodium 139 Potassium 4.3 Chloride 108 Carbon Dioxide 24 BUN 24 H Creatinine 1.08 Glucose 99 Calcium 8.8 - ABG Interpretation ABG results: PT/INR, D-dimer PT 28.0 Seconds (9.4-12.1) H D 01/03/17 06:19 - Impressions Impressions Echocardiogram Limited Views 01/02/17 11:22 Impressions: LVEF 50%. LV systolic function is unchanged when compared to prior study 05/07/2016. Left Ventricular Wall Motion: Rest Echo Findings All wall segments showed normal motion. Findings: Study Quality * Technically adequate exam. ECG Findings * Paced rhythm. Left Ventricle * LVEF 50%. * Moderate concentric left ventricular hypertrophy. * Atypical septal motion consistent with paced rhythm. - VTE Documentation of Mechanical Device: Venous foot pump, device Consult Discharge Plan - Plan Referrals: Salvador Umana MD [Primary Care Provider] -
[2017-01-03] MEDS ORDERED: *HR* Warfarin 1 MG TABLET PO ONE (18:00)
--- NOTE | 2017-01-03 18:25 | Pain Management Consultation ---
Date of Encounter: 01/03/17 Time of Encounter: 18:21 Assessment and Plan (1) T12 compression fracture Current Visit: Yes Status: Acute Recommendations: In light of the troponin levels and INR value, best course of action is conservative care for next 1-2 weeks. Recommend placement in detention facility while undergoing conservative care for fracture. Physical therapy and occupational therapy evaluate the patient and then make recommendations about placement in detention facility. Recommend active bracing with oral analgesics for pain control that are both anti-inflammatory and oral opioid. Recommend stopping IV opioid secondary to side effect of somnolence with this form of pain control. I spoke with both the son and the patient about this plan and they are in agreement. She will follow up with me as an outpatient at which time we can determine if kyphoplasty is needed. Recommend oral oxycodone continue while in detention facility. The assessment and plan as outlined above was discussed with the patient and/or family members who expressed understanding and agreement. All questions were answered. History of Present Illness Chief complaint: back pain HPI: Ms. Vilchis is a 66 year old female complaining of pain in her back. Pain is 10/10. Any movement even in bed causes increased pain that is unbearable. She denies pain radiating into her legs. She does feel pain starting in her low back and traveling into her abdomen coming from both the left and right side. The pain has been severe since her fall several days ago. The patient has been unable to move out of bed for fear of making the fracture worse or having pain. Past Med Surg Social Fam HX - Past Medical History Medical history: atrial fibrillation, CHF, diabetes, hyperlipidemia, hypertension, other Psychiatric history: anxiety, depression - Past Surgical History Surgical History: appendectomy, other, pacemaker - Social History Smoking Status: Never smoker Smokeless Tobacco Status: No Alcohol use: none Drug use: none - Family History Mother Adopted: No Living Status: Hx Family Cardiac Disorders: No Hx Family Respiratory Disorders: No Hx Family Cancer: Yes Hx Family GI Disorders: No Hx Family Endocrine Disorder: No Hx Family Neuromuscular Disorders: No Hx Family Neurologic Disorders: No Hx Family HEENT Disorders: No Hx Family Autoimmune Disorders: No Medications and Allergies Insulin DETEMIR [Levemir] 50 unit SQ HS 04/05/16 [History] Loratadine [Claritin] 10 mg PO QAM 04/05/16 [History] Lovastatin [Mevacor] 20 mg PO HS 04/05/16 [History] Montelukast [Singulair] 10 mg PO HS 04/05/16 [History] SitaGLIPtin [Januvia] 100 mg PO DAILY 04/05/16 [History] Albuterol Sulfate [Proair Hfa] 2 puff IH Q4H PRN 04/06/16 [History] Beclomethasone Diprop 80mcg [QVAR 80 mcg] 1 puff IH BID 04/06/16 [History] Metformin HCl [Metformin HCl ER] 2,000 mg PO QPM 04/06/16 [History] Furosemide [Lasix] 40 mg PO BID 05/03/16 [History] Potassium Chloride 20 meq PO DAILY 09/10/16 [History] Ascorbate Calcium [Vitamin C] 500 mg PO BID #60 tablet 09/15/16 [Rx] Ferrous Sulfate 325 mg PO BIDWM #60 tablet 09/15/16 [Rx] Albuterol Neb [Proventil Neb] 2.5 mg IH Q6H PRN #60 inhsol 12/05/16 [Rx] Lisinopril [Zestril] 2.5 mg PO DAILY 12/22/16 [History] Acetaminophen [Tylenol] 650 mg PO Q6HR PRN 12/31/16 [History] Warfarin Sodium 2.5 mg PO DAILY 12/31/16 [History] 3 Allergy/AdvReac Type Severity Reaction Status Date / Time No Known Allergies Allergy Verified 12/22/16 11:47 Review of Systems - Constitutional Constitutional ROS IM: no photophobia, no phonophobia, no daytime sleepiness, no fever(s), no stops breathing during sleep - EENT Nose, mouth and throat: no headache(s), no neck pain, no neck trauma - Cardiovascular Cardiovascular ROS: no chest pain, no leg edema, no lightheadedness - Respiratory Respiratory: no pain on inspiration, no pain with cough - Gastrointestinal Gastrointestinal: no abdominal pain, no constipation, no diarrhea, no heartburn - Genitourinary Genitourinary ROS: no difficulty urinating, no flank pain, no urinary hesitancy - Musculoskeletal Musculoskeletal ROS: no muscle weakness, no numbness, no radiating pain into limb, no tingling - Integumentary Integumentary: no erythema, no lesions, no swelling - Neurological Neurological ROS: behavioral changes, focal weakness, no abnormal gait, no radicular pain - Psychiatric Psychiatric general: no anxiety, no confusion, no depression - Hematologic/Lymphatic Hematologic/Lymphatic pediatric: no easy bleeding, no easy bruising Physical Exam Initial Vital Signs Temp Pulse Resp BP Pulse Ox 97.6 F 76 18 119/76 94 12/31/16 15:30 12/31/16 15:30 12/31/16 15:30 12/31/16 15:30 12/31/16 15:30 - Additional Findings EYES:: pupils equal and round, no myosis. SKIN:: no areas of echymoses or petechiae GASTROINTESTINAL:: none tender MUSCULOSKELETAL INSPECTION:: patient is sedentary PALPATION:: There is extreme pain with palpation of the spinous process at about the thoracolumbar junction. STRENGTH:: RIGHT hip flexors: 5/5 :: LEFT hip flexors: 5/5 RIGHT hip adduction 5/5 :: LEFT hip adduction 5/5 RIGHT hip abduction 5/5 :: LEFT hip abduction 5/5 RIGHT knee extension 5/5 :: LEFT knee extension 5/5 RIGHT knee flexion 5/5 :: LEFT knee flexion 5/5 RIGHT ankle dorsiflexion 5/5 :: LEFT ankle dorsiflexion 5/5 RIGHT ankle plantarflexion 5/5 :: LEFT ankle plantarflexion 5/5 STRAIGHT LEG RAISE:: LLE is negative at 120 degrees. RLE is negative at 120 degrees. Although this maneuver causes extreme pain in the middle back. NEUROLOGIC SENSATION:: hypesthesia is not noted in lower extremity dermatomes. SIGNS OF NEUROVASCULAR COMPRESSION Clonus: none found bilateral with passive ROM at ankle joint Spasticity:: none Atrophy:: not present in UE or LE musculature Fasciculation:: not present in UE or LE musculature PSYCHIATRIC:: ORIENTATION:: awake and alert. INSIGHT:: good awareness of illness. AFFECT:: extreme pain behavior Radiology Images Viewed By Me:: [default value] I have reviewed and agree with information documented in the scribed documentation, ROS, patient medications, allergies, medical history, surgical history, social history, and family history. Results - Labs 01/03/17 06:19 01/03/17 06:19 Abnormal lab results RBC 3.16 M/mcL (3.82-4.97) L 01/03/17 06:19 Hgb 8.9 g/dL (11.5-15.4) L 01/03/17 06:19 Hct 28.8 % (35.3-44.9) L 01/03/17 06:19 MCHC 30.9 g/dL (31.6-35.5) L 01/03/17 06:19 RDW 16.3 % (11.5-14.5) H 01/03/17 06:19 MPV 9.3 fL (9.4-12.4) L 01/03/17 06:19 PT 28.0 Seconds (9.4-12.1) H D 01/03/17 06:19 BUN 24 mg/dL (7-20) H 01/03/17 06:19 Est GFR (Non-Af Amer) 51 (> 60) L 01/03/17 06:19 POC Glucose 138 (58-89) H 01/03/17 15:59 Troponin I 0.08 ng/mL (0-0.03) H* 01/02/17 05:40 B-Natriuretic Peptide 439 pg/mL (0-100) H 12/31/16 16:23 Globulin 3.8 g/dL (2.4-3.5) H 12/31/16 16:23 Albumin/Globulin Ratio 0.9 (1.1-2.2) L 12/31/16 16:23 Lipase 89 Units/L (8-78) H 12/31/16 16:23 Diabetes panel 01/03/17 Range/Units 06:19 Sodium 139 (136-145) mEq/L Potassium 4.3 (3.5-4.5) mEq/L Chloride 108 (98-109) mEq/L Carbon Dioxide 24 (19-29) mEq/L BUN 24 H (7-20) mg/dL Creatinine 1.08 (0.57-1.11) mg/dL Glucose 99 (70-99) mg/dL Calcium 8.8 (8.6-10.8) mg/dL Calcium panel 01/03/17 Range/Units 06:19 Calcium 8.8 (8.6-10.8) mg/dL Pituitary panel 01/03/17 Range/Units 06:19 Sodium 139 (136-145) mEq/L Potassium 4.3 (3.5-4.5) mEq/L Chloride 108 (98-109) mEq/L Carbon Dioxide 24 (19-29) mEq/L BUN 24 H (7-20) mg/dL Creatinine 1.08 (0.57-1.11) mg/dL Glucose 99 (70-99) mg/dL Calcium 8.8 (8.6-10.8) mg/dL Adrenal panel 01/03/17 Range/Units 06:19 Sodium 139 (136-145) mEq/L Potassium 4.3 (3.5-4.5) mEq/L Chloride 108 (98-109) mEq/L Carbon Dioxide 24 (19-29) mEq/L BUN 24 H (7-20) mg/dL Creatinine 1.08 (0.57-1.11) mg/dL Glucose 99 (70-99) mg/dL Calcium 8.8 (8.6-10.8) mg/dL All other labs normal. - VTE Documentation of Mechanical Device: Venous foot pump, device Consult Discharge Plan - Plan Referrals: Sunny Sampson DO [Partnered Physician] - Salvador Umana MD [Primary Care Provider] -
[2017-01-03] MEDS: Insulin DETEMIR 100 UNIT/ML X5UNITS SQ SCH (20:58)
[2017-01-04] MEDS: *HR* OxyCODONE Immed Rel 5 MG TABLET PO PRN ×5 (02:28→20:14)
[2017-01-04] MEDS: Ipratropium/Albuterol Neb 3 ML IH SCH ×5 (04:37→20:44)
[2017-01-04] MEDS: Acetaminophen 325 MG TABLET PO PRN ×2 (04:52→14:20)
[2017-01-04 05:34] LABS: Hematocrit 28.7 % (35.3-44.9); Mean Corpuscular HGB Conc 31.4 g/dL (31.6-35.5); Mean Corpuscular Hemoglobin 28.3 pg (28.0-33.3); Mean Corpuscular Volume 90.3 fL (83.0-100.0); Mean Platelet Volume 9.5 fL (9.4-12.4); Platelet Count 230 K/mcL (140-400); Red Blood Count 3.18 M/mcL (3.82-4.97); Red Cell Distribution Width 16.5 % (11.5-14.5)
[2017-01-04 05:38] LABS: INR 1.6; Prothrombin Time 17.1 Seconds (9.4-12.1)
[2017-01-04 05:43] LABS: BUN/Creatinine Ratio 19 (6-26); Blood Urea Nitrogen 19 mg/dL (7-20); Calcium 8.7 mg/dL (8.6-10.8); Carbon Dioxide 26 mEq/L (19-29); Chloride 104 mEq/L (98-109); Glucose 90 mg/dL (70-99); Osmolality,Calculated 288 (280-300); Potassium 4.2 mEq/L (3.5-4.5); Sodium 138 mEq/L (136-145); eGFR For African Americans > 60 (> 60); eGFR For Non-African Americans 54 (> 60)
[2017-01-04] MEDS: Insulin LISPRO 300 UNITS/3 ML VIAL SQ SCH ×4 (08:03→20:15)
[2017-01-04] MEDS: Furosemide 40 MG TABLET PO SCH ×2 (08:57→16:33)
[2017-01-04] MEDS ORDERED: *HR* Heparin 5,000 UNIT/ML VIAL IVP ONE (09:25)
[2017-01-04] MEDS ORDERED: *HR* Heparin 5,000 UNIT/ML VIAL IVP PRN ×2 (09:25)
[2017-01-04] MEDS ORDERED: Heparin 25,000 UNIT/500 ML D5W 25,000 UNIT/500 ML MLS IVC SCH (09:30)
[2017-01-04 10:12] LABS: Hematocrit 28.5 % (35.3-44.9); Mean Corpuscular HGB Conc 31.6 g/dL (31.6-35.5); Mean Corpuscular Hemoglobin 28.5 pg (28.0-33.3); Mean Corpuscular Volume 90.2 fL (83.0-100.0); Mean Platelet Volume 9.5 fL (9.4-12.4); Platelet Count 232 K/mcL (140-400); Red Blood Count 3.16 M/mcL (3.82-4.97); Red Cell Distribution Width 16.4 % (11.5-14.5)
--- NOTE | 2017-01-04 11:12 | Discharge Summary ---
Date of Encounter: 01/04/17 Time of Encounter: 09:30 - Discharge Diagnosis (1) T12 compression fracture Priority: Primary Status: Acute Comments: Marixa Vilchis is a 66-year-old female with past medical history morbid obesity , hypertension, diabetes, A. fib on Coumadin and CHF presented to [facility] on 12/31/2016 with complaints of lower back pain. She was found to have an acute T12 vertebrae fracture and supratherapeutic INR. She was admitted for further workup and treatment. She was discharged on 2016 to SNF 1. T12 compression fracture: Reports fall 1 week prior to admission. ABD CT showed an incidental T12 superior endplate compression fracture without retropulsion of bony fragments into the central canal. Evaluated by Dr. Sampson who initially recommended kyphoplasty however decision made to continue with conservative care for now with her multiple comorbidities. Continue judicious pain control with morbid obesity, she is at risk for hypoventilation syndrome. Will need to follow up with Dr. Sampson in 1-2 weeks after discharge. 2. Atrial fibrillation: On Coumadin. EKG with A/V paced rhythm. Rate controlled. INR 7.6 on admission, trended down to 1.6. Coumadin resumed with Lovenox bridge. Goal INR 2-3. Continue Coumadin at discharge. INR to be monitored at SNF. 3. Acute on chronic kidney disease: History of chronic kidney disease stage II. Cr 1.9 on admission. Improved with IV fluids and holding home Lasix, KANDY. Lasix and KANDY resumed at discharge. Recommend repeat CMP at SNF within 1 week 4. Hyperkalemia: in the setting of worsening renal function. Potassium normalized with IV fluids, Kayexalate. 5. Ventral hernia: per hx. Evaluated by general surgery who noted very large upper abdominal ventral hernia. No evidence of obstruction or incarceration on CT scan. She is not a surgical candidate due to morbid obesity with multiple comorbidities. 6. Diabetes: Per history. 10/2016 Hgb A1c 7.6%. Continue home oral hypoglycemics and Levemir at discharge. 7. EJ: Suspected with body habitus. Does not wear CPAP at home. Continue supplemental O2. 8. Chronic systolic heart failure: Per history. 04/2016 TTE with EF 30%, repeat CT 12/2016 with EF 50% and unchanged systolic function. Home Lasix initially held with worsening renal function. Lasix resumed prior to discharge. Recommend continuing daily weights, strict I&Os. 9. CAD: 04/2016 [facility] with mild, non-obstructive CAD. Troponin peaked at 0.09 while inpatient. Evaluated by cardiology who recommended continuing medical management. 10. Preoperative cardiac risk stratification: Evaluated by cardiology on and cleared for surgery with an intermediate CV risk (2) (HFpEF) heart failure with preserved ejection fraction Priority: Primary Status: Chronic (3) SIDDHARTH (acute kidney injury) Priority: Primary Status: Resolved (4) Atrial fibrillation Priority: Primary Status: Chronic Qualifiers: Atrial fibrillation type: chronic Qualified Code(s): I48.2 - Chronic atrial fibrillation (5) CAD (coronary artery disease) Priority: Secondary Status: Chronic Qualifiers: Coronary Disease-Associated Artery/Lesion type: [place] artery [place] vs. transplanted heart: [place] heart Associated angina: without angina Qualified Code(s): I25.10 - Atherosclerotic heart disease of [place] coronary artery without angina pectoris - Discharge Medications Prescriptions: Oxycodone HCl 5 mg PO Q4H PRN #42 tablet PRN Reason: Pain Home Medications: Insulin DETEMIR [Levemir] 50 unit SQ HS 04/05/16 [History] Loratadine [Claritin] 10 mg PO QAM 04/05/16 [History] Lovastatin [Mevacor] 20 mg PO HS 04/05/16 [History] Montelukast [Singulair] 10 mg PO HS 04/05/16 [History] SitaGLIPtin [Januvia] 100 mg PO DAILY 04/05/16 [History] Albuterol Sulfate [Proair Hfa] 2 puff IH Q4H PRN 04/06/16 [History] Beclomethasone Diprop 80mcg [QVAR 80 mcg] 1 puff IH BID 04/06/16 [History] Metformin HCl [Metformin HCl ER] 2,000 mg PO QPM 04/06/16 [History] Furosemide [Lasix] 40 mg PO BID 05/03/16 [History] Ascorbate Calcium [Vitamin C] 500 mg PO BID #60 tablet 09/15/16 [Rx] Ferrous Sulfate 325 mg PO BIDWM #60 tablet 09/15/16 [Rx] Albuterol Neb [Proventil Neb] 2.5 mg IH Q6H PRN #60 inhsol 12/05/16 [Rx] Lisinopril [Zestril] 2.5 mg PO DAILY 12/22/16 [History] Acetaminophen [Tylenol] 650 mg PO Q6HR PRN 12/31/16 [History] Warfarin Sodium 2.5 mg PO DAILY 12/31/16 [History] Enoxaparin [Lovenox] 130 mg SQ Q12HR syringe 01/04/17 [Rx] Oxycodone HCl 5 mg PO Q4H PRN #42 tablet 01/04/17 [Rx] Allergies/Adverse Reactions: 3 Allergy/AdvReac Type Severity Reaction Status Date / Time No Known Allergies Allergy Verified 12/22/16 11:47 Procedures/tests Complete & Pending: Procedures Performed prior 72 hours Category Date Time Status EV limited echocardiogram Routine Y 01/02/17 11:22 Completed Date of admission: 01/01/17 17:14 Primary care physician: Salvador Umana MD Consults: 01/02/17 08:33 Consult to Cardiology [CONS] Routine Comment: Consulting Provider: Cardiology Julita Reason for Consult: Cardiac risk stratification. Recurrent supratherapeutic INR. ? NOAC Call Completed: Yes 01/03/17 15:11 Consult to Occupational Therapy [CONS] Routine Comment: Evaluate, develop and implement POC Reason for Consult: T12 fracture Consult to Physical Therapy [CONS] Routine Comment: Evaluate, develop and implement POC Reason for Consult: T12 fracture - Patient Status Disposition: Transfer LTC Condition: Fair Functional capacity at discharge: bed bound Overall status at discharge: patient is not back to baseline - Discharge Instructions Instructions: Vertebral Compression Fracture (DC) Follow Up With: Sunny Sampson DO [Partnered Physician] - Salvador Umana MD [Primary Care Provider] - - Diet and Activity Activity: as per physical therapy Diet: diabetic diet, low fat, low cholesterol Interval History: Seen and examined at bedside. Patient is much more awake and alert on today's exam. Patient updated on plan of care, she is aware that Dr. Sampson is holding on to intervention at this time due to chronic comorbidities. She is agreeable to SNF for physical therapy and will need to follow-up with Dr. Sampson outpatient. She complains of lower back pain all my exam. Rates it 7 out of 10 , pain radiates to the legs at times. Pain medicine helps activity makes it worse. No chest pain, no shortness of breath. Hospital course: See assessment and plan for hospital course - Time Spent with Patient Total time spent providing and/or coordinating discharge services: Greater than 30 minutes - Constitutional Vitals: Temp Pulse Resp BP Pulse Ox 97.8 F 76 19 121/58 94 01/04/17 09:15 01/04/17 09:15 01/04/17 09:15 01/04/17 09:15 01/04/17 09:15 General appearance: Present: A&O X 3, morbidly obese, obese - Head Head exam: Present: atraumatic, normocephalic - Eye Eye exam: Present: PERRL, conjuntiva pink, sclera anicteric Pupils: Present: PERRL - Neck Neck exam general surgery: Present: supple, trachea midline. Absent: lymphadenopathy - Respiratory Respiratory exam: Present: CTAB. Absent: accessory muscle use, rales, rhonchi, wheezes - Cardiovascular Cardiovascular exam: Present: RRR, +S1, +S2. Absent: diastolic murmur, gallop, rubs, systolic murmur - GI/Abdominal GI/Abdominal exam: Present: normal bowel sounds, soft, no peritoneal signs. Absent: distended, tenderness - Extremities Exam Extremities exam: Present: warm, radial pulses palpable and symmetrical. Absent : calf tenderness, cyanotic, pedal edema - Neurological Exam Neurological exam: Present: CN II-XII intact, oriented X3, no focal deficits. Absent: pronater drift, facial droop, speech deficit - Skin Skin exam: Present: dry, intact - VTE Documentation of Mechanical Device: Intermittent pneumatic compression device
--- NOTE | 2017-01-04 11:29 | Physician Discharge Referral ---
ExtendedCare Referral Info Transfer To: [facility] Provider in Charge: Sara Thompson CNP Provider in Charge after Transfer: PCP Institutional Level of Care: Skilled - Diagnosis (1) T12 compression fracture Status: Acute (2) (HFpEF) heart failure with preserved ejection fraction Status: Chronic (3) SIDDHARTH (acute kidney injury) Status: Resolved (4) Atrial fibrillation Status: Chronic (5) CAD (coronary artery disease) Status: Chronic - Transfer Medications Prescriptions: Oxycodone HCl 5 mg PO Q4H PRN #42 tablet PRN Reason: Pain Home Medications: Insulin DETEMIR [Levemir] 50 unit SQ HS 04/05/16 [History] Loratadine [Claritin] 10 mg PO QAM 04/05/16 [History] Lovastatin [Mevacor] 20 mg PO HS 04/05/16 [History] Montelukast [Singulair] 10 mg PO HS 04/05/16 [History] SitaGLIPtin [Januvia] 100 mg PO DAILY 04/05/16 [History] Albuterol Sulfate [Proair Hfa] 2 puff IH Q4H PRN 04/06/16 [History] Beclomethasone Diprop 80mcg [QVAR 80 mcg] 1 puff IH BID 04/06/16 [History] Metformin HCl [Metformin HCl ER] 2,000 mg PO QPM 04/06/16 [History] Furosemide [Lasix] 40 mg PO BID 05/03/16 [History] Ascorbate Calcium [Vitamin C] 500 mg PO BID #60 tablet 09/15/16 [Rx] Ferrous Sulfate 325 mg PO BIDWM #60 tablet 09/15/16 [Rx] Albuterol Neb [Proventil Neb] 2.5 mg IH Q6H PRN #60 inhsol 12/05/16 [Rx] Lisinopril [Zestril] 2.5 mg PO DAILY 12/22/16 [History] Acetaminophen [Tylenol] 650 mg PO Q6HR PRN 12/31/16 [History] Warfarin Sodium 2.5 mg PO DAILY 12/31/16 [History] Enoxaparin [Lovenox] 130 mg SQ Q12HR syringe 01/04/17 [Rx] Oxycodone HCl 5 mg PO Q4H PRN #42 tablet 01/04/17 [Rx] Allergies/Adverse Reactions: 3 Allergy/AdvReac Type Severity Reaction Status Date / Time No Known Allergies Allergy Verified 12/22/16 11:47 - Respiratory Orders Oxygen / L per min (2 L/m via nasal cannula. Titrate to maintain O2 sats greater than or equal to 92%) Smoking Cessation: Smoking cessation has been advised. For more information, call the [place] Tobacco Quit Line at 9-352-IUFT-NOW. - Advance Directives Code Status: Full Code - Mobility Orders Ambulate - Rehabiliation Orders Rehab Potential: Fair Rehab Orders: Evaluation for Physical Therapy, Evaluation for Occupational Therapy - Diet Orders No Added Salt (JOLANTA), No Concentrated Sweets CERTIFICATION: I certify that the transfer of the above named patient to an Extended Care Facility is necessary for the continuing treatment of the diagnosis listed. The above information is true and accurate reflection of patient's current condition. Confidential - Redisclosure prohibited without a patient's written consent.
[2017-01-04] MEDS: *HR* Enoxaparin 150 MG/ML SYRINGE SQ SCH (17:28)
[2017-01-04] MEDS ORDERED: *HR* Warfarin 1 MG TABLET PO ONE (18:00)
[2017-01-04] MEDS: Insulin DETEMIR 100 UNIT/ML X5UNITS SQ SCH (20:14)
[2017-01-05] MEDS: Ipratropium/Albuterol Neb 3 ML IH SCH ×7 (00:15→23:00)
[2017-01-05] MEDS: *HR* OxyCODONE Immed Rel 5 MG TABLET PO PRN ×5 (00:17→19:16)
[2017-01-05 03:31] LABS: Hematocrit 28.2 % (35.3-44.9); Hemoglobin 9.3 g/dL (11.5-15.4); Mean Corpuscular Hemoglobin 29.3 pg (28.0-33.3); Mean Platelet Volume 9.7 fL (9.4-12.4); Platelet Count 237 K/mcL (140-400); Red Blood Count 3.17 M/mcL (3.82-4.97); Red Cell Distribution Width 16.1 % (11.5-14.5)
[2017-01-05 03:37] LABS: BUN/Creatinine Ratio 17 (6-26); Blood Urea Nitrogen 17 mg/dL (7-20); Calcium 8.7 mg/dL (8.6-10.8); Carbon Dioxide 25 mEq/L (19-29); Chloride 101 mEq/L (98-109); Glucose 97 mg/dL (70-99); Osmolality,Calculated 283 (280-300); Potassium 3.7 mEq/L (3.5-4.5); Sodium 136 mEq/L (136-145); eGFR For African Americans > 60 (> 60); eGFR For Non-African Americans 53 (> 60)
[2017-01-05] MEDS: *HR* Enoxaparin 150 MG/ML SYRINGE SQ SCH ×2 (05:29→17:22)
[2017-01-05] MEDS: Acetaminophen 325 MG TABLET PO PRN ×3 (07:53→20:50)
[2017-01-05] MEDS: Furosemide 40 MG TABLET PO SCH ×2 (07:53→17:22)
[2017-01-05] MEDS: Insulin LISPRO 300 UNITS/3 ML VIAL SQ SCH ×4 (08:05→21:06)
--- NOTE | 2017-01-05 13:38 | Internal Med Progress Note ---
Date of Encounter: 01/05/17 Time of Encounter: 09:10 - Assessment and plan (1) T12 compression fracture Current Visit: Yes Status: Acute Assessment and plan: Acute T12 compression fracture without retropulsion of bony fragments into the central canal Orthopedics consult - conservative care for now, outpatient follow-up in 1-2 weeks Continue Oxycodone as needed for pain [facility]ipate [facility] (2) Diabetes Current Visit: No Status: Chronic Assessment and plan: Type 2 diabetes mellitus, insulin-dependent, hyperglycemia Continue Levemir, sliding scale insulin, glucose checks Qualifiers: Diabetes mellitus type: type 2 Diabetes mellitus complication status: with unspecified complications 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 mellitus 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 carman insulin use: with senior living use Qualified Code(s): E11.8 - Type 2 diabetes mellitus with unspecified complications; Z79.4 - jail (current) use of insulin (3) HTN (hypertension) Current Visit: No Status: Chronic Assessment and plan: Essential hypertension, controlled, monitor Continue home dose of Zestril on discharge Qualifiers: Hypertension type: essential hypertension Qualified Code(s): I10 - Essential (primary) hypertension (4) Atrial fibrillation Current Visit: No Status: Chronic Assessment and plan: Chronic atrial fibrillation, rate controlled Continue Coumadin for anticoagulation Patient is not on any medications for rate control at home Qualifiers: Atrial fibrillation type: chronic Qualified Code(s): I48.2 - Chronic atrial fibrillation (5) CHF (congestive heart failure) Current Visit: Yes Status: Chronic Assessment and plan: Chronic CHF diastolic dysfunction with LVEF 50% - not in exacerbation Echocardiogram - all wall segments showed normal motion, moderate LVH, LVEF 50% Continue home dose of Lasix Qualifiers: Congestive heart failure type: diastolic Congestive heart failure chronicity: acute on chronic Qualified Code(s): I50.33 - Acute on chronic diastolic (congestive) heart failure (6) CAD (coronary artery disease) Current Visit: Yes Status: Chronic Assessment and plan: Status post [facility] 05/11 - with mild nonobstructive coronary artery disease - stable Continue medical management with statin Patient is on Coumadin for anticoagulation Qualifiers: Coronary Disease-Associated Artery/Lesion type: [place] artery [place] vs. transplanted heart: [place] heart Associated angina: without angina Qualified Code(s): I25.10 - Atherosclerotic heart disease of [place] coronary artery without angina pectoris (7) EJ (obstructive sleep apnea) Current Visit: Yes Status: Chronic Assessment and plan: Probable undiagnosed obstructive sleep apnea Patient will need sleep study as outpatient, continue supplemental O2 as needed (8) Morbid obesity Current Visit: Yes Status: Acute Assessment and plan: Morbid obesity with BMI 52.9 Advised lifestyle modification (9) DVT prophylaxis Current Visit: Yes Status: Acute Assessment and plan: Continue Warfarin for anticoagulation Lovenox for bridging Monitor PT/INR - Time Spent With Patient 25 - 35 minutes - Subjective Interval history: Examined this morning. Patient is awake and alert. Not in any distress. Denies chest pain or shortness of breath. Tolerating oral diet well. Sitting up comfortably in chair. No fever. Hemodynamically stable. Patient was admitted for acute compression fracture. Initially surgical intervention was planned. Patient is now being discharged with conservative management. [facility]ing [facility]. No acute events or complaints at this time. - Constitutional Vitals: Temp Pulse Resp BP Pulse Ox 98.2 F 74 16 111/65 96 01/05/17 12:20 01/05/17 12:20 01/05/17 12:20 01/05/17 12:20 01/05/17 12:20 General appearance: Present: cooperative, A&O X 3, morbidly obese, pleasant, obese, answers questions appropriately - Head Head exam: Present: atraumatic - Eye Eye exam: Present: EOMI - ENT ENT exam: Present: mucous membranes moist - Respiratory Respiratory exam: Present: CTAB. Absent: accessory muscle use, chest wall tenderness, rales, rhonchi, wheezes, tachypnea - Cardiovascular Cardiovascular exam: Present: RRR, +S1, +S2 - GI/Abdominal GI/Abdominal exam: Present: soft. Absent: distended, firm, guarding, tenderness - Extremities Exam Extremities exam: Present: pedal edema (Mild bilateral), radial pulses palpable and symmetrical. Absent: calf tenderness, cyanotic - Neurological Exam Neurological exam: Present: alert, CN II-XII intact, oriented X3, no focal deficits. Absent: facial droop, speech deficit Internal Medicine: Result - Labs CBC & Chem 7: 01/05/17 03:04 01/05/17 03:04 Labs: Short CBC 01/05/17 Range/Units 03:04 WBC 7.3 (4.3-11.1) K/mcL Hgb 9.3 L (11.5-15.4) g/dL Hct 28.2 L (35.3-44.9) % Plt Count 237 (140-400) K/mcL BMP 01/05/17 03:04 Sodium 136 Potassium 3.7 Chloride 101 Carbon Dioxide 25 BUN 17 Creatinine 1.03 Glucose 97 Calcium 8.7 - ABG Interpretation ABG results: PT/INR, D-dimer PT 17.1 Seconds (9.4-12.1) H 01/04/17 05:12 - VTE Documentation of Mechanical Device: Intermittent pneumatic compression device Consult Discharge Plan - Plan Instructions: Vertebral Compression Fracture (DC) Referrals: Sunny Sampson DO [Partnered Physician] - 01/15/17 12:05 pm Salvador Umana MD [Primary Care Provider] - 01/07/17 8:30 am Prescriptions: Oxycodone HCl 5 mg PO Q4H PRN #42 tablet PRN Reason: Pain
[2017-01-05 14:21] LABS: INR 1.5; Prothrombin Time 15.9 Seconds (9.4-12.1)
[2017-01-05] MEDS ORDERED: *HR* Warfarin 2.5 MG TABLET PO ONE (18:00)
[2017-01-05] MEDS: Insulin DETEMIR 100 UNIT/ML X5UNITS SQ SCH (19:23)
[2017-01-06] MEDS: *HR* OxyCODONE Immed Rel 5 MG TABLET PO PRN ×5 (00:04→21:15)
[2017-01-06] MEDS: Ipratropium/Albuterol Neb 3 ML IH SCH ×6 (04:07→23:53)
[2017-01-06 05:44] LABS: Hematocrit 28.7 % (35.3-44.9); Hemoglobin 9.1 g/dL (11.5-15.4); Mean Corpuscular HGB Conc 31.7 g/dL (31.6-35.5); Mean Corpuscular Hemoglobin 28.2 pg (28.0-33.3); Mean Corpuscular Volume 88.9 fL (83.0-100.0); Mean Platelet Volume 9.1 fL (9.4-12.4); Platelet Count 220 K/mcL (140-400); Red Blood Count 3.23 M/mcL (3.82-4.97); Red Cell Distribution Width 15.8 % (11.5-14.5)
[2017-01-06 05:50] LABS: INR 1.5; Prothrombin Time 16.5 Seconds (9.4-12.1)
[2017-01-06 05:57] LABS: BUN/Creatinine Ratio 19 (6-26); Blood Urea Nitrogen 20 mg/dL (7-20); Calcium 8.8 mg/dL (8.6-10.8); Carbon Dioxide 26 mEq/L (19-29); Chloride 100 mEq/L (98-109); Glucose 135 mg/dL (70-99); Osmolality,Calculated 287 (280-300); Potassium 3.4 mEq/L (3.5-4.5); Sodium 136 mEq/L (136-145); eGFR For African Americans > 60 (> 60); eGFR For Non-African Americans 52 (> 60)
[2017-01-06] MEDS: *HR* Enoxaparin 150 MG/ML SYRINGE SQ SCH ×2 (06:57→17:02)
[2017-01-06] MEDS: Insulin LISPRO 300 UNITS/3 ML VIAL SQ SCH ×4 (07:21→20:28)
[2017-01-06] MEDS: Acetaminophen 325 MG TABLET PO PRN ×3 (09:51→22:53)
[2017-01-06] MEDS: Furosemide 40 MG TABLET PO SCH ×2 (09:51→15:44)
--- NOTE | 2017-01-06 11:30 | Internal Med Progress Note ---
Date of Encounter: 01/06/17 Time of Encounter: 11:20 - Assessment and plan (1) T12 compression fracture Current Visit: Yes Status: Acute Assessment and plan: Acute T12 compression fracture without retropulsion of bony fragments into the central canal Orthopedics consult - conservative care for now, outpatient follow-up in 1-2 weeks Continue Oxycodone as needed for pain Anticipate discharge to [facility] tomorrow (2) Diabetes Current Visit: No Status: Chronic Assessment and plan: Type 2 diabetes mellitus, insulin-dependent, hyperglycemia Continue Levemir, sliding scale insulin, glucose checks Qualifiers: Diabetes mellitus type: type 2 Diabetes mellitus complication status: with unspecified complications Diabetes mellitus terminal operator insulin use: with terminal operator use Qualified Code(s): E11.8 - Type 2 diabetes mellitus with unspecified complications; Z79.4 - group home (current) use of insulin (3) HTN (hypertension) Current Visit: No Status: Chronic Assessment and plan: Essential hypertension, controlled, monitor Continue home dose of Zestril on discharge Qualifiers: Hypertension type: essential hypertension Qualified Code(s): I10 - Essential (primary) hypertension (4) Atrial fibrillation Current Visit: No Status: Chronic Assessment and plan: Chronic atrial fibrillation, rate controlled Continue Coumadin for anticoagulation Patient is not on any medications for rate control at home Qualifiers: Atrial fibrillation type: chronic Qualified Code(s): I48.2 - Chronic atrial fibrillation (5) CHF (congestive heart failure) Current Visit: Yes Status: Chronic Assessment and plan: Chronic CHF diastolic dysfunction with LVEF 50% - not in exacerbation Echocardiogram - all wall segments showed normal motion, moderate LVH, LVEF 50% Continue home dose of Lasix Qualifiers: Congestive heart failure type: diastolic Congestive heart failure chronicity: acute on chronic Qualified Code(s): I50.33 - Acute on chronic diastolic (congestive) heart failure (6) CAD (coronary artery disease) Current Visit: Yes Status: Chronic Assessment and plan: Status post [facility] 05/11 - with mild nonobstructive coronary artery disease - stable Continue medical management with statin Patient is on Coumadin for anticoagulation Qualifiers: Coronary Disease-Associated Artery/Lesion type: [place] artery [place] vs. transplanted heart: [place] heart Associated angina: without angina Qualified Code(s): I25.10 - Atherosclerotic heart disease of [place] coronary artery without angina pectoris (7) EJ (obstructive sleep apnea) Current Visit: Yes Status: Chronic Assessment and plan: Probable undiagnosed obstructive sleep apnea Patient will need sleep study as outpatient, continue supplemental O2 as needed (8) Morbid obesity Current Visit: Yes Status: Acute Assessment and plan: Morbid obesity with BMI 50.6 Advised lifestyle modification (9) DVT prophylaxis Current Visit: Yes Status: Acute Assessment and plan: Continue Warfarin for anticoagulation Lovenox for bridging Monitor PT/INR, pharmacy to dose Coumadin - Time Spent With Patient 25 - 35 minutes - Subjective Interval history: Examined this morning. Patient is awake and alert. Not in any distress. Denies chest pain or shortness of breath. Tolerating oral diet well. Sitting up comfortably in chair. No fever. Hemodynamically stable. No acute complaints or events. Patient was admitted for acute compression fracture. Initially surgical intervention was planned. Patient is now being discharged with conservative management. Awaiting discharge to [facility] on Saturday. - Constitutional Vitals: Temp Pulse Resp BP Pulse Ox 98.1 F 70 22 121/57 98 01/06/17 06:42 01/06/17 06:42 01/06/17 11:13 01/06/17 06:42 01/06/17 11:13 General appearance: Present: cooperative, A&O X 3, morbidly obese, pleasant, obese, answers questions appropriately - Head Head exam: Present: atraumatic - Eye Eye exam: Present: EOMI - ENT ENT exam: Present: mucous membranes moist - Respiratory Respiratory exam: Present: CTAB. Absent: chest wall tenderness, rales, rhonchi , wheezes, tachypnea - Cardiovascular Cardiovascular exam: Present: RRR, +S1, +S2 - GI/Abdominal GI/Abdominal exam: Present: soft. Absent: distended, firm, guarding, tenderness - Extremities Exam Extremities exam: Present: pedal edema (Mild bilateral), radial pulses palpable and symmetrical. Absent: calf tenderness, cyanotic - Neurological Exam Neurological exam: Present: alert, oriented X3, no focal deficits. Absent: facial droop, speech deficit Internal Medicine: Result - Labs CBC & Chem 7: 01/06/17 05:31 01/06/17 05:31 Labs: Short CBC 01/06/17 Range/Units 05:31 WBC 7.0 (4.3-11.1) K/mcL Hgb 9.1 L (11.5-15.4) g/dL Hct 28.7 L (35.3-44.9) % Plt Count 220 (140-400) K/mcL BMP 01/06/17 05:31 Sodium 136 Potassium 3.4 L Chloride 100 Carbon Dioxide 26 BUN 20 Creatinine 1.06 Glucose 135 H Calcium 8.8 - ABG Interpretation ABG results: PT/INR, D-dimer PT 16.5 Seconds (9.4-12.1) H 01/06/17 05:31 - VTE Documentation of Mechanical Device: Intermittent pneumatic compression device Consult Discharge Plan - Plan Instructions: Vertebral Compression Fracture (DC) Referrals: Sunny Sampson DO [Partnered Physician] - 01/15/17 12:05 pm Salvador Umana MD [Primary Care Provider] - 01/07/17 8:30 am Prescriptions: Oxycodone HCl 5 mg PO Q4H PRN #42 tablet PRN Reason: Pain
[2017-01-06] MEDS ORDERED: *HR* Warfarin 2.5 MG TABLET PO ONE (18:00)
[2017-01-06] MEDS: Insulin DETEMIR 100 UNIT/ML X5UNITS SQ SCH (20:28)
[2017-01-07] MEDS: *HR* OxyCODONE Immed Rel 5 MG TABLET PO PRN ×3 (01:30→12:35)
[2017-01-07] MEDS: Acetaminophen 325 MG TABLET PO PRN ×2 (05:01→11:02)
[2017-01-07] MEDS: *HR* Enoxaparin 150 MG/ML SYRINGE SQ SCH (05:01)
[2017-01-07] MEDS: Ipratropium/Albuterol Neb 3 ML IH SCH ×3 (05:05→11:35)
[2017-01-07 05:46] LABS: INR 1.9; Prothrombin Time 20.4 Seconds (9.4-12.1)
[2017-01-07] MEDS: Furosemide 40 MG TABLET PO SCH (08:17)
[2017-01-07] MEDS: Insulin LISPRO 300 UNITS/3 ML VIAL SQ SCH ×2 (08:22→12:35)
--- NOTE | 2017-01-07 10:03 | Internal Med Progress Note ---
Date of Encounter: 01/07/17 Time of Encounter: 08:40 - Assessment and plan (1) T12 compression fracture Current Visit: Yes Status: Acute Assessment and plan: Acute T12 compression fracture without retropulsion of bony fragments into the central canal Orthopedics consult - conservative care for now outpatient follow-up in 1-2 weeks Continue PT/OT at [facility] Continue Oxycodone as needed for pain Stable for discharge to [facility] today (2) Diabetes Current Visit: No Status: Chronic Assessment and plan: Type 2 diabetes mellitus, insulin-dependent, hyperglycemia Continue regular home dose of insulin Qualifiers: Diabetes mellitus type: type 2 Diabetes mellitus complication status: with unspecified complications Diabetes mellitus high school biology teacher insulin use: with high school biology teacher use Qualified Code(s): E11.8 - Type 2 diabetes mellitus with unspecified complications; Z79.4 - [facility] (current) use of insulin (3) HTN (hypertension) Current Visit: No Status: Chronic Assessment and plan: Essential hypertension, controlled, monitor Continue home dose of Zestril Qualifiers: Hypertension type: essential hypertension Qualified Code(s): I10 - Essential (primary) hypertension (4) Atrial fibrillation Current Visit: No Status: Chronic Assessment and plan: Chronic atrial fibrillation, rate controlled Continue Coumadin for anticoagulation Patient is not on any medications for rate control at home Monitor PT/INR weekly Qualifiers: Atrial fibrillation type: chronic Qualified Code(s): I48.2 - Chronic atrial fibrillation (5) CHF (congestive heart failure) Current Visit: Yes Status: Chronic Assessment and plan: Chronic CHF diastolic dysfunction with LVEF 50% - not in exacerbation Echocardiogram - all wall segments showed normal motion, moderate LVH, LVEF 50% Continue home dose of Lasix Qualifiers: Congestive heart failure type: diastolic Congestive heart failure chronicity: acute on chronic Qualified Code(s): I50.33 - Acute on chronic diastolic (congestive) heart failure (6) CAD (coronary artery disease) Current Visit: Yes Status: Chronic Assessment and plan: Status post [facility] 05/11 - with mild nonobstructive coronary artery disease - stable Continue medical management with statin Patient is on Coumadin for anticoagulation Qualifiers: Coronary Disease-Associated Artery/Lesion type: [place] artery [place] vs. transplanted heart: [place] heart Associated angina: without angina Qualified Code(s): I25.10 - Atherosclerotic heart disease of [place] coronary artery without angina pectoris (7) EJ (obstructive sleep apnea) Current Visit: Yes Status: Chronic Assessment and plan: Probable undiagnosed obstructive sleep apnea Patient will need sleep study as outpatient, continue supplemental O2 as needed (8) Morbid obesity Current Visit: Yes Status: Acute Assessment and plan: Morbid obesity with BMI 50.8 Advised lifestyle modification (9) DVT prophylaxis Current Visit: Yes Status: Acute Assessment and plan: Continue Warfarin for anticoagulation Lovenox given for bridging INR - 1.9, Recheck PT/INR in one day Coumadin dose to be adjusted by PCP - Time Spent With Patient 25 - 35 minutes - Subjective Interval history: Examined this morning. Patient is awake and alert. Not in any distress. Denies chest pain or shortness of breath. Tolerating oral diet well. Sitting up comfortably in chair. No fever. Hemodynamically stable. No acute complaints or events. Patient was admitted for acute compression fracture. Initially surgical intervention was planned. Patient is now being discharged with conservative management. Stable for discharge to [facility] today. Follow-up with orthopedics as outpatient. - Constitutional Vitals: Temp Pulse Resp BP Pulse Ox 97.8 F 76 16 118/79 98 01/07/17 07:31 01/07/17 07:31 01/07/17 07:31 01/07/17 07:31 01/07/17 07:31 General appearance: Present: cooperative, A&O X 3, morbidly obese, pleasant, obese, answers questions appropriately - Head Head exam: Present: atraumatic - Eye Eye exam: Present: EOMI - ENT ENT exam: Present: mucous membranes moist - Respiratory Respiratory exam: Present: CTAB. Absent: accessory muscle use, chest wall tenderness, rales, rhonchi, wheezes, tachypnea - Cardiovascular Cardiovascular exam: Present: RRR, +S1, +S2 - GI/Abdominal GI/Abdominal exam: Present: soft. Absent: distended, firm, guarding, tenderness - Extremities Exam Extremities exam: Present: pedal edema (Mild bilateral), radial pulses palpable and symmetrical. Absent: calf tenderness, cyanotic - Neurological Exam Neurological exam: Present: alert, oriented X3, no focal deficits. Absent: facial droop, speech deficit Internal Medicine: Result - Labs CBC & Chem 7: 01/06/17 05:31 01/06/17 05:31 - ABG Interpretation ABG results: PT/INR, D-dimer PT 20.4 Seconds (9.4-12.1) H 01/07/17 05:00 - VTE Documentation of Mechanical Device: Intermittent pneumatic compression device Consult Discharge Plan - Plan Instructions: Vertebral Compression Fracture (DC) Referrals: Sunny Sampson DO [Partnered Physician] - 01/15/17 12:05 pm Salvador Umana MD [Primary Care Provider] - 01/07/17 8:30 am Prescriptions: Oxycodone HCl 5 mg PO Q4H PRN #42 tablet PRN Reason: Pain
[2017-01-07 11:22] VITALS: BP 128/84
[2017-01-07] MEDS ORDERED: *HR* Warfarin 2.5 MG TABLET PO ONE (18:00)
== END 2017-01-07 15:05 | DRG 551 ==
LOC: 3NENU 15:29 → EMEROO 15:29 → 3NENU 20:19
PROVIDERS: ADMIT Registered Nurse; ATTEND Internal Medicine

== ENCOUNTER 2017-02-16 14:34 | Inpatient (IN) ==
--- NOTE | 2017-02-16 15:17 | Emergency Department Note ---
Disposition Clinical Impression: Influenza A Pneumonia Qualifiers: Pneumonia type: due to unspecified organism Laterality: unspecified laterality Lung location: unspecified part of lung Qualified Code(s): J18.9 - Pneumonia, unspecified organism Disposition: Admitted As Inpatient Condition: Fair Time of Disposition: 18:55 General Adult HPI - General Chief complaint: ED Shortness of Breath/Dyspnea Stated complaint: Back Pain, FABIANA Time Seen by Provider: 02/16/17 14:42 Source: patient, family, EMS Limitations: no limitations Nursing Notes Reviewed: Yes Vital Signs Reviewed: Yes - History of Present Illness HPI Narrative: Patient is a 66-year-old female presents to the emergency department with shortness of breath and fever. The daughter states that she had a fever of approximately 102.6 at home this morning and has had worsening of her shortness of breath. Patient denies any home oxygen use. Daughter states that her oxygen dropped to 84% today and just generally has not been feeling well she has not been eating and has been dry heaving. She was also recently [facility] and there was reported cases of influenza there in the prison has quarantined area that she had been staying in. The daughter states that she seems to be acting weaker than normal. Patient states that she has not had a bowel movement in the past 4 days. She states that she has also had a cough with phlegm production that has been yellow in color. Patient also reports that she has had back pain and tailbone pain since having a fall from her shower chair causing a fracture to T12. Pain Scale: 5 - Related Data Home Medications Medication Instructions Recorded Confirmed Insulin DETEMIR [Levemir] 50 unit SQ HS 04/05/16 02/16/17 Loratadine [Claritin] 10 mg PO QAM 04/05/16 02/16/17 Montelukast [Singulair] 10 mg PO HS 04/05/16 02/16/17 SitaGLIPtin [Januvia] 100 mg PO DAILY 04/05/16 02/16/17 Albuterol Sulfate [Proair Hfa] 2 puff IH Q4H PRN 04/06/16 02/16/17 Beclomethasone Diprop 80mcg [QVAR 1 puff IH BID 04/06/16 02/16/17 80 mcg] Metformin HCl [Metformin HCl ER] 2,000 mg PO QPM 04/06/16 02/16/17 Furosemide [Lasix] 40 mg PO BID 05/03/16 02/16/17 Lisinopril [Zestril] 2.5 mg PO DAILY 12/22/16 02/16/17 Acetaminophen [Tylenol] 650 mg PO Q6HR PRN 12/31/16 02/16/17 Warfarin Sodium 2.5 mg PO DAILY 12/31/16 02/16/17 Potassium Chloride [Klor-Con 10] 20 meq PO DAILY 02/16/17 02/16/17 Previous Rx's Medication Instructions Recorded Ascorbate Calcium [Vitamin C] 500 mg PO BID #60 tablet 09/15/16 Ferrous Sulfate 325 mg PO BIDWM #60 tablet 09/15/16 Albuterol Neb [Proventil Neb] 2.5 mg IH Q6H PRN #60 inhsol 12/05/16 Oxycodone HCl 5 mg PO Q4H PRN #42 tablet 01/04/17 Allergies Allergy/AdvReac Type Severity Reaction Status Date / Time No Known Allergies Allergy Verified 12/22/16 11:47 All systems ED: reviewed and negative except as stated. Constitutional: Reports: fever, weakness Cardiovascular: Reports: dyspnea on exertion Respiratory: Reports: cough, dyspnea Gastrointestinal: Reports: nausea. Denies: vomiting Musculoskeletal: Reports: back pain Past Medical History - Past Medical History Medical history: Reports: atrial fibrillation, CHF, diabetes, hyperlipidemia, hypertension, other Surgical history: Reports: appendectomy, other, pacemaker Psychiatric history: Reports: anxiety, depression - Social History Smoking Status: Never smoker Smokeless Tobacco Status: No Alcohol use: Reports: none Drug use: Reports: none Physical Exam - General Limitations: no limitations General appearance: alert, in no apparent distress - Head Head exam: atraumatic, normocephalic - Eye Eye exam: Present: normal appearance, EOMI - ENT ENT exam: mucous membranes dry - Neck Neck exam: Present: full ROM, trachea midline, other (Scar from previous neck surgery) - Respiratory Respiratory exam: Present: other (Patient has crackles bilaterally) - Cardiovascular Cardiovascular exam: Present: regular rate, normal rhythm, normal heart sounds, +S1, +S2 - Abdominal Exam Abdominal exam: Present: soft, tenderness, normal bowel sounds Abdominal tenderness: Present: RLQ, suprapubic, mild - Extremities Exam Extremities exam: Present: pedal edema, other (Patient significant edema in bilateral lower extremities) - Neurological Exam Neurological exam: Present: alert, oriented X3 - Psychiatric Psychiatric exam: Present: normal affect, normal mood - Skin Skin exam: Present: warm, dry, intact Course Vital Signs Temperature 98.4 F 02/16/17 14:36 Pulse Rate 70 02/16/17 14:36 Respiratory Rate 20 02/16/17 14:36 Blood Pressure 106/60 02/16/17 14:36 O2 Sat by Pulse Oximetry 95 02/16/17 14:36 Temperature 99.0 F 02/16/17 19:47 Pulse Rate 70 02/16/17 19:47 Respiratory Rate 15 02/16/17 19:47 Blood Pressure 119/64 02/16/17 19:47 O2 Sat by Pulse Oximetry 92 02/16/17 19:47 Oxygen Delivery Oxygen Delivery Nasal Cannula Medical Decision Making - MDM Narrative Medical decision making narrative: Due to the patient having subjective fever at home, shortness of breath and generally not feeling well we will do a CBC, BMP, troponin, lipase, lactate, EKG , influenza swab, chest x-ray will also do a CT of the abdomen and pelvis with the patient having abdominal pain on exam. We will have a urinalysis to the patient having subjective fever and she pubic tenderness on exam. Patient's chest x-ray came back positive for a possible pneumonia. Patient was positive for influenza A. We will start patient on Tamiflu, vancomycin, Zosyn and Levaquin. The patient's CT of the chest was negative for pulmonary embolus. Patient did have an elevated troponin of 0.10. She has a history of elevated troponins in the past. Patient has had some shortness of breath but denies any chest pain. EKG showed a ventricular paced rhythm at a rate of 69 bpm without any ischemic changes. There is no acute process in the abdomen or pelvis on CT scan. Patient will be admitted to the hospital. I called and spoke with the hospitalist and they have accepted the patient to their service. - Medical Records Medical records reviewed: Yes I reviewed the patient's medical records. - Lab Data Lab results reviewed: Yes I reviewed the patient's lab results. Result diagrams: 02/16/17 15:23 02/16/17 15:23 Lab Results 02/16/17 02/16/17 02/16/17 Range/Units 15:23 15:23 15:23 WBC 4.9 (4.3-11.1) K/mcL RBC 3.27 L (3.82-4.97) M/mcL Hgb 9.2 L (11.5-15.4) g/dL Hct 29.0 L (35.3-44.9) % MCV 88.7 (83.0-100.0) fL MCH 28.1 (28.0-33.3) pg MCHC 31.7 (31.6-35.5) g/dL RDW 14.7 H (11.5-14.5) % Plt Count 172 (140-400) K/mcL MPV 9.5 (9.4-12.4) fL Immature Gran % 0.6 (0-4) % Seg Neutrophils % 76.7 % Lymphocytes % 9.9 % Monocytes % 12.6 % Eosinophils % 0.0 % Basophils % 0.2 % Neutrophils # 3.7 (1.6-8.9) K/mcL Lymphocytes # 0.5 L (0.6-4.6) K/mcL Monocytes # 0.6 (0.0-1.3) K/mcL Eosinophils # 0.0 (0.0-0.6) K/mcL Basophils # 0.0 (0.0-0.2) K/mcL Sodium 135 L (136-145) mEq/L Potassium 4.1 (3.5-5.1) mEq/L Chloride 101 (98-107) mEq/L Carbon Dioxide 25 (23-29) mEq/L BUN 18 (8-23) mg/dL Creatinine 1.19 (0.60-1.20) mg/dL Est GFR ( Amer) 55 L (> 60) Est GFR (Non-Af Amer) 45 L (> 60) BUN/Creatinine Ratio 15 (6-26) Glucose 156 H (70-105) mg/dL Calculated Osmolality 285 (280-300) Lactic Acid 1.1 (0.5-2.2) mmol/L Calcium 9.0 (8.6-10.3) mg/dL Troponin I (< 0.04) ng/mL B-Natriuretic Peptide (Less than 100) pg/mL Urine Color (Yellow) Urine Clarity (Clear) Urine pH (5.0-8.0) pH Units Ur Specific [place] (1.010-1.025) Urine Protein (Neg-Trace) mg/dL Urine Glucose (UA) (Normal) mg/dL Urine Ketones (Negative) mg/dL Urine Blood (Negative) Urine Nitrite (Negative) Urine Bilirubin (Negative) Urine Urobilinogen (Normal) mg/dL Ur Leukocyte Esterase (Negative) Urine Microscopic RBC (0-3) per hpf Urine Microscopic WBC (0-3) per hpf Ur Squamous Epith Cells (None-Few) per lpf Urine Bacteria (None-Few) per hpf Hyaline Casts (None-Few) per lpf Ur Culture Indicated? (NO) 02/16/17 02/16/17 02/16/17 Range/Units 15:23 15:23 15:44 WBC (4.3-11.1) K/mcL RBC (3.82-4.97) M/mcL Hgb (11.5-15.4) g/dL Hct (35.3-44.9) % MCV (83.0-100.0) fL MCH (28.0-33.3) pg MCHC (31.6-35.5) g/dL RDW (11.5-14.5) % Plt Count (140-400) K/mcL MPV (9.4-12.4) fL Immature Gran % (0-4) % Seg Neutrophils % % Lymphocytes % % Monocytes % % Eosinophils % % Basophils % % Neutrophils # (1.6-8.9) K/mcL Lymphocytes # (0.6-4.6) K/mcL Monocytes # (0.0-1.3) K/mcL Eosinophils # (0.0-0.6) K/mcL Basophils # (0.0-0.2) K/mcL Sodium (136-145) mEq/L Potassium (3.5-5.1) mEq/L Chloride (98-107) mEq/L Carbon Dioxide (23-29) mEq/L BUN (8-23) mg/dL Creatinine (0.60-1.20) mg/dL Est GFR ( Amer) (> 60) Est GFR (Non-Af Amer) (> 60) BUN/Creatinine Ratio (6-26) Glucose (70-105) mg/dL Calculated Osmolality (280-300) Lactic Acid (0.5-2.2) mmol/L Calcium (8.6-10.3) mg/dL Troponin I 0.10 H* (< 0.04) ng/mL B-Natriuretic Peptide 742 H (Less than 100) pg/mL Urine Color Yellow (Yellow) Urine Clarity Cloudy A (Clear) Urine pH 5.0 (5.0-8.0) pH Units Ur Specific [place] 1.024 (1.010-1.025) Urine Protein Negative (Neg-Trace) mg/dL Urine Glucose (UA) Normal (Normal) mg/dL Urine Ketones Negative (Negative) mg/dL Urine Blood Negative (Negative) Urine Nitrite Negative (Negative) Urine Bilirubin Negative (Negative) Urine Urobilinogen Normal (Normal) mg/dL Ur Leukocyte Esterase Negative (Negative) Urine Microscopic RBC 0-3 (0-3) per hpf Urine Microscopic WBC 0-3 (0-3) per hpf Ur Squamous Epith Cells Many H (None-Few) per lpf Urine Bacteria None Seen (None-Few) per hpf Hyaline Casts Few (None-Few) per lpf Ur Culture Indicated? NO (NO) - Radiology Data Radiology results reviewed: Yes I reviewed the patient's radiology results. Chest X-Ray 02/16/17 14:45 IMPRESSION: Mild left basilar airspace disease could represent atelectasis or pneumonia. D/ / Simon Harp MD / Simon Harp MD Interpreting Provider: Simon Harp MD Abdomen/Pelvis CT 02/16/17 15:15 IMPRESSION: 1. No evidence of pulmonary embolism. 2. Possible air trapping, which can be seen with small airways disease. 3. Coronary atherosclerosis. 4. Borderline enlarged mediastinal lymph nodes, which are nonspecific. 5. No acute process in the abdomen or pelvis. 6. 9 x 7 mm calculus in the right inferior renal pole. 7. Fat containing periumbilical hernia. 8. Possible 19 x 15 mm sebaceous cyst versus other benign fluid collection along the left anterior abdominal wall. D/ / 02/16/2017 17:06:23 Josh Hwang MD / niles Interpreting Provider: Josh Hwang MD Chest CTA 02/16/17 16:08 IMPRESSION: 1. No evidence of pulmonary embolism. 2. Possible air trapping, which can be seen with small airways disease. 3. Coronary atherosclerosis. 4. Borderline enlarged mediastinal lymph nodes, which are nonspecific. 5. No acute process in the abdomen or pelvis. 6. 9 x 7 mm calculus in the right inferior renal pole. 7. Fat containing periumbilical hernia. 8. Possible 19 x 15 mm sebaceous cyst versus other benign fluid collection along the left anterior abdominal wall. D/ / 02/16/2017 17:06:23 Josh Hwang MD / niles Interpreting Provider: Josh Hwang MD - EKG Data EKG #1 EKG attestation: Yes I reviewed and interpreted this EKG. EKG results narrative: EKG shows a paced rhythm. At 69 bpm, QS duration 154, QTc of 470. No ischemic changes were noted on this EKG. This is compared to previous EKG on 12/31/16 there are no acute changes noted between these 2 EKGs. Attestation Statement - Attestation Attestation: I, Jose Miguel Beaulieu, examined this patient and my medical decision-making was reviewed with the MOLDER BENCH/PA/Advanced Practice Nurse/Resident Physician. I agree with the documented findings, disposition and treatment plan as described except to the extent set forth below. 66-year-old female presents to the emergency department with generalized malaise , difficulty in breathing which started today. Patient also reports having a right lower quadrant and periumbilical abdominal pain which has been present over the past week. Daughter states that she noticed a significant change in the patient's ability to function over the past 24 hours. Patient is able to give a history regarding her case and presentation however she is fatigued and weak during the exam, falling asleep during questioning. Daughter states the patient desaturated to 84% this morning prior to arrival to the emergency department. Patient tested positive for influenza A. Small area on chest x- ray which is a possible infiltrate versus atelectasis. Patient will be treated for possible pneumonia in the setting of influenza. Patient will be admitted to the hospital for further care and evaluation. Patient also has elevation of her troponin however she has had multiple elevated troponins in the past. CTA of the chest did not show evidence of PE. CT of the abdomen and pelvis did not show evidence of acute surgical pathology. Patient admitted to hospitalist for further care
[2017-02-16 15:29] LABS: Hemoglobin 9.2 g/dL (11.5-15.4); Immature Granulocytes % 0.6 % (0-4); Lymphocytes % 9.9 %; Mean Corpuscular HGB Conc 31.7 g/dL (31.6-35.5); Mean Corpuscular Hemoglobin 28.1 pg (28.0-33.3); Mean Corpuscular Volume 88.7 fL (83.0-100.0); Mean Platelet Volume 9.5 fL (9.4-12.4); Monocytes % 12.6 %; Platelet Count 172 K/mcL (140-400); Red Blood Count 3.27 M/mcL (3.82-4.97); Red Cell Distribution Width 14.7 % (11.5-14.5); Segmented Neutrophils % 76.7 %
[2017-02-16 15:30] LABS: Basophils % 0.2 %; Lymphocytes # 0.5 K/mcL (0.6-4.6); Monocytes # 0.6 K/mcL (0.0-1.3); Neutrophils # 3.7 K/mcL (1.6-8.9)
[2017-02-16 15:47] LABS: Potassium 4.1 mEq/L (3.5-5.1)
[2017-02-16 15:57] LABS: Bilirubin,Urine Negative (Negative); Blood,Urine Negative (Negative); Clarity,Urine Cloudy (Clear); Color,Urine Yellow (Yellow); Glucose,Urine (UA) Normal (Normal); Ketones,Urine Negative (Negative); Leukocyte Esterase,Urine Negative (Negative); Nitrite,Urine Negative (Negative); Protein,Urine Negative (Neg-Trace); Specific Gravity,Urine 1.024 (1.010-1.025); Urobilinogen,Urine Normal (Normal)
[2017-02-16 15:59] LABS: Bacteria,Urine None Seen per hpf (None-Few); Hyaline Casts,Urine Few per lpf (None-Few); RBC,Urine 0-3 per hpf (0-3); Squamous Epithelial Cell,Urine Many per lpf (None-Few); WBC,Urine 0-3 per hpf (0-3)
[2017-02-16] MEDS ORDERED: 0.9 % Sodium Chloride 250 ML IVC ONE (16:07)
[2017-02-16] MEDS ORDERED: methylPREDNISolone 125 MG/2 ML VIAL IVP ONE (16:08)
[2017-02-16] MEDS ORDERED: Albuterol 2.5 MG/3 ML NEBULIZER IH ONE (16:08)
[2017-02-16] MEDS ORDERED: Ipratropium/Albuterol Neb 3 ML IH ONE (16:08)
[2017-02-16] MEDS ORDERED: Levofloxacin 750 MG/150 ML 750 MG/150 ML BAG IVPB ONE (16:33)
[2017-02-16] MEDS ORDERED: Piperacillin/Tazobactam 4.5 GM in Water for inj. (sterile) 20 ML 20 ML IVP ONE (16:33)
[2017-02-16] MEDS ORDERED: Vancomycin 1,750 MG in D5% in Water 500 ML IVPB ONE (16:36)
[2017-02-16] MEDS ORDERED: Oseltamivir Phosphate 30 MG CAPSULE PO ONE (18:26)
[2017-02-16] MEDS ORDERED: Ondansetron 4 MG/2 ML VIAL IVP PRN (20:22)
[2017-02-16] MEDS ORDERED: Naloxone 0.4 MG/ML INJ IVP PRN (20:28)
--- NOTE | 2017-02-16 20:56 | Internal Med History&Physical ---
<Mario Ashby - Last Filed: 02/16/17 22:13> Date of Encounter: 02/16/17 Time of Encounter: 20:00 Assessment and Plan (1) Pneumonia Current visit: Yes Status: Acute Acute pneumonia. Pt. has been treated up until yesterday at SNF for fracture of T12. 1-View CXR today shows left subclavian pacer wires are unchanged. Cardiomediastinal silhouette is enlarged but unchanged. No pneumothorax. Mild patchy consolidative opacities are present in the left lower lung. No acute osseous abnormality. Mild left basilar airspace disease could represent atelectasis or pneumonia. Pt. reports cough w/yellow sputum production, fever today of 102.9F, and SOB/dyspnea. Pts. pneumonia is complicated by current influenza A dx. Will treat for HCAP d/t recent SNF admission. IVPB Levaquin/ vancomycin/Zosyn administered the ED. Discontinue Levaquin and continue IVPB vancomycin with pharmacy renal dosing and Zosyn 3.375 gm every 8 for infection coverage. Blood cultures 2. Sputum culture. Legionella and strep pneumoniae antigens ordered. We will adjust abx coverage based on culture results. Supplemental O2 with titration and SPO2 monitoring. Prednisone 40 mg by mouth daily. Mucinex DM for cough. Pt. discussed w/Dr. Morfin who is in agreement w/ plan of care. Pt. is at high risk for further morbidity and infection d/t current pneumonia, influenza A, respiratory distress, and cardiac distress d/t hx and risk factors. Inpatient. Qualifiers: Pneumonia type: due to unspecified organism Laterality: unspecified laterality Lung location: unspecified part of lung Qualified Code(s): J18.9 - Pneumonia, unspecified organism (2) Influenza A Current visit: Yes Status: Acute Positive for influenza A. ED administered 75 mg of Tamiflu in ED. Will continue 30 mg BID x5 days (10 doses) d/t renal dosing. (3) Acute exacerbation of CHF (congestive heart failure) Current visit: Yes Status: Acute Acute exacerbation of CHF. Pts. BNP 742 on admission. There is bilateral 2+ pitting edema present in LEs. Pt. reports SOB/dyspnea/orthopnea. Pt. reports taking 40 mg lasix PO BID. Will hold PO and administer IVP 40 mg lasix BID. Fluid restriction of 1.2L daily. Continuous cardiac telemetry. Supplemental O2 w /titration and SpO2 monitoring. Monitor I&O and daily weight. Echocardiogram on 01/02/17 shows LVEF of 50%, moderate concentric left ventricular hypertrophy, and atypical septal motion consistent with paced rhythm. Qualifiers: Congestive heart failure type: combined Qualified Code(s): I50.43 - Acute on chronic combined systolic (congestive) and diastolic (congestive) heart failure (4) SIDDHARTH (acute kidney injury) Current visit: Yes Status: Acute Acute kidney injury most likely d/t reported reduced intake for the past several days complicated by nausea and fever. Pt. given IV fluids in ED. Will monitor f/u labs for renal function and use IV fluids judiciously d/t current exacerbation of CHF. Will avoid nephrotoxins. Will use renal dosing on vancomycin and Tamiflu. (5) Generalized weakness Current visit: Yes Status: Acute Acute generalized weakness for the past several days r/t current flu dx, pneumonia dx, and acute exacerbation of CHF. Falls/safety precautions. PT/OT consults ordered. (6) Constipation Current visit: Yes Status: Acute Acute constipation for the past 4 days. Miralax ordered PRN. Monitor I&O. Qualifiers: Constipation type: unspecified constipation type Qualified Code(s): K59.00 - Constipation, unspecified (7) Dyspnea Current visit: Yes Status: Acute Acute SOB/dyspnea r/t current acute exacerbation of CHF and concurrent pneumonia. Supplemental O2 w/titration and SpO2 monitoring. DuoNebs Q6 scheduled. Mucinex DM for cough. Continue pts. inhalers. Falls/safety precautions. Qualifiers: Dyspnea type: dyspnea on exertion Qualified Code(s): R06.09 - Other forms of dyspnea (8) Atrial fibrillation Current visit: Yes Status: Chronic Hx of chronic atrial fibrillation. Pt. has pacemaker in place and is currently anticoagulated. Continue Warfarin w/pharmacy dosing. Qualifiers: Atrial fibrillation type: chronic Qualified Code(s): I48.2 - Chronic atrial fibrillation (9) CAD (coronary artery disease) Current visit: Yes Status: Chronic Hx of chronic CAD and atrial fibrillation w/pacemaker. Continuous cardiac telemetry. Trend troponins. Lipid panel in a.m. labs. Continue pts. Metoprolol, lisinopril, warfarin w/pharmacy dosing, potassium chloride, and aspirin therapy. Qualifiers: Coronary Disease-Associated Artery/Lesion type: [place] artery [place] vs. transplanted heart: [place] heart Associated angina: without angina Qualified Code(s): I25.10 - Atherosclerotic heart disease of [place] coronary artery without angina pectoris (10) Diabetes Current visit: Yes Status: Chronic Hx of chronic diabetes with insulin and oral anti-hyperglycemics. Hold oral anti -hyperglycemic medications. We will continue patient's insulin and add low-dose correction insulin sliding scale and hypoglycemic protocol. BG checks ACHS. A1c in a.m. labs. 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 Current troponin 0.10 on admission most likely d/t demand ischemia from CHF exacerbation. Troponin was 0.05 on 12/05 and 0.09 on 12/31. Will trend x2. Continuous cardiac telemetry. Echocardiogram LVEF of 50% with LV systolic function unchanged when compared to prior study on 05/07/16. Moderate concentric left ventricular hypertrophy. Atypical septal motion consistent with paced rhythm. (12) HLD (hyperlipidemia) Current visit: Yes Status: Chronic Hx of chronic HLD. Lipid panel in a.m. labs. Pt. reports she does not currently take statin. Will add Lipitor based on lipid panel results. Qualifiers: Hyperlipidemia type: pure hypercholesterolemia Qualified Code(s): E78.00 - Pure hypercholesterolemia, unspecified; E78.0 - Pure hypercholesterolemia (13) HTN (hypertension) Current visit: Yes Status: Chronic Hx of chronic HTN. Monitor pt. and VS. Continue pts. metformin and lisinopril. Qualifiers: Hypertension type: essential hypertension Qualified Code(s): I10 - Essential (primary) hypertension (14) Anemia Current visit: Yes Status: Chronic Hx of chronic anemia. Pts. Hgb is 9.2 and Hct is 29.0 which is at or near pts. recent baseline. Pt. denies any unusual bleeding. Continue pts. ferrous sulfate. Monitor H/H in a.m. labs. Qualifiers: Anemia type: iron deficiency Qualified Code(s): D50.9 - Iron deficiency anemia, unspecified (15) DVT prophylaxis Current visit: Yes Status: Acute Continue pts. Warfarin w/pharmacy dosing for DVT prophylaxis. Monitor pt. for signs of bleeding. Internal Medicine - H&P: HPI Chief complaint: SOB/Dyspnea Admitted From: Emergency Dept Plans for Post Hospital Care: Home History of present illness: Ms. Vilchis is a 66 year old female with medical hx of controlled with insulin and oral antihyperglycemic medications, HLD, and HTN presents from the ED with chief complaint of shortness of breath and dyspnea that began yesterday. Patient was recently discharged yesterday at 10:30 AM from an SNF to fracture of T12. She reports fever of 102.9F at noon today accompanied with nausea and dry heaves. Patient states [facility] was quarantined for flu while she was there. Patient reports generalized weakness, back pain r/t fracture of T12 , abdominal pain r/t current hernia and coughing, and constipation for the past 4 days and denies chills, vomiting, changes in vision, headache, unusual bleeding, numbness, tingling, dizziness, lightheadedness, pre-syncope, or syncope. Past Med Surg Social Fam HX - Past Medical History Source: patient, old records reviewed Medical history: atrial fibrillation, CHF, diabetes, hyperlipidemia, hypertension, other Psychiatric history: anxiety, depression - Past Surgical History Surgical History: appendectomy, other, pacemaker - Social History Smoking Status: Never smoker Smokeless Tobacco Status: No Alcohol use: none Drug use: none Current living situation: Home Activity Level: Uses cane/walker Recent Out of Country Travel Within the Last 8 Weeks: No Exposure or Possible Exposure to Illness During Travel: No - Family History Mother Adopted: No Race: Family Member Ethnicity: Non- Living Status: Age at : 49 Cause of : Cervical/Uterine Cancer Hx Family Cancer: Yes (Cervical/Uterine) Father Race: Family Member Ethnicity: Non- Living Status: Age at : 76 Cause of : CO Hx Family Cardiac Disorders: Yes ([place], HTN) Brother History Unknown: Yes Race: Family Member Ethnicity: Non- Living Status: Still Living Sister Race: Family Member Ethnicity: Non- Living Status: Age at : 63 Cause of : Cancer (Unknown type) Hx Family Cancer: Yes Hx Family Endocrine Disorder: Yes (DM) Internal Medicine - H&P: Meds Insulin DETEMIR [Levemir] 50 unit SQ HS 04/05/16 [History] Loratadine [Claritin] 10 mg PO QAM 04/05/16 [History] Montelukast [Singulair] 10 mg PO HS 04/05/16 [History] SitaGLIPtin [Januvia] 100 mg PO DAILY 04/05/16 [History] Albuterol Sulfate [Proair Hfa] 2 puff IH Q4H PRN 04/06/16 [History] Beclomethasone Diprop 80mcg [QVAR 80 mcg] 1 puff IH BID 04/06/16 [History] Metformin HCl [Metformin HCl ER] 2,000 mg PO QPM 04/06/16 [History] Furosemide [Lasix] 40 mg PO BID 05/03/16 [History] Ascorbate Calcium [Vitamin C] 500 mg PO BID #60 tablet 09/15/16 [Rx] Ferrous Sulfate 325 mg PO BIDWM #60 tablet 09/15/16 [Rx] Albuterol Neb [Proventil Neb] 2.5 mg IH Q6H PRN #60 inhsol 12/05/16 [Rx] Lisinopril [Zestril] 2.5 mg PO DAILY 12/22/16 [History] Acetaminophen [Tylenol] 650 mg PO Q6HR PRN 12/31/16 [History] Warfarin Sodium 2.5 mg PO DAILY 12/31/16 [History] Oxycodone HCl 5 mg PO Q4H PRN #42 tablet 01/04/17 [Rx] Potassium Chloride [Klor-Con 10] 20 meq PO DAILY 02/16/17 [History] 3 Allergy/AdvReac Type Severity Reaction Status Date / Time No Known Allergies Allergy Verified 12/22/16 11:47 All Systems PM: A 10-system review of systems was performed and is negative for pertinent findings except as documented above in the HPI. - Constitutional Constitutional: as per HPI, fever(s) (102.9F at noon today), weakness, no chills , no night sweats - EENT Eyes: no change in vision, no discharge, no pain, no photophobia Ears: no ear discharge, no ear pain, no tinnitus Nose, mouth and throat: no dysphagia, no nasal discharge, no neck pain, no sore throat - Breasts Breasts: as per HPI - Cardiovascular Cardiovascular ROS IM: as per HPI, dyspnea, dyspnea on exertion, edema ( Bilateral edema of LEs), irregular heart rhythm (Atrial fibrillation), orthopnea , no chest pain, no diaphoresis, no lightheadedness, no palpitations, no syncope - Respiratory Respiratory: as per HPI, cough, dyspnea on exertion, wheezing, pain with cough ( Abdominal pain r/t hermia and coughing), no dyspnea, no excessive phlegm production - Gastrointestinal Gastrointestinal: as per HPI, constipation, nausea, other (Dry heaves), no abdominal pain, no diarrhea, no hematemesis, no hematochezia, no melena, no vomiting - Genitourinary Genitourinary: no change in urinary stream, no dysuria, no flank pain, no hematuria Menstruation: as per HPI - Musculoskeletal Musculoskeletal ROS IM: no numbness, no tingling - Integumentary Integumentary IM: no rash, no unusual bruising - Neurological Neurological ROS: no confusion, no convulsions, no focal weakness, no numbness, no tingling, no tremor(s) - Psychiatric Psychiatric: as per HPI, anxiety, depression - Endocrine Endocrine IM: as per HPI - Hematologic/Lymphatic Hematologic/Lymphatic: no easy bruising - Allergic/Immunologic Allergic/Immunologic: as per HPI - Constitutional Vitals: Temp Pulse Resp BP Pulse Ox 99.0 F 70 15 119/64 92 02/16/17 19:47 02/16/17 19:47 02/16/17 19:47 02/16/17 19:47 02/16/17 19:47 General appearance: Present: cooperative, mild distress (Respiratory), A&O X 3, morbidly obese, pleasant, answers questions appropriately - Head Head exam: Present: atraumatic, normocephalic - Eye Eye exam: Present: PERRL, conjuntiva pink, sclera anicteric Pupils: Present: PERRL - ENT ENT exam: Present: normal exam - Neck Neck exam general surgery: Present: normal inspection, supple, trachea midline - Respiratory Respiratory exam: Present: accessory muscle use, wheezes (Bilaterally in all lobes) - Cardiovascular Cardiovascular exam: Present: RRR, +S1, +S2. Absent: diastolic murmur, gallop, rubs, systolic murmur - GI/Abdominal GI/Abdominal exam: Present: guarding, hernia, normal bowel sounds, soft, tenderness, no peritoneal signs. Absent: distended - Rectal Rectal exam: Present: deferred - Additional comments: exam deferred. - Extremities Exam Extremities exam: Present: pedal edema (2+ pitting edema in bilateral LEs), warm , radial pulses palpable and symmetrical. Absent: calf tenderness, cyanotic - Neurological Exam Neurological exam: Present: CN II-XII intact, oriented X3, no focal deficits. Absent: pronater drift, facial droop, speech deficit - Psychiatric Psychiatric exam: Present: normal affect, normal mood - Skin Skin exam: Present: dry, intact Internal Med - H&P Results - Labs CBC & Chem 7: 02/16/17 15:23 02/16/17 15:23 - EKG Data Prior EKG available for review: yes When compared to previous EKG: there is no significant change EKG comments: 02/16/17 21:14 EKG dated 12/31/16 shows electronic atrial pacemaker and electronic ventricular pacemaker. EKG dated 02/16/17 shows electronic ventricular pacemaker and abnormal rhythm ECG. - Diagnostic Studies Chest x-ray Additional comments: Impressions Chest X-Ray 02/16/17 14:45 IMPRESSION: Mild left basilar airspace disease could represent atelectasis or pneumonia. D/ / Simon Harp MD / Simon Harp MD Interpreting Provider: Simon Harp MD Other Images Additional comments: Impressions Chest CTA 02/16/17 16:08 IMPRESSION: 1. No evidence of pulmonary embolism. 2. Possible air trapping, which can be seen with small airways disease. 3. Coronary atherosclerosis. 4. Borderline enlarged mediastinal lymph nodes, which are nonspecific. 5. No acute process in the abdomen or pelvis. 6. 9 x 7 mm calculus in the right inferior renal pole. 7. Fat containing periumbilical hernia. 8. Possible 19 x 15 mm sebaceous cyst versus other benign fluid collection along the left anterior abdominal wall. D/ / 02/16/2017 17:06:23 Josh Hwang MD / niles Interpreting Provider: Josh Hwang MD CT scan - abdomen Additional comments: Impressions Abdomen/Pelvis CT 02/16/17 15:15 IMPRESSION: 1. No evidence of pulmonary embolism. 2. Possible air trapping, which can be seen with small airways disease. 3. Coronary atherosclerosis. 4. Borderline enlarged mediastinal lymph nodes, which are nonspecific. 5. No acute process in the abdomen or pelvis. 6. 9 x 7 mm calculus in the right inferior renal pole. 7. Fat containing periumbilical hernia. 8. Possible 19 x 15 mm sebaceous cyst versus other benign fluid collection along the left anterior abdominal wall. D/ / 02/16/2017 17:06:23 Josh Hwang MD / niles Interpreting Provider: Josh Hwang MD <[email or web address] - Last Filed: 02/16/17 22:42> Date of Encounter: 02/16/17 Internal Medicine - H&P: HPI History of present illness: Ms. Vilchis is a 66 year old female All Systems PM: A 10-system review of systems was performed and is negative for pertinent findings except as documented above in the HPI. - Constitutional Vitals: Temp Pulse Resp BP Pulse Ox 99.0 F 70 20 119/64 97 02/16/17 19:47 02/16/17 19:47 02/16/17 22:05 02/16/17 19:47 02/16/17 22:05 Internal Med - H&P Results - Labs CBC & Chem 7: 02/16/17 15:23 02/16/17 15:23 Labs: Cardiac Enzymes 02/16/17 Range/Units 21:11 Troponin I 0.08 H* (< 0.04) ng/mL - Attending Attestation I have seen and examined the patient independently. I have discussed with BEVERAGE STEWARD Mr Ashby regarding the management plan. Agree with documentation. Patient complaint cough and increased shortness of breath. History of asthma. Chest x-ray suggested pneumonia. Patient also has elevated BNP and bilateral leg swelling. Will treat patient with antibiotics for pneumonia. Steroids and bronchodilator for asthma exacerbation. Fluid restriction and IV Lasix for CHF exacerbation. Continue symptomatic and supportive treatment. Closely monitor patient.
[2017-02-16] MEDS ORDERED: Furosemide 40 MG TABLET PO SCH (21:00)
[2017-02-16] MEDS ORDERED: NON-FORMULARY MEDICATION 1 EACH EACH (Insulin Detemir 50 UNIT) SQ SCH (21:00)
[2017-02-16] MEDS ORDERED: Vancomycin 1,750 MG in D5% in Water 250 ML IVPB SCH (21:00)
[2017-02-16] MEDS ORDERED: Furosemide 40 MG/4 ML VIAL IVP SCH (21:15)
[2017-02-16] MEDS: Albuterol 2.5 MG/3 ML NEBULIZER IH SCH (22:04)
[2017-02-16] MEDS: Beclomethasone 80mcg MDI IH SCH (22:04)
[2017-02-16] MEDS: Ipratropium/Albuterol Neb 3 ML IH SCH (22:05)
[2017-02-16] MEDS: Ascorbic Acid 500 MG TABLET PO SCH (22:31)
[2017-02-16] MEDS: *HR* OxyCODONE Immed Rel 5 MG TABLET PO PRN (22:31)
[2017-02-16] MEDS: Oseltamivir Phosphate 30 MG CAPSULE PO SCH (22:32)
[2017-02-16] MEDS: Insulin DETEMIR 100 UNIT/ML X5UNITS SQ SCH (22:37)
[2017-02-16] MEDS: GuaiFENesin/Dextromethorphan TABLET PO SCH (22:37)
[2017-02-16] MEDS ORDERED: *HR* Dextrose 50 % in Water (Syg) 50 ML SYRINGE IVP PRN (23:04)
[2017-02-16] MEDS ORDERED: Dextrose Gel 15 GM PO PRN ×2 (23:04)
[2017-02-16] MEDS ORDERED: D5% in Water 1,000 ML IVC PRN (23:04)
[2017-02-17] MEDS: Piperacillin/Tazobactam 3.375 GM/200 ML BAG IVPB SCH ×3 (00:21→23:13)
[2017-02-17 03:42] LABS: Hematocrit 30.9 % (35.3-44.9); Hemoglobin 9.7 g/dL (11.5-15.4); Immature Granulocytes % 1.6 % (0-4); Lymphocytes # 0.3 K/mcL (0.6-4.6); Lymphocytes % 8.9 %; Mean Corpuscular HGB Conc 31.4 g/dL (31.6-35.5); Mean Corpuscular Hemoglobin 27.6 pg (28.0-33.3); Mean Platelet Volume 9.9 fL (9.4-12.4); Monocytes # 0.1 K/mcL (0.0-1.3); Monocytes % 2.6 %; Neutrophils # 2.7 K/mcL (1.6-8.9); Platelet Count 162 K/mcL (140-400); Red Blood Count 3.51 M/mcL (3.82-4.97); Red Cell Distribution Width 14.6 % (11.5-14.5); Segmented Neutrophils % 86.9 %
[2017-02-17] MEDS: Albuterol 2.5 MG/3 ML NEBULIZER IH SCH ×3 (03:43→22:46)
[2017-02-17] MEDS: Ipratropium/Albuterol Neb 3 ML IH SCH ×4 (03:43→22:48)
[2017-02-17 03:49] LABS: Hemoglobin A1C 6.2 %
[2017-02-17 04:07] LABS: INR 6.6
[2017-02-17 04:08] LABS: Albumin 4.2 g/dL (3.5-5.7); Albumin/Globulin Ratio 1.4 (1.1-2.2); Bilirubin,Total 0.6 mg/dL (0.3-1.0); Magnesium 1.6 mg/dL (1.6-2.6); Potassium 3.8 mEq/L (3.5-5.1); Total Protein 7.2 g/dL (6.4-8.9)
[2017-02-17 04:50] LABS: Chol/HDL Ratio 3.8 (0-4.9)
[2017-02-17] MEDS: Loratadine 10 MG TABLET PO SCH (09:00)
[2017-02-17] MEDS ORDERED: predniSONE 20 MG TABLET PO SCH (09:00)
[2017-02-17] MEDS: Furosemide 40 MG TABLET PO SCH ×2 (09:00→17:10)
[2017-02-17] MEDS: GuaiFENesin/Dextromethorphan TABLET PO SCH ×2 (09:00→20:05)
[2017-02-17] MEDS: Ascorbic Acid 500 MG TABLET PO SCH ×2 (09:00→20:06)
[2017-02-17] MEDS: Lactobacillus 1 EACH CAP.SPRINK PO SCH (09:00)
[2017-02-17] MEDS: Oseltamivir Phosphate 30 MG CAPSULE PO SCH ×2 (09:00→20:06)
--- NOTE | 2017-02-17 10:26 | Internal Med Progress Note ---
Date of Encounter: 02/17/17 Time of Encounter: 08:00 - Assessment and plan (1) Pneumonia Current Visit: Yes Status: Acute Assessment and plan: The patient has been started on broad-spectrum antibiotics with Zosyn and Vanco. We will keep that for now pending cultures. If cultures come back negative. That ends continue the Tamiflu. She is positive for influenza A. Continue with nebulizer treatment. Continue with oxygen and wean that down as tolerated. Follow up on final cultures. Qualifiers: Pneumonia type: due to unspecified organism Laterality: unspecified laterality Lung location: unspecified part of lung Qualified Code(s): J18.9 - Pneumonia, unspecified organism (2) Influenza A Current Visit: Yes Status: Acute Assessment and plan: As above the patient has been started on Tamiflu renally dosed. (3) Acute exacerbation of CHF (congestive heart failure) Current Visit: Yes Status: Acute Assessment and plan: The patient does not seem to be in overt volume overload. She has a history of systolic failure. We will continue treatment with oral Lasix for now for acute exacerbation of systolic heart failure. Continue with lisinopril. The patient does not seem to be on a beta rolanda. Will have to investigate that and find out why. Qualifiers: Congestive heart failure type: combined Qualified Code(s): I50.43 - Acute on chronic combined systolic (congestive) and diastolic (congestive) heart failure (4) Elevated troponin Current Visit: Yes Status: Chronic Assessment and plan: The patient has no chest pain. Seems that she has had chronically elevated troches. On admission here was 0.10 and went down to 0.08 and then 0.08 again. Back in December was 0.09. In the past has been on 0.05. She given the fact that she has no chest pain or EKG changes, we will just continue to monitor. This could be elevated because of an STEMI type II. She does have a history of A. fib CHF and chronic kidney disease which could cause elevation in her troponins. (5) Diabetes Current Visit: Yes Status: Chronic Assessment and plan: Glucose is elevated. For now we will continue with the Levemir 50 units as well as insulin sliding scale and Accu-Cheks. Will make adjustments as needed. 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 Qualifiers: Hypertension type: essential hypertension Qualified Code(s): I10 - Essential (primary) hypertension (7) Atrial fibrillation Current Visit: No Status: Chronic Assessment and plan: Patient is rate controlled. She is not on any rate controlling agents however. She does have a pacemaker. We will continue his Coumadin per pharmacy. Her INR is 6.8. No signs of bleeding. Qualifiers: Atrial fibrillation type: chronic Qualified Code(s): I48.2 - Chronic atrial fibrillation (8) CKD (chronic kidney disease) stage 2, GFR 60-89 ml/min Current Visit: No Status: Acute Assessment and plan: Seems her on baseline. We will continue to monitor. (9) CAD (coronary artery disease) Current Visit: Yes Status: Chronic Assessment and plan: Medically treated. Patient was on a KANDY inhibitor. I do not see that she is on a beta rolanda. May have to add a beta rolanda at discharge. Qualifiers: Coronary Disease-Associated Artery/Lesion type: [place] artery [place] vs. transplanted heart: [place] heart Associated angina: without angina Qualified Code(s): I25.10 - Atherosclerotic heart disease of [place] coronary artery without angina pectoris (10) DVT prophylaxis Current Visit: Yes Status: Acute Assessment and plan: Coumadin per pharmacy. - Subjective Interval history: Patient seen and examined. She has no acute events. She was admitted yesterday with what seems like influenza A pneumonia. She was started on broad- spectrum antibiotics as well as Tamiflu. She has been afebrile while hospitalized. She remains on 2 L of oxygen. Does not have chronic O2. - Constitutional Vitals: Temp Pulse Resp BP Pulse Ox 98.5 F 79 17 132/77 96 02/17/17 10:14 02/17/17 10:14 02/17/17 10:14 02/17/17 10:14 02/17/17 10:14 General appearance: Present: cooperative, mild distress (Respiratory), A&O X 3, morbidly obese, pleasant, answers questions appropriately Exam: GEN: NAD CVS: RRR. S1, S2, No m/r/g RESP: diminshed. I hear no wheezes. coarse at the bases ABD: Soft, NT, ND, +BS EXT: trace LE edema. 2+ DP. No rashes NEURO: Nonfocal Internal Medicine: Result - Labs CBC & Chem 7: 02/17/17 03:17 02/17/17 03:17 Labs: Short CBC 02/17/17 Range/Units 03:17 WBC 3.1 L (4.3-11.1) K/mcL Hgb 9.7 L (11.5-15.4) g/dL Hct 30.9 L (35.3-44.9) % Plt Count 162 (140-400) K/mcL Neutrophils # 2.7 (1.6-8.9) K/mcL BMP 02/17/17 03:17 Sodium 134 L Potassium 3.8 Chloride 98 Carbon Dioxide 25 BUN 20 Creatinine 1.16 Glucose 270 H Calcium 9.0 Cardiac Enzymes 02/16/17 02/17/17 Range/Units 21:11 03:17 Troponin I 0.08 H* 0.08 H* (< 0.04) ng/mL Liver Function 02/17/17 Range/Units 03:17 Total Bilirubin 0.6 (0.3-1.0) mg/dL AST 19 (13-39) Units/L ALT 10 (7-52) Units/L Alkaline Phosphatase 58 (34-104) Units/L Albumin 4.2 (3.5-5.7) g/dL - ABG Interpretation ABG results: PT/INR, D-dimer PT 74.0 Seconds (9.4-12.1) H* 02/17/17 03:17 Consult Discharge Plan - Plan Referrals: Salvador Umana MD [Primary Care Provider] -
[2017-02-17] MEDS: Insulin LISPRO 300 UNITS/3 ML VIAL SQ SCH ×3 (10:43→17:10)
[2017-02-17] MEDS: Beclomethasone 80mcg MDI IH SCH ×2 (10:45→22:48)
[2017-02-17] MEDS ORDERED: Warfarin perPT PO PRN (18:00)
[2017-02-17] MEDS ORDERED: Vancomycin 1,750 MG in D5% in Water 500 ML IVPB SCH (19:00)
[2017-02-17] MEDS: Insulin DETEMIR 100 UNIT/ML X5UNITS SQ SCH (20:06)
[2017-02-17] MEDS: *HR* OxyCODONE Immed Rel 5 MG TABLET PO PRN (20:06)
[2017-02-18] MEDS: Albuterol 2.5 MG/3 ML NEBULIZER IH SCH ×4 (03:46→22:25)
[2017-02-18] MEDS: Ipratropium/Albuterol Neb 3 ML IH SCH ×4 (03:47→22:25)
[2017-02-18] MEDS: *HR* OxyCODONE Immed Rel 5 MG TABLET PO PRN ×5 (03:56→22:48)
[2017-02-18 05:07] LABS: Hematocrit 30.6 % (35.3-44.9); Hemoglobin 9.8 g/dL (11.5-15.4); Immature Granulocytes % 0.3 % (0-4); Lymphocytes % 13.4 %; Mean Corpuscular Volume 87.4 fL (83.0-100.0); Monocytes # 0.8 K/mcL (0.0-1.3); Monocytes % 12.8 %; Neutrophils # 4.6 K/mcL (1.6-8.9); Platelet Count 199 K/mcL (140-400); Red Cell Distribution Width 14.7 % (11.5-14.5); Segmented Neutrophils % 73.5 %
[2017-02-18 05:08] LABS: Lymphocytes # 0.8 K/mcL (0.6-4.6)
[2017-02-18 05:25] LABS: Albumin 4.1 g/dL (3.5-5.7); Albumin/Globulin Ratio 1.4 (1.1-2.2); Bilirubin,Total 0.5 mg/dL (0.3-1.0); Calcium 9.1 mg/dL (8.6-10.3); Potassium 3.6 mEq/L (3.5-5.1); Total Protein 7.1 g/dL (6.4-8.9)
[2017-02-18 05:26] LABS: Prothrombin Time 90.5 Seconds (9.4-12.1)
[2017-02-18] MEDS: Piperacillin/Tazobactam 3.375 GM/200 ML BAG IVPB SCH ×3 (06:18→22:49)
[2017-02-18] MEDS ORDERED: Insulin DETEMIR 100 UNIT/ML X5UNITS SQ ONE (08:12)
[2017-02-18] MEDS: Insulin LISPRO 300 UNITS/3 ML VIAL SQ SCH ×3 (08:20→16:38)
[2017-02-18] MEDS: Ascorbic Acid 500 MG TABLET PO SCH ×2 (08:21→19:50)
[2017-02-18] MEDS: Oseltamivir Phosphate 30 MG CAPSULE PO SCH ×2 (08:22→19:50)
[2017-02-18] MEDS: Lactobacillus 1 EACH CAP.SPRINK PO SCH (08:22)
[2017-02-18] MEDS: GuaiFENesin/Dextromethorphan TABLET PO SCH ×2 (08:22→19:50)
[2017-02-18] MEDS: Loratadine 10 MG TABLET PO SCH (08:23)
[2017-02-18] MEDS: Furosemide 40 MG TABLET PO SCH (08:39)
--- NOTE | 2017-02-18 09:50 | Internal Med Progress Note ---
Date of Encounter: 02/18/17 Time of Encounter: 08:50 - Assessment and plan (1) Pneumonia Current Visit: Yes Status: Acute Assessment and plan: The patient has been started on broad-spectrum antibiotics with Zosyn and Vanco. Continue that today again. Follow up on final cultures by tomorrow. Stop antibiotics tomorrow if cultures remain negative. continue the Tamiflu. She is positive for influenza A. Continue with nebulizer treatment. Continue with oxygen and wean that down as tolerated. Qualifiers: Pneumonia type: due to unspecified organism Laterality: unspecified laterality Lung location: unspecified part of lung Qualified Code(s): J18.9 - Pneumonia, unspecified organism (2) Influenza A Current Visit: Yes Status: Acute Assessment and plan: As above the patient has been started on Tamiflu renaly dosed. (3) Acute exacerbation of CHF (congestive heart failure) Current Visit: Yes Status: Acute Assessment and plan: The patient does not seem to be in overt volume overload. She has a history of systolic failure. Stop oral Lasix given worsening kidney function for today. We will see how she does rest of her stay. If her respiratory status does not improve we may have to give her IV Lasix. I would expect her kidney function improved and this was acute kidney injury from cardiorenal syndrome. Hold lisinopril as well for acute kidney injury. The patient does not seem to be on a beta rolanda. Will have to investigate that and find out why. Qualifiers: Congestive heart failure type: combined Qualified Code(s): I50.43 - Acute on chronic combined systolic (congestive) and diastolic (congestive) heart failure (4) Elevated troponin Current Visit: Yes Status: Chronic Assessment and plan: The patient has no chest pain. Seems that she has had chronically elevated trops. On admission here was 0.10 and went down to 0.08 and then 0.08 again. Back in December was 0.09. In the past has been on 0.05. She given the fact that she has no chest pain or EKG changes, we will just continue to monitor. This could be elevated because of an STEMI type II. She does have a history of A. fib CHF and chronic kidney disease which could cause elevation in her troponins. (5) Diabetes Current Visit: Yes Status: Chronic Assessment and plan: Glucose is elevated. Increase Levemir to 60 units at night. She received 50 units last night. I will give her 10 extra this morning. Continue with insulin sliding scale and Accu-Cheks. Will make adjustments as needed. Qualifiers: Diabetes mellitus type: type 2 Diabetes mellitus complication status: with unspecified complications Diabetes mellitus watermaster insulin use: with watermaster use Qualified Code(s): E11.8 - Type 2 diabetes mellitus with unspecified complications; Z79.4 - keno terminal operator (current) use of insulin (6) HTN (hypertension) Current Visit: Yes Status: Chronic Assessment and plan: Blood pressure is stable. I will hold lisinopril and Lasix. I am holding those due to acute kidney injury. Qualifiers: Hypertension type: essential hypertension Qualified Code(s): I10 - Essential (primary) hypertension (7) Atrial fibrillation Current Visit: No Status: Chronic Assessment and plan: Patient is rate controlled. She is not on any rate controlling agents however. She does have a pacemaker. We will continue his Coumadin per pharmacy. Her INR is up to 8.0 from 6.8. No signs of bleeding and no need to reverse with vitamin K or FFP's. Qualifiers: Atrial fibrillation type: chronic Qualified Code(s): I48.2 - Chronic atrial fibrillation (8) CKD (chronic kidney disease) stage 2, GFR 60-89 ml/min Current Visit: No Status: Acute Assessment and plan: Kidney function worsened a little bit. Not significantly changed compared to baseline, however there is a change. I am holding her Lasix and lisinopril today. We will continue to monitor. (9) CAD (coronary artery disease) Current Visit: Yes Status: Chronic Assessment and plan: Medically treated. Patient was on a KANDY inhibitor. I do not see that she is on a beta rolanda. May have to add a beta rolanda at discharge. Qualifiers: Coronary Disease-Associated Artery/Lesion type: [place] artery [place] vs. transplanted heart: [place] heart Associated angina: without angina Qualified Code(s): I25.10 - Atherosclerotic heart disease of [place] coronary artery without angina pectoris (10) DVT prophylaxis Current Visit: Yes Status: Acute Assessment and plan: Coumadin per pharmacy. INR is supratherapeutic. - Subjective Interval history: Patient seen and examined. No acute events. She remains on 2 L of nasal cannula. She has been afebrile. Still having a productive cough. Her INR is up to 8.0. She did not receive Coumadin yesterday. She has no signs of bleeding. - Constitutional Vitals: Temp Pulse Resp BP Pulse Ox 98.0 F 74 16 113/70 98 02/18/17 06:56 02/18/17 06:56 02/18/17 06:56 02/18/17 06:56 02/18/17 06:56 General appearance: Present: cooperative, mild distress (Respiratory), A&O X 3, morbidly obese, pleasant, answers questions appropriately Exam: GEN: NAD CVS: RRR. S1, S2, No m/r/g RESP: diminshed. I hear no wheezes. coarse at the bases ABD: Soft, NT, ND, +BS EXT: trace LE edema. 2+ DP. No rashes NEURO: Nonfocal Internal Medicine: Result - Labs CBC & Chem 7: 02/18/17 04:42 02/18/17 04:42 Labs: Short CBC 02/18/17 Range/Units 04:42 WBC 6.3 D (4.3-11.1) K/mcL Hgb 9.8 L (11.5-15.4) g/dL Hct 30.6 L (35.3-44.9) % Plt Count 199 (140-400) K/mcL Neutrophils # 4.6 (1.6-8.9) K/mcL BMP 02/18/17 04:42 Sodium 136 Potassium 3.6 Chloride 100 Carbon Dioxide 25 BUN 28 H Creatinine 1.33 H Glucose 222 H Calcium 9.1 Liver Function 02/18/17 Range/Units 04:42 Total Bilirubin 0.5 (0.3-1.0) mg/dL AST 28 (13-39) Units/L ALT 12 (7-52) Units/L Alkaline Phosphatase 61 (34-104) Units/L Albumin 4.1 (3.5-5.7) g/dL - ABG Interpretation ABG results: PT/INR, D-dimer PT 90.5 Seconds (9.4-12.1) H* 02/18/17 04:42 Consult Discharge Plan - Plan Referrals: Salvador Umana MD [Primary Care Provider] -
[2017-02-18] MEDS: Beclomethasone 80mcg MDI IH SCH ×2 (10:38→22:26)
[2017-02-18] MEDS: Acetaminophen 325 MG TABLET PO PRN (16:46)
[2017-02-18] MEDS: Insulin DETEMIR 100 UNIT/ML X5UNITS SQ SCH (19:53)
[2017-02-18] MEDS ORDERED: Vancomycin 1,500 MG in D5% in Water 250 ML IVPB SCH (20:00)
[2017-02-19] MEDS: *HR* OxyCODONE Immed Rel 5 MG TABLET PO PRN ×5 (02:39→22:58)
[2017-02-19] MEDS: Acetaminophen 325 MG TABLET PO PRN ×3 (03:57→17:28)
[2017-02-19] MEDS: Ipratropium/Albuterol Neb 3 ML IH SCH ×4 (03:59→21:15)
[2017-02-19] MEDS: Albuterol 2.5 MG/3 ML NEBULIZER IH SCH ×2 (04:00→11:27)
[2017-02-19 04:46] LABS: Basophils % 0.2 %; Eosinophils % 0.3 %; Hematocrit 30.5 % (35.3-44.9); Hemoglobin 9.5 g/dL (11.5-15.4); Immature Granulocytes % 0.3 % (0-4); Lymphocytes # 1.7 K/mcL (0.6-4.6); Lymphocytes % 27.9 %; Mean Corpuscular HGB Conc 31.1 g/dL (31.6-35.5); Mean Corpuscular Hemoglobin 27.9 pg (28.0-33.3); Mean Corpuscular Volume 89.4 fL (83.0-100.0); Mean Platelet Volume 9.7 fL (9.4-12.4); Monocytes # 0.6 K/mcL (0.0-1.3); Monocytes % 10.3 %; Neutrophils # 3.6 K/mcL (1.6-8.9); Platelet Count 200 K/mcL (140-400); Red Blood Count 3.41 M/mcL (3.82-4.97); Red Cell Distribution Width 14.8 % (11.5-14.5)
[2017-02-19 04:48] LABS: Albumin 3.7 g/dL (3.5-5.7); Albumin/Globulin Ratio 1.4 (1.1-2.2); Bilirubin,Total 0.4 mg/dL (0.3-1.0); Calcium 8.8 mg/dL (8.6-10.3); Globulin 2.7 g/dL (2.4-3.5); Total Protein 6.4 g/dL (6.4-8.9)
[2017-02-19 04:56] LABS: INR 4.1
[2017-02-19 05:00] LABS: Prothrombin Time 45.1 Seconds (9.4-12.1)
[2017-02-19] MEDS: Piperacillin/Tazobactam 3.375 GM/200 ML BAG IVPB SCH ×3 (05:30→22:45)
[2017-02-19] MEDS: Insulin LISPRO 300 UNITS/3 ML VIAL SQ SCH ×4 (07:55→20:59)
--- NOTE | 2017-02-19 09:02 | Internal Med Progress Note ---
Date of Encounter: 02/19/17 Time of Encounter: 09:00 - Assessment and plan (1) Chest pain Current Visit: Yes Status: Acute Assessment and plan: Repeat an EKG. Check troponins levels. Check a chest x-ray and BNP level. Qualifiers: Chest pain type: unspecified Qualified Code(s): R07.9 - Chest pain, unspecified (2) Pneumonia Current Visit: Yes Status: Acute Assessment and plan: The patient has been started on broad-spectrum antibiotics with Zosyn and Vanco. Continue with that again today given the worsening respiratory status and the chest pain.. Cultures remain negative. Continue that today again. continue the Tamiflu. Day 3. She is positive for influenza A. Continue with nebulizer treatment. Continue with oxygen and wean that down as tolerated. Qualifiers: Pneumonia type: due to unspecified organism Laterality: unspecified laterality Lung location: unspecified part of lung Qualified Code(s): J18.9 - Pneumonia, unspecified organism (3) Influenza A Current Visit: Yes Status: Acute Assessment and plan: As above the patient has been started on Tamiflu renaly dosed. (4) Acute exacerbation of CHF (congestive heart failure) Current Visit: Yes Status: Acute Assessment and plan: I do hear crackles. She has a history of systolic failure. Her Lasix has been on hold given the worsening kidney function. her kidney function is improved today. I will check a chest x-ray as well as a BNP level. May have to give her IV Lasix today and chest x-ray comes back with findings of CHF. BNP was elevated on admission and on going to repeat that. Qualifiers: Congestive heart failure type: combined Qualified Code(s): I50.43 - Acute on chronic combined systolic (congestive) and diastolic (congestive) heart failure (5) Elevated troponin Current Visit: Yes Status: Chronic Assessment and plan: Had elevated troponins admission which were consistent with previous numbers. She does have chest pain now. I will repeat troponins levels. May need a cardiology consultation. Seems that she has had chronically elevated trops. On admission here it was 0.10 and went down to 0.08 and then 0.08 again. Back in December it was 0.09. In the past has been at 0.05. This could be elevated because of an STEMI type II. She does have a history of A. fib CHF and chronic kidney disease which could cause elevation in her troponins. (6) Diabetes Current Visit: Yes Status: Chronic Assessment and plan: Glucose was elevated yesterday. Her glucose is 71 this morning. Keep Levemir at 60 units at night for now. We will see what her glucose numbers look like the rest of the day and adjust her night dose based on that. Continue with insulin sliding scale and Accu-Cheks. Qualifiers: Diabetes mellitus type: type 2 Diabetes mellitus complication status: with unspecified complications Diabetes mellitus long-term insulin use: with manager terminal use Qualified Code(s): E11.8 - Type 2 diabetes mellitus with unspecified complications; Z79.4 - terminal make up operator (current) use of insulin (7) HTN (hypertension) Current Visit: Yes Status: Chronic Assessment and plan: Blood pressure is stable. Intrauterine hold lisinopril and oral Lasix. I am holding those due to acute kidney injury but that is improving now.. Qualifiers: Hypertension type: essential hypertension Qualified Code(s): I10 - Essential (primary) hypertension (8) Atrial fibrillation Current Visit: No Status: Chronic Assessment and plan: Patient is rate controlled. She is not on any rate controlling agents however. She does have a pacemaker. We will continue his Coumadin per pharmacy. Her INR is finally coming down. It started 4.1 today from 8.0. No signs of bleeding and no need to reverse with vitamin K or FFP's. Qualifiers: Atrial fibrillation type: chronic Qualified Code(s): I48.2 - Chronic atrial fibrillation (9) CKD (chronic kidney disease) stage 2, GFR 60-89 ml/min Current Visit: No Status: Acute Assessment and plan: Kidney function improved today. Not significantly changed compared to baseline I am holding her Lasix and lisinopri. We will continue to monitor. (10) CAD (coronary artery disease) Current Visit: Yes Status: Chronic Assessment and plan: Medically treated. Patient was on a KANDY inhibitor. I do not see that she is on a beta rolanda. May have to add a beta rolanda at discharge. Qualifiers: Coronary Disease-Associated Artery/Lesion type: [place] artery [place] vs. transplanted heart: [place] heart Associated angina: without angina Qualified Code(s): I25.10 - Atherosclerotic heart disease of [place] coronary artery without angina pectoris (11) DVT prophylaxis Current Visit: Yes Status: Acute Assessment and plan: Coumadin per pharmacy. INR is supratherapeutic. - Subjective Interval history: Patient seen and examined. She is complaining of chest pain in the mid chest with radiation to the throat that feels like pressure. This started about 45 minutes ago. Continuous. She is at the bedside commode in feels comfortable there and is not wanting to go back to bed. Otherwise she has been afebrile. She remains on 2 L of nasal cannula oxygen. - Constitutional Vitals: Temp Pulse Resp BP Pulse Ox 98.3 F 70 16 115/60 99 02/19/17 07:06 02/19/17 07:06 02/19/17 07:06 02/19/17 07:06 02/19/17 07:06 General appearance: Present: cooperative, mild distress (Respiratory), A&O X 3, morbidly obese, pleasant, answers questions appropriately Exam: GEN: NAD CVS: RRR. S1, S2, No m/r/g RESP: diminshed. I hear no wheezes. coarse at the bases. Crackles at the bases. ABD: Soft, NT, ND, +BS EXT: trace LE edema. 2+ DP. No rashes NEURO: Nonfocal Internal Medicine: Result - Labs CBC & Chem 7: 02/19/17 04:24 02/19/17 04:24 Labs: Short CBC 02/19/17 Range/Units 04:24 WBC 5.9 (4.3-11.1) K/mcL Hgb 9.5 L (11.5-15.4) g/dL Hct 30.5 L (35.3-44.9) % Plt Count 200 (140-400) K/mcL Neutrophils # 3.6 (1.6-8.9) K/mcL BMP 02/19/17 04:24 Sodium 139 Potassium 4.0 Chloride 105 Carbon Dioxide 27 BUN 23 Creatinine 1.18 Glucose 71 Calcium 8.8 Liver Function 02/19/17 Range/Units 04:24 Total Bilirubin 0.4 (0.3-1.0) mg/dL AST 23 (13-39) Units/L ALT 13 (7-52) Units/L Alkaline Phosphatase 47 (34-104) Units/L Albumin 3.7 (3.5-5.7) g/dL - ABG Interpretation ABG results: PT/INR, D-dimer PT 45.1 Seconds (9.4-12.1) H* D 02/19/17 04:24 Consult Discharge Plan - Plan Referrals: Salvador Umana MD [Primary Care Provider] -
[2017-02-19] MEDS: Lactobacillus 1 EACH CAP.SPRINK PO SCH (09:38)
[2017-02-19] MEDS: Oseltamivir Phosphate 30 MG CAPSULE PO SCH ×2 (09:38→20:25)
[2017-02-19] MEDS: Loratadine 10 MG TABLET PO SCH (09:39)
[2017-02-19] MEDS: Ascorbic Acid 500 MG TABLET PO SCH ×2 (09:39→20:25)
[2017-02-19] MEDS: GuaiFENesin/Dextromethorphan TABLET PO SCH ×2 (09:39→20:25)
[2017-02-19] MEDS: Beclomethasone 80mcg MDI IH SCH ×2 (10:41→21:15)
--- NOTE | 2017-02-19 15:59 | Electrocardiograph Report ---
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
--- NOTE | 2017-02-19 16:55 | Electrocardiograph Report ---
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
--- NOTE | 2017-02-19 16:59 | Electrocardiograph Report ---
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
[2017-02-19] MEDS ORDERED: Vancomycin 1,000 MG in D5% in Water 250 ML IVPB SCH (20:00)
[2017-02-19] MEDS: Insulin DETEMIR 100 UNIT/ML X5UNITS SQ SCH (22:59)
[2017-02-20] MEDS: *HR* OxyCODONE Immed Rel 5 MG TABLET PO PRN ×4 (03:03→22:05)
[2017-02-20 04:19] LABS: Basophils % 0.2 %; Eosinophils % 0.6 %; Hematocrit 30.3 % (35.3-44.9); Hemoglobin 9.3 g/dL (11.5-15.4); Immature Granulocytes % 0.2 % (0-4); Lymphocytes # 1.5 K/mcL (0.6-4.6); Lymphocytes % 28.8 %; Mean Corpuscular HGB Conc 30.7 g/dL (31.6-35.5); Mean Corpuscular Hemoglobin 27.4 pg (28.0-33.3); Mean Corpuscular Volume 89.4 fL (83.0-100.0); Mean Platelet Volume 9.3 fL (9.4-12.4); Monocytes # 0.5 K/mcL (0.0-1.3); Monocytes % 10.1 %; Neutrophils # 3.2 K/mcL (1.6-8.9); Platelet Count 180 K/mcL (140-400); Red Blood Count 3.39 M/mcL (3.82-4.97); Red Cell Distribution Width 14.8 % (11.5-14.5); Segmented Neutrophils % 60.1 %
[2017-02-20 04:29] LABS: INR 3.4; Prothrombin Time 37.8 Seconds (9.4-12.1)
[2017-02-20 04:31] LABS: Alanine Aminotransferase 12 Units/L (7-52); Albumin 3.7 g/dL (3.5-5.7); Albumin/Globulin Ratio 1.4 (1.1-2.2); Alkaline Phosphatase 53 Units/L (34-104); Aspartate Amino Transferase 20 Units/L (13-39); BUN/Creatinine Ratio 17 (6-26); Bilirubin,Total 0.5 mg/dL (0.3-1.0); Blood Urea Nitrogen 16 mg/dL (8-23); Calcium 8.9 mg/dL (8.6-10.3); Carbon Dioxide 25 mEq/L (23-29); Chloride 105 mEq/L (98-107); Globulin 2.6 g/dL (2.4-3.5); Glucose 100 mg/dL (70-105); Osmolality,Calculated 285 (280-300); Potassium 4.1 mEq/L (3.5-5.1); Sodium 137 mEq/L (136-145); Total Protein 6.3 g/dL (6.4-8.9); eGFR For African Americans > 60 (> 60); eGFR For Non-African Americans > 60 (> 60)
[2017-02-20] MEDS: Ipratropium/Albuterol Neb 3 ML IH SCH ×4 (04:52→22:34)
[2017-02-20] MEDS: Piperacillin/Tazobactam 3.375 GM/200 ML BAG IVPB SCH (05:47)
[2017-02-20] MEDS: Insulin LISPRO 300 UNITS/3 ML VIAL SQ SCH ×4 (10:36→21:25)
[2017-02-20] MEDS ORDERED: Aminoglycoside Consult 1 EACH MC ONE (10:44)
[2017-02-20] MEDS: Lactobacillus 1 EACH CAP.SPRINK PO SCH (10:50)
[2017-02-20] MEDS: GuaiFENesin/Dextromethorphan TABLET PO SCH ×2 (10:50→21:06)
[2017-02-20] MEDS: Oseltamivir Phosphate 30 MG CAPSULE PO SCH ×2 (10:50→21:06)
[2017-02-20] MEDS: Loratadine 10 MG TABLET PO SCH (10:50)
[2017-02-20] MEDS: Ascorbic Acid 500 MG TABLET PO SCH ×2 (10:51→21:06)
[2017-02-20] MEDS: Beclomethasone 80mcg MDI IH SCH ×2 (11:05→22:34)
--- NOTE | 2017-02-20 12:30 | Internal Med Progress Note ---
Date of Encounter: 02/20/17 Time of Encounter: 08:40 - Assessment and plan (1) Chest pain Current Visit: Yes Status: Acute Assessment and plan: Repeat EKG with no ST or T-wave changes. Troponin came back at 0.08 which is consistent with previous troponins levels. Chest x-ray was unremarkable. Her BNP level was checked at that time yesterday and it came back lower than admission. Will continue to monitor Qualifiers: Chest pain type: unspecified Qualified Code(s): R07.9 - Chest pain, unspecified (2) Pneumonia Current Visit: Yes Status: Acute Assessment and plan: The patient has been started on broad-spectrum antibiotics with Zosyn and Vanco. I do not see a reason to continue those. We will stop them today. We will keep her on Tamiflu. This is day 4. Tomorrow at the last day. She is positive for influenza A. Continue with nebulizer treatment. Continue with oxygen and wean that down as tolerated. Qualifiers: Pneumonia type: due to unspecified organism Laterality: unspecified laterality Lung location: unspecified part of lung Qualified Code(s): J18.9 - Pneumonia, unspecified organism (3) Influenza A Current Visit: Yes Status: Acute Assessment and plan: As above the patient has been started on Tamiflu renaly dosed. (4) Acute exacerbation of CHF (congestive heart failure) Current Visit: Yes Status: Acute Assessment and plan: Improving.. She has a history of systolic failure. Repeat BNP level is improving. I will restart the patient's Lasix which has been on hold due to worsening kidney function. Kidney function is improving. Continue with nebulizer treatment. Wean off oxygen as tolerated. Qualifiers: Congestive heart failure type: combined Qualified Code(s): I50.43 - Acute on chronic combined systolic (congestive) and diastolic (congestive) heart failure (5) Elevated troponin Current Visit: Yes Status: Chronic Assessment and plan: Had elevated troponins admission which were consistent with previous numbers. She does have chest pain now. I will repeat troponins levels. May need a cardiology consultation. Seems that she has had chronically elevated trops. On admission here it was 0.10 and went down to 0.08 and then 0.08 again. Back in December it was 0.09. In the past has been at 0.05. This could be elevated because of an STEMI type II. She does have a history of A. fib CHF and chronic kidney disease which could cause elevation in her troponins. (6) Diabetes Current Visit: Yes Status: Chronic Assessment and plan: Continue with Levemir at 60 units at night for now. Continue with insulin sliding scale and Accu-Cheks. Qualifiers: Diabetes mellitus type: type 2 Diabetes mellitus complication status: with unspecified complications Diabetes mellitus jail insulin use: with jail use Qualified Code(s): E11.8 - Type 2 diabetes mellitus with unspecified complications; Z79.4 - FDC (current) use of insulin (7) HTN (hypertension) Current Visit: Yes Status: Chronic Assessment and plan: Blood pressure is stable. Resume Lasix. Hold lisinopril. If acute kidney injury is not an issue by tomorrow I may resume her lisinopril. Her kidney function is improving for now. Qualifiers: Hypertension type: essential hypertension Qualified Code(s): I10 - Essential (primary) hypertension (8) Atrial fibrillation Current Visit: No Status: Chronic Assessment and plan: Patient is rate controlled. She is not on any rate controlling agents however. She does have a pacemaker. We will continue his Coumadin per pharmacy. Her INR is finally coming down. It started 4.1 today from 8.0. No signs of bleeding and no need to reverse with vitamin K or FFP's. Qualifiers: Atrial fibrillation type: chronic Qualified Code(s): I48.2 - Chronic atrial fibrillation (9) CKD (chronic kidney disease) stage 2, GFR 60-89 ml/min Current Visit: No Status: Acute Assessment and plan: Kidney function improved again today. Resume Lasix and continue to hold lisinopril. Labs in the morning. (10) CAD (coronary artery disease) Current Visit: Yes Status: Chronic Assessment and plan: Medically treated. Patient was on a KANDY inhibitor. I do not see that she is on a beta rolanda. May have to add a beta rolanda at discharge. Qualifiers: Coronary Disease-Associated Artery/Lesion type: [place] artery [place] vs. transplanted heart: [place] heart Associated angina: without angina Qualified Code(s): I25.10 - Atherosclerotic heart disease of [place] coronary artery without angina pectoris (11) DVT prophylaxis Current Visit: Yes Status: Acute Assessment and plan: Coumadin per pharmacy. INR is supratherapeutic. - Subjective Interval history: Patient seen and examined. No acute events. She says her breathing is much improved. She denies any chest pains morning. Her workup for the chest pain yesterday was unremarkable. She had elevated troponins however was consistent with a previous troponins levels. she has been afebrile. She remains on 1-2 L of nasal cannula oxygen. Awaiting placement - Constitutional Vitals: Temp Pulse Resp BP Pulse Ox 98.4 F 70 22 149/84 93 02/20/17 11:54 02/20/17 11:54 02/20/17 11:54 02/20/17 11:54 02/20/17 11:54 General appearance: Present: cooperative, mild distress (Respiratory), A&O X 3, morbidly obese, pleasant, answers questions appropriately Exam: GEN: NAD CVS: RRR. S1, S2, No m/r/g RESP: diminshed. I hear no wheezes. coarse at the bases. Crackles at the bases. ABD: Soft, NT, ND, +BS EXT: trace LE edema. 2+ DP. No rashes NEURO: Nonfocal Internal Medicine: Result - Labs CBC & Chem 7: 02/20/17 04:08 02/20/17 04:08 Labs: Short CBC 02/20/17 Range/Units 04:08 WBC 5.3 (4.3-11.1) K/mcL Hgb 9.3 L (11.5-15.4) g/dL Hct 30.3 L (35.3-44.9) % Plt Count 180 (140-400) K/mcL Neutrophils # 3.2 (1.6-8.9) K/mcL BMP 02/20/17 04:08 Sodium 137 Potassium 4.1 Chloride 105 Carbon Dioxide 25 BUN 16 Creatinine 0.92 Glucose 100 Calcium 8.9 Liver Function 02/20/17 Range/Units 04:08 Total Bilirubin 0.5 (0.3-1.0) mg/dL AST 20 (13-39) Units/L ALT 12 (7-52) Units/L Alkaline Phosphatase 53 (34-104) Units/L Albumin 3.7 (3.5-5.7) g/dL - ABG Interpretation ABG results: PT/INR, D-dimer PT 37.8 Seconds (9.4-12.1) H 02/20/17 04:08 - Impressions Impressions Chest X-Ray 02/19/17 08:47 IMPRESSION: Cardiomegaly without acute process. D/ / 02/19/2017 09:43:18 Brodie Schmidt MD / kolby Interpreting Provider: Brodie Schmidt MD Consult Discharge Plan - Plan Referrals: Salvador Umana MD [Primary Care Provider] -
[2017-02-20] MEDS: Furosemide 40 MG TABLET PO SCH (18:08)
[2017-02-20] MEDS: Insulin DETEMIR 100 UNIT/ML X5UNITS SQ SCH ×2 (21:06→21:18)
[2017-02-21] MEDS: Ipratropium/Albuterol Neb 3 ML IH SCH ×2 (03:53→09:59)
[2017-02-21] MEDS: *HR* OxyCODONE Immed Rel 5 MG TABLET PO PRN ×2 (04:46→09:33)
[2017-02-21 06:06] LABS: Hematocrit 31.9 % (35.3-44.9); Hemoglobin 9.9 g/dL (11.5-15.4); Mean Corpuscular Hemoglobin 27.7 pg (28.0-33.3); Mean Corpuscular Volume 89.1 fL (83.0-100.0); Platelet Count 188 K/mcL (140-400); Red Blood Count 3.58 M/mcL (3.82-4.97); Red Cell Distribution Width 14.8 % (11.5-14.5)
[2017-02-21 06:09] LABS: INR 3.2; Prothrombin Time 34.9 Seconds (9.4-12.1)
[2017-02-21 06:20] LABS: Alanine Aminotransferase 10 Units/L (7-52); Albumin 3.9 g/dL (3.5-5.7); Albumin/Globulin Ratio 1.4 (1.1-2.2); Alkaline Phosphatase 54 Units/L (34-104); Aspartate Amino Transferase 20 Units/L (13-39); BUN/Creatinine Ratio 14 (6-26); Bilirubin,Total 0.6 mg/dL (0.3-1.0); Blood Urea Nitrogen 13 mg/dL (8-23); Calcium 9.3 mg/dL (8.6-10.3); Carbon Dioxide 27 mEq/L (23-29); Chloride 103 mEq/L (98-107); Globulin 2.8 g/dL (2.4-3.5); Glucose 120 mg/dL (70-105); Osmolality,Calculated 287 (280-300); Potassium 3.9 mEq/L (3.5-5.1); Sodium 138 mEq/L (136-145); Total Protein 6.7 g/dL (6.4-8.9); eGFR For African Americans > 60 (> 60); eGFR For Non-African Americans > 60 (> 60)
[2017-02-21 07:17] LABS: Lymphocytes # 2.7 K/mcL (0.6-4.6); Monocytes # 0.1 K/mcL (0.0-1.3); Neutrophils # 3.9 K/mcL (1.6-8.9); Platelet Estimate Normal (Normal)
[2017-02-21] MEDS: Insulin LISPRO 300 UNITS/3 ML VIAL SQ SCH ×2 (08:23→11:32)
[2017-02-21] MEDS: GuaiFENesin/Dextromethorphan TABLET PO SCH (09:33)
[2017-02-21] MEDS: Loratadine 10 MG TABLET PO SCH (09:33)
[2017-02-21] MEDS: Furosemide 40 MG TABLET PO SCH (09:33)
[2017-02-21] MEDS: Lactobacillus 1 EACH CAP.SPRINK PO SCH (09:33)
[2017-02-21] MEDS: Ascorbic Acid 500 MG TABLET PO SCH (09:33)
[2017-02-21] MEDS: Oseltamivir Phosphate 30 MG CAPSULE PO SCH (09:34)
[2017-02-21] MEDS: Beclomethasone 80mcg MDI IH SCH (09:59)
--- NOTE | 2017-02-21 10:33 | Discharge Summary ---
Date of Encounter: 02/21/17 Time of Encounter: 10:45 - Discharge Diagnosis (1) Chest pain Priority: Primary Status: Acute Qualifiers: Chest pain type: unspecified Qualified Code(s): R07.9 - Chest pain, unspecified (2) Pneumonia Priority: Primary Status: Acute Qualifiers: Pneumonia type: due to unspecified organism Laterality: unspecified laterality Lung location: unspecified part of lung Qualified Code(s): J18.9 - Pneumonia, unspecified organism (3) Influenza A Priority: Primary Status: Acute (4) Acute exacerbation of CHF (congestive heart failure) Priority: Primary Status: Acute Qualifiers: Congestive heart failure type: combined Qualified Code(s): I50.43 - Acute on chronic combined systolic (congestive) and diastolic (congestive) heart failure (5) Elevated troponin Priority: Secondary Status: Chronic (6) Diabetes Priority: Secondary Status: Chronic Qualifiers: Diabetes mellitus type: type 2 Diabetes mellitus complication status: with unspecified complications Diabetes mellitus long term care pharmacist insulin use: with detention use Qualified Code(s): E11.8 - Type 2 diabetes mellitus with unspecified complications; Z79.4 - termination clerk (current) use of insulin (7) HTN (hypertension) Priority: Secondary Status: Chronic Qualifiers: Hypertension type: essential hypertension Qualified Code(s): I10 - Essential (primary) hypertension (8) Atrial fibrillation Priority: Secondary Status: Chronic Qualifiers: Atrial fibrillation type: chronic Qualified Code(s): I48.2 - Chronic atrial fibrillation (9) CKD (chronic kidney disease) stage 2, GFR 60-89 ml/min Priority: Secondary Status: Acute (10) CAD (coronary artery disease) Priority: Secondary Status: Chronic Qualifiers: Coronary Disease-Associated Artery/Lesion type: minto artery [place] vs. transplanted heart: minto heart Associated angina: without angina Qualified Code(s): I25.10 - Atherosclerotic heart disease of minto coronary artery without angina pectoris - Discharge Medications Prescriptions: Oxycodone HCl 5 mg PO Q4H PRN #12 tablet PRN Reason: Pain Home Medications: Insulin DETEMIR [Levemir] 50 unit SQ HS 04/05/16 [History] Loratadine [Claritin] 10 mg PO QAM 04/05/16 [History] Montelukast [Singulair] 10 mg PO HS 04/05/16 [History] SitaGLIPtin [Januvia] 100 mg PO DAILY 04/05/16 [History] Albuterol Sulfate [Proair Hfa] 2 puff IH Q4H PRN 04/06/16 [History] Beclomethasone Diprop 80mcg [QVAR 80 mcg] 1 puff IH BID 04/06/16 [History] Metformin HCl [Metformin HCl ER] 2,000 mg PO QPM 04/06/16 [History] Furosemide [Lasix] 40 mg PO BID 05/03/16 [History] Ascorbate Calcium [Vitamin C] 500 mg PO BID #60 tablet 09/15/16 [Rx] Ferrous Sulfate 325 mg PO BIDWM #60 tablet 09/15/16 [Rx] Albuterol Neb [Proventil Neb] 2.5 mg IH Q6H PRN #60 inhsol 12/05/16 [Rx] Lisinopril [Zestril] 2.5 mg PO DAILY 12/22/16 [History] Acetaminophen [Tylenol] 650 mg PO Q6HR PRN 12/31/16 [History] Warfarin Sodium 2.5 mg PO DAILY 12/31/16 [History] Potassium Chloride [Klor-Con 10] 20 meq PO DAILY 02/16/17 [History] Oxycodone HCl 5 mg PO Q4H PRN #12 tablet 02/21/17 [Rx] Allergies/Adverse Reactions: 3 Allergy/AdvReac Type Severity Reaction Status Date / Time No Known Allergies Allergy Verified 12/22/16 11:47 Procedures/tests Complete & Pending: Procedures Performed prior 72 hours Category Date Time Status ECG 12 lead ECG [ECG] Stat Y 02/19/17 21:03 Completed EKG [ECG 12 lead ECG] [ECG] Stat Y 02/19/17 08:40 Completed EKG [ECG 12 lead ECG] [ECG] Stat Y 02/19/17 08:45 Completed Date of admission: 02/16/17 20:22 Primary care physician: Salvador Umana MD - Patient Status Disposition: Transfer SNF Overall status at discharge: patient is progressing back to baseline - Discharge Instructions Follow Up With: Salvador Umana MD [Primary Care Provider] - (Will see the SNF doctor. Thank you) - Diet and Activity Activity: resume usual activities as tolerated, wear oxygen at all times Diet: diabetic diet Hospital course: Ms. Vilchis is a 66 year old female with medical hx of controlled with insulin and oral antihyperglycemic medications, HLD, and HTN who presented to the ED with chief complaint of shortness of breath and dyspnea that began the day prior. She presented from home, although she was just discharged from a snf facility the day prior. She had a temperature of 102 apparently at home. She tested positive for influenza B while hospitalized. We had her on Tamiflu. She finished 5 days of that. Initially she was on broad -spectrum antibiotics however I discontinued those 2 days into her stay as her cultures remain negative other than the flu. She had a workup in the ED that showed she had a WBC count of 3.1. Her INR was supratherapeutic and she is on Coumadin and it was 6.6 and all she was hospitalized did go down to 3.2 with holding Coumadin. Her creatinine on initial presentation was 1.19 and it did go up to 1.33. There was questionable exacerbation of CHF however I do not believe that she was significantly volume overloaded and I continue the patient on her oral Lasix. BNP on admission was 742 later in the stay was 302. She did have mildly elevated troponins of 0.08 which is consistent with her previous troponins levels. He had no chest pain. After finishing 5 days of Tamiflu the patient was discharged to a snf facility. - Time Spent with Patient Total time spent providing and/or coordinating discharge services: Greater than 30 minutes - Constitutional Vitals: Temp Pulse Resp BP Pulse Ox 97.8 F 71 18 135/87 98 02/21/17 06:50 02/21/17 06:50 02/21/17 10:02 02/21/17 06:50 02/21/17 10:02 General appearance: Present: cooperative, mild distress (Respiratory), A&O X 3, morbidly obese, pleasant, answers questions appropriately Exam: GEN: NAD CVS: RRR. S1, S2, No m/r/g RESP: diminshed. I hear no wheezes. coarse at the bases. Crackles at the bases. ABD: Soft, NT, ND, +BS EXT: trace LE edema. 2+ DP. No rashes NEURO: Nonfocal
--- NOTE | 2017-02-21 10:35 | Physician Discharge Referral ---
ExtendedCare Referral Info Institutional Level of Care: Skilled - Diagnosis (1) Chest pain Priority: Primary Status: Acute (2) Pneumonia Priority: Primary Status: Acute (3) Influenza A Priority: Primary Status: Acute (4) Acute exacerbation of CHF (congestive heart failure) Priority: Primary Status: Acute (5) Elevated troponin Priority: Secondary Status: Chronic (6) Diabetes Priority: Secondary Status: Chronic (7) HTN (hypertension) Priority: Secondary Status: Chronic (8) Atrial fibrillation Priority: Secondary Status: Chronic (9) CKD (chronic kidney disease) stage 2, GFR 60-89 ml/min Priority: Secondary Status: Acute (10) CAD (coronary artery disease) Priority: Secondary Status: Chronic - Transfer Medications Home Medications: Insulin DETEMIR [Levemir] 50 unit SQ HS 04/05/16 [History] Loratadine [Claritin] 10 mg PO QAM 04/05/16 [History] Montelukast [Singulair] 10 mg PO HS 04/05/16 [History] SitaGLIPtin [Januvia] 100 mg PO DAILY 04/05/16 [History] Albuterol Sulfate [Proair Hfa] 2 puff IH Q4H PRN 04/06/16 [History] Beclomethasone Diprop 80mcg [QVAR 80 mcg] 1 puff IH BID 04/06/16 [History] Metformin HCl [Metformin HCl ER] 2,000 mg PO QPM 04/06/16 [History] Furosemide [Lasix] 40 mg PO BID 05/03/16 [History] Ascorbate Calcium [Vitamin C] 500 mg PO BID #60 tablet 09/15/16 [Rx] Ferrous Sulfate 325 mg PO BIDWM #60 tablet 09/15/16 [Rx] Albuterol Neb [Proventil Neb] 2.5 mg IH Q6H PRN #60 inhsol 12/05/16 [Rx] Lisinopril [Zestril] 2.5 mg PO DAILY 12/22/16 [History] Acetaminophen [Tylenol] 650 mg PO Q6HR PRN 12/31/16 [History] Warfarin Sodium 2.5 mg PO DAILY 12/31/16 [History] Oxycodone HCl 5 mg PO Q4H PRN #42 tablet 01/04/17 [Rx] Potassium Chloride [Klor-Con 10] 20 meq PO DAILY 02/16/17 [History] Allergies/Adverse Reactions: 3 Allergy/AdvReac Type Severity Reaction Status Date / Time No Known Allergies Allergy Verified 12/22/16 11:47 - Respiratory Orders Smoking Cessation: Smoking cessation has been advised. For more information, call the [place] Tobacco Quit Line at 9-825-RRTO-NOW. CERTIFICATION: I certify that the transfer of the above named patient to an Extended Care Facility is necessary for the continuing treatment of the diagnosis listed. The above information is true and accurate reflection of patient's current condition. Confidential - Redisclosure prohibited without a patient's written consent.
[2017-02-21 10:57] VITALS: BP 150/86
--- NOTE | 2017-02-21 16:16 | Electrocardiograph Report ---
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
== END 2017-02-21 12:38 | DRG 193 ==
LOC: EMEROO 14:34 → 3ANU 14:34
PROVIDERS: ADMIT Nurse Practitioner Family; ATTEND Internal Medicine